=== PATIENT | male | born 1985 | race Caucasian/White ===

== ENCOUNTER 2021-08-16 00:17 | Emergency (ER) | payer SELFPAY ==
[2021-08-16 00:18] VITALS: BP 156/96; PULSE 98; RESP 20; TEMP 36.7; O2SAT 92; BMI 44.7
[2021-08-16 00:31] LABS: Bedside Glucose 271 mg/dL (70-110)
--- NOTE | 2021-08-16 00:34 | CT_ITS ---
STUDY: CT CERVICAL SPINE WITHOUT CONTRAST REASON FOR EXAM: Male, 36 years old. head injury RADIATION DOSAGE (If Supplied By Facility): CTDIvol = ( 37.43 ) mGy, DLP = ( 913.94 ) mGycm TECHNIQUE: High resolution transaxial imaging was performed without contrast material. Sagittal and coronal images were reconstructed. Individualized dose optimization techniques were used for this CT. COMPARISON: None FINDINGS: Normal craniovertebral junction. Normal anterior atlantoaxial articulation. Normal odontoid process. There is straightening of the normal cervical lordosis. Normal vertebral bodies and posterior osseous elements. C2-3: Normal endplates. Normal disc height and morphology. Normal central canal and intervertebral neuroforamina. C3-4: Normal endplates. Normal disc height and morphology. Normal central canal and intervertebral neuroforamina. C4-5: Normal endplates. Normal disc height and morphology. Normal central canal and intervertebral neuroforamina. C5-6: Normal endplates. Normal disc height and morphology. Normal central canal and intervertebral neuroforamina. C6-7: Normal endplates. Normal disc height and morphology. Normal central canal and intervertebral neuroforamina. C7-T1: Normal endplates. Normal disc height and morphology. Normal central canal and intervertebral neuroforamina. Normal visualized soft tissue structures. CT/Spine Cervical without Contras IMPRESSION: Negative unenhanced CT examination of the cervical spine for acute fracture or subluxation. Electronically Signed: Raphael Damon MD at 1:22 EST ,
--- NOTE | 2021-08-16 00:34 | CT_ITS ---
STUDY: CT BRAIN WITHOUT CONTRAST REASON FOR EXAM: Male, 36 years old. head injury RADIATION DOSAGE (If Supplied By Facility): CTDIvol = ( 44.99 ) mGy, DLP = ( 914.22 ) mGycm TECHNIQUE: Transaxial CT imaging of the brain was performed without administration of intravenous contrast material. Individualized dose optimization techniques were used for this CT. COMPARISON: No relevant priors. FINDINGS: Normal soft tissue structures. Normal calvarium. Normal size ventricles and extra-axial spaces for the patient''s age. Normal white matter tracts of the cerebral hemispheres. Normal basal ganglia and thalami. Normal brainstem. Normal cerebellum. There is no intracranial hemorrhage. There are no findings of an acute ischemic infarction. Normal visualized paranasal sinuses. CT/Brain/Head without Contrast IMPRESSION: Negative unenhanced CT scan of the brain. Electronically Signed: Raphael Damon MD at 1:18 EST ,
--- NOTE | 2021-08-16 00:50 | RAD_ITS ---
STUDY: X-RAY - LEFT ELBOW REASON FOR EXAM: Male, 36 years old. injury TECHNIQUE: 3 view(s) of the elbow. COMPARISON: None. FINDINGS: Normal visualized humerus, radius and ulna. Normal radiocapitellar and ulnotrochlear articulations. The soft tissue structures are unremarkable. RAD/Elbow min 3 Views IMPRESSION: Negative x-ray examination of the elbow. No acute fracture or dislocation. Electronically Signed: Raphael Damon MD at 1:28 EST ,
--- NOTE | 2021-08-16 00:52 | EDS_ITS ---
HPI History of Present Illness Chief Complaint: ETOH Intox Narrative Narrative: Patient is a 36-year-old male brought in by police secondary to fall as well as alcohol intoxication and exposure to the elements. Please states that the patient could not get into his apartment and was stuck outside in the cold and rain. They state that they were advising him to come down the stairs when he slipped and fell. Please report that the patient did not have any loss of consciousness but reportedly fell approximately 15 steps. The patient is intoxicated and does not offer any further history and with police concern for underlying trauma from the fall as well as exposure to the elements he was brought in for evaluation [facility] Medical History unable to obtain unable to obtain Allergy/AdvReac Type Severity Reaction Status Date / Time No Known Allergies Allergy Verified 04/10/20 15:49 Social History (Updated 07/26/20 @ 11:42 by Micheal ZURITA, PA) Smoking Status: Never smoker ROS ROS ED Review of Systems ROS Unobtainable: due to mental status EXAM Physical Exam Const Vital Signs: 08/16/21 00:18 08/16/21 00:26 08/16/21 01:11 Temperature 98.0 F 98 F Temperature Source Oral Oral Pulse Rate 98 68 Respiratory Rate 20 H 12 Respiratory Effort Normal Respiratory Pattern Normal Blood Pressure 156/96 H Blood Pressure Mean 116 Pulse Ox 92 Oxygen Delivery Method Room Air Positive well nourished, well developed and obese General Appearance ED: well developed Nutritional Appearance: obese HEENT HEENT Narrative: No signs of depressed or basilar skull fracture Eyes PERRL and EOMs intact bilaterally Eyes Narrative: Sclera is injected and he has horizontal nystagmus consistent wi th alcohol intoxication Neck Neck Narrative: No bony deformity or step-off of the cervical spine no midline pain on palpation Chest Wall palpation of chest normal Chest Narrative: No bony deformity or crepitance noted Resp normal respiratory effort and clear to auscultation bilaterally Resp Narrative: Breath sounds are diminished throughout but overall clear to auscultation with no signs of distress Cardio regular rate and regular rhythm GI normal to inspection, nondistended, normoactive bowel sounds, non-tender, non- distended and no masses GI Narrative: No overlying abrasions or ecchymosis noted no voluntary guarding or rigidity no pulsatile mass Auscultation: normoactive bowel sounds Palpation: soft Back/Spine Back/Spine Narrative: No bony deformity or step-off of the thoracic or lumbar spine no midline pain with palpation Extremity Extremity Narrative: Patient has a superficial abrasion with soft tissue swelling to the posterior aspect of his left elbow without obvious bony deformity or joint effusion. There is full active range of motion noted. The pelvis is stable without shortening or external rotation of either lower extremity. There is a superficial abrasion over top the left upper hip region. Remainder of the exam is normal Neuro Neuro Narrative: Patient is obtunded with GCS of 13. He will awake to voice and he is able to move all extremities and there is no obvious focal neurologic deficit. Psych Psych Narrative: Patient has a flat/depressed affect Skin Skin Narrative: Superficial abrasions to the left elbow and left hip as documented above without secondary infectious process noted MDM MDM MDM Narrative Medical decision making narrative: Patient presented to the ER obtunded with history and exam consistent with alcohol intoxication. He had superficial abrasions consistent with report of fall from the police chief but no signs of depressed or basilar skull fracture. However as he does have alcohol on board CTs of his head and cervical spine were obtained. These showed no clinically significant findings. I also elected to perform an x-ray of his elbow secondary to this being an area of swelling and abrasion which also showed no acute fracture. Therefore at this time the patient's alcohol is elevated at 287 and he will be kept in the emergency department until his alcohol level approaches 100 which would be approximately 10 AM or a sober responsible adult can come and accept responsibility for him. The patient did have improvement of his mental status as time went on consistent with metabolizing the alcohol. He was able to walk to and from the bathroom with a steady gait. At this time however his alcohol level still be above the legal and medically acceptable limit for disc harge also he does not have a ride yet with the inclement weather. Therefore we will continue to watch him in the ER but patient is safe for discharge based on his normal imaging results as well as improvement in mental status with time Lab Data Attestation: I reviewed the patient's lab results. Labs: Laboratory Results - last 24 hr 08/16/21 08/16/21 00:24 00:45 Ethyl Alcohol 287.0 POC Glucose 271 H Radiography Diagnostic Testing: Clinical Impression(s) from Imaging Studies Brain CT 08/16/21 00:34 IMPRESSION: Negative unenhanced CT scan of the brain. Electronically Signed: Raphael Damon MD at 1:18 EST , Cervical Spine CT 08/16/21 00:34 IMPRESSION: Negative unenhanced CT examination of the cervical spine for acute fracture or subluxation. Electronically Signed: Raphael Damon MD at 1:22 EST , Elbow X-Ray 08/16/21 00:50 IMPRESSION: Negative x-ray examination of the elbow. No acute fracture or dislocation. Electronically Signed: Raphael Damon MD at 1:28 EST , Discharge Plan Triage Chief Complaint: ETOH Intox ED Provider: Jamie Topete Dx/Rx/DC Orders Clinical Impression: Acute alcohol intoxication, Accidental fall, Multiple abrasions Instructions: ED Alcohol Intoxication, ED Head Injury (Adult) Primary Care Provider: Kaitlyn Bolanos Referrals: Kaitlyn Bolanos, [Primary Care Provider] - Disposition Disposition: Home, Self Care
[2021-08-16 01:11] VITALS: PULSE 68; RESP 12; TEMP 36.6
[2021-08-16 07:22] VITALS: RESP 14
--- NOTE | 2021-08-16 10:49 | ED.RN ---
THIS RN AND MULTIPLE STAFF WITH A CRITICAL PT FOR A SIGNIFICANT AMOUNT OF TIME. THIS RN WENT TO WAKE THE PT AND PT IS NO LONGER IN ROOM.
== END 2021-08-16 10:51 | disposition home or self-care (01) ==
PROVIDERS: Emergency Provider Emergency Medicine; PCP Internal Medicine; Visit Provider Emergency Medicine
DX: F10.129 Alcohol abuse with intoxication, unspecified (principal); S50.312A Abrasion of left elbow, initial encounter; S70.212A Abrasion, left hip, initial encounter; W10.9XXA Fall (on) (from) unspecified stairs and steps, initial encounter
CPT/HCPCS: 70450; 72125; 73080; 82077; 82962; 99283

== ENCOUNTER 2024-01-04 15:51 | Outpatient (RCR) | payer BC, SELFPAY | END 2024-01-20 23:59 | LOC: NS 15:51 | PROVIDERS: PCP Internal Medicine; Referring Provider Internal Medicine; Visit Provider Internal Medicine | DX: Z71.3 Dietary counseling and surveillance (principal); E66.9 Obesity, unspecified; Z68.41 Body mass index [BMI] 40.0-44.9, adult; E11.9 Type 2 diabetes mellitus without complications; I10 Essential (primary) hypertension; E78.5 Hyperlipidemia, unspecified | CPT/HCPCS: 97802 ==

== ENCOUNTER 2024-02-08 14:51 | Outpatient (RCR) | payer BC, SELFPAY | END 2024-02-20 23:59 | LOC: NS 14:51 | PROVIDERS: PCP Internal Medicine; Referring Provider Internal Medicine; Visit Provider Internal Medicine | DX: Z71.3 Dietary counseling and surveillance (principal); E66.9 Obesity, unspecified; Z68.41 Body mass index [BMI] 40.0-44.9, adult; E11.9 Type 2 diabetes mellitus without complications; E78.5 Hyperlipidemia, unspecified; I10 Essential (primary) hypertension | CPT/HCPCS: 97803 ==

== ENCOUNTER 2024-03-08 07:28 | Outpatient (RCR) | payer BC, SELFPAY | END 2024-03-21 23:59 | LOC: NS 07:28 | PROVIDERS: PCP Internal Medicine; Referring Provider Internal Medicine; Visit Provider Internal Medicine | DX: Z71.3 Dietary counseling and surveillance (principal); E66.9 Obesity, unspecified; Z68.42 Body mass index [BMI] 45.0-49.9, adult; I10 Essential (primary) hypertension; E78.5 Hyperlipidemia, unspecified | CPT/HCPCS: 97803 ==

== ENCOUNTER → 2024-06-07 | Outpatient (CLI) | payer OTHER, SELFPAY ==
--- NOTE | 2024-06-07 09:46 | US_ITS ---
STUDY: ABDOMINAL ULTRASOUND - RIGHT UPPER QUADRANT; ELASTOGRAPHY REASON FOR VISIT: Male, 38 years old. Fatty infiltration of the liver. TECHNIQUE: Ultrasound evaluation of the right upper quadrant was performed with real-time and static durbin-scale imaging. Point quantification shear wave elastography was performed ([employer]). TECHNICAL QUALITY: Adequate. COMPARISON: None. FINDINGS: Liver: The liver measures 16.2 cm. There is increased echogenicity consistent with fatty infiltration. The bile ducts are within normal limits. There is hepatic color flow. The direction of portal flow is hepatopetal. There is no demonstrated mass lesion. Median liver stiffness measured 10.4 kPa. Gallbladder: Normal distended gallbladder. The gallbladder wall measures 2 mm. There is a negative sonographic Boo''s sign. There is no pericholecystic fluid. There are no gallstones. There is a 3 mm x 3 mm x 3 mm gallbladder polyp adherent to the gallbladder wall. Common Bile Duct (C.B.D.): The common bile duct measures 5 mm. Pancreas: There is normal echogenicity of the visualized pancreas. There is no demonstrated pancreatic mass or cyst. Right Kidney: Normal size of the right kidney. The right kidney measures 13.4 cm x 7.7 cm x 7.4 cm. Normal renal cortex. The right cortex measures 2.6 cm. There is no demonstrated renal mass or cyst. There is no right hydronephrosis. US/Abdomen Limited IMPRESSION: 1. Liver stiffness measures 10.4 kPa compatible with F2-F3 (Mild to moderate liver fibrosis) Metavir score. 2. 3 mm x 3 mm x 3 mm gallbladder polyp. Fatty infiltration of the liver. Electronically Signed: Shane Shore MD at 15:20 EST ,
== END | disposition home or self-care (01) ==
PROVIDERS: PCP Internal Medicine; Referring Provider Internal Medicine; Visit Provider Internal Medicine
DX: K76.0 Fatty (change of) liver, not elsewhere classified (principal)
CPT/HCPCS: 76705

== ENCOUNTER → 2024-11-04 | Outpatient (CLI) | payer OTHER, SELFPAY ==
--- NOTE | 2024-11-04 12:41 | MRI_ITS ---
PROCEDURE: BRAIN W/WO CONTRAST 11/04/2024 REASON FOR EXAM: MRI BRAIN WITH T W/O CON. ATTN: PITUITARY- PITUITARY ABNORMAL TECHNIQUE: Routine brain MRI without and with intravenous contrast. Multiplanar and multisequence images were obtained. CONTRAST: Clariscan VOLUME: 27 mL Not Provided Gauge IV FINDINGS: BRAIN/PARENCHYMA: No evidence of acute infarction or acute intracranial hemorrhage. White matter demonstrates normal signal intensity.. No abnormal post-contrast enhancement. EXTRA-AXIAL SPACES: No abnormal extra-axial fluid collections. Patent basal cisterns and foramen magnum. MIDLINE SHIFT: None. VENTRICLES: No hydrocephalus. SKULL BASE: Pituitary is unremarkable. No suspicious mass or evidence of an adenoma. Optic chiasm is within normal limits. SCALP SOFT TISSUES & CALVARIUM: No significant abnormality. VISUALIZED SINUSES & MASTOIDS: No air-fluid levels in the paranasal sinuses. The mastoid air cells are clear. ARTERIAL FLOW VOIDS: Preserved major arterial flow voids indicating gross patency. MRI/Brain W/WO Contrast IMPRESSION: No acute intracranial abnormality No pituitary mass. Reading Location: [facility]
== END | disposition home or self-care (01) ==
LOC: OPMRI 12:31
PROVIDERS: PCP Internal Medicine; Referring Provider Internal Medicine; Visit Provider Internal Medicine
DX: E23.7 Disorder of pituitary gland, unspecified (principal)
CPT/HCPCS: 70553; A9575

== ENCOUNTER → 2025-01-31 | Outpatient (CLI) | payer OTHER, SELFPAY | END | disposition home or self-care (01) | LOC: LABSPEC 14:31 | PROVIDERS: PCP Internal Medicine; Referring Provider Surgery; Visit Provider Surgery | DX: Z01.818 Encounter for other preprocedural examination (principal) | CPT/HCPCS: 87081 ==

== ENCOUNTER 2025-02-09 09:40 | Day surgery (SDC) | payer OTHER, SELFPAY ==
[2025-02-09] VITALS (10 sets, daily range): BP systolic 114–138; BP diastolic 69–78; PULSE 18–98; RESP 14–16; TEMP 36.1–36.6; O2SAT 93–99; BMI 39.5
[2025-02-09] MEDS: Lactated Ringers 1,000 ML 15 ML IV (10:03)
--- NOTE | 2025-02-09 10:15 | PCM.PRE.AN2 ---
ASA Classification* ASA Classification ASA Classification: 3 Assessment & Plan Anesthesia* Anesthesia Assessment Anesthesia Assessment: Discussed sedation and/or anesthesia options, risks, benefits, and alternatives with patient/parents/legal guardian/POA. Questions invited. The patient/parents/legal guardian/POA seems to understand and agrees to proceed with anesthesia plan. Reviewed the physical assessment, medical history, allergy history and patient home medications list prior to surgery/procedure/anesthetic and documented any changes. Performed airway and anesthesia risk assessments. Anesthesia Type Anesthesia Type: General History Source History Obtained from:: Patient and Chart Anesthesia Focused Assessment* Temperature: 97.9 F Pulse Rate: 72 Blood Pressure: 138/78 Respiratory Rate: 16 Pulse Ox: 99 Airway Assessment Mouth opens: 2 cm Mallampati Score: III Teeth Condition: Intact Neck Range of motion (ROM): Full ROM Labs Anesthesia Preop lab: CBC WBC 8.8 K/mm3 (4.4-11.0) 06/23/14 13:06/23/14 RBC 5.43 M/mm3 (4.6-6.2) 06/23/14 13:06/23/14 Hgb 15.8 g/dl (13.0-16.5) 06/23/14 13:35 06/23/14 Hct 44.3 % (40-54) 06/23/14 13:06/23/14 Plt Count 234 K/mm3 (150-450) 06/23/14 13:35 06/23/14 CHEMISTRY Potassium 3.5 mmol/L (3.5-5.1) 06/23/14 13:35 06/23/14 Sodium 138 mmol/L (136-145) 06/23/14 13:35 06/23/14 BUN 6 mg/dL (7-18) L 06/23/14 13:35 06/23/14 Creatinine 0.9 mg/dL (0.8-1.3) 06/23/14:35 06/23/14 Glucose 89 mg/dL (70-110) 06/23/14 13:35 06/23/14 POC Glucose 271 mg/dL (70-110) H 08/16/21 00:24 08/16/21 TSH 1.47 uIU/mL (0.358-3.74) 06/23/14 13:35 06/23/14 COAG Pre-Assessment Diagnosis/Proposed Procedure Planned Operative Procedure(s): LAP ROBOTIC UMBILICAL HERNIA REPAIR Anesthesia History Anesthesia History - prenatal nurse: Anesthesia History - prenatal nurse Hx Hospitalization No 02/07/25 10:25 Any Problems With Anesthesia No 02/07/25 10:25 Cholinesterase deficiency No 02/07/25 10:25 You/Your Family Experience No 02/07/25 10:25 fever (hyperthermia) with Relationship Recent Exposure to Contagious No 02/09/25 09:59 Disease Does patient have nerve No 02/07/25 10:25 stimulator Patient instructed to have device shut off --Does patient have Pacemaker No 02/09/25 09:59 or ICD? When Was Last Pacemaker Check QUESTION #4 FULL TEXT: You/Your Family Experience fever (hyperthermia) with Anesthesia Last Oral Intake Last Oral intake: Last Oral Intake NPO since 08:30 02/09/25 09:59 Meds taken in AM with sips of No 02/09/25 09:59 water? Meds patient instructed to take am of surgery PONV PONV - prenatal nurse: PONV - prenatal nurse Female No 02/07/25 10:25 HX of Motion Sickness No 02/07/25 10:25 HX of N/V After Surgery No 02/07/25 10:25 Non-Smoker Yes 02/07/25 10:25 Duration of Surgery greater Yes 02/07/25 10:25 than 60 minutes Number of Risk Factors 2 02/07/25 10:25 PONV Score Moderate Risk 02/07/25 10:25 Height & Weight Height & Weight: Anesthesia: Height & Weight Height 6 ft 1 in 02/09/25 09:59 Weight: 136 kg 02/09/25 09:59 Body Mass Index (BMI) 39.5 02/09/25 09:59 Respiratory Assessment Respiratory Assessment - prenatal nurse: Respiratory Tract Infection Hx - prenatal nurse Hx Respiratory Tract Infection No 02/07/25 10:25 STOP Sleep Apnea STOP Sleep Apnea - prenatal nurse: STOP Sleep Apnea - prenatal nurse Hx Hypertension Yes: CONTROLLED WITH MED 02/07/25 10:25 Hx Sleep Apnea No 02/07/25 10:25 CPAP BIPAP Do you snore loudly (louder Yes 02/07/25 10:25 than talking or can be heard Do you often feel tired/ Yes 02/07/25 10:25 fatigued/ sleepy during daytime? Has anyone observed you stop No 02/07/25 10:25 breathing during sleep? STOP Results Positive 02/07/25 10:25 QUESTION #5 FULL TEXT : Do you snore loudly (louder than talking or can be heard through closed doors)? Tobacco Use History Tobacco Use History - prenatal nurse: Tobacco Use History - prenatal nurse Tobacco Use Smoking Status Never smoker 02/07/25 10:25 Hx Tobacco Use No 02/07/25 10:25 Years Smoking Packs Smoked per Day Smoking Cessation Date was within the last 15 years Hx Smoking Cessation Date Hx Smoking Cessation Counseling Hematologic Medial History Hematologic Hx - prenatal nurse: Hematologic Medical Hx - trial court justice Hx of Blood Transfusion No 02/07/25 10:25 Hx of Transfusion in last 3 No 02/07/25 10:25 Months Date of Last Transfusion (if within last 3 months) Ever experience any problems No 02/07/25 10:25 with transfusion(s)? Specify any problems Hx of Preganancy in last 3 N/A 02/07/25 10:25 Months Nurse Filling Out Transfusion DSCHRIBER 02/07/25 10:25 & Questions: Date: 02/07/25 02/07/25 10:25 Time: 10:27 02/07/25 10:25 Patient unable to answer at this time (ie. confused, unrespo /Reproduction History /Reproductive History - prenatal nurse: /Reproductive Hx- prenatal nurse Hx Now No 02/07/25 10:25 Gestational Age (in weeks): EDC: Hx Hx Para Hx Section SAB No 02/07/25 10:25 Active Medications Active Medications: Current Medications Generic Name Dose Route Start Last Admin Trade Name Freq PRN Reason Stop Dose Admin Cefazolin Sodium 3 gm/ Sodium 115 mls @ 200 mls/hr 02/09/25 11:15 Chloride IV 02/09/25 11:49 INTRAOP ONE Lactated Ringer's 1,000 mls @ 15 mls/hr 02/09/25 10:00 02/09/25 10:03 IV 15 mls/hr .Q48H TALIB Administration PFSH Medical History (Updated 02/07/25 @ 10:34 by Stacie Cedillo) Diabetes Fatty liver Dietary restriction Non-smoker Hypertension History of echocardiogram Umbilical hernia MDD (major depressive disorder) High triglycerides Home Medications ?Medication ?Instructions ?Recorded ?Last Taken ?Type empagliflozin 10 mg tablet 10 mg PO QDAY 06/07/24 01/17/25 History (Jardiance) losartan 100 1 tab PO QDAY 06/07/24 02/08/25 History mg-hydrochlorothiazide 25 mg tablet metformin 500 mg tablet 500 mg PO BID 06/07/24 02/08/25 History bupropion HCl 300 mg 24 hr tablet, 300 mg PO QAM #90 tabs 01/17/25 02/08/25 Rx extended release tadalafil 5 mg tablet 5 mg PO QDAY PRN sexual activity 01/31/25 01/17/25 History Allergy/AdvReac Type Severity Reaction Status Date / Time No Known Allergies Allergy Verified 02/09/25 09:58 Family History Other Cancer Diabetes Hypercholesterolemia Hypertension Mental disorder Myocardial infarction Surgical History (Updated 02/07/25 @ 10:34 by Stacie Cedillo) Hx of wisdom tooth extraction Hx of excision of mass Social History Smoking Status: Never smoker alcohol intake: former details: Last intake October 2023 substance use type: does not use Review of Systems (Anesthesia) ROS Narrative System reviewed and no additional complaints, except as documented. Physical Exam Const alert and oriented x3 Orientation / Consciousness: awake Neck full ROM Resp normal respiratory effort and normal air movement Cardio regular rate and regular rhythm
--- NOTE | 2025-02-09 11:12 | PCM.HP.BLA ---
History and Physical Date of Service: 01/31/25 MR#: [id number] Acct: [id number] Name: ANNE MARIE PERSAUD Rep #: [id number] : 1985 Provider: Dr. Roberth Robbins MD Age/Sex: 39/M Location: [facility] Status: Signed Intake Vital Signs 10/18/2506:05 01/17/2506:50 02/01/2512:50 Height 6 ft 1 in 6 ft 1 in 6 ft 1 in Weight: 311 lb 8 oz BMI 41.1 BP 169/91 H Blood Pressure Location Rt brachial Position Sitting Respiration 18 Pulse 78 Pulse Source Monitor Temp 98.5 F Temp Source Temporal Pulse Oximetry (%) 99 Oxygen Delivery Method room air Intake Visit Reasons: UMBILICAL HERNIA Chief Complaint: umbilical hernia Is patient in pain?: No Allergies No Known Allergies Allergy (Verified 01/31/25 12:51) Medications ?Medication ?Instructions ?Recorded ?Confirmed ?Type empagliflozin 10 mg tablet 10 mg PO QDAY 06/07/24 01/31/25 History (Jardiance) losartan 100 1 tab PO QDAY 06/07/24 01/31/25 History mg-hydrochlorothiazide 25 mg tablet metformin 500 mg tablet 500 mg PO BID 06/07/24 01/31/25 History bupropion HCl 300 mg 24 hr tablet, 300 mg PO QAM #90 tabs 01/17/25 01/31/25 Rx extended release tadalafil 5 mg tablet 5 mg PO QDAY 01/31/25 01/31/25 History ubidecarenone-omega 3-vit E 25 1 cap PO ONCE 01/31/25 01/31/25 History mg-150 (90-60) mg-200 unit capsule (Co D-28-Qiiubif E-Fish Oil) [facility] Medical History (Updated 01/31/25 @ 17:[address] Roberth Robbins MD) Pre-op testing Umbilical hernia MDD (major depressive disorder) Kidney stone High triglycerides Family History Other Cancer Diabetes Hypercholesterolemia Hypertension Mental disorder Myocardial infarction Social History Smoking Status: Never smoker alcohol intake: former details: Last intake October 2023 substance use type: does not use HPI HPI HPI: The patient is a 39-year-old male presenting with an umbilical hernia. He is referred from Dr. Bolanos. He initially observed an abnormality around two years ago, with pain exacerbated by activities such as coughing and straining. The pain acutely intensified one month prior, lasting up to 15 minutes, and then subsequently eased. His umbilical hernia does not appear to have increased in size significantly. The patient denies symptoms suggestive of bowel obstruction. 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 Recent discussions with his employer indicate possible light duty accommodations if necessary. The patient reports stable weight, around 310 pounds. His diabetes remains well-controlled with a recent A1c around 6. He has no previous abdominal surgical history that might affect current repair considerations. ROS General General: Yes fatigue; No weight change, appetite, colon cancer, breast cancer or weakness HEENT HEENT: No difficulty swallowing, eye injury, eye surgery, swollen glands or hoarseness Endo Endocrine: Yes diabetes mellitus; No thyroid disease, thyroid cancer, Hair loss, heat intolerance or cold intolerance Skin Skin: No rash or changing moles Musc Musculoskeletal: No back problems, arthritis, rheumatoid arthritis, gout or joint pain Cardio Cardiovascular: Yes high blood pressure; No murmur, pacemaker, heart disease, atrial fibrillation, heart attack, heart stent, palpitations, shortness of breath with exertion or chest pain Psych Psychiatric: Yes depression and anxiety; No hearing voices Resp Respiratory: No shortness of breath, No sleep apnea, No cough, No COPD, No asthma, No emphysema and No wheezing Gastro Gastrointestinal: No abdominal pain, No nausea or vomiting, No diarrhea, No constipation, No blood in stool, No acid reflux, No hemorrhoids, No ulcers, No gallbladder problem and No black,tarry stools Dinesh Hematologic: No blood thinners, No blood disorders, No bleeding, No anemia and No blood clots Neuro Neurologic: No numbness, No tingling and No weakness Exam Const General: cooperative, comfortable and no acute distress Nutritional Appearance: obese Orientation: alert, awake and oriented x3 Resp Effort & Inspection: normal respiratory effort GI Other: Obese, abdominal striae present, umbilical hernia with fat contents that are reducible back to the peritoneum via a hernia defect approximately 2 cm in diameter. There is tenderness with this palpation. Assessment and Plan Assessment and Plan (1) Umbilical hernia: Status: Acute Comment: 39-year-old male with history of Type 2 Diabetes Mellitus presenting with an umbilical hernia. The hernia demonstrates reducibility and moderate reversible pain without signs of bowel obstruction. Given patient's complaints of progressive pain he is interested in moving forward with the repair. I find this reasonable and discussed the details of the procedure (including port placement, placement of the mesh, and need for adequate mesh overlap) as well as postprocedure activity restrictions. Patient confirms understanding. I also suggests that he will be entering the busy season of his work March 22 and wishes to proceed as soon as possible. Plan: ? MRSA swab of the nares ? Outpatient robot-assisted umbilical hernia repair with mesh at first mutual availability (later identified as 02/09/2025). Orders: Orders MRSA/SAID SCREEN (PRE SURG) Today Z01.818 - Encounter for other preprocedural examination I have examined the patient and the H&P has been reviewed. There are no clinical changes since date of exam. Will review provided of procedure expectations and postprocedure activity restrictions reviewed. Patient and his deny any questions. Proceed to the operating room for robot-assisted umbilical hernia repair with mesh.
[2025-02-09] MEDS: Cefazolin 1 GM/5 ML Vial 3 GM IV (11:33)
[2025-02-09] MEDS: dexMEDEtomidine 200 MCG/2 ML ML 139.75 MCG IV (11:40)
[2025-02-09] MEDS: Lidocaine 1% (5 ml sdv) 5 ML Vial IV (11:46)
[2025-02-09] MEDS: BUPIVACAINE LIPOSOME/PF 20 ML VIAL OPERA.SITE (12:20)
[2025-02-09] MEDS: 0.9% Normal Saline (Pres. free 10 ML Vial (12:20)
--- NOTE | 2025-02-09 14:15 | OP.PCM_ITS ---
Procedures Digestive 40xxx-49xxx: 65547 RPR AA HRN 1ST < 3 CM [facility] Operative Report (Standard) Operative Information Date of Procedure: 02/09/25 Pre-Operative Diagnosis: Umbilical hernia Post-Operative Diagnosis: Fat incarcerated umbilical hernia Surgery/Procedure Performed: Robot-assisted transabdominal preperitoneal umbilical hernia repair with mesh placement cover mat machine operator: Yes Process Control Operator: Hiral Portillo Tasks completed by cutting table operator first: Opening & closing Type of Anesthesia: General/Supplemental RN Documented Start/Stop Times: Operation Date: 02/09/25 11:15 Case Time Into Pre-Op 02/09/25 09:48 Out of Pre-Op 02/09/25 11:30 Anesthesia Start 02/09/25 11:33 Into Room 02/09/25 11:33 Procedure Start 02/09/25 12:08 Procedure End 02/09/25 14:35 Anesthesia End 02/09/25 14:37 Out of Room 02/09/25 14:37 Into Recovery 02/09/25 14:38 Into Phase II Recovery 02/09/25 15:12 Out of Recovery 02/09/25 15:12 Out of Phase II 02/09/25 17:03 Procedure Start Time: 12:08 Procedure Stop Time: 14:35 Select all DRAINS/GRAFTS/IMPLANTS that apply: Implanted device (ProGrip mesh) Implanted device details: Reference [id number], lot [id number] Estimated Blood Loss: 10 Specimen collected: No Description of surgery: After appropriate identification in the preoperative holding area, the patient was brought to the operating room suite where he was positioned supine the operating table. Preoperative antibiotics were administered. Patient was then induced with a general anesthetic. Patient's abdomen was prepped and draped in the usual sterile fashion. A formal timeout followed to confirm patient and procedure. Procedure was begun with a Veress entry at Negrete's point. Once the set point pressure was reached, this Veress needle was exchanged for an optical trocar and an optical entry was made in this location. Laparoscopic investigation revealed no inadvertent injury to the viscera below. 2 additional 8 mm robotic trocars were placed along the abdominal wall laterally taking care to avoid the bony prominences of the costal margin and the ASIS. A transversus abdominis plane block was created with 60 mL of bupivacaine with 20 mL of injectable saline and 20 mL of Exparel (total volume 70 mL used for the case) under laparoscopic vision as these ports were placed. The robot was then brought in and docked in standard fashion. Robotically a peritoneal flap was raised approximately 2 cm medial from my trocars and carried this away towards the contralateral abdominal wall. Great care was taken to lower the peritoneum off of the posterior rectus sheath and avoid any rents in the peritoneal flap. Perforating vessels were sealed with bipolar energy to maintain hemostasis as this flap dissection proceeded. I then addressed the hernia directly by opening the scar tissue about the hernia sac and carefully applying manual traction downward until the hernia was fully reduced. In the process of reducing this hernia I encountered a second smaller hernia with a fat plug adjacent to the primary defect. The flap was then further dissected laterally until it appeared we had adequate width. The hernia defect was closed with a #1 stratafix suture by running the fascial defect closed and then running the suture back upon itself. Next a 10 x 15 ProGrip mesh was cut down to a 10 x 14 cm mesh and was introduced into the peritoneum with 3-0 Vicryl suture to tack the mesh in 4 quadrants. Lastly the peritoneum was closed with 2x3-0 Vicryl V-Loc sutures in a bidirectional fashion overlapping in the middle. A single peritoneal rent was closed with a interrupted 4-0 Vicryl suture on the contralateral aspect of the surgical field. Then needles and a inserted ruler were all removed under laparoscopic visualization and case counts were confirmed. The robot was then undocked and the trocars were removed. Additional local anesthetic was instilled and the port sites were closed with interrupted 4-0 Monocryl in subcuticular fashion. Steri-Strips and OpSite dressings were applied. Patient was transferred to PACU for ongoing care. Surgical Findings: ? 1.75 x 1.5 cm primary fascial defect with incarcerated fat as well as adjacent subcentimeter defect containing fat plug Complications Complications: No Admit VTE Documentation VTE Mechan Device Prophylaxis: SCD's
--- NOTE | 2025-02-09 14:18 | DCINST_ITS ---
Discharge Instructions Diet Discharge Diet: No restrictions Activity Discharge Activity: May Not Drive (While taking narcotic pain medication) and May Shower May shower in (days): 2 Ice area for (Minutes): 20 Lifting Restrictions: No lifting greater than 10 pounds for the next 5 weeks Dressing / Incision Call your doctor if your incision/area has: Continuous Slow Oozing, Increased Pain/ Swelling, Increased Redness, Foul Smelling Discharge and Swelling at the incision site Call your doctor if you observe: Fever of 101 or Higher, Inability to urinate and Inability to have a bowel movement Change Dressing in: 2 days (Please leave Steri-Strips intact until they fall off spontaneously or are taken off at your follow-up visit) Remove Dressing in: 2 days Cleanse incision/area with: Soap & Water and Keep Dressing Clean & Dry Follow Up Care Please Follow Up With: Roberth Robbins MD When: 10 to 14 days postop Test Results: Test results from this visit will be discussed in further detail at your follow- up appointment, if applicable. Discharge Plan Admission Primary Reason for Your Visit: Umbilical hernia repair Attending Provider: Roberth Robbins Primary Care Provider: Kaitlyn Bolanos Instructions Print Language: Italian Discharge Orders/Prescriptions Prescriptions: New oxycodone 5 mg tablet 5 mg PO Q6H PRN (Reason: pain) 3 Days Qty: 10 0RF Continued losartan-hydrochlorothiazide 100-25 mg tablet 1 tab PO QDAY metformin 500 mg tablet 500 mg PO BID Jardiance 10 mg tablet 10 mg PO QDAY bupropion HCl 300 mg tablet extended release 24 hr 300 mg PO QAM Qty: 90 1RF tadalafil 5 mg tablet 5 mg PO QDAY PRN (Reason: sexual activity) Referrals / Follow Up: Kaitlyn Bolanos DO [Primary Care Provider] - Disposition Disposition (needs filled in before D/C Order can be placed): Home, Self Care
[2025-02-09] MEDS: fentaNYL 100 MCG/2 ML Ampul 200 MCG IV (14:23)
--- NOTE | 2025-02-09 14:42 | PCM.POST.ANE ---
Anesthesia: Postop Eval I Current Vital Signs Temperature: 96.9 F Pulse Rate: 93 Blood Pressure: 126/70 Respiratory Rate: 16 Pulse Ox: 96 Oxygen Delivery Method: Room Air Assessment Airway patent: Yes Spontaneous unlabored respirations: Yes Mental status: Awake and Calm nausea: No Vomiting: No Anesthesia Complication: No Fluid Hydration Crystalloid volume administer (ml): 900 Total IV fluid infused: 900 Progress Note Anesthesia document: Postop Eval 1 completed: Yes
--- NOTE | 2025-02-09 15:26 | POSTOPAN2_ITS ---
Anesthesia Postop Eval I Sum Postop Eval Completion status Anesthesia document: Postop Eval 1 completed: Yes Anesthesia Postop Eval I Summary Anesthesia Postop Eval I Summary: Anesthesia Postop Eval I: Assessment Summary Airway patent Yes 02/09/25 14:42 CERAMIC MAKER [email or web address] Spontaneous unlabored Yes 02/09/25 14:42 CERAMIC MAKER [email or web address].[email or web address] respirations Mental status Awake,Calm 02/09/25 14:42 CERAMIC MAKER DEMONSTRATOR.[email or web address] nausea No 02/09/25 14:42 CERAMIC MAKER DEMONSTRATOR.[email or web address] Vomiting No 02/09/25 14:42 CERAMIC MAKER DEMONSTRATOR.[email or web address] Anesthesia Postop Eval I: Fluid Summary Crystalloid volume administer 900 02/09/25 14:42 CERAMIC MAKER [email or web address].GDOTT (ml) Colloids volume administered ( ml) Blood Product volume administered (ml) Total IV fluid infused 900 02/09/25 14:42 CERAMIC MAKER DEMONSTRATOR.[email or web address] Anesthesia Postop Eval I: Summary Notes Anesthesia Complication No 02/09/25 14:42 CERAMIC MAKER DEMONSTRATOR.[email or web address] Anesthesia Complication Comment: Post-operative progress note Anesthesia: Postop Eval II Evaluation Mental status: Awake Pain Level: 0 nausea: No Vomiting: No Complications Anesthesia Complication: No
--- NOTE | 2025-02-09 15:26 | PCM.POSTANE2 ---
Anesthesia Postop Eval I Sum Postop Eval Completion status Anesthesia document: Postop Eval 1 completed: Yes Anesthesia Postop Eval I Summary Anesthesia Postop Eval I Summary: Anesthesia Postop Eval I: Assessment Summary Airway patent Yes 02/09/25 14:42 SUPERVISORY [email or web address] Spontaneous unlabored Yes 02/09/25 14:42 SUPERVISORY [email or web address].[email or web address] respirations Mental status Awake,Calm 02/09/25 14:42 SUPERVISORY [email or web address] nausea No 02/09/25 14:42 SUPERVISORY [email or web address].[email or web address] Vomiting No 02/09/25 14:42 SUPERVISORY [email or web address].[email or web address] Anesthesia Postop Eval I: Fluid Summary Crystalloid volume administer 900 02/09/25 14:42 SUPERVISORY [email or web address] (ml) Colloids volume administered ( ml) Blood Product volume administered (ml) Total IV fluid infused 900 02/09/25 14:42 SUPERVISORY [email or web address].[email or web address] Anesthesia Postop Eval I: Summary Notes Anesthesia Complication No 02/09/25 14:42 SUPERVISORY [email or web address].[email or web address] Anesthesia Complication Comment: Post-operative progress note Anesthesia: Postop Eval II Evaluation Mental status: Awake Pain Level: 0 nausea: No Vomiting: No Complications Anesthesia Complication: No
== END 2025-02-09 17:03 | disposition home or self-care (01) ==
LOC: SDC 09:47 → AC 09:48
PROVIDERS: PCP Internal Medicine; Referring Provider Surgery; Visit Provider Surgery
PROC: (CPT 49591; principal; 2025-02-09 10:55)
DX: K42.0 Umbilical hernia with obstruction, without gangrene (principal); E11.9 Type 2 diabetes mellitus without complications; Z79.84 Long term (current) use of oral hypoglycemic drugs; E66.9 Obesity, unspecified; Z87.442 Personal history of urinary calculi; F32.A Depression, unspecified
CPT/HCPCS: 49591; 00830; 82962; C1781; J0666; J2405

== ENCOUNTER → 2025-04-18 | Outpatient (CLI) | payer OTHER, SELFPAY | END | disposition home or self-care (01) | LOC: SL 12:03 | PROVIDERS: PCP Internal Medicine; Referring Provider Internal Medicine; Visit Provider Internal Medicine | DX: G47.9 Sleep disorder, unspecified (principal); I27.20 Pulmonary hypertension, unspecified; R53.83 Other fatigue; I10 Essential (primary) hypertension; E66.9 Obesity, unspecified | CPT/HCPCS: 95806 ==

== ENCOUNTER → 2025-05-26 | Outpatient (CLI) | payer BC, SELFPAY ==
--- OUTSIDE RECORDS SUMMARY | 2025-05-26 20:03 | XMS RPT_ITS | CCD ---
Author Organization [facility] Care Team Providers Care Still Cleaner Name Role Phone Fast, Cassandra A Unavailable Rashawn Galindo Unavailable Manchak, Valencia Unavailable Unavailable Kalpesh Brady Unavailable Unavailable Sparkle Jacques Unavailable Unavailable Unavailable Unavailable Fast, Cassandra A Unavailable Rashawn Galindo Unavailable Kalpesh Brady Unavailable Unavailable Manchak, Valencia Unavailable Unavailable Sparkle Jacques Unavailable Unavailable Unavailable Unavailable Rashawn Galindo Unavailable Manchak, Valencia Unavailable Unavailable Ruth Gardner Unavailable Unavailable Fast DO, Cassandra A Unavailable Rashawn Galindo Unavailable Slarb HANDYMAN, Kelli Unavailable Unavailable Manchak SPRING UPHOLSTERER, Valencia Unavailable Unavailable Sparkle Jacques Unavailable Unavailable Unavailable Unavailable Fast DO, Cassandra A Unavailable Fast DO, Cassandra A Attending Unavailable Fast DO, Cassandra A Referring Unavailable Fast DO, Cassandra A Consulting Unavailable Generic Provider MD, No Assigned Pcp Primary Car e Provider Unavailable FAST, CASSANDRA A Referring Unavailable GENERIC PROVIDER, NO ASSIGNED PCP Primary Care Unavailable FAST, CASSANDRA DO Attending Unavailable FAST, CASSANDRA DO Primary Care Unavailable FAST, CASSANDRA DO Admitting Unavailable Micheal Ontiveros Attending Unavailable Fast, Cassandra Primary Care Unavailable Fast, Cassandra Referring Unavailable Fast, Cassandra Primary Care Unavailable Roberth Robbins Attending Unavailable Roberth Robbins Referring Unavailable Fast, Cassandra Primary Care Unavailable Fast, Cassandra Attending Unavailable Fast, Cassandra Referring Unavailable Fast, Cassandra Primary Care Unavailable Fast, Cassandra Attending Unavailable Fast, Cassandra Referring Unavailable Fast, Cassandra Primary Care Unavailable Fast, Cassandra Attending Unavailable Fast, Cassandra Referring Unavailable Fast, Cassandra Primary Care Unavailable Itzel, Roberth Attending Unavailable Bortz, Roberth Referring Unavailable SeeseMicheal Attending Unavailable Fast, Cassandra Primary Care Unavailable Fast, Cassandra Referring Unavailable SeeseMicheal Attending Unavailable Fast, Cassandra Primary Care Unavailable Fast, Cassandra Referring Unavailable Fast, Cassandra Primary Care Unavailable Bormayra, Roberth Attending Unavailable Fast, Cassandra Referring Unavailable Fast, Cassandra Primary Care Unavailable Bortz, Roberth Attending Unavailable Bortz, Roberth Referring Unavailable Bortz, Roberth Consulting Unavailable Fast, Cassandra Primary Care Unavailable Libby Light Attending Unavailable Fast, Cassandra Referring Unavailable Fast, Cassandra Primary Care Unavailable SeeMicheal crespo Attending Unavailable Fast, Cassandra Referring Unavailable Seese, Micheal Juares Attending Unavailable Fast, Cassandra Primary Care Unavailable Allergies Allergy Classification Reported Allergen(s) Allergy Type Date of Onset Reaction(s) Facility (1 source) ALLERGIES NOT ON FILE; Translations: [ALLERGIES NOT ON FILE] Propensity to adverse reactions (disorder) [facility], [place] 2 Repository Medications Completed/Discontinued Medications Medication Drug Class(es) Dates Sig (Normalized) Sig (Original) amoxicillin 875 mg / clavulanate 125 mg oral tablet (20 sources) Penicillin-class Antibacterial Start: 01-09-2017 End: 05-25-2017 take 1 tablet by mouth twice daily Amoxicillin-Pot Clavulanate 875-125 MG Oral Tablet 1 (one) Tablet bid for 0 days Quantity: 20 {Tablet} Refills: 0 Ordered: 25-May-2017 Sparkle Jacques Start : 09-Jan-2017 End : 25-May-2017 Discontinued cholecalciferol 0.125 mg oral capsule (20 sources) Vitamin D Start: 02-26-2018 End: 04-17-2020 take 1 capsule by mouth once daily Vitamin D3 125 MCG (5000 UT) Oral Capsule 1 (one) Capsule qd for 0 days Quantity: 30 {Capsule} Refills: 3 Ordered: 17-Apr-2020 Ruth Gardner LPN Start : 26-Feb-2018 End : 17-Apr-2020 Inactive citalopram 20 mg oral tablet (20 sources) Serotonin Reuptake Inhibitor Start: 03-14-2018 End: 07-14-2018 take 1 tablet by mouth once daily Citalopram Hydrobromide 20 MG Oral Tablet 1 (one) Tablet qd for 0 days Quantity: 30 {Tablet} Refills: 3 Ordered: 14-Jul-2018 Valencia Owen CMA Start : 14-Mar-2018 End : 14-Jul-2018 Inactive diphenhydrAMINE hydrochloride 25 mg oral tablet (20 sources) Histamine-1 Receptor Antagonist End: 10-29-2015 take 1 tablet by mouth once at bedtime BENADRYL ALLERGY, 25MG (Oral Tablet) 1 tab q hs (25 MG) End : 29-Oct-2015 Discontinued DULoxetine 30 mg delayed release oral capsule (20 sources) Serotonin and Norepinephrine Reuptake Inhibitor Start: 09-24-2016 End: 09-24-2016 take 5 capsules by mouth once daily DULoxetine HCl 30 MG Oral Capsule Delayed Release Particles 1 (one) Capsule DR Part qd for 0 days Quantity: 30 {Capsule} Refills: 3 Ordered: 24-Sep-2016 Fast DO, Cassandra A Fast DO, Cassandra A Start : 24-Sep-2016 End : 24-Sep-2016 Discontinued Start: 09-24-2016 End: 09-24-2016 take 1 capsule by mouth once daily DULoxetine HCl 30 MG Oral Capsule Delayed Release Particles 1 (one) Capsule DR Part qd for 0 days Quantity: 30 {Capsule} Refills: 3 Ordered: 24-Sep-2016 Fast DO, Cassandra A Fast DO, Cassandra A Start : 24-Sep-2016 End : 24-Sep-2016 Discontinued hydroCHLOROthiazide 25 mg / losartan potassium 100 mg oral tablet (20 sources) Thiazide Diuretic, Angiotensin 2 Receptor Keisha Start: 12-06-2021 take 1 tablet by mouth once daily Losartan Potassium-HCTZ 100-25 MG Oral Tablet 1 (one) Tablet qd for 90 days Quantity: 90 {Tablet} Refills: 3 Ordered: 06-Dec-2021 Fast DO, Cassandra A Fast DO, Cassandra A Start : 06-Dec-2021 Active Start: 04-10-2021 take 1 tablet by bora th once daily Losartan Potassium-HCTZ 100-12.5 MG Oral Tablet 1 (one) Tablet qd for 0 days Quantity: 90 {Tablet} Refills: 3 Ordered: 10-Apr-2021 Fast DO, Cassandra A Fast DO, Cassandra A Start : 10-Apr-2021 Active Start: 10-08-2020 take 1 tablet by bora th once daily Losartan Potassium-HCTZ 100-12.5 MG Oral Tablet 1 (one) Tablet qd for 0 days Quantity: 30 {Tablet} Refills: 4 Ordered: 08-Oct-2020 Fast DO, Cassandra A Fast DO, Cassandra A Start : 08-Oct-2020 Active Start: 04-17-2020 take 1 tablet by bora th once daily Losartan Potassium-HCTZ 100-12.5 MG Oral Tablet 1 (one) Tablet qd for 0 days Quantity: 30 {Tablet} Refills: 4 Ordered: 17-Apr-2020 Fast DO, Cassandra A Fast DO, Cassandra A Start : 17-Apr-2020 Active Start: 07-14-2018 take 1 tablet by bora th once daily Losartan Potassium-HCTZ 100-12.5 MG Oral Tablet 1 (one) Tablet Tablet qd for 0 days Quantity: 30 {Tablet} Refills: 3 Ordered: 14-Jul-2018 Valencia Owen Start : 14-Jul-2018 Active lamoTRIgine 100 mg oral tablet (2 sources) Mood Stabilizer, Anti-epileptic Agent Start: 03-10-2022 take 1 tablet by mouth once daily lamoTRIgine 100 MG Oral Tablet 1 (one) Tablet qd for 0 days Quantity: 30 {Tablet} Refills: 3 Ordered: 10-Mar-2022 Fast DO, Cassandra A Fast DO, Cassandra A Start : 10-Mar-2022 Active take 1 mg by mouth once daily la moTRIgine 25 MG Oral Tablet qd (25 MG) Active linagliptin 5 mg oral tablet (13 sources) Dipeptidyl Peptidase 4 Inhibitor Start: 05-08-2020 End: 07-10-2020 take 1 tablet by mouth once daily Tradjenta 5 MG Oral Tablet 1 (one) Tablet qd for 0 days Quantity: 30 {Tablet} Refills: 3 Ordered: 10-Jul-2020 Slarb HANDYMANKelli Start : 08-May-2020 End : 10-Jul-2020 Inactive losartan potassium 100 mg oral tablet (20 sources) Angiotensin 2 Receptor Keisha Start: 04-09-2018 End: 09-13-2018 take 1 tablet by mouth once daily Losartan Potassium 100 MG Oral Tablet 1 (one) Tablet qd for 30 days Quantity: 30 {Tablet} Refills: 3 Ordered: 13-Sep-2018 Fast DO, Cassandra A Fast DO, Cassandra A Start : 09-Apr-2018 End : 13-Sep-2018 Inactive melatonin 10 mg oral tablet (20 sources) End: 10-29-2015 take 1 tablet by mouth once at bedtime MELATONIN, 10MG (Oral Tablet) 1 tab q hs (10 MG) End : 29-Oct-2015 Discontinued metFORMIN hydrochloride 500 mg oral tablet (2 sources) Biguanide Start: 12-06-2021 take 1 tablet by mouth twice daily metFORMIN HCl 500 MG Oral Tablet 1 (one) Tablet bid for 90 days Quantity: 180 {Tablet} Refills: 3 Ordered: 06-Dec-2021 Jonhboyd Valencia MOSS Start : 06-Dec-2021 Active omeprazole 20 mg delayed release oral capsule (20 sources) Proton Pump Inhibitor Start: 09-13-2018 End: 04-17-2020 take 1 capsule by mouth once daily Omeprazole 20 MG Oral Capsule Delayed Release 1 (one) Capsule DR qd for 0 days Quantity: 30 {Capsule} Refills: 3 Ordered: 17-Apr-2020 Ruth Gardner LPN Start : 13-Sep-2018 End : 17-Apr-2020 Inactive Start: 01-09-2017 End: 05-25-2017 take 1 capsule by mouth once daily Omeprazole 20 MG Oral Capsule Delayed Release 1 (one) Capsule DR qd for 0 days Quantity: 30 {Capsule} Refills: 3 Ordered: 25-May-2017 Sparkle Jacques Start : 09-Jan-2017 End : 25-May-2017 Discontinued sertraline 50 mg oral tablet (19 sources) Serotonin Reuptake Inhibitor Start: 10-08-2020 End: 01-07-2021 take 1 tablet by mouth once daily Sertraline HCl 50 MG Oral Tablet 1 (one) Tablet qd for 0 days Quantity: 30 {Tablet} Refills: 3 Ordered: 07-Jan-2021 Jonhboyd Valencia MOSS Start : 08-Oct-2020 End : 07-Jan-2021 Inactive Start: 05-08-2020 take 1 tablet by bora th once daily Sertraline HCl 50 MG Oral Tablet 1 (one) Tablet qd for 0 days Quantity: 30 {Tablet} Refills: 3 Ordered: 08-May-2020 Fast DO, Cassandra A Fast DO, Cassandra A Start : 08-May-2020 Active Start: 04-17-2020 take 0.5 tablet by m outh once daily, then take 1 tablet by mouth Sertraline HCl 50 MG Oral Tablet 1/2 Tablet qd for 2 weeks then go to a whole pill for 0 days Quantity: 30 {Tablet} Refills: 3 Ordered: 17-Apr-2020 Fast DO, Cassandra A Fast DO, Cassandra A Start : 17-Apr-2020 Active Start: 09-13-2018 take 1 tablet by bora th once daily Sertraline HCl 50 MG Oral Tablet 1 (one) Tablet qd for 0 days Quantity: 30 {Tablet} Refills: 3 Ordered: 13-Sep-2018 Fast DO, Cassandra A Fast DO, Cassandra A Start : 13-Sep-2018 Active SITagliptin 100 mg oral tablet (17 sources) Dipeptidyl Peptidase 4 Inhibitor Start: 04-10-2021 End: 08-21-2021 take 1 tablet by mouth once daily Januvia 100 MG Oral Tablet 1 (one) Tablet qd for 0 days Quantity: 90 {Tablet} Refills: 3 Ordered: 21-Aug-2021 Lexie SPRING UPHOLSTERERValencia Start : 10-Apr-2021 End : 21-Aug-2021 Inactive Start: 05-08-2020 End: 05-08-2020 take 1 tablet by mouth once daily Januvia 100 MG Oral Tablet 1 (one) Tablet qd for 0 days Quantity: 30 {Tablet} Refills: 3 Ordered: 08-May-2020 Fast DO, Cassandra A Fast DO, Cassandra A Start : 08-May-2020 End : 08-May-2020 Discontinued Start: 04-17-2020 take 1 tablet by bora th once daily Januvia 100 MG Oral Tablet 1 (one) Tablet qd for 0 days Quantity: 30 {Tablet} Refills: 3 Ordered: 17-Apr-2020 Fast DO, Cassandra A Fast DO, Cassandra A Start : 17-Apr-2020 Active 24 hr venlafaxine 75 mg extended release oral tablet (20 sources) Serotonin and Norepinephrine Reuptake Inhibitor Start: 09-13-2018 End: 04-17-2020 take 1 tablet by mouth once daily Venlafaxine HCl ER 75 MG Oral Tablet Extended Release 24 Hour 1 (one) Tablet qd for 0 days Quantity: 30 {Tablet} Refills: 3 Ordered: 17-Apr-2020 Ruth Gardner LPN Start : 13-Sep-2018 End : 17-Apr-2020 Inactive Start: 07-14-2018 End: 07-14-2018 Venlafaxine HCl 75 MG Oral T ablet 2 (two) Tablet qd for 0 days Quantity: 30 {Tablet} Refills: 4 Ordered: 14-Jul-2018 Fast DO, Cassandra A Fast DO, Cassandra A Start : 14-Jul-2018 End : 14-Jul-2018 Discontinued Comments: take after finishing the 37.5mg Start: 07-14-2018 take 1 tablet by [facility] once daily Venlafaxine HCl ER 150 MG Oral Tablet Extended Release 24 Hour 1 (one) Tablet qd for 0 days Quantity: 30 {Tablet} Refills: 3 Ordered: 14-Jul-2018 Fast DO, Cassandra A Fast DO, Cassandra A Start : 14-Jul-2018 Active Start: 06-25-2018 End: 07-09-2018 take 1 capsule by mouth once daily, then take 2 capsules by mouth once daily Venlafaxine HCl ER 37.5 MG Oral Capsule Extended Release 24 Hour 1 (one) Capsule qd for 14 days Quantity: 14 {Capsule} Refills: 0 Ordered: 25-Jun-2018 Fast DO, Cassandra A Fast DO, Cassandra A Start : 25-Jun-2018 End : 09-Jul-2018 Inactive Comments: take 37.5mg qd x 2 weeks then increase to 75mg qd Start: 06-11-2018 take 1 capsule by [facility] every twenty-four hours Venlafaxine HCl ER 37.5 MG Oral Capsule Extended Release 24 Hour 2 (two) Capsule pills for 0 days Quantity: 60 {Capsule} Refills: 3 Ordered: 11-Jun-2018 Fast DO, Cassandra A Fast DO, Cassandra A Start : 11-Jun-2018 Active Comment on above: take after finishing the 37.5mg take 37.5mg qd x 2 w eeks then increase to 75mg qd vilazodone hydrochloride 20 mg oral tablet (20 sources) Start: 05-25-2017 End: 02-26-2018 take 1 tablet by mouth once daily Viibryd 20 MG Oral Tablet 1 (one) Tablet qd for 0 days Quantity: 30 {Tablet} Refills: 3 Ordered: 26-Feb-2018 Valencia Owen CMA Start : 25-May-2017 End : 26-Feb-2018 Inactive Start: 09-24-2016 End: 10-31-2016 Viibryd Starter Pack 10 & 20 MG Oral Kit 1 (one) Kit qd for 0 days Quantity: 30 Kit Refills: 0 Ordered: 31-Oct-2016 Start : 24-Sep-2016 End : 31-Oct-2016 Inactive NEGATED: Highlighted row has not occurred!drug or medication (14 sources) No Known Histori frank Medications NEGATED: Highlighted row has not occurred!No Known Historical Medications (8 sources) No Known Histori frank Medications Problems Active Problems Problem Classification Problem Date Documented Da te Episodic/Chronic Abdominal hernia (1 source) Umbilical hernia with obstruction, without gangrene; Translations: [Umbilical hernia with obstruction, without gangrene] Onset: 5 Episodic Anxiety disorders (20 sources) Mixed anxiety and depressive disorder; Translations: [Anxiety] Resolved: 2 06-11-2018 Chronic Comment on above: improving he will ge t self help books- cant afford counseling right now- he may need 40 mg he will see how doing in next 2 weeks take venlafexaine to 75 and add zoloft gave him contact inf o for Dr Maegan Farrell encourage continue o n meds he is encouraged to call pscychiatrist back for followup appt encourage make appt with psychiatirst and psychologist - they will not let us make appt may be bipolar disor michael they are giving mood stabil;zer Cardiac dysrhythmias (8 sources) Sinus tachycardia; Translations: [Sinus tachycardia] 05-08-2020 Chronic Comment on above: did ekg(no charge) e kg showed normal sinus tachy, left axis, no acute st/t wave changes-nonspecific widening and fascicular block Cardiac dysrhythmias (20 sources) Sinus tachycardia; Translations: [Sinus tachycardia] Resolved: 1 07-10-2020 Episodic Diabetes mellitus with complications (20 sources) Type II diabetes mellitus uncontrolled; Translations: [Type II diabetes mellitus, uncontrolled] 04-17-2020 Chronic Comment on above: discussed diet and e x doing great on weigh t loss encourage keep working on diet and ex he has lost a good a mount of wieght and continue working on diet and ex discussed diet exerc ise and has to try to minimize alcohol he doesnt want to ad d med - so discussed diet and ex in detail - needs to just move to start discussed weight los s and exercise /diet get labs keep workin g on decreasing carbs and more exercise- weight loss= get labs Diabetes mellitus without complication (20 sources) High hemoglobin A1c level; Translations: [Type 2 diabetes mellitus] 06-11-2018 Chronic Comment on above: weight loss and exer cise better--discussed co mpliance with meds diet and ex Diabetes mellitus without complication (20 sources) Prediabetes; Translations: [High hemoglobin A1c level] Resolved: 2 02-11-2018 Episodic Comment on above: weight loss and exer cise get back on diet and ex Diabetes mellitus without complication (9 sources) Prediabetes; Translations: [Diabetes mellitus without complication] Resolved: 8 02-11-2018 Disorders of lipid metabolism (20 sources) Hyperlipidemia; Translations: [Other hyperlipidemia] Onset: 5 06-11-2018 Chronic Comment on above: diet and ex test chol next visit - work on decreasing animal fats andmore exercise he self pay for shor t term holding off on monitoring due to cost not fasting Esophageal disorders (20 sources) Gastro-esophageal reflux disease without esophagitis; Translations: [Gastroesophageal reflux disease without esophagitis] 02-26-2018 Chronic Comment on above: chronic stable-camila nue present regimen work on lowering int jordan alcohol and weight loss no gerd - monitor not haivng at this p oint Esophageal disorders (20 sources) Esophageal disorders Essential hypertension (20 sources) Benign essential hypertension; Translations: [Essential hypertension] Resolved: 8 02-11-2018 Chronic Comment on above: we are working on ge tting him back on diet and ex so dont have to add additional med chronic stable-camila nue present regimen improving check labs before adjust meds we discussed cutting back on salt and diet and ex restart meds bp high he doesnt wa nt to add more meds he is taking the med and so discussed salt restriction diet and ex- weight loss- bp check 2 weeks bp high discussed we ight loss exercise salt restriction - will see what labs look like will need to adjust meds based on labs improving- continue working on salt restriction- weight loss exercise Essential hypertension (20 sources) Essential hypertension Hemorrhoids (20 sources) Hemorrhoids; Translations: [Hemorrhoids] 06-11-2018 Episodic Immunizations and screening for infectious disease (20 sources) Need for prophylactic vaccination and inoculation against influenza; Translations: [Needs influenza immunization] Resolved: 8 05-25-2017 Episodic Influenza (20 sources) Influenza Mood disorders (20 sources) Seasonal affective disorder; Translations: [Seasonal affective disorder] Onset: 5 04-09-2018 Chronic Mood disorders (20 sources) Mood disorders Nutritional deficiencies (20 sources) Vitamin D deficiency; Translations: [Vitamin D deficiency] 06-11-2018 Chronic Comment on above: take vitamin d daily he is taking vit d Other aftercare (1 source) Encounter for follow-up examination after completed treatment for conditions other than malignant neoplasm; Translations: [Encounter for follow-up examination after completed treatment for conditions other than malignant neoplasm] Onset: 5 Episodic Other endocrine disorders (20 sources) Male hypogonadism; Translations: [Hypogonadism in male] 04-09-2018 Chronic Other endocrine disorders (1 source) Disorder of pituitary gland, unspecified; Translations: [Disorder of pituitary gland, unspecified] Onset: 5 Chronic Other gastrointestinal disorders (20 sources) Diarrhea; Translations: [Diarrhea] Resolved: 8 02-11-2018 Episodic Comment on above: better Other liver diseases (20 sources) Fatty liver; Translations: [Steatosis of liver] 06-11-2018 Chronic Comment on above: he knows he has to i mprove his weight and alcohol use chol and sugar so that he doesnt progres to cirrhosis risk factor modifica tion risk factor modifica iton- weight loss decrease alcohol chol sugar fatty foods risk factor modifica tion- not doing followup due to lack of insurance will need followup w ith new doc Other liver diseases (1 source) Fatty (change of) liver, not elsewhere classified; Translations: [Fatty (change of) liver, not elsewhere classified] Onset: 5 Chronic Other liver diseases (20 sources) Abnormal levels of other serum enzymes; Translations: [Elevated liver enzymes level] 04-09-2018 Episodic Other lower respiratory disease (20 sources) Dyspnea; Translations: [Dyspnea] Resolved: 8 02-11-2018 Episodic Comment on above: if doesnt improve wi th improve with bp improvement then willneed more workup Other male genital disorders (20 sources) Impotence; Translations: [Impotence of organic origin] 04-09-2018 Chronic Other nutritional; endocrine; and metabolic disorders (20 sources) Body mass index 40+ - severely obese; Translations: [BMI 40.0-44.9, adult] 06-11-2018 Chronic Other nutritional; endocrine; and metabolic disorders (20 sources) Body mass index 30+ - obesity; Translations: [BMI 39.0-39.9,adult] Resolved: 1 06-11-2018 Chronic Other screening for suspected conditions (not mental disorders or infectious disease) (20 sources) Electrocardiogram abnormal; Translations: [C-reactive protein abnormal] Resolved: 8 04-09-2018 Episodic Other upper respiratory disease (20 sources) Allergic rhinitis; Translations: [Allergic rhinitis] 06-11-2018 Chronic Other upper respiratory infections (20 sources) Acute sinusitis; Translations: [Acute sinusitis] Resolved: 8 02-11-2018 Episodic Residual codes; unclassified (20 sources) Sleep disorder; Translations: [Sleep disorder] 04-09-2018 Episodic Comment on above: exercise and control mood Residual codes; unclassified (20 sources) Needs influenza immunization; Translations: [Need for prophylactic vaccination and inoculation against influenza (Renamed from Need for immunization against influenza)] Resolved: 8 05-25-2017 Episodic Residual codes; unclassified (20 sources) Noncompliance with treatment; Translations: [Compliance poor (Renamed from Poor compliance)] 07-14-2018 Episodic Residual codes; unclassified (20 sources) Non-smoker; Translations: [Nonsmoker] 10-08-2020 Episodic Residual codes; unclassified (6 sources) Influenza vaccination declined; Translations: [Influenza vaccination declined (Renamed from Refused influenza vaccine)] 04-10-2021 Episodic Residual codes; unclassified (1 source) Sleep disorder, unspecified; Translations: [Sleep disorder, unspecified] Onset: 5 Episodic Unclassified (20 sources) Unclassified (20 sources) BMI 40.0-44.9, adult Unclassified (20 sources) Elevated hemoglobin A1c Unclassified (20 sources) [facility] Physical 04-09-2018 Unclassified (20 sources) Non-smoker; Translations: [Nonsmoker] 06-11-2018 Unclassified (20 sources) Screening for testicular cancer; Translations: [Screening status] Resolved: 8 06-11-2018 Unclassified (20 sources) Elevated high sensitivity C-reactive protein Unclassified (20 sources) Prediabetes Unclassified (20 sources) Hypogonadism in male Unclassified (20 sources) BMI 39.0-39.9,adult Unclassified (4 sources) Influenza vaccination declined (Renamed from Refused influenza vaccine) Unclassified (2 sources) Unspecified Diagnosis 08-21-2021 Past or Other Problems Problem Classification Problem Date Documented Da te Episodic/Chronic Other screening for suspected conditions (not mental disorders or infectious disease) (8 sources) Elevated C-reactive protein; Translations: [Elevated high sensitivity C-reactive protein] 09-13-2018 Residual codes; unclassified (1 source) Unable to comply with treatment; Translations: [Compliance poor (Renamed from Poor compliance)] 07-14-2018 Episodic Unclassified (20 sources) Abnormal EKG (Renamed from Abnormal electrocardiogram) Unclassified (20 sources) Elevated liver enzymes Unclassified (20 sources) [facility] EXAM 02-26-2018 Unclassified (19 sources) Compliance poor (Renamed from Poor compliance) Results Test Name Value Interpretation Reference Range Facility MR/[email or web address] 04-20-2025 MR/BMS.BP [address], [address] [place] [address] OFFICE VISIT Date of Service: 04/20/25 MR#: [id number] Acct: [id number] Name: ROMÁN PERSAUD Rep #: [id number] : 1985 Provider: Dr. Micheal Case se, DO Age/Sex: 39/M Location: [facility] Status: Signed Intake Vital Signs 01/17/25 06:50 02/09/25 09:59 04/20/25 07:05 Height 6 ft 1 in 6 ft 1 in 6 ft 1 in BP Intake Visit Reasons: 3 M FU Allergies No Known Allergies Allergy (Verified 02/22/25 15:03) PFSH Medical History (Updated 02/07/25 @ 10:34 by Stacie Cedillo) Diabetes Fatty liver Dietary restriction Non-smoker Hypertension History of echocardiogram Umbilical hernia MDD (major depressive disorder) High triglycerides Surgical History (Updated 02/22/25 @ 15:[address]) S/P umbilical hernia repair, follow-up exam Hx of wisdom tooth extraction Hx of excision of mass Family History Other Cancer Diabetes Hypercholesterolemia Hypertension Mental disorder Myocardial infarction Social History Smoking Status: Never smoker alcohol intake: former details: Last intake October 2023 substance use type: does not use HPI History of Present Illness History provided by: patient Chief complaint: Depression/anxiety HPI: Román Persaud is a 39 year old male who presents today for follow up evaluation via virtual visit. Patient reports that he has been doing good. Has been back to work for the last 3 weeks after having had hernia surgery and being off for 8 weeks. Does feel like he has healed up. Did an at home sleep study two nights ago. Does report that it was not a great night of sleep so unsure of how well the test went. Otherwise feels like things are doing largely well. Since increasing wellbutrin has felt that the medication was doing fine. Denies any significant side effects. Home life has been largely stable. Denies SI/HI or AVH. This tele-medicine visit was performed via audio/video technology. Review of Systems Constitutional Reports: fatigue Eyes Denies: change in vision or blurry vision Ears, Nose, Mouth, Throat Reports: tinnitus and nasal congestion Cardiovascular Denies: chest pain, palpitations or dyspnea Respiratory Denies: dyspnea, cough or wheezing Gastrointestinal Denies: abdominal pain, nausea, vomiting, diarrhea or constipation Genitourinary Reports: urinary frequency Musculoskeletal Reports: back pain (sees chiropractor) Integumentary/Breast Reports: rash Neurological Reports: headache(s) (when starting Jardiance); Denies: dizziness or confusion Psychiatric Reports: anxiety, mood swings, panic attacks, change in sleep pattern, loss of interest, irritability, difficulty concentrating and other (rapid speech at times ) Endocrine Reports: fatigue Hematologic/Lymphatic Denies: easy bruising or easy bleeding Allergic/Immunologic Denies: wheezing Exam Mental Status Exam - Psych Appearance casually dressed Attitude cooperative Activity/Motor Behavior MSE activity/motor behavior finding no adventitious movements Speech regular rate, regular volume and regular prosody Mood OK Affect full range Thought Process linear, logical and coherent Thought Content no delusions and no hallucinations Suicidal Ideation none Homicidal Ideation none Attention intact Concentration intact Sensorium/Orientation awake, alert and oriented x3 Memory/Cognition other (appropriate for stated age) Insight good Judgement good Assessment Plan Assessment Plan (1) MDD (major depressive disorder): Problem Details: ON MED Plan: - continue wellbutrin 300 mg every day - recently had sleep study completed, awaiting results - Patient was informed of the risks, benefits and likely side effects of Wellbutrin. These side effects include but are not limited to appetite suppression, headache, diaphoresis, tachycardia, nausea, and insomnia. Wellbutrin can lower the seizure threshold, if you have a history of seizure disorder or have a seizure while taking the medication, please discontinue the medication and inform office immediately. Medications: Refilled bupropion HCl XL 300 mg PO QAM 90 tabs 1RF F32.9 - Major depressive disorder, single episode, unspecified Coding Level of Care Code Est Sync Audio-Video Low 20min Diagnoses MDD (major depressive disorder) F32.9 04/20/25 0709 Date Micheal Shaver Signature: Date (if applicable) CC: Normal [facility] Surgery Visit Reporton 02-22 Surgery Visit Report [facility] [address] [place] [address] [address] [place] [address] OFFICE VISIT Date of Service: 02/22/25 MR#: [id number] Acct: [id number] Name: ROMÁN PERSAUD Rep #: [id number] : 1985 Provider: GEORGE walton Age/Sex: 39/M Location: [facility] Status: Signed Intake Vital Signs 02/09/25 09:59 Height 6 ft 1 in Intake Visit Reasons: HERNIA - Chief Complaint: umbilical hernia 02/09 Is patient in pain?: No Allergies No Known Allergies Allergy (Verified 02/22/25 15:03) Medications ???Medication ???Instructions ???Recorded ???Confirmed ???Type empagliflozin 10 mg tablet 10 mg PO QDAY 06/07/24 02/22/25 Hi story (Jardiance) losartan 100 1 tab PO QDAY 06/07/24 02/22/25 Hi story mg-hydrochlorothiazide 25 mg tablet metformin 500 mg tablet 500 mg PO BID 06/07/24 02/22/25 Hi story bupropion HCl 300 mg 24 hr tablet, 300 mg PO QAM #90 tabs 01/17/25 02/22/25 Rx extended release tadalafil 5 mg tablet 5 mg PO QDAY PRN sexual activity 0 01/31/25 02/22/25 History Subjective Details: Patient is a 39 y/o M I am following s/p robotic-assisted transabdominal preperitoneal umbilical hernia repair by Dr. Robbins on 02/09/25. Patient tolerated the procedure well. Patient notes intermittent incisional discomfort. He denies any abdominal pain, nausea, vomiting, fever. He notes appetite and bowel habits have returned to normal. Objective Details: Abdomen- soft, incisions c/d/i. No erythema or infection noted. Coding Level of Care Code Global Post Op Diagnoses S/P umbilical hernia repair, follow-up exam Z09 [facility] Medical History (Updated 02/07/25 @ 10:34 by Stacie Cedillo) Diabetes Fatty liver Dietary restriction Non-smoker Hypertension History of echocardiogram Umbilical hernia MDD (major depressive disorder) High triglycerides Surgical History (Updated 02/22/25 @ 15:[address]) S/P umbilical hernia repair, follow-up exam Hx of wisdom tooth extraction Hx of excision of mass Family History Other Cancer Diabetes Hypercholesterolemia Hypertension Mental disorder Myocardial infarction Social History Smoking Status: Never smoker alcohol intake: former details: Last intake October 2023 substance use type: does not use Assessment and Plan (No Qualifiers) Assessment and Plan (1) S/P umbilical hernia repair, follow-up exam: Status: Acute Plan: No lifting greater than 10 pounds until 03/20 Letter was provided with specific instructions on when to return to normal lifting. This letter was also faxed to [place] Discussed signs of infection and when to contact our office Follow-up as needed 02/22/25 1538 Date Libby Madera Signature: Date (if applicable) CC: Dr. Cassandra Osei, DO Normal [facility] Bedside Glucoseon 02-13-2025 FINGERSTICK GLU 136 mg/dL High 74-[address] [facility] Comment on above: Result Comment: NÉSTOR MICHELLE OF PATIENT CARE PER NURSING PROTOCOL Performed By: #### L 501.080 #### [facility] Laboratory [address] [place], [address] Discharge Instructionon 01-21 Discharge Instruction [facility] Medical Records Department [address] [place] [address] Instructions for Home/Discharge Instructions 02/09/25 1418 MR#: [id number] Acct: [id number] Name: ROMÁN PERSAUD JAKY Rep #: [id number] : 1985 39 From: Roberth Robbins MD PCP: Dr. Cassandra Osei DO Status:REG [facility] Discharge Instructions Diet Discharge Diet: No restrictions Activity Discharge Activity: May Not Drive (While taking narcotic pain medication) and May Shower May shower in (days): 2 Ice area for (Minutes): 20 Lifting Restrictions: No lifting greater than 10 pounds for the next 5 weeks Dressing / Incision Call your doctor if your incision/area has: Continuous Slow Oozing, Increased Pain/ Swelling, Increased Redness, Foul Smelling Discharge and Swelling at the incision site Call your doctor if you observe: Fever of 101 or Higher, Inability to urinate and Inability to have a bowel movement Change Dressing in: 2 days (Please leave Steri-Strips intact until they fall off spontaneously or are taken off at your follow-up visit) Remove Dressing in: 2 days Cleanse incision/area with: Soap Water and Keep Dressing Clean Dry Follow Up Care Please Follow Up With: Roberth Robbins MD When: 10 to 14 days postop Test Results: Test results from this visit will be discussed in further detail at your follow-up appointment, if applicable. Discharge Plan Admission Primary Reason for Your Visit: Umbilical hernia repair Attending Provider: Roberth Robbins Primary Care Provider: Cassandra Osie Instructions Print Language: Georgian Discharge Orders/Prescriptions Prescriptions: New oxycodone 5 mg tablet 5 mg PO Q6H PRN (Reason: pain) 3 Days Qty: 10 0RF Continued losartan-hydrochlorothiazid e 100-25 mg tablet 1 tab PO QDAY metformin 500 mg tablet 500 mg PO BID Jardiance 10 mg tablet 10 mg PO QDAY bupropion HCl 300 mg tablet extended release 24 hr 300 mg PO QAM Qty: 90 1RF tadalafil 5 mg tablet 5 mg PO QDAY PRN (Reason: sexual activity) Referrals / Follow Up: Cassandra Osei DO [Primary Care Provider] - Disposition Disposition (needs filled in before D/C Order can be placed): Home, Self Care 02/09/25 1423 Roberth Robbins MD CC: Dr. Cassandra Osei DO Signed Normal [facility] MR/POSTOP.[facility] 02-09-2025 MR/POSTOP.[facility] Medical Records Department [address] [place] [address] Anesthesia Postop Eval I 02/09/25 1442 MR#: [id number] Acct: [id number] Name: ROMÁN PERSAUD Rep #: [id number] : 1985 39 From: Doyr Ty CRNA PCP: Dr. Cassandra Osei DO Status:REG [facility] Y Race: C Location: [place] [address] Anesthesia: Postop Eval I Current Vital Signs Temperature: 96.9 F Pulse Rate: 93 Blood Pressure: 126/70 Respiratory Rate: 16 Pulse Ox: 96 Oxygen Delivery Method: Room Air Assessment Airway patent: Yes Spontaneous unlabored respirations: Yes Mental status: Awake and Calm nausea: No Vomiting: No Anesthesia Complication: No Fluid Hydration Crystalloid volume administer (ml): 900 Total IV fluid infused: 900 Progress Note Anesthesia document: Postop Eval 1 completed: Yes 02/09/25 144 Date Dory Melony DRILLER BRAKE LINING Samueligner Signature: Date CC: Signed Normal [facility] MR/[id number] 02-09-2025 MR/POSTOPAN2 [facility] Medical Records Department [address] [place] [address] Anesthesia Postop Eval II 02/09/25 1526 MR#: [id number] Acct: [id number] Name: ROMÁN PERSAUD Rep #: [id number] : 1985 39 From: Emmanuel Jacobsen MD PCP: Dr. Cassandra Osei, DO Status:[facility] Y Race: C Location: [place] [address] Anesthesia Postop Eval I Sum Postop Eval Completion status Anesthesia document: Postop Eval 1 completed: Yes Anesthesia Postop Eval I Summary Anesthesia Postop Eval I Summary: Anesthesia Postop Eval I: Assessment Summary Airway patent Yes 02/09/25 14:42 DRILLER BRAKE [email or web address].[email or web address] Spontaneous unlabored Yes 02/09/25 14:42 DRILLER BRAKE LINING.GDOTT respirations Mental status Awake,Calm 02/09/25 14:42 DRILLER BRAKE [email or web address].GDOTT nausea No 02/09/25 14:42 DRILLER BRAKE LINING.GDOTT Vomiting No 02/09/25 14:42 DRILLER BRAKE LINING.GDOTT Anesthesia Postop Eval I: Fluid Summary Crystalloid volume administer 900 02/09/25 14:42 DRILLER BRAKE LINING.GDOTT (ml) Colloids volume administered ( ml) Blood Product volume administered (ml) Total IV fluid infused 900 02/09/25 14:42 DRILLER BRAKE LINING.GDOTT Anesthesia Postop Eval I: Summary Notes Anesthesia Complication No 02/09/25 14:42 DRILLER BRAKE LINING.GDOTT Anesthesia Complication Comment: Post-operative progress note Anesthesia: Postop Eval II Evaluation Mental status: Awake Pain Level: 0 nausea: No Vomiting: No Complications Anesthesia Complication: No 02/09/25 1526 Emmanuel Madera Signature: Date CC: Signed Normal [facility] Operative Reporton 5 Operative Report [facility] Medical Records Department [address] [place] [address] Operative Report 02/09/25 1415 MR#: [id number] Acct: [id number] Name: ROMÁN PERSAUD Rep #: [id number] : 1985 39 From: Roberth Robbins MD PCP: Dr. Cassandra Osei, DO Status:[facility] Location: [facility] Procedures Digestive 40xxx-49xxx: [address] RPR AA HRN 1ST < 3 CM C Operative Report (Standard) Operative Information Date of Procedure: 02/09/25 Pre-Operative Diagnosis: Umbilical hernia Post-Operative Diagnosis: Fat incarcerated umbilical hernia Surgery/Procedure Performed: Robot-assisted transabdominal preperitoneal umbilical hernia repair with mesh placement auto fleet manager: Yes Enologist: Hiral Portillo Tasks completed by first aid director: Opening closing Type of Anesthesia: General/Supplemental RN Documented Start/Stop Times: Operation Date: 02/09/25 11:15 Case Time Into Pre-Op 02/09/25 09:48 Out of Pre-Op 02/09/25 11:30 Anesthesia Start 02/09/25 11:33 Into Room 02/09/25 11:33 Procedure Start 02/09/25 12:08 Procedure End 02/09/25 14:35 Anesthesia End 02/09/25 14:37 Out of Room 02/09/25 14:37 Into Recovery 02/09/25 14:38 Into Phase II Recovery 02/09/25 15:12 Out of Recovery 02/09/25 15:12 Out of Phase II 02/09/25 17:03 Procedure Start Time: 12:08 Procedure Stop Time: 14:35 Select all DRAINS/GRAFTS/IMPLANTS that apply: Implanted device (ProGrip mesh) Implanted device details: Reference [id number], lot [id number] Estimated Blood Loss: 10 Specimen collected: No Description of surgery: After appropriate identification in the preoperative holding area, the patient was brought to the operating room suite where he was positioned supine the operating table. Preoperative antibiotics were administered. Patient was then induced with a general anesthetic. Patient's abdomen was prepped and draped in the usual sterile fashion. A formal timeout followed to confirm patient and procedure. Procedure was begun with a Veress entry at Negrete's point. Once the set point pressure was reached, this Veress needle was exchanged for an optical trocar and an optical entry was made in this location. Laparoscopic investigation revealed no inadvertent injury to the viscera below. 2 additional 8 mm robotic trocars were placed along the abdominal wall laterally taking care to avoid the bony prominences of the costal margin and the ASIS. A transversus abdominis plane block was created with 60 mL of bupivacaine with 20 mL of injectable saline and 20 mL of Exparel (total volume 70 mL used for the case) under laparoscopic vision as these ports were placed. The robot was then brought in and docked in standard fashion. Robotically a peritoneal flap was raised approximately 2 cm medial from my trocars and carried this away towards the contralateral abdominal wall. Great care was taken to lower the peritoneum off of the posterior rectus sheath and avoid any rents in the peritoneal flap. Perforating vessels were sealed with bipolar energy to maintain hemostasis as this flap dissection proceeded. I then addressed the hernia directly by opening the scar tissue about the hernia sac and carefully applying manual traction downward until the hernia was fully reduced. In the process of reducing this hernia I encountered a second smaller hernia with a fat plug adjacent to the primary defect. The flap was then further dissected laterally until it appeared we had adequate width. The hernia defect was closed with a #1 stratafix suture by running the fascial defect closed and then running the suture back upon itself. Next a 10 x 15 ProGrip mesh was cut down to a 10 x 14 cm mesh and was introduced into the peritoneum with 3-0 Vicryl suture to tack the mesh in 4 quadrants. Lastly the peritoneum was closed with 2x3-0 Vicryl V-Loc sutures in a bidirectional fashion overlapping in the middle. A single peritoneal rent was closed with a interrupted 4-0 Vicryl suture on the contralateral aspect of the surgical field. Then needles and a inserted ruler were all removed under laparoscopic visualization and case counts were confirmed. The robot was then undocked and the trocars were removed. Additional local anesthetic was instilled and the port sites were closed with interrupted 4-0 Monocryl in subcuticular fashion. Steri-Strips and OpSite dressings were applied. Patient was transferred to PACU for ongoing care. Surgical Findings: ??? 1.75 x 1.5 cm primary fascial defect with incarcerated fat as well as adjacent subcentimeter defect containing fat plug Complications Complications: No Admit VTE Documentation VTE Mechan Device Prophylaxis: SCD's 02/10/25 0836 Cosigner Signature (if applicable): CC: Dr. Cassandra Osei DO; Dr. Roberth Robbins MD Signed Normal [facility] MRSA/SAID NASAL SCREENon MRSA+SAID SCRN Negative Normal [facility] Comment on above: Performed By: #### L 501.080 #### [facility] Laboratory [address] [place], [address] Surgery Visit Reporton 01-31 Surgery Visit Report [facility] [address] [place] [address] OFFICE VISIT Date of Service: 01/31/25 MR#: [id number] Acct: [id number] Name: ROMÁN PERSAUD Rep #: [id number] : 1985 Provider: Dr. Roberth mcclendon MD Age/Sex: 39/M Location: [facility] Status: Signed Intake Vital Signs 10/18/24 07:05 01/17/25 06:50 01/31/25 12:50 Height 6 ft 1 in 6 ft 1 in 6 ft 1 in Weight: 311 lb 8 oz BMI 41.1 BP 169/91 H Blood Pressure Location Rt brachial Position Sitting Respiration 18 Pulse 78 Pulse Source Monitor Temp 98.5 F Temp Source Temporal Pulse Oximetry (%) 99 Oxygen Delivery Method room air Intake Visit Reasons: UMBILICAL HERNIA Chief Complaint: umbilical hernia Is patient in pain?: No Allergies No Known Allergies Allergy (Verified 01/31/25 12:51) Medications ???Medication ???Instructions ???Recorded ???Confirmed ???Type empagliflozin 10 mg tablet 10 mg PO QDAY 06/07/24 01/31/25 Hi story (Jardiance) losartan 100 1 tab PO QDAY 06/07/24 01/31/25 Hi story mg-hydrochlorothiazide 25 mg tablet metformin 500 mg tablet 500 mg PO BID 06/07/24 01/31/25 Hi story bupropion HCl 300 mg 24 hr tablet, 300 mg PO QAM #90 tabs 01/17/25 01/31/25 Rx extended release tadalafil 5 mg tablet 5 mg PO QDAY 01/31/25 01/31/25 His tory ubidecarenone-omega 3-vit E 25 1 cap PO ONCE 01/31/25 01/31/25 Hi story mg-150 (90-60) mg-200 unit capsule (Co X-00-Abwiscm E-Fish Oil) [facility] Medical History (Updated 01/31/25 @ 17:[address] Roberth Robbins MD) Pre-op testing Umbilical hernia MDD (major depressive disorder) Kidney stone High triglycerides Family History Other Cancer Diabetes Hypercholesterolemia Hypertension Mental disorder Myocardial infarction Social History Smoking Status: Never smoker alcohol intake: former details: Last intake October 2023 substance use type: does not use HPI HPI HPI: The patient is a 39-year-old male presenting with an umbilical hernia. He is referred from Dr. Osei. He initially observed an abnormality around two years ago, with pain exacerbated by activities such as coughing and straining. The pain acutely intensified one month prior, lasting up to 15 minutes, and then subsequently eased. His umbilical hernia does not appear to have increased in size significantly. The patient denies symptoms suggestive of bowel obstruction. 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 Recent discussions with his employer indicate possible light duty accommodations if necessary. The patient reports stable weight, around 310 pounds. His diabetes remains well- controlled with a recent A1c around 6. He has no previous abdominal surgical history that might affect current repair considerations. ROS General General: Yes fatigue; No weight change, appetite, colon cancer, breast cancer or weakness HEENT HEENT: No difficulty swallowing, eye injury, eye surgery, swollen glands or hoarseness Endo Endocrine: Yes diabetes mellitus; No thyroid disease, thyroid cancer, Hair loss, heat intolerance or cold intolerance Skin Skin: No rash or changing moles Musc Musculoskeletal: No back problems, arthritis, rheumatoid arthritis, gout or joint pain Cardio Cardiovascular: Yes high blood pressure; No murmur, pacemaker, heart disease, atrial fibrillation, heart attack, heart stent, palpitations, shortness of breath with exertion or chest pain Psych Psychiatric: Yes depression and anxiety; No hearing voices Resp Respiratory: No shortness of breath, No sleep apnea, No cough, No COPD, No asthma, No emphysema and No wheezing Gastro Gastrointestinal: No abdominal pain, No nausea or vomiting, No diarrhea, No constipation, No blood in stool, No acid reflux, No hemorrhoids, No ulcers, No gallbladder problem and No black,tarry stools Dinesh Hematologic: No blood thinners, No blood disorders, No bleeding, No anemia and No blood clots Neuro Neurologic: No numbness, No tingling and No weakness Exam Const General: cooperative, comfortable and no acute distress Nutritional Appearance: obese Orientation: alert, awake and oriented x3 Resp Effort Inspection: normal respiratory effort GI Other: Obese, abdominal striae present, umbilical hernia with fat contents that are reducible back to the peritoneum via a hernia defect approximately 2 cm in diameter. There is tenderness with this palpation. Assessment and Plan Assessment and Plan (1) Umbilical hernia: Status: Acute Comment: 39-year-old male with history of Type 2 Diabetes Mellitus presenting with an umbilical hernia. The hernia demonstrates redu (more content not included)... Normal [facility] MR/BMS.BPon 01-17-2025 MR/BMS.[address], [address] [place] [address] OFFICE VISIT Date of Service: 01/17/25 MR#: [id number] Acct: [id number] Name: ROMÁN PERSAUD Rep #: [id number] : 1985 Provider: Dr. Micheal Case se DO Age/Sex: 39/M Location: [facility] Status: Signed Intake Vital Signs 10/18/24 07:05 01/17/25 06:50 Height 6 ft 1 in 6 ft 1 in BP Intake Visit Reasons: 3 M FU Allergies No Known Allergies Allergy (Verified 06/07/24 07:47) [facility] Medical History (Updated 06/07/24 @ 08:[address] Micheal Ontiveros, DO) MDD (major depressive disorder) Kidney stone High triglycerides Family History (Updated 06/07/24 @ 07:57 by Heaven Cody) Other Cancer Diabetes Hypercholesterolemia Hypertension Mental disorder Myocardial infarction Social History (Updated 06/07/24 @ 08:02 by Heaven Cody) Smoking Status: Never smoker alcohol intake: former details: Last intake October 2023 substance use type: does not use HPI History of Present Illness History provided by: patient Chief complaint: Depression/anxiety HPI: Román Persaud is a 39 year old male who presents today for follow up evaluation via virtual visit. Patient reports that he has been good and has been working 5-6 days per week. Will likely be very busy leading up to busy season. Has been somewhat stressed in regards to work and having a difficult contract. Ended up never having a sleep study as he was supposed to because insurance denied the in lab study, now awaiting having home study. Still not feeling rested during the day. Doesn't feel like he is getting the right sleep. Had an brain MRI in October and was WNL. Recently moved in with his girlfriend a couple weeks ago. This tele-medicine visit was performed via audio/video technology. Review of Systems Constitutional Reports: fatigue Eyes Denies: change in vision or blurry vision Ears, Nose, Mouth, Throat Reports: tinnitus and nasal congestion Cardiovascular Denies: chest pain, palpitations or dyspnea Respiratory Denies: dyspnea, cough or wheezing Gastrointestinal Denies: abdominal pain, nausea, vomiting, diarrhea or constipation Genitourinary Reports: urinary frequency Musculoskeletal Reports: back pain (sees chiropractor) Integumentary/Breast Reports: rash Neurological Reports: headache(s) (when starting Jardiance); Denies: dizziness or confusion Psychiatric Reports: anxiety, mood swings, panic attacks, change in sleep pattern, loss of interest, irritability, difficulty concentrating and other (rapid speech at times ) Endocrine Reports: fatigue Hematologic/Lymphatic Denies: easy bruising or easy bleeding Allergic/Immunologic Denies: wheezing Exam Mental Status Exam - Psych Appearance casually dressed Attitude cooperative Activity/Motor Behavior MSE activity/motor behavior finding no adventitious movements Speech regular rate, regular volume and regular prosody Mood other (fair) Affect full range Thought Process linear, logical and coherent Thought Content no delusions and no hallucinations Suicidal Ideation none Homicidal Ideation none Attention intact Concentration intact Sensorium/Orientation awake, alert and oriented x3 Memory/Cognition other (appropriate for stated age) Insight good Judgement good Assessment Plan Assessment Plan (1) MDD (major depressive disorder): Plan: - increase wellbutrin to 300 mg every day - get sleep study as ordered - Patient was informed of the risks, benefits and likely side effects of Wellbutrin. These side effects include but are not limited to appetite suppression, headache, diaphoresis, tachycardia, nausea, and insomnia. Wellbutrin can lower the seizure threshold, if you have a history of seizure disorder or have a seizure while taking the medication, please discontinue the medication and inform office immediately. Medications: Changed From bupropion HCl XL (Wellbutrin XL) 150 mg PO QAM 90 tabs 1RF F32.9 - Major depressive disorder, single episode, unspecified To bupropion HCl XL 300 mg PO QAM 90 tabs 1RF F32.9 - Major depressive disorder, single episode, unspecified Coding Level of Care Code Est Sync Audio-Video Mod 30min Diagnoses MDD (major depressive disorder) F32.9 01/17/25 0715 Date Micheal Shaver Signature: Date (if applicable) CC: Normal [facility] Brain W/WO Contraston 2024 Brain W/WO Contrast [facility] Imaging Services [address] [place], [place] [id number] Brain W/WO Contrast MR#: [id number] Acct: [id number] Name: ROMÁN PERSAUD Rep #: [id number] : 1985 M 39 From: Ramsey merritt MD PCP: Dr. Cassandra Osei, DO Status: REG CLI Study: Brain W/WO Contrast Date of Exam: 11/04/24 Exam# [id number] Ordering Dr: Cassandra Osei DO PROCEDURE: BRAIN W/WO CONTRAST 11/04/2024 REASON FOR EXAM: MRI BRAIN WITH T W/O CON. ATTN: PITUITARY- PITUITARY ABNORMAL TECHNIQUE: Routine brain MRI without and with intravenous contrast. Multiplanar and multisequence images were obtained. CONTRAST: Clariscan VOLUME: 27 mL Not Provided Gauge IV FINDINGS: BRAIN/PARENCHYMA: No evidence of acute infarction or acute intracranial hemorrhage. White matter demonstrates normal signal intensity.. No abnormal post-contrast enhancement. EXTRA-AXIAL SPACES: No abnormal extra-axial fluid collections. Patent basal cisterns and foramen magnum. MIDLINE SHIFT: None. VENTRICLES: No hydrocephalus. SKULL BASE: Pituitary is unremarkable. No suspicious mass or evidence of an adenoma. Optic chiasm is within normal limits. SCALP SOFT TISSUES CALVARIUM: No significant abnormality. VISUALIZED SINUSES MASTOIDS: No air-fluid levels in the paranasal sinuses. The mastoid air cells are clear. ARTERIAL FLOW VOIDS: Preserved major arterial flow voids indicating gross patency. MRI/Brain W/WO Contrast IMPRESSION: No acute intracranial abnormality No pituitary mass. Reading Location: [facility] CC: Dr. Cassandra Osei DO Hospice Clinical Supervisor: Signed Normal [facility] MR/BMS.BPon 10-18-2024 MR/BMS.[address], [address] [place] [address] OFFICE VISIT Date of Service: 10/18/24 MR#: [id number] Acct: [id number] Name: ROMÁN PERSAUD Rep #: [id number] : 1985 Provider: Dr. Micheal Case se, DO Age/Sex: 39/M [place] [facility] Status: Signed Intake Vital Signs 07/19/24 06:53 10/18/24 07:05 Height 6 ft 1 in 6 ft 1 in BP Intake Visit Reasons: 3-4 mfu Allergies No Known Allergies Allergy (Verified 06/07/24 07:47) [facility] Medical History (Updated 06/07/24 @ 08:[address] Micheal Ontiveros, DO) MDD (major depressive disorder) Kidney stone High triglycerides Family History (Updated 06/07/24 @ 07:57 by Heaven Cody) Other Cancer Diabetes Hypercholesterolemia Hypertension Mental disorder Myocardial infarction Social History (Updated 06/07/24 @ 08:02 by Heaven Cody) Smoking Status: Never smoker alcohol intake: former details: Last intake October 2023 substance use type: does not use HPI History of Present Illness History provided by: patient Chief complaint: Depression/anxiety HPI: Román Persaud is a 39 year old male who presents today for follow up evaluation via virtual visit. Patient reports that things have slowed down at work, going from 7 days a week to 4 days per week. Has noticed that he has noticed a little less consistency with being even keel as he had been. Does feel mildly more irritable than he had been. Still in a relationship and things are going well. Sleep is not awesome. Has a sleep study ordered on Thursday at [facility] in [place]. Also has a brain MRI scheduled in October for pituitary evaluation. Recently restarted Jardiance. This tele-medicine visit was performed via audio/video technology. Review of Systems Constitutional Reports: fatigue Eyes Denies: change in vision or blurry vision Ears, Nose, Mouth, Throat Reports: tinnitus and nasal congestion Cardiovascular Denies: chest pain, palpitations or dyspnea Respiratory Denies: dyspnea, cough or wheezing Gastrointestinal Denies: abdominal pain, nausea, vomiting, diarrhea or constipation Genitourinary Reports: urinary frequency Musculoskeletal Reports: back pain (sees chiropractor) Integumentary/Breast Reports: rash Neurological Reports: headache(s) (when starting Jardiance); Denies: dizziness or confusion Psychiatric Reports: anxiety, mood swings, panic attacks, change in sleep pattern, loss of interest, irritability, difficulty concentrating and other (rapid speech at times ) Endocrine Reports: fatigue Hematologic/Lymphatic Denies: easy bruising or easy bleeding Allergic/Immunologic Denies: wheezing Exam Mental Status Exam - Psych Appearance casually dressed Attitude cooperative Activity/Motor Behavior MSE activity/motor behavior finding no adventitious movements Speech regular rate, regular volume and regular prosody Mood irritable (mildly increased) Affect full range Thought Process linear, logical and coherent Thought Content no delusions and no hallucinations Suicidal Ideation none Homicidal Ideation none Attention intact Concentration intact Sensorium/Orientation awake, alert and oriented x3 Memory/Cognition other (appropriate for stated age) Insight good Judgement good Assessment Plan Assessment Plan (1) MDD (major depressive disorder): Plan: - some mild worsening of irritability, discussed plan to complete sleep study and if evidence of sleep apnea to treat this first. If sleep normal, will titrate to 300 mg wellbutrin. Prabha to update in a week or so when he gets sleep study results - for now, continue wellbutrin 150 mg every day Coding Level of Care Code Est Sync Audio-Video Mod 30min Diagnoses MDD (major depressive disorder) F32.9 10/18/24 0709 Date Micheal Ontiveros DO Cosigner Signature: Date (if applicable) CC: Normal [facility] MR/BMS.BPon 07-19-2024 MR/BMS.BP [address], [place] [address] OFFICE VISIT Date of Service: 07/19/24 MR#: [id number] Acct: [id number] Name: ROMÁN PERSAUD Rep #: [id number] : 1985 Provider: Dr. Micheal Case se, DO Age/Sex: 39/M [facility] Status: Signed Intake Vital Signs 06/07/24 07:47 07/19/24 06:53 Height 6 ft 1 in 6 ft 1 in Weight: 303 lb BMI 39.9 BP 144/92 H Blood Pressure Location Lt brachial Position Sitting Respiration 16 Pulse 73 Pulse Source Monitor BP Intake Visit Reasons: 6wfu Allergies No Known Allergies Allergy (Verified 06/07/24 07:47) PFSH Medical History (Updated 06/07/24 @ 08:[address] Micheal Ontiveros DO) MDD (major depressive disorder) Kidney stone High triglycerides Family History (Updated 06/07/24 @ 07:57 by Heaven Cody) Other Cancer Diabetes Hypercholesterolemia Hypertension Mental disorder Myocardial infarction Social History (Updated 06/07/24 @ 08:02 by Heaven Cody) Smoking Status: Never smoker alcohol intake: former details: Last intake October 2023 substance use type: does not use HPI History of Present Illness History provided by: patient Chief complaint: Depression/anxiety HPI: Román Persaud is a 39 year old male who presents today for follow up evaluation via virtual visit. Patient reports that he has been doing pretty good. Feels like he has noticed a definite improvement with Wellbutrin to this point. Has not had any adverse side effects to this point. Reports that he has little better temperament and feels like he doesn't feel as angry as he had before. Denies significant depressive symptoms at this time. Sleep has been fair, getting about 6 hours per night. Appetite has been somewhat reduced and this is largely ok. Has been very busy with work, and has been working on an [employer] contract he's been working on. Has recently started a relationship which has been positive in his life. This tele-medicine visit was performed via audio/video technology. Review of Systems Constitutional Reports: fatigue Eyes Denies: change in vision or blurry vision Ears, Nose, Mouth, Throat Reports: tinnitus and nasal congestion Cardiovascular Denies: chest pain, palpitations or dyspnea Respiratory Denies: dyspnea, cough or wheezing Gastrointestinal Denies: abdominal pain, nausea, vomiting, diarrhea or constipation Genitourinary Reports: urinary frequency Musculoskeletal Reports: back pain (sees chiropractor) Integumentary/Breast Reports: rash Neurological Denies: headache(s), dizziness or confusion Psychiatric Reports: anxiety, mood swings, panic attacks, change in sleep pattern, loss of interest, irritability, difficulty concentrating and other (rapid speech at times ) Endocrine Reports: fatigue Hematologic/Lymphatic Denies: easy bruising or easy bleeding Allergic/Immunologic Denies: wheezing Exam Mental Status Exam - Psych Appearance casually dressed Attitude cooperative Activity/Motor Behavior MSE activity/motor behavior finding no adventitious movements Speech regular rate, regular volume and regular prosody Mood euythmic Affect full range Thought Process linear, logical and coherent Thought Content no delusions and no hallucinations Suicidal Ideation none Homicidal Ideation none Attention intact Concentration intact Sensorium/Orientation awake, alert and oriented x3 Memory/Cognition other (appropriate for stated age) Insight good Judgement good Assessment Plan Assessment Plan (1) MDD (major depressive disorder): Plan: - doing significantly better with use of wellbutrin, will continue at 150 mg every day - Patient was informed of the risks, benefits and likely side effects of Wellbutrin. These side effects include but are not limited to appetite suppression, headache, diaphoresis, tachycardia, nausea, and insomnia. Wellbutrin can lower the seizure threshold, if you have a history of seizure disorder or have a seizure while taking the medication, please discontinue the medication and inform office immediately. - no acute side effects Medications: Refilled bupropion HCl XL (Wellbutrin XL) 150 mg PO QAM 90 tabs 1RF F32.9 - Major depressive disorder, single episode, unspecified Coding Level of Care Code Est Sync Audio-Video Low 20min Diagnoses MDD (major depressive disorder) F32.9 07/19/24 0708 Date Micheal Ontiveros [facility] Signature: Date (if applicable) CC: Normal [facility] CT CARDIAC SCORING WO IV CON TRASTon 07-04-2024 CT CARDIAC SCORING WO IV CONTRAST Interpreted By: Joshua Glass, STUDY: CT CARDIAC SCORING WO IV CONTRAST; 07/04/2024 5:07 pm INDICATION: Signs/Symptoms:HYPERLIPIDEM IA. COMPARISON: None. ACCESSION NUMBER(S): [id number] ORDERING CLINICIAN: CASSANDRA OSEI TECHNIQUE: Using prospective ECG gating, limited CT scan of the chest for evaluation of coronary arteries was performed without intravenous contrast. Coronary calcium scoring was performed according to the method of Agatston. FINDINGS: The score and distribution of calcium in the coronary arteries is as follows: LM: 0. LAD: 0. LCx: 0. RCA: 0. Total: 0. The visualized segments of the lungs are normally expanded. The visualized mid/lower ascending thoracic aorta measures 3.7 cm in diameter. The heart is borderline enlarged. No significant pericardial effusion is present. No gross evidence of mediastinal or hilar lymphadenopathy is identified. Dilatation pulmonary outflow tract up to 3.6 cm caliber. Small hiatal hernia. IMPRESSION: 1. Coronary artery calcium score of 0*. 2. Dilatation pulmonary outflow tract can be seen in the setting of pulmonary arterial hypertension. 3. Additional findings as above. *Coronary artery calcium scoring may be helpful in predicting the risk for future coronary heart disease events. According to the [place] [employer] Clinical Expert Consensus Task Force, such testing provides important prognostic information in patients with more than one coronary heart disease risk factor. The coronary artery calcium score correlates with the annual risk of a non-fatal myocardial infarction or coronary heart disease . Coronary artery score Annual Risk 0-99 0.4% 100-399 1.3% >400 2.4% These three breakpoints correspond to lower, intermediate and high risk states for future coronary events. Such information should be used, along with appropriate clinical judgment, to make decisions regarding the intensity of risk factor management strategies to treat blood lipids and to modify other non-lipid coronary risk factors. Reference: [place] P et al. Circulation. 2007; 115:402-426 MACRO: None Signed by: Joshua Glass 07/06/2024 7:48 AM Dictation workstation: [id number] [facility] Abdomen Limitedon 06-07-2024 Abdomen Limited [facility] Imaging Services [address] [place] [id number] Abdomen Limited MR#: [id number] Acct: [id number] Name: ROMÁN PERSAUD Rep #: [id number] : 1985 M 38 From: Shane newton MD PCP: Dr. Cassandra Osei DO Status: REG CLI Study: Abdomen Limited Date of Exam: 06/07/24 Exam# [id number] Ordering Dr: Cassandra Osei DO [id number] STUDY: ABDOMINAL ULTRASOUND - RIGHT UPPER QUADRANT; ELASTOGRAPHY REASON FOR VISIT: Male, 38 years old. Fatty infiltration of the liver. TECHNIQUE: Ultrasound evaluation of the right upper quadrant was performed with real-time and static durbin-scale imaging. Point quantification shear wave elastography was performed (Player X). TECHNICAL QUALITY: Adequate. COMPARISON: None. FINDINGS: Liver: The liver measures 16.2 cm. There is increased echogenicity consistent with fatty infiltration. The bile ducts are within normal limits. There is hepatic color flow. The direction of portal flow is hepatopetal. There is no demonstrated mass lesion. Median liver stiffness measured 10.4 kPa. Gallbladder: Normal distended gallbladder. The gallbladder wall measures 2 mm. There is a negative sonographic Boo''s sign. There is no pericholecystic fluid. There are no gallstones. There is a 3 mm x 3 mm x 3 mm gallbladder polyp adherent to the gallbladder wall. Common Bile Duct (C.B.D.): The common bile duct measures 5 mm. Pancreas: There is normal echogenicity of the visualized pancreas. There is no demonstrated pancreatic mass or cyst. Right Kidney: Normal size of the right kidney. The right kidney measures 13.4 cm x 7.7 cm x 7.4 cm. Normal renal cortex. The right cortex measures 2.6 cm. There is no demonstrated renal mass or cyst. There is no right hydronephrosis. US/Abdomen Limited IMPRESSION: 1. Liver stiffness measures 10.4 kPa compatible with F2-F3 (Mild to moderate liver fibrosis) Metavir score. 2. 3 mm x 3 mm x 3 mm gallbladder polyp. Fatty infiltration of the liver. Electronically Signed: Shane Shore MD at 15:20 EST Reading Location ID and State: [facility] / [place] , Service support , CC: Dr. Cassandra Osei DO Hospice Clinical Supervisor: Signed Normal [facility] MR/BMS.Cheo 06-07-2024 MR/BMS. [address], [address] [place] [address] OFFICE VISIT Date of Service: 06/07/24 MR#: [id number] Acct: [id number] Name: ROMÁN PERSAUD Rep #: [id number] : 1985 Provider: Dr. Micheal Case se, DO Age/Sex: 38/M Location[place] [facility] Status: Signed Intake Vital Signs 02/08/24 14:57 03/08/24 14:50 06/07/24 07:47 Height 6 ft 1 in 6 ft 1 in 6 ft 1 in Weight: 303 lb BMI 39.9 BP 144/92 H Blood Pressure Location Lt brachial Position Sitting Respiration 16 Pulse 73 Pulse Source Monitor BP Intake Visit Reasons: Bipolar Accompanied by: Self Allergies No Known Allergies Allergy (Verified 06/07/24 07:47) Medications ???Medication ???Instructions ???Recorded ???Confirmed ???Type bupropion HCl 150 mg 24 hr tablet, 150 mg PO QAM #30 tabs 06/07/24 06/07/24 Rx extended release (Wellbutrin XL) cholecalciferol (vitamin D3) 250 250 mcg PO QDAY 06/07/24 06/07/24 History mcg (10,000 unit) capsule empagliflozin 10 mg tablet 10 mg PO QDAY 06/07/24 06/07/24 History (Jardiance) losartan 100 1 tab PO QDAY 06/07/24 06/07/24 History mg-hydrochlorothiazide 25 mg tablet metformin 500 mg tablet 500 mg PO BID 06/07/24 06/07/24 History PFSH Medical History (Updated 06/07/24 @ 08:[address] Micheal Ontiveros DO) MDD (major depressive disorder) Kidney stone High triglycerides Family History (Updated 06/07/24 @ 07:57 by Heaven Cody) Other Cancer Diabetes Hypercholesterolemia Hypertension Mental disorder Myocardial infarction Social History (Updated 06/07/24 @ 08:02 by Heaven Cody) Smoking Status: Never smoker alcohol intake: former details: Last intake October 2023 substance use type: does not use HPI History of Present Illness History provided by: patient Chief complaint: Depression/anxiety HPI: Román Persaud is a 38 year old male who presents today for new patient evaluation. Admits to having long standing history of depression and anxiety since around teenage years. Admits to having a difficult childhood as a child related to his father likely having narcissistic personality disorder. 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 Experienced some significant anger which was largely internalized. Around 21 had started to self medicate with alcohol. Completely stopped drinking in November of this year. Was binge drinking between 6 strong IPA to up to 30 pack in a night. Quit cold turkey in November secondary to diabetes. Had seen an SUPERINT[employer]ENT RECREATION at [place] [address] who diagnosed him with bipolar and started on lamotrigine but stopped as he was in the process of moving to [place]. Does admit to having a period of time in 2018 where he was taking extreme risks like passing cars on the berm because of irritability or sexual promiscuity. Had lost a job around this time. Had been binging largely heavily at this time. Describes mood today as tired. Describes some poor motivation and low energy. Has a history of panic attacks in the past. Sleep: gets about 6 hours, sometimes wakes up in middle of night Interest: diminshed Guilt: denies current Energy: low Concentration: somewhat poor, can never focus on one thing Appetite: has lost some weight since October but has been somewhat intentional Psychomotor: WNL Suicide: denies current, had some remote thoughts Memory: pretty good, both long and short term Anxiety: does admit to being an anxious type person Obsessions: denies Compulsions: denies Mary: questionable episode of mary in remote past PTSD: admits to having recurrent nightmares from things in childhood and high school admits to some flashbacks does tries to avoid certain areas and peoples Psychosis: denies history of auditory or visual hallucinations, denies disorganized thoughts, denies disorganized speech Developmental History Developmental History: Siblings - sister Born/Raised - [place], [place] Education - [employer] 6-12th grade Living Situation - lives in a mother in law suite Legal Issues - denies 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 Relationship - and Psychiatric History Previous psychiatric treatment history: No Previous psychiatric diagnoses: bipolar Previous psychiatric treatment programs: none Family Psychiatric History: No known diagnosed family history Suicidal Ideation Current: No Past: Yes History of suicide attempt: No Suicide Risk Assessment Suicide risk factors: depression Self Injurious Behavior Current: none Past: none Medication Trials Previous psychiatric medication trials: lamotrigine a lot but can't remember; doesn't feel like anything worked all that well Current/Previous Provider Psychiatrist: someone at [facility] Therapist: Anya Alvarez in 2012 Other Substance Use History Nicotine- denie (more content not included)... Normal [facility] HGB A1C (70479)Ordered By: S ystem Higher Level Teaching Assistant on 03-10-2022 HbA1c (Bld) [Mass fraction] 6.3 % Abnormal 4.8-5.6 [facility]; [facility] Work Phone: Comment on above: . Prediabetes: 5.7 - 6.4 Diabetes: >6.4 Glycemic control for adults with diabetes: <7.0 PATIENT NOT FASTINGP ERFORMED BY: CB [facility] Wpuvms[address] [place] [id number] METABOLIC PANEL, COMPREHENSI VE ([id number])Ordered By: [employer] on 03-10-2022 Albumin [Mass/Vol] 4.8 g/dL Normal 4.0-5.0 [facility]; [facility] Work Phone: Comment on above: PATIENT NOT FASTINGP ERFORMED BY: CB [facility] [id number] [address] [place] [id number] Albumin/Globulin [Mass ratio] 2.8 {ratio} Abnormal 1.2-2.2 [facility]; [facility] Work Phone: Comment on above: PATIENT NOT FASTINGP ERFORMED BY: CB [facility] Eaizzs49[address] [place] [id number] ALP [Catalytic activity/Vol] 102 U/L Normal 44-121 [facility]; [facility] Work Phone: Comment on above: PATIENT NOT FASTINGP ERFORMED BY: CB [facility] [id number] [address] [place] [id number] ALT [Catalytic activity/Vol] 40 U/L Normal 0-44 [facility]; [facility] Work Phone: Comment on above: PATIENT NOT FASTINGP ERFORMED BY: CB [facility] Cqamqa9085 [address]Dublin [place] [id number] AST [Catalytic activity/Vol] 21 U/L Normal 0-40 [facility]; [facility] Work Phone: Comment on above: PATIENT NOT FASTINGP ERFORMED BY: CB [facility] Jvjzyn2[address] [place] [id number] Bilirubin [Mass/Vol] 0.5 mg/dL Normal 0.0-1.2 [facility]; [facility] Work Phone: Comment on above: PATIENT NOT FASTINGP ERFORMED BY: PASHA [facility] Haajal15[address]Dublin [place] [id number] Calcium [Mass/Vol] 9.8 mg/dL Normal 8.7-10.2 [facility]; [facility] Work Phone: Comment on above: PATIENT NOT FASTINGP ERFORMED BY: [facility] Lgiwtd[address] [place] [id number] Chloride [Moles/Vol] 102 mmol/L Normal 96-106 [facility]; [facility] Work Phone: Comment on above: PATIENT NOT FASTINGP ERFORMED BY: [facility] Zufcsh96[address] [place] [id number] CO2 [Moles/Vol] 23 mmol/L Normal 20-29 [facility]; [facility] Work Phone: Comment on above: PATIENT NOT FASTINGP ERFORMED BY: [facility] Jhyqzy79[address] [place] [id number] Creatinine [Mass/Vol] 1.04 mg/dL Normal 0.76-1.27 [facility]; [facility] Work Phone: Comment on above: PATIENT NOT FASTINGP ERFORMED BY: [facility] Wegwrt16[address] [place] [id number] GFR/1.73 sq M.predicted among non-blacks MDRD (S/P/Bld) [Vol rate/Area] 95 mL/min/{1.73_m2} Normal [facility]; [facility] Work Phone: Comment on above: PATIENT NOT FASTINGP ERFORMED BY: CB [facility] Cvzxfi3657 [address] [place] [id number] Globulin (S) [Mass/Vol] 1.7 g/dL Normal 1.5-4.5 [facility]; [facility] Work Phone: Comment on above: PATIENT NOT FASTINGP ERFORMED BY: PASHA [facility] Ptnkrq7808 [address] [place] [id number] Glucose [Mass/Vol] 135 mg/dL Abnormal 65-99 [facility]; [facility] Work Phone: Comment on above: Effective Septembe r 2021 Glucose reference interval will be changing to: 70 - 99 PATIENT NOT FASTINGP ERFORMED BY: CB [facility] Upznjh3677 [address] RoadDublin [place] [id number] Potassium [Moles/Vol] 4.0 mmol/L Normal 3.5-5.2 [facility]; [facility] Work Phone: Comment on above: PATIENT NOT FASTINGP ERFORMED BY: PASHA [facility] Acsotf2368 [address] RoadDublin [place] [id number] Protein [Mass/Vol] 6.5 g/dL Normal 6.0-8.5 [facility]; [facility] Work Phone: Comment on above: PATIENT NOT FASTINGP ERFORMED BY: PASHA [facility] Xfeuqv2506 [address] RoadDublin [place] [id number] Sodium [Moles/Vol] 139 mmol/L Normal 134-144 [facility]; [facility] Work Phone: Comment on above: PATIENT NOT FASTINGP ERFORMED BY: PASHA [facility] Drmkfw4093 [address] RoadDublin [place] [id number] Urea nitrogen [Mass/Vol] 16 mg/dL Normal 6-20 [facility]; [facility] Work Phone: Comment on above: PATIENT NOT FASTINGP ERFORMED BY: CB [facility] Empfkj2987 [address] RoadDublin [place] [id number] Urea nitrogen/Creatini ne [Mass ratio] 15 mg/mg Normal 9-20 [facility]; [facility] Work Phone: Comment on above: PATIENT NOT FASTINGP ERFORMED BY: CB [facility] Etleav7165 [address] RoadDublin [place] [id number] Vitamin D Hydroxy (24970)Ord ered By: Combat Control on 03-10-2022 25-hydroxyvitamin D [Mass/Vol] 46.3 ng/mL Normal 30.0-100.0 [facility]; [facility] Work Phone: Comment on above: Vitamin D deficiency has been defined by the [place] of[place] and an Endocrine Society practice guideline as alevel of serum 25-OH vitamin D less than 20 ng/mL (1,2).The Endocrine Society went on to further define vitamin Dinsufficiency as a level between 21 and 29 ng/mL (2).1. IOM ([place] [employer]). 2010. Dietary reference intakes for calcium and D. [place]: The National Academies Press.2. Brendan MF, Madison COELHO, Tavo DURAND, et al. Evaluation, treatment, and prevention of vitamin D deficiency: an Endocrine Society clinical practice guideline. JCEM. 2010; 96(7):1911-30. PATIENT NOT FASTINGP ERFORMED BY: Adlogix [facility] Tvlghj5563 [address] RoadDublin [place] [id number] METABOLIC PANEL, BASIC (8004 8)Ordered By: Combat Control on 12-25-2021 Calcium [Mass/Vol] 9.3 mg/dL Normal 8.7-10.2 [facility]; [facility] Work Phone: Comment on above: PATIENT NOT FASTINGP ERFORMED BY: [employer] LabHumanCentric Performancerp Mmhhra[address] Inventorumblin [place] [id number] Chloride [Moles/Vol] 102 mmol/L Normal 96-106 [facility]; [facility] Work Phone: Comment on above: PATIENT NOT FASTINGP ERFORMED BY: CB [facility] Heqnmm2121 [address] RoadDublin [place] [id number] CO2 [Moles/Vol] 22 mmol/L Normal 20-29 Com[facility]; [facility] Work Phone: Comment on above: PATIENT NOT FASTINGP ERFORMED BY: [employer] LabHumanCentric Performancerp Mvrgrj1683 [address] RoadDublin [place] [id number] Creatinine [Mass/Vol] 0.90 mg/dL Normal 0.76-1.27 [facility]; [facility] Work Phone: Comment on above: PATIENT NOT FASTINGP ERFORMED BY: PASHA [facility] Fembmg0945 [address] RoadDublin [place] [id number] GFR/1.73 sq M.predicted among non-blacks MDRD (S/P/Bld) [Vol rate/Area] 114 mL/min/{1.73_m2} Normal Comprehensi ve [facility] Medicine; [facility] Work Phone: Comment on above: PATIENT NOT FASTINGP ERFORMED BY: PASHA [facility] Orbdne8897 [address] RoadDublin [place] [id number] Glucose [Mass/Vol] 185 mg/dL Abnormal 65-99 [facility]; [facility] Work Phone: Comment on above: PATIENT NOT FASTINGP ERFORMED BY: PASHA Labmaggie TidwellNtefvo7709 [address] RoadDublin [place] [id number] Potassium [Moles/Vol] 4.0 mmol/L Normal 3.5-5.2 [facility]; [facility] Work Phone: Comment on above: PATIENT NOT FASTINGP ERFORMED BY: PASHA [facility]ie TidwellRipksj0943 [address] RoadDublin [place] [id number] Sodium [Moles/Vol] 141 mmol/L Normal 134-144 [facility]; [facility] Work Phone: Comment on above: PATIENT NOT FASTINGP ERFORMED BY: PASHA [facility] Rwjowh6768 [address] RoadDublin [place] [id number] Urea nitrogen [Mass/Vol] 13 mg/dL Normal 6-20 [facility]; [facility] Work Phone: Comment on above: PATIENT NOT FASTINGP ERFORMED BY: PASHA [facility] Kxvsdr7525 [address] RoadDublin [place] [id number] Urea nitrogen/Creatini ne [Mass ratio] 14 mg/mg Normal 9-20 [facility]; [facility] Work Phone: Comment on above: PATIENT NOT FASTINGP ERFORMED BY: PASHA [facility] Ppiqbw9912 [address] RoadDublin [place] [id number] CBC with auto diff (32371)Or dered By: Combat Control on 12-04-2021 Basophils (Bld) [#/Vol] 0.1 10*3/uL Normal 0.0-0.2 [facility]; [facility] Work Phone: Comment on above: PATIENT NOT FASTINGP ERFORMED BY: PASHA [facility] Uqzcom6562 [address] RoadDublin [place] [id number] Basophils/100 WBC (Bld) 1 % Normal [facility]; [facility] Work Phone: Comment on above: PATIENT NOT FASTINGP ERFORMED BY: CB [facility] Hflzoc4065 [address] RoadDuin [place] [id number] Eosinophils (Bld) [#/Vol] 0.2 10*3/uL Normal 0.0-0.4 [facility]; [facility] Work Phone: Comment on above: PATIENT NOT FASTINGP ERFORMED BY: CB [facility] Draxht1758 [address] RoadDuFormerly [facility] [id number] Eosinophils/100 WBC (Bld) 2 % Normal [facility]; [facility] Work Phone: Comment on above: PATIENT NOT FASTINGP ERFORMED BY: PASHA [facility] Osgjiy[address] [facility] [id number] Erythrocyte distribution width (RBC) [Ratio] 13.4 % Normal 11.6-15.4 [facility]; [facility] Work Phone: Comment on above: PATIENT NOT FASTINGP ERFORMED BY: CB [facility] Vcpihn7783 [address] RoadFirstHealth [facility] [id number] Hematocrit (Bld) [Volume fraction] 47.7 % Normal 37.5-51.0 [facility]; [facility] Work Phone: Comment on above: PATIENT NOT FASTINGP ERFORMED BY: CB [facility] Ermurk[address] [facility] [id number] Hemoglobin (Bld) [Mass/Vol] 16.6 g/dL Normal 13.0-17.7 [facility]; [facility] Work Phone: Comment on above: PATIENT NOT FASTINGP ERFORMED BY: PASHA Labyogesh Ysxsai[address] [facility] [place] [id number] Immature granulocytes (Bld) [#/Vol] 0.0 10*3/uL Normal 0.0-0.1 [facility]; [facility] Work Phone: Comment on above: PATIENT NOT FASTINGP ERFORMED BY: Labyogesh Fkacyh[address] [facility]in [place] [id number] Immature granulocytes/100 WBC (Bld) 0 % Normal [facility]; [facility] Work Phone: Comment on above: PATIENT NOT FASTINGP ERFORMED BY: Labyogesh Inithi[address] [facility]in [place] [id number] Lymphocytes (Bld) [#/Vol] 3.2 10*3/uL Abnormal 0.7-3.1 [facility]; [facility] Work Phone: Comment on above: PATIENT NOT FASTINGP ERFORMED BY: [facility] Dbyjcg[address] [facility] [id number] Lymphocytes/100 WBC (Bld) 41 % Normal [facility]; [facility] Work Phone: Comment on above: PATIENT NOT FASTINGP ERFORMED BY: Ivon Tbypjt[address] [facility] [id number] MCH (RBC) [Entitic mass] 29.9 pg Normal 26.6-33.0 [facility]; [facility] Work Phone: Comment on above: PATIENT NOT FASTINGP ERFORMED BY: [facility] [facility]in [place] [id number] MCHC (RBC) [Mass/Vol] 34.8 g/dL Normal 31.5-35.7 [facility]; [facility] Work Phone: Comment on above: PATIENT NOT FASTINGP ERFORMED BY: PASHA [facility] Lcxlcn[address] [facility]bl[facility] [place] [id number] MCV (RBC) [Entitic vol] 86 fL Normal 79-97 [facility]; [facility] Work Phone: Comment on above: PATIENT NOT FASTINGP ERFORMED BY: CB [facility] Lanifd7382 [address] RoadDublin [place] [id number] Monocytes (Bld) [#/Vol] 0.4 10*3/uL Normal 0.1-0.9 [facility]; [facility] Work Phone: Comment on above: PATIENT NOT FASTINGP ERFORMED BY: CB [facility] Jsxizx1831 [address] RoadDublin [place] [id number] Monocytes/100 WBC (Bld) 5 % Normal [facility]; [facility] Work Phone: Comment on above: PATIENT NOT FASTINGP ERFORMED BY: CB [facility] Gmpuql6258 [address] RoadDublin [place] [id number] Neutrophils (Bld) [#/Vol] 4.0 10*3/uL Normal 1.4-7.0 [facility]; [facility] Work Phone: Comment on above: PATIENT NOT FASTINGP ERFORMED BY: CB [facility] Qjptby5669 [address] RoadDublin [place] [id number] Neutrophils/100 WBC (Bld) 51 % Normal [facility]; [facility] Work Phone: Comment on above: PATIENT NOT FASTINGP ERFORMED BY: CB [facility] Olrtlc3393 [address] RoadDublin [place] [id number] Platelets (Bld) [#/Vol] 213 10*3/uL Normal 150-450 [facility]; [facility] Work Phone: Comment on above: PATIENT NOT FASTINGP ERFORMED BY: CB [facility] Suukgv7519 [address] RoadDublin [place] [id number] RBC (Bld) [#/Vol] 5.55 10*6/uL Normal 4.14-5.80 [facility]; [facility] Work Phone: Comment on above: PATIENT NOT FASTINGP ERFORMED BY: CB [facility] Jhkdxn2745 [address] RoadDublin [place] [id number] WBC (Bld) [#/Vol] 7.9 10*3/uL Normal 3.4-10.8 [facility]; [facility] Work Phone: Comment on above: PATIENT NOT FASTINGP ERFORMED BY: PASHA [facility] Nhqprk7646 [address] RoadDublin [place] [id number] HGB A1C (42732)Ordered By: S ystem Higher Level Teaching Assistant on 12-04-2021 HbA1c (Bld) [Mass fraction] 8.3 % Abnormal 4.8-5.6 [facility]; [facility] Work Phone: Comment on above: . Prediabetes: 5.7 - 6.4 Diabetes: >6.4 Glycemic control for adults with diabetes: <7.0 PATIENT NOT FASTINGP ERFORMED BY: PASHA [facility] Ifpbbx4729 [address] RoadDublin [place] [id number] METABOLIC PANEL, COMPREHENSI VE (02939)Ordered By: Combat Control on 12-04-2021 Albumin [Mass/Vol] 4.6 g/dL Normal 4.0-5.0 [facility]; [facility] Work Phone: Comment on above: PATIENT NOT FASTINGP ERFORMED BY: CB [facility] Fiimwf1726 [address] RoadDublin [place] [id number] Albumin/Globulin [Mass ratio] 2.4 {ratio} Abnormal 1.2-2.2 [facility]; [facility] Work Phone: Comment on above: PATIENT NOT FASTINGP ERFORMED BY: CB [facility] Partok9639 [address] RoadDublin [place] [id number] ALP [Catalytic activity/Vol] 105 U/L Normal 44-121 [facility]; [facility] Work Phone: Comment on above: PATIENT NOT FASTINGP ERFORMED BY: CB [facility] Wnowet6678 [address] RoadDublin [place] [id number] ALT [Catalytic activity/Vol] 49 U/L Abnormal 0-44 [facility]; [facility] Work Phone: Comment on above: PATIENT NOT FASTINGP ERFORMED BY: CB [facility] Vmxcje2419 [address] RoadDublin [place] [id number] AST [Catalytic activity/Vol] 19 U/L Normal 0-40 [facility]; [facility] Work Phone: Comment on above: PATIENT NOT FASTINGP ERFORMED BY: PASHA Labcofernie TidwellXtharv0795 [address] RoadDublin [place] [id number] Bilirubin [Mass/Vol] 0.5 mg/dL Normal 0.0-1.2 [facility]; [facility] Work Phone: Comment on above: PATIENT NOT FASTINGP ERFORMED BY: CB [facility] Aappur8309 [address] RoadDublin [place] [id number] Calcium [Mass/Vol] 9.6 mg/dL Normal 8.7-10.2 [facility]; [facility] Work Phone: Comment on above: PATIENT NOT FASTINGP ERFORMED BY: PASHA [facility] Oschmn2653 [address] RoadDublin [place] [id number] Chloride [Moles/Vol] 101 mmol/L Normal 96-106 [facility]; [facility] Work Phone: Comment on above: PATIENT NOT FASTINGP ERFORMED BY: PASHA [facility] Lvtekx4279 [address] RoadDublin [place] [id number] CO2 [Moles/Vol] 23 mmol/L Normal 20-29 Comprehen sive Internal Medicine; [facility] Work Phone: Comment on above: PATIENT NOT FASTINGP ERFORMED BY: PASHA [facility] Nvnlcg5373 [address] RoadDublin [place] [id number] Creatinine [Mass/Vol] 0.80 mg/dL Normal 0.76-1.27 [facility]; [facility] Work Phone: Comment on above: PATIENT NOT FASTINGP ERFORMED BY: [facility] Huzgvy3455 [address] RoadDublin [place] [id number] GFR/1.73 sq M.predicted among non-blacks MDRD (S/P/Bld) [Vol rate/Area] 118 mL/min/{1.73_m2} Normal Comprehensi ve Internal Medicine; [facility] Work Phone: Comment on above: PATIENT NOT FASTINGP ERFORMED BY: PASHA Tidwelllin[address] [facility]bl[facility] [place] [id number] Globulin (S) [Mass/Vol] 1.9 g/dL Normal 1.5-4.5 [facility]; [facility] Work Phone: Comment on above: PATIENT NOT FASTINGP ERFORMED BY: PASHA Labmaggie TidwellRglngw[address] [facility]in [place] [id number] Glucose [Mass/Vol] 241 mg/dL Abnormal 65-99 [facility]; [facility] Work Phone: Comment on above: PATIENT NOT FASTINGP ERFORMED BY: PASHA Labmaggie TidwellXmxztf8867 [address] RoadCritical Access Hospitalin [place] [id number] Potassium [Moles/Vol] 4.0 mmol/L Normal 3.5-5.2 [facility]; [facility] Work Phone: Comment on above: PATIENT NOT FASTINGP ERFORMED BY: PASHA Clyde Tidwelllin[address] [facility] [id number] Protein [Mass/Vol] 6.5 g/dL Normal 6.0-8.5 [facility]; [facility] Work Phone: Comment on above: PATIENT NOT FASTINGP ERFORMED BY: PASHA Tidwelllin[address] [facility]in [place] [id number] Sodium [Moles/Vol] 138 mmol/L Normal 134-144 [facility]; [facility] Work Phone: Comment on above: PATIENT NOT FASTINGP ERFORMED BY: PASHA Labmaggie TidwellOvtjtm[address] [facility]in [place] [id number] Urea nitrogen [Mass/Vol] 14 mg/dL Normal 6-20 [facility]; [facility] Work Phone: Comment on above: PATIENT NOT FASTINGP ERFORMED BY: PASHA [facility] Prfmzc[address] [facility]bl[facility] [place] [id number] Urea nitrogen/Creatini ne [Mass ratio] 18 mg/mg Normal 9-20 [facility]; [facility] Work Phone: Comment on above: PATIENT NOT FASTINGP ERFORMED BY: PASHA [facility] Hbxvfk6427 [facility] [id number] Vitamin D Hydroxy (03632)Ord ered By: Combat Control on 12-04-2021 25-hydroxyvitamin D [Mass/Vol] 32.9 ng/mL Normal 30.0-100.0 [facility]; [facility] Work Phone: Comment on above: Vitamin D deficiency has been defined by the [place] of[place] and an Endocrine Society practice guideline as alevel of serum 25-OH vitamin D less than 20 ng/mL (1,2).The Endocrine Society went on to further define vitamin Dinsufficiency as a level between 21 and 29 ng/mL (2).1. IOM ([place] [employer]). 2010. Dietary reference intakes for calcium and D. [place]: The National Academies Press.2. Brendan MF, [place] COELHO, Tavo DURAND, et al. Evaluation, treatment, and prevention of vitamin D deficiency: an Endocrine Society clinical practice guideline. JCEM. 2010; 96(7):1911-30. PATIENT NOT FASTINGP ERFORMED BY: PASHA Monitor6370 [facility] [id number] HGB A1C (26753)Ordered By: Leslee zhura Fast on 04-10-2021 HbA1c (Bld) [Mass fraction] 6.0 % Normal 4.6 - 7.1 [facility]; [facility] Work Phone: HGB A1C (39541)Ordered By: Tanya ystem Higher Level Teaching Assistant on 01-07-2021 HbA1c (Bld) [Mass fraction] 6.5 % Abnormal 4.8-5.6 [facility]; [facility] Work Phone: Comment on above: . Prediabetes: 5.7 - 6.4 Diabetes: >6.4 Glycemic control for adults with diabetes: <7.0 PATIENT WAS FASTINGP ERFORMED BY: PASHA [employer] [employer] Corporationlin6370 [facility] [id number] LIPID PANEL (67374)Ordered B y: Combat Control on 01-07-2021 Cholesterol [Mass/Vol] 244 mg/dL Abnormal 100-199 [facility]; [facility] Work Phone: Comment on above: PATIENT WAS FASTINGP ERFORMED BY: PASHA [facility] Nolpps0687 [address] RoadDublin [place] [id number] Cholesterol in HDL [Mass/Vol] 46 mg/dL Normal [facility]; [facility] Work Phone: Comment on above: PATIENT WAS FASTINGP ERFORMED BY: PASHA [facility] Wbacqs6350 [address] RoadDublin [place] [id number] Triglyceride [Mass/Vol] 107 mg/dL Normal 0-149 [facility]; [facility] Work Phone: Comment on above: PATIENT WAS FASTINGP ERFORMED BY: PASHA [facility] Iqgiwe3141 [address] RoadDublin [place] [id number] LIPID PANEL (84020) 19 mg/dL Normal 5-40 [facility]; [facility] Work Phone: Comment on above: PATIENT WAS FASTINGP ERFORMED BY: PASHA LabCofernie TidwellFkaunv9160 [address] RoadDublin [place] [id number] LIPID PANEL (90581) 179 mg/dL Abnormal 0-99 [facility]; [facility] Work Phone: Comment on above: PATIENT WAS FASTINGP ERFORMED BY: PASHA LabCofernie Phrkfu1776 [address] RoadDublin [place] [id number] LIPID PANEL (72946) 3.9 {ratio} Abnormal 0.0-3.6 [facility]; [facility] Work Phone: Comment on above: LDL/HDL Ratio Men Wo men 1/2 Avg.Risk 1.0 1.5 Avg.Risk 3.6 3.2 2X Avg.Risk 6.2 5.0 3X Avg.Risk 8.0 6.1 PATIENT WAS FASTINGP ERFORMED BY: PASHA [facility] Aemojl8899 [address] RoadDublin [place] [id number] METABOLIC PANEL, COMPREHENSI VE (76125)Ordered By: Combat Control on 01-07-2021 Albumin [Mass/Vol] 4.8 g/dL Normal 4.0-5.0 [facility]; [facility] Work Phone: Comment on above: PATIENT WAS FASTINGP ERFORMED BY: PASHA LabCofernie Prdije3068 [address] RoadDublin [place] [id number] Albumin/Globulin [Mass ratio] 2.3 {ratio} Abnormal 1.2-2.2 [facility]; [facility] Work Phone: Comment on above: PATIENT WAS FASTINGP ERFORMED BY: PASHA LabCofernie Nmvduj0040 [address] RoadDublin [place] [id number] ALP [Catalytic activity/Vol] 94 U/L Normal 48-121 [facility]; [facility] Work Phone: Comment on above: PATIENT WAS FASTINGP ERFORMED BY: PASHA [facility] Qsbzpx7644 [address] RoadDublin [place] [id number] ALT [Catalytic activity/Vol] 46 U/L Abnormal 0-44 [facility]; [facility] Work Phone: Comment on above: PATIENT WAS FASTINGP ERFORMED BY: PASHA LabMaggie TidwellMpegrz4012 [address] RoadDublin [place] [id number] AST [Catalytic activity/Vol] 23 U/L Normal 0-40 [facility]; [facility] Work Phone: Comment on above: PATIENT WAS FASTINGP ERFORMED BY: PASHA LabMaggie TidwellXnuayf9391 [address] RoadDublin [place] [id number] Bilirubin [Mass/Vol] 0.5 mg/dL Normal 0.0-1.2 [facility]; [facility] Work Phone: Comment on above: PATIENT WAS FASTINGP ERFORMED BY: PASHA [facility] Idpkts9061 [address] RoadDublin [place] [id number] Calcium [Mass/Vol] 9.7 mg/dL Normal 8.7-10.2 [facility]; [facility] Work Phone: Comment on above: PATIENT WAS FASTINGP ERFORMED BY: PASHA [facility] Fyjjui7989 [address] RoadDublin [place] [id number] Chloride [Moles/Vol] 105 mmol/L Normal 96-106 [facility]; [facility] Work Phone: Comment on above: PATIENT WAS FASTINGP ERFORMED BY: [facility]6370 [facility] [id number] CO2 [Moles/Vol] 20 mmol/L Normal 20-29 [facility]; [facility] Work Phone: Comment on above: PATIENT WAS FASTINGP ERFORMED BY: [facility]6370 [facility] [id number] Creatinine [Mass/Vol] 0.81 mg/dL Normal 0.76-1.27 [facility]; [facility] Work Phone: Comment on above: PATIENT WAS FASTINGP ERFORMED BY: [facility]6370 [facility] [id number] GFR/1.73 sq M.predicted among blacks CKD-EPI (S/P/Bld) [Vol rate/Area] 133 mL/min/1.73 Normal [facility]; [facility] Work Phone: Comment on above: [facility] currently reports eGFR in compliance with the current recommendations of the National Kidney Foundation. [email or web address] health tr[facility] center will update reporting as new guidelines are published from the NKF-ASN Task force. PATIENT WAS FASTINGP ERFORMED BY: [facility]6370 [facility] [id number] GFR/1.73 sq M.predicted among non-blacks CKD-EPI (S/P/Bld) [Vol rate/Area] 115 mL/min/1.73 Normal [facility]; [facility] Work Phone: Comment on above: PATIENT WAS FASTINGP ERFORMED BY: [facility]6370 [facility] [id number] Globulin (S) [Mass/Vol] 2.1 g/dL Normal 1.5-4.5 [facility]; [facility] Work Phone: Comment on above: PATIENT WAS FASTINGP ERFORMED BY: [facility]6370 [facility] [id number] Glucose [Mass/Vol] 97 mg/dL Normal 65-99 [facility]; [facility] Work Phone: Comment on above: PATIENT WAS FASTINGP ERFORMED BY: CB [facility] Vmyitk4009 [address] RoadDublin [place] [id number] Potassium [Moles/Vol] 4.3 mmol/L Normal 3.5-5.2 [facility]; [facility] Work Phone: Comment on above: PATIENT WAS FASTINGP ERFORMED BY: CB [facility] Eqvxse2613 [address] RoadDublin [place] [id number] Protein [Mass/Vol] 6.9 g/dL Normal 6.0-8.5 [facility]; [facility] Work Phone: Comment on above: PATIENT WAS FASTINGP ERFORMED BY: CB [facility] Zqppdw6336 [address] RoadDublin [place] [id number] Sodium [Moles/Vol] 140 mmol/L Normal 134-144 [facility]; [facility] Work Phone: Comment on above: PATIENT WAS FASTINGP ERFORMED BY: CB [facility] Jjdmxw3124 [address] RoadDublin [place] [id number] Urea nitrogen [Mass/Vol] 13 mg/dL Normal 6-20 [facility]; [facility] Work Phone: Comment on above: PATIENT WAS FASTINGP ERFORMED BY: CB [facility] Lxejqv3465 [address] RoadDublin [place] [id number] Urea nitrogen/Creatini ne [Mass ratio] 16 mg/mg Normal 9-20 [facility]; [facility] Work Phone: Comment on above: PATIENT WAS FASTINGP ERFORMED BY: CB [facility] Phvniy3975 [address] RoadDublin [place] [id number] Vitamin D Hydroxy (61720)Ord ered By: [employer] on 01-07-2021 25-hydroxyvitamin D [Mass/Vol] 18.9 ng/mL Abnormal 30.0-100.0 [facility]; [facility] Work Phone: Comment on above: Vitamin D deficiency has been defined by the [place] [employer] and an Endocrine Society practice guideline as alevel of serum 25-OH vitamin D less than 20 ng/mL (1,2).The Endocrine Society went on to further define vitamin Dinsufficiency as a level between 21 and 29 ng/mL (2).1. IOM ([place] [employer]). 2010. Dietary reference intakes for calcium and D. [place]: The National Academies Press.2. Brendan MF, [place] COELHO, Tavo DURAND, et al. Evaluation, treatment, and prevention of vitamin D deficiency: an Endocrine Society clinical practice guideline. JCEM. 2010; 96(7):1911-30. PATIENT WAS FASTINGP ERFORMED BY: CB [facility] Divwtm[address] [place] [id number] CBC with auto diff ([id number])Or dered By: [employer] on 07-10-2020 Basophils (Bld) [#/Vol] 0.1 10*3/uL Normal 0.0-0.2 [facility]; [facility] Work Phone: Comment on above: PATIENT NOT FASTINGP ERFORMED BY: CB [facility] Yolvjm4376 [address] [place] [id number] Basophils/100 WBC (Bld) 1 % Normal [facility]; [facility] Work Phone: Comment on above: PATIENT NOT FASTINGP ERFORMED BY: CB [facility] Shtljj8925 [address] [place] [id number] Eosinophils (Bld) [#/Vol] 0.1 10*3/uL Normal 0.0-0.4 [facility]; [facility] Work Phone: Comment on above: PATIENT NOT FASTINGP ERFORMED BY: CB [facility] Jmcirl4071 [address] [place] [id number] Eosinophils/100 WBC (Bld) 1 % Normal [facility]; [facility] Work Phone: Comment on above: PATIENT NOT FASTINGP ERFORMED BY: CB [facility] Oldvcw9634 [address] [place] [id number] Erythrocyte distribution width (RBC) [Ratio] 13.0 % Normal 11.6-15.4 [facility]; [facility] Work Phone: Comment on above: PATIENT NOT FASTINGP ERFORMED BY: [employer] [facility] Uwyxhn3591 [facility] [id number] Hematocrit (Bld) [Volume fraction] 45.8 % Normal 37.5-51.0 [facility]; [facility] Work Phone: Comment on above: PATIENT NOT FASTINGP ERFORMED BY: PASHA Tidwelllin6370 [facility] [id number] Hemoglobin (Bld) [Mass/Vol] 15.6 g/dL Normal 13.0-17.7 [facility]; [facility] Work Phone: Comment on above: PATIENT NOT FASTINGP ERFORMED BY: PASHA [facility] Griqdz6435 [facility] [id number] Immature granulocytes (Bld) [#/Vol] 0.0 10*3/uL Normal 0.0-0.1 [facility]; [facility] Work Phone: Comment on above: PATIENT NOT FASTINGP ERFORMED BY: PASHA Thibodeaux Teebgx6743 [facility] [id number] Immature granulocytes/100 WBC (Bld) 0 % Normal [facility]; [facility] Work Phone: Comment on above: PATIENT NOT FASTINGP ERFORMED BY: PASHA Thibodeaux Jgodcz2563 [facility] [id number] Lymphocytes (Bld) [#/Vol] 3.1 10*3/uL Normal 0.7-3.1 [facility]; [facility] Work Phone: Comment on above: PATIENT NOT FASTINGP ERFORMED BY: PASAH Thibodeaux Ijytso8157 [facility] [id number] Lymphocytes/100 WBC (Bld) 29 % Normal [facility]; [facility] Work Phone: Comment on above: PATIENT NOT FASTINGP ERFORMED BY: PASHA Tidwelllin6370 [facility] [id number] MCH (RBC) [Entitic mass] 29.7 pg Normal 26.6-33.0 [facility]; [facility] Work Phone: Comment on above: PATIENT NOT FASTINGP ERFORMED BY: PASHA Tidwelllin6370 [address] [place] [id number] MCHC (RBC) [Mass/Vol] 34.1 g/dL Normal 31.5-35.7 [facility]; [facility] Work Phone: Comment on above: PATIENT NOT FASTINGP ERFORMED BY: PASHA Tidwelllin6370 [address] Road[address] [place] [id number] MCV (RBC) [Entitic vol] 87 fL Normal 79-97 [facility]; [facility] Work Phone: Comment on above: PATIENT NOT FASTINGP ERFORMED BY: PASHA LabCofernie RobersonPtziuz5669 [address] Roadblin [place] [id number] Monocytes (Bld) [#/Vol] 0.6 10*3/uL Normal 0.1-0.9 [facility]; [facility] Work Phone: Comment on above: PATIENT NOT FASTINGP ERFORMED BY: PASHA Roberson6[address] [place] [id number] Monocytes/100 WBC (Bld) 6 % Normal [facility]; [facility] Work Phone: Comment on above: PATIENT NOT FASTINGP ERFORMED BY: PASHA Roberson6[address] [place] [id number] Neutrophils (Bld) [#/Vol] 7.0 10*3/uL Normal 1.4-7.0 [facility]; [facility] Work Phone: Comment on above: PATIENT NOT FASTINGP ERFORMED BY: PASHA LabCofernie TidwellPjmacm3875 [address] RoadDublin [place] [id number] Neutrophils/100 WBC (Bld) 63 % Normal [facility]; [facility] Work Phone: Comment on above: PATIENT NOT FASTINGP ERFORMED BY: PASHA LabMaggie TidwellInmlgj5584 [address] RoadDublin [place] [id number] Platelets (Bld) [#/Vol] 240 10*3/uL Normal 150-450 [facility]; [facility] Work Phone: Comment on above: PATIENT NOT FASTINGP ERFORMED BY: PASHA [facility] Vizikl5462 [address] Roadblin [place] [id number] RBC (Bld) [#/Vol] 5.25 10*6/uL Normal 4.14-5.80 [facility]; [facility] Work Phone: Comment on above: PATIENT NOT FASTINGP ERFORMED BY: PASHA [facility] Yuxjlt3035 [address] [facility] [place] [id number] WBC (Bld) [#/Vol] 10.8 10*3/uL Normal 3.4-10.8 [facility] Internal Medicine; [facility] Work Phone: Comment on above: PATIENT NOT FASTINGP ERFORMED BY: PASHA Tidwelllin[address] [facility] [id number] HGB A1C ([id number])Ordered By: S ystem Higher Level Teaching Assistant on 07-10-2020 HbA1c (Bld) [Mass fraction] 5.9 % Abnormal 4.8-5.6 [facility]; [facility] Work Phone: Comment on above: . Prediabetes: 5.7 - 6.4 Diabetes: >6.4 Glycemic control for adults with diabetes: <7.0 PATIENT NOT FASTINGP ERFORMED BY: PASHA LabMaggie TidwellZaukxv9546 [facility] [id number] METABOLIC PANEL, COMPREHENSI VE ([id number])Ordered By: [employer] on 07-10-2020 Albumin [Mass/Vol] 4.6 g/dL Normal 4.0-5.0 [facility]; [facility] Work Phone: Comment on above: PATIENT NOT FASTINGP ERFORMED BY: PASHA [facility] Pbbjmx3188 [address] [facility] [place] [id number] Albumin/Globulin [Mass ratio] 2.4 {ratio} Abnormal 1.2-2.2 [facility]; [facility] Work Phone: Comment on above: PATIENT NOT FASTINGP ERFORMED BY: PASHA [facility] Dmftrb8735 [address] [facility] [place] [id number] ALP [Catalytic activity/Vol] 101 U/L Normal 39-117 [facility]; [facility] Work Phone: Comment on above: PATIENT NOT FASTINGP ERFORMED BY: PASHA [facility] Eohvkz7696 [address] RoadDublin [place] [id number] ALT [Catalytic activity/Vol] 32 U/L Normal 0-44 [facility]; [facility] Work Phone: Comment on above: PATIENT NOT FASTINGP ERFORMED BY: CB [facility] Bajroy1881 [address] RoadDublin [place] [id number] AST [Catalytic activity/Vol] 21 U/L Normal 0-40 [facility]; [facility] Work Phone: Comment on above: PATIENT NOT FASTINGP ERFORMED BY: CB [facility] Rnycnt5254 [address] RoadDublin [place] [id number] Bilirubin [Mass/Vol] 0.3 mg/dL Normal 0.0-1.2 [facility]; [facility] Work Phone: Comment on above: PATIENT NOT FASTINGP ERFORMED BY: CB [facility] Ghohdm6770 [address] RoadDublin [place] [id number] Calcium [Mass/Vol] 9.4 mg/dL Normal 8.7-10.2 [facility]; [facility] Work Phone: Comment on above: PATIENT NOT FASTINGP ERFORMED BY: CB [facility] Xlsfbb4170 [address] RoadDublin [place] [id number] Chloride [Moles/Vol] 105 mmol/L Normal 96-106 [facility]; [facility] Work Phone: Comment on above: PATIENT NOT FASTINGP ERFORMED BY: CB [facility] Emcnti6184 [address] RoadDublin [place] [id number] CO2 [Moles/Vol] 21 mmol/L Normal 20-29 [facility]; [facility] Work Phone: Comment on above: PATIENT NOT FASTINGP ERFORMED BY: CB [facility] Vbhzer6745 [address] RoadDublin [place] [id number] Creatinine [Mass/Vol] 0.82 mg/dL Normal 0.76-1.27 [facility]; [facility] Work Phone: Comment on above: PATIENT NOT FASTINGP ERFORMED BY: PASHA LabCofernie TidwellCnirrc4186 [address] RoadDublin [place] [id number] GFR/1.73 sq M.predicted among blacks CKD-EPI (S/P/Bld) [Vol rate/Area] 132 mL/min/1.73 Normal [facility]; [facility] Work Phone: Comment on above: PATIENT NOT FASTINGP ERFORMED BY: CB [facility] Nakuma0703 [address] RoadDublin [place] [id number] GFR/1.73 sq M.predicted among non-blacks CKD-EPI (S/P/Bld) [Vol rate/Area] 115 mL/min/1.73 Normal [facility]; [facility] Work Phone: Comment on above: PATIENT NOT FASTINGP ERFORMED BY: PASHA [facility] Ojwkfw6993 [address] [facility]First[facility] [id number] Globulin (S) [Mass/Vol] 1.9 g/dL Normal 1.5-4.5 [facility]; [facility] Work Phone: Comment on above: PATIENT NOT FASTINGP ERFORMED BY: PASHA LabYogeshrp Waejmz[address] [facility] [id number] Glucose [Mass/Vol] 151 mg/dL Abnormal 65-99 [facility]; [facility] Work Phone: Comment on above: PATIENT NOT FASTINGP ERFORMED BY: PASHA [facility] Mgvkro0428 [address] [facility] [place] [id number] Potassium [Moles/Vol] 3.8 mmol/L Normal 3.5-5.2 [facility]; [facility] Work Phone: Comment on above: PATIENT NOT FASTINGP ERFORMED BY: PASHA [facility] Ajbvfb55[address] [facility] [place] [id number] Protein [Mass/Vol] 6.5 g/dL Normal 6.0-8.5 [facility]; [facility] Work Phone: Comment on above: PATIENT NOT FASTINGP ERFORMED BY: [facility] Csyfko7718 [address] RoadDublin [place] [id number] Sodium [Moles/Vol] 140 mmol/L Normal 134-144 [facility]; [facility] Work Phone: Comment on above: PATIENT NOT FASTINGP ERFORMED BY: [facility] Jknvye2318 [address] RoadDuin [place] [id number] Urea nitrogen [Mass/Vol] 14 mg/dL Normal 6-20 [facility]; [facility] Work Phone: Comment on above: PATIENT NOT FASTINGP ERFORMED BY: [facility] Dqzsxs3342 [address] [facility] [place] [id number] Urea nitrogen/Creatini ne [Mass ratio] 17 mg/mg Normal 9-20 [facility]; [facility] Work Phone: Comment on above: PATIENT NOT FASTINGP ERFORMED BY: [facility] Makpte0543 [address] [facility]in [place] [id number] CBC W/AUTO DIFF WBC ([id number])O rdered By: [employer] on 05-08-2020 Basophils (Bld) [#/Vol] 0.1 {x10E3/uL} Normal 0.0-0.2 [facility] Work Phone: Comment on above: PATIENT NOT FASTINGP ERFORMED BY: [facility] Uwqusk64[address] [facility]in [place] [id number] Basophils (Bld) [#/Vol] 0.1 10*3/uL Normal 0.0-0.2 [facility]; [facility] Work Phone: Comment on above: PATIENT NOT FASTINGP ERFORMED BY: [facility] Xezjhq8167 [address] RoadDublin [place] [id number] Basophils/100 WBC (Bld) 0 % Normal [facility] Work Phone: Comment on above: PATIENT NOT FASTINGP ERFORMED BY: [facility] Orvdyc4179 [address] RoadDublin [place] [id number] Eosinophils (Bld) [#/Vol] 0.0 {x10E3/uL} Normal 0.0-0.4 [facility] Work Phone: Comment on above: PATIENT NOT FASTINGP ERFORMED BY: CB [facility] Lfcupr9786 [address] [facility]in [place] [id number] Eosinophils (Bld) [#/Vol] 0.0 10*3/uL Normal 0.0-0.4 [facility]; [facility] Work Phone: Comment on above: PATIENT NOT FASTINGP ERFORMED BY: CB [facility] Qamphw75[address] [facility] [id number] Eosinophils/100 WBC (Bld) 0 % Normal [facility] Work Phone: Comment on above: PATIENT NOT FASTINGP ERFORMED BY: CB [facility] Qfcekn0977 [address] [facility] [id number] Erythrocyte distribution width (RBC) [Ratio] 12.7 % Normal 11.6-15.4 [facility] Work Phone: Comment on above: PATIENT NOT FASTINGP ERFORMED BY: CB [facility] Jhlwxh3020 [address] [facility] [id number] Hematocrit (Bld) [Volume fraction] 50.8 % Normal 37.5-51.0 [facility] Work Phone: Comment on above: PATIENT NOT FASTINGP ERFORMED BY: CB [facility] Ubzxua4865 [address] [facility] [id number] Hemoglobin (Bld) [Mass/Vol] 17.7 g/dL Normal 13.0-17.7 [facility] Work Phone: Comment on above: PATIENT NOT FASTINGP ERFORMED BY: CB [facility] Urqgjx9578 [address] RoadCritical Access Hospitalin [place] [id number] Immature granulocytes (Bld) [#/Vol] 0.0 {x10E3/uL} Normal 0.0-0.1 [facility] Work Phone: Comment on above: PATIENT NOT FASTINGP ERFORMED BY: CB [facility] Daudvx0292 [address] RoadCritical Access Hospitalin [place] [id number] Immature granulocytes (Bld) [#/Vol] 0.0 10*3/uL Normal 0.0-0.1 [facility]; [facility] Work Phone: Comment on above: PATIENT NOT FASTINGP ERFORMED BY: PASHA LabCofernie RobersonBqnhxa[address] [facility] [id number] Immature granulocytes/100 WBC (Bld) 0 % Normal [facility] Work Phone: Comment on above: PATIENT NOT FASTINGP ERFORMED BY: PASHA [facility] Woiknh5190 [address] [facility] [id number] Lymphocytes (Bld) [#/Vol] 3.3 {x10E3/uL} Abnormal 0.7-3.1 [facility] Work Phone: Comment on above: PATIENT NOT FASTINGP ERFORMED BY: PASHA [facility] Yllyim7158 [address] [facility] [id number] Lymphocytes (Bld) [#/Vol] 3.3 10*3/uL Abnormal 0.7-3.1 [facility]; [facility] Work Phone: Comment on above: PATIENT NOT FASTINGP ERFORMED BY: PASHA [facility] Lizhpv2309 [address] [facility] [id number] Lymphocytes/100 WBC (Bld) 28 % Normal [facility] Work Phone: Comment on above: PATIENT NOT FASTINGP ERFORMED BY: PASHA [facility] Gjicaf3013 [facility] [id number] MCH (RBC) [Entitic mass] 29.5 pg Normal 26.6-33.0 [facility] Work Phone: Comment on above: PATIENT NOT FASTINGP ERFORMED BY: PASHA [facility] Wmepmv1585 [address] [facility] [id number] MCHC (RBC) [Mass/Vol] 34.8 g/dL Normal 31.5-35.7 [facility] Work Phone: Comment on above: PATIENT NOT FASTINGP ERFORMED BY: PASHA [facility] Ckiink7765 [address] [facility] [id number] MCV (RBC) [Entitic vol] 85 fL Normal 79-97 [facility] Work Phone: Comment on above: PATIENT NOT FASTINGP ERFORMED BY: CB [facility] Cztxrp9309 [address] RoadDublin [place] [id number] Monocytes (Bld) [#/Vol] 0.6 {x10E3/uL} Normal 0.1-0.9 [facility] Work Phone: Comment on above: PATIENT NOT FASTINGP ERFORMED BY: CB [facility] Qcitoo7478 [address] RoadDublin [place] [id number] Monocytes (Bld) [#/Vol] 0.6 10*3/uL Normal 0.1-0.9 [facility]; [facility] Work Phone: Comment on above: PATIENT NOT FASTINGP ERFORMED BY: CB [facility] Zmudps1705 [address] RoadDublin [place] [id number] Monocytes/100 WBC (Bld) 5 % Normal [facility] Work Phone: Comment on above: PATIENT NOT FASTINGP ERFORMED BY: CB [facility] Bhftvv1127 [address] RoadDublin [place] [id number] Neutrophils (Bld) [#/Vol] 8.0 {x10E3/uL} Abnormal 1.4-7.0 [facility] Work Phone: Comment on above: PATIENT NOT FASTINGP ERFORMED BY: CB [facility] Fzvcal3482 [address] RoadDublin [place] [id number] Neutrophils (Bld) [#/Vol] 8.0 10*3/uL Abnormal 1.4-7.0 [facility]; [facility] Work Phone: Comment on above: PATIENT NOT FASTINGP ERFORMED BY: CB [facility] Uawkot5136 [address] RoadDublin [place] [id number] Neutrophils/100 WBC (Bld) 67 % Normal [facility] Work Phone: Comment on above: PATIENT NOT FASTINGP ERFORMED BY: CB [facility] Kuvuhm1048 [address] RoadDublin [place] [id number] Platelets (Bld) [#/Vol] 303 {x10E3/uL} Normal 150-450 [facility] Work Phone: Comment on above: PATIENT NOT FASTINGP ERFORMED BY: CB [facility] Qjzucb2030 [address] RoadDublin [place] [id number] Platelets (Bld) [#/Vol] 303 10*3/uL Normal 150-450 [facility]; [facility] Work Phone: Comment on above: PATIENT NOT FASTINGP ERFORMED BY: CB [facility] Mldsbi4738 [address] RoadDublin [place] [id number] RBC (Bld) [#/Vol] 6.01 {x10E6/uL} Abnormal 4.14-5.80 [facility] Internal Medicine Work Phone: Comment on above: PATIENT NOT FASTINGP ERFORMED BY: CB [facility] Mtgoxm6786 [address] RoadDublin [place] [id number] RBC (Bld) [#/Vol] 6.01 10*6/uL Abnormal 4.14-5.80 Compr ensive Internal Medicine; [facility] Work Phone: Comment on above: PATIENT NOT FASTINGP ERFORMED BY: CB [facility] Ipcpht9880 [address] RoadDublin [place] [id number] WBC (Bld) [#/Vol] 12.1 {x10E3/uL} Abnormal 3.4-10.8 [facility] Internal Medicine Work Phone: Comment on above: PATIENT NOT FASTINGP ERFORMED BY: CB [facility] Agmaek2038 [address] RoadDublin [place] [id number] WBC (Bld) [#/Vol] 12.1 10*3/uL Abnormal 3.4-10.8 [facility] Internal Medicine; [facility] Work Phone: Comment on above: PATIENT NOT FASTINGP ERFORMED BY: CB [facility] Pczsrg8651 [address] RoadDublin [place] [id number] METABOLIC PANEL, COMPREHENSI VE ([id number])Ordered By: [employer] on 05-08-2020 Albumin [Mass/Vol] 5.3 g/dL Abnormal 4.0-5.0 [facility] Internal Medicine Work Phone: Comment on above: PATIENT NOT FASTINGP ERFORMED BY: PASHA [facility] Cozoov6541 [address] RoadDublin [place] [id number] Albumin/Globulin [Mass ratio] 2.4 {ratio} Abnormal 1.2-2.2 [facility] Work Phone: Comment on above: PATIENT NOT FASTINGP ERFORMED BY: PASHA [facility] Uvtbjx4078 [address] RoadDublin [place] [id number] ALP [Catalytic activity/Vol] 104 [iU]/L Normal 39-117 [facility] Work Phone: Comment on above: PATIENT NOT FASTINGP ERFORMED BY: PASHA [facility] Yhgvxr6930 [address] RoadDublin [place] [id number] ALP [Catalytic activity/Vol] 104 U/L Normal 39-117 [facility]; [facility] Work Phone: Comment on above: PATIENT NOT FASTINGP ERFORMED BY: PASHA [facility] Lpsunz7916 [address] RoadDublin [place] [id number] ALT [Catalytic activity/Vol] 89 [iU]/L Abnormal 0-44 [facility] Work Phone: Comment on above: PATIENT NOT FASTINGP ERFORMED BY: PASHA [facility] Tgjche3305 [address] RoadDublin [place] [id number] ALT [Catalytic activity/Vol] 89 U/L Abnormal 0-44 [facility]; [facility] Work Phone: Comment on above: PATIENT NOT FASTINGP ERFORMED BY: PASHA [facility] Ppqijs7518 [address] RoadDublin [place] [id number] AST [Catalytic activity/Vol] 41 [iU]/L Abnormal 0-40 [facility] Work Phone: Comment on above: PATIENT NOT FASTINGP ERFORMED BY: CB [facility] Uvblfi0343 [address] RoadDublin [place] [id number] AST [Catalytic activity/Vol] 41 U/L Abnormal 0-40 [facility]; [facility] Work Phone: Comment on above: PATIENT NOT FASTINGP ERFORMED BY: PASHA [facility] Icuhfg7588 [address] RoadDublin [place] [id number] Bilirubin [Mass/Vol] 0.7 mg/dL Normal 0.0-1.2 [facility] Work Phone: Comment on above: PATIENT NOT FASTINGP ERFORMED BY: CB [facility] Mzmbms1113 [address]Dublin [place] [id number] Calcium [Mass/Vol] 10.4 mg/dL Abnormal 8.7-10.2 [facility] Work Phone: Comment on above: PATIENT NOT FASTINGP ERFORMED BY: CB [facility] Iwhhsv8516 [address] RoadDublin [place] [id number] Chloride [Moles/Vol] 102 mmol/L Normal 96-106 [facility] Work Phone: Comment on above: PATIENT NOT FASTINGP ERFORMED BY: CB [facility] Snidrw5780 [address] RoadDublin [place] [id number] CO2 [Moles/Vol] 23 mmol/L Normal 20-29 [facility] Internal Medicine Work Phone: Comment on above: PATIENT NOT FASTINGP ERFORMED BY: CB [facility] Fwbqii6720 [address]Dublin [place] [id number] Creatinine [Mass/Vol] 1.04 mg/dL Normal 0.76-1.27 [facility] Work Phone: Comment on above: PATIENT NOT FASTINGP ERFORMED BY: CB [facility] Adtogx1212 [address]Dublin [place] [id number] GFR/1.73 sq M predicted among blacks CKD-EPI (S/P/Bld) [Vol rate/Area] 108 mL/min/1.73 Normal [facility] Work Phone: Comment on above: PATIENT NOT FASTINGP ERFORMED BY: CB [facility] Nwirsb0540 [address]Dublin [place] [id number] GFR/1.73 sq M predicted among non-blacks CKD-EPI (S/P/Bld) [Vol rate/Area] 93 mL/min/1.73 Normal [facility] Work Phone: Comment on above: PATIENT NOT FASTINGP ERFORMED BY: CB [facility] Hwiogb5346 [address]Dublin [place] [id number] Globulin (S) [Mass/Vol] 2.2 g/dL Normal 1.5-4.5 [facility] Work Phone: Comment on above: PATIENT NOT FASTINGP ERFORMED BY: [facility] Paoobn4934 [address] RoadDublin [place] [id number] Glucose [Mass/Vol] 152 mg/dL Abnormal 65-99 [facility] Work Phone: Comment on above: PATIENT NOT FASTINGP ERFORMED BY: [facility] Nzwmsm9181 [address] RoadDublin [place] [id number] Potassium [Moles/Vol] 3.9 mmol/L Normal 3.5-5.2 [facility] Work Phone: Comment on above: PATIENT NOT FASTINGP ERFORMED BY: [facility] Oplkrv2292 [address]Dublin [place] [id number] Protein [Mass/Vol] 7.5 g/dL Normal 6.0-8.5 [facility] Work Phone: Comment on above: PATIENT NOT FASTINGP ERFORMED BY: [facility] Noioon0914 [address]Dublin [place] [id number] Sodium [Moles/Vol] 141 mmol/L Normal 134-144 [facility] Work Phone: Comment on above: PATIENT NOT FASTINGP ERFORMED BY: [facility] Yvskpo1350 [address]Dublin [place] [id number] Urea nitrogen [Mass/Vol] 13 mg/dL Normal 6-20 [facility] Work Phone: Comment on above: PATIENT NOT FASTINGP ERFORMED BY: [facility] Tqheah0230 [address]Dublin [place] [id number] Urea nitrogen/Creatini ne [Mass ratio] 13 mg/mg Normal 9-20 [facility] Work Phone: Comment on above: PATIENT NOT FASTINGP ERFORMED BY: [facility] Cbalnt7876 [address]Dublin [place] [id number] TSH ([id number])Ordered By: Syste m Higher Level Teaching Assistant on 05-08-2020 TSH Qn 1.560 {uIU/mL} Normal 0.450-4.500 Comprehen sive Internal Medicine Work Phone: Comment on above: PATIENT NOT FASTINGP ERFORMED BY: PASHA LabCoVirtua VoorheesZnylne5030 [facility] [id number] Blood Glucose , Office ([phone])Ordered By: Cassandra Fast on 04-17-2020 Glucose Glucometer (BldC) [Moles/Vol] 198 1 Normal [facility] Work Phone: HgA1C , Office ([id number])Ordere d By: Cassandra Fast on 04-17-2020 HbA1c (Bld) [Mass fraction] 8.0 % Abnormal 4.6 - 7.1 [facility] Work Phone: Metabolic Panel, Basic (9030 5)on 08-20-2018 Calcium mass conc 9.3 mg/dL Normal 8.7-10.2 Compreh ensive Internal Medicine Work Phone: Comment on above: PATIENT NOT FASTINGP ERFORMED BY: PASHA [facility]6370 [facility] [id number] Chloride molar conc 104 mmol/L Normal 96-106 [facility] Work Phone: Comment on above: PATIENT NOT FASTINGP ERFORMED BY: PASHA LabYogeshVirtua VoorheesBzxcva8384 [facility] [id number] CO2 molar conc 22 mmol/L Normal 20-29 Comprehens trisha Internal Medicine Work Phone: Comment on above: PATIENT NOT FASTINGP ERFORMED BY: PASHA [facility]6370 [facility] [id number] Creatinine mass conc 0.82 mg/dL Normal 0.76-1.27 [facility] Work Phone: Comment on above: PATIENT NOT FASTINGP ERFORMED BY: PASHA LabCoBrianna Ville [id number] [facility] [id number] GFR/1.73 sq M predicted among blacks CKD-EPI vol rate/area (S/P/Bld) 134 mL/min/1.73 Normal [facility] Work Phone: Comment on above: PATIENT NOT FASTINGP ERFORMED BY: PASHA Tidwelllin[address] PocketFM LimitedCritical Access Hospitalin [place] [id number] GFR/1.73 sq M predicted among non-blacks CKD-EPI vol rate/area (S/P/Bld) 116 mL/min/1.73 Normal [facility] Work Phone: Comment on above: PATIENT NOT FASTINGP ERFORMED BY: PASHA Roberson[address] PocketFM LimitedFirstHealth Montgomery [facility] [id number] Glucose mass conc 107 mg/dL Abnormal 65-99 Compreh ensive Internal Medicine Work Phone: Comment on above: PATIENT NOT FASTINGP ERFORMED BY: PASHA Tidwelllin6370 [facility] [id number] Potassium molar conc 4.2 mmol/L Normal 3.5-5.2 [facility] Work Phone: Comment on above: PATIENT NOT FASTINGP ERFORMED BY: PASHA LabMaggie TidwellXzjrty28[address] PocketFM LimitedFirstHealth Montgomery Memorial Hospital [id number] Sodium molar conc 143 mmol/L Normal 134-144 Compreh ensive Internal Medicine Work Phone: Comment on above: PATIENT NOT FASTINGP ERFORMED BY: PASHA Tidwelllin6370 [facility] [id number] Urea nitrogen mass conc 12 mg/dL Normal 6-20 [facility] Work Phone: Comment on above: PATIENT NOT FASTINGP ERFORMED BY: PASHA LabYogesh Taepey[address]996 [address] PocketFM LimitedFirstHealth Montgomery Memorial Hospital [id number] Urea nitrogen/Creatini ne mass ratio 15 mg/mg Normal 9-20 [facility] Work Phone: Comment on above: PATIENT NOT FASTINGP ERFORMED BY: PASHA LabYogesh Jkqmhr3113 [facility] [id number] CBC W/AUTO DIFF WBC (50367)o n 06-01-2018 Basophils #/vol (Bld) 0.1 {x10E3/uL} Normal 0.0-0.2 [facility] Work Phone: Comment on above: PATIENT WAS FASTINGP ERFORMED BY: [facility]6370 [facility] [id number] Basophils Auto #/vol (Bld) 0.1 {x10E3/uL} Normal 0.0-0.2 [facility] Work Phone: Basophils/100 WBC (Bld) 1 % Normal [facility] Work Phone: Comment on above: PATIENT WAS FASTINGP ERFORMED BY: [place] [id number] [facility] [id number] Basophils/100 WBC Auto (Bld) 1 % Normal [facility] Work Phone: Eosinophils #/vol (Bld) 0.2 {x10E3/uL} Normal 0.0-0.4 [facility] Work Phone: Comment on above: PATIENT WAS FASTINGP ERFORMED BY: [place] [id number] [facility] [id number] Eosinophils Auto #/vol (Bld) 0.2 {x10E3/uL} Normal 0.0-0.4 [facility] Work Phone: Eosinophils/100 WBC (Bld) 2 % Normal [facility] Work Phone: Comment on above: PATIENT WAS FASTINGP ERFORMED BY: [place] [id number] [facility] [id number] Eosinophils/100 WBC Auto (Bld) 2 % Normal [facility] Work Phone: Erythrocyte distribution width Auto Ratio (RBC) 13.7 % Normal 12.3-15.4 [facility] Work Phone: Erythrocyte distribution width Ratio (RBC) 13.7 % Normal 12.3-15.4 [facility] Work Phone: Comment on above: PATIENT WAS FASTINGP ERFORMED BY: [place] [id number] [facility] [id number] Hematocrit Auto Volume Fraction (Bld) 47.9 % Normal 37.5-51.0 [facility] Work Phone: Hematocrit Volume Fraction (Bld) 47.9 % Normal 37.5-51.0 [facility] Work Phone: Comment on above: PATIENT WAS FASTINGP ERFORMED BY: [place] [id number] [facility] [id number] Hemoglobin mass conc (Bld) 16.2 g/dL Normal 13.0-17.7 [facility] Work Phone: Comment on above: PATIENT WAS FASTINGP ERFORMED BY: [place] [id number] [facility] [id number] Immature granulocytes #/vol (Bld) 0.0 {x10E3/uL} Normal 0.0-0.1 [facility] Work Phone: Comment on above: PATIENT WAS FASTINGP ERFORMED BY: [place] [id number] [facility] [id number] Immature granulocytes/100 WBC (Bld) 0 % Normal [facility] Work Phone: Comment on above: PATIENT WAS FASTINGP ERFORMED BY: [place] [id number] [facility] [id number] Lymphocytes #/vol (Bld) 3.8 {x10E3/uL} Abnormal 0.7-3.1 [facility] Work Phone: Comment on above: PATIENT WAS FASTINGP ERFORMED BY: [place] [id number] [facility] [id number] Lymphocytes Auto #/vol (Bld) 3.8 {x10E3/uL} Abnormal 0.7-3.1 [facility] Work Phone: Lymphocytes/100 WBC (Bld) 43 % Normal [facility] Work Phone: Comment on above: PATIENT WAS FASTINGP ERFORMED BY: [place] [id number] [facility] [id number] Lymphocytes/100 WBC Auto (Bld) 43 % Normal [facility] Work Phone: MCH Auto Entitic mass (RBC) 29.8 pg Normal 26.6-33.0 [facility] Work Phone: MCH Entitic mass (RBC) 29.8 pg Normal 26.6-33.0 [facility] Work Phone: Comment on above: PATIENT WAS FASTINGP ERFORMED BY: [facility]6370 [facility] [id number] MCHC Auto mass conc (RBC) 33.8 g/dL Normal 31.5-35.7 [facility] Work Phone: MCHC mass conc (RBC) 33.8 g/dL Normal 31.5-35.7 [facility] Work Phone: Comment on above: PATIENT WAS FASTINGP ERFORMED BY: [place] [id number] [facility] [id number] MCV Auto Entitic volume (RBC) 88 fL Normal 79-97 [facility] Work Phone: MCV Entitic volume (RBC) 88 fL Normal 79-97 [facility] Work Phone: Comment on above: PATIENT WAS FASTINGP ERFORMED BY: [place] [id number] [facility] [id number] Monocytes #/vol (Bld) 0.6 {x10E3/uL} Normal 0.1-0.9 [facility] Work Phone: Comment on above: PATIENT WAS FASTINGP ERFORMED BY: [place] [id number] [facility] [id number] Monocytes Auto #/vol (Bld) 0.6 {x10E3/uL} Normal 0.1-0.9 [facility] Work Phone: Monocytes/100 WBC (Bld) 7 % Normal [facility] Work Phone: Comment on above: PATIENT WAS FASTINGP ERFORMED BY: [place] [id number] [facility] [id number] Monocytes/100 WBC Auto (Bld) 7 % Normal [facility] Work Phone: Neutrophils #/vol (Bld) 4.3 {x10E3/uL} Normal 1.4-7.0 [facility] Work Phone: Comment on above: PATIENT WAS FASTINGP ERFORMED BY: [facility]6370 [facility] [id number] Neutrophils Auto #/vol (Bld) 4.3 {x10E3/uL} Normal 1.4-7.0 [facility] Work Phone: Neutrophils/100 WBC (Bld) 47 % Normal [facility] Work Phone: Comment on above: PATIENT WAS FASTINGP ERFORMED BY: [place] [id number] [facility] [id number] Neutrophils/100 WBC Auto (Bld) 47 % Normal [facility] Work Phone: Platelets #/vol (Bld) 216 {x10E3/uL} Normal 150-379 [facility] Work Phone: Comment on above: PATIENT WAS FASTINGP ERFORMED BY: [place] [id number] [facility] [id number] Platelets Auto #/vol (Bld) 216 {x10E3/uL} Normal 150-379 [facility] Work Phone: RBC #/vol (Bld) 5.44 {x10E6/uL} Normal 4.14-5.80 [facility] Internal Medicine Work Phone: Comment on above: PATIENT WAS FASTINGP ERFORMED BY: [place] [id number] [facility] [id number] RBC Auto #/vol (Bld) 5.44 {x10E6/uL} Normal 4.14-5.80 [facility] Internal Medicine Work Phone: WBC #/vol (Bld) 9.0 {x10E3/uL} Normal 3.4-10.8 [facility] Internal Medicine Work Phone: Comment on above: PATIENT WAS FASTINGP ERFORMED BY: [facility]6370 [facility] [id number] WBC Auto #/vol (Bld) 9.0 {x10E3/uL} Normal 3.4-10.8 [facility] Work Phone: CBC W/AUTO DIFF WBC (04091)O rdered By: [employer] on 06-01-2018 Basophils (Bld) [#/Vol] 0.1 10*3/uL Normal 0.0-0.2 [facility]; [facility] Work Phone: Comment on above: PATIENT WAS FASTINGP ERFORMED BY: PASHA [facility] Eiwsnq0410 [address] RoadDublin [place] [id number] Eosinophils (Bld) [#/Vol] 0.2 10*3/uL Normal 0.0-0.4 [facility]; [facility] Work Phone: Comment on above: PATIENT WAS FASTINGP ERFORMED BY: PASHA [facility] Vmconr9561 [address] RoadDublin [place] [id number] Immature granulocytes (Bld) [#/Vol] 0.0 10*3/uL Normal 0.0-0.1 [facility]; [facility] Work Phone: Comment on above: PATIENT WAS FASTINGP ERFORMED BY: CB [facility] Hamxte6679 [address] RoadDublin [place] [id number] Lymphocytes (Bld) [#/Vol] 3.8 10*3/uL Abnormal 0.7-3.1 [facility]; [facility] Work Phone: Comment on above: PATIENT WAS FASTINGP ERFORMED BY: [facility] Uoqlno9004 [address] RoadDublin [place] [id number] Monocytes (Bld) [#/Vol] 0.6 10*3/uL Normal 0.1-0.9 [facility]; [facility] Work Phone: Comment on above: PATIENT WAS FASTINGP ERFORMED BY: CB [facility] Dgnjmq4247 [address] RoadDublin [place] [id number] Neutrophils (Bld) [#/Vol] 4.3 10*3/uL Normal 1.4-7.0 [facility]; [facility] Work Phone: Comment on above: PATIENT WAS FASTINGP ERFORMED BY: CB [facility] Quneqt9025 [address] RoadDublin [place] [id number] Platelets (Bld) [#/Vol] 216 10*3/uL Normal 150-379 [facility]; [facility] Work Phone: Comment on above: PATIENT WAS FASTINGP ERFORMED BY: PASHA LabCo Npbkjb0644 [facility] [id number] RBC (Bld) [#/Vol] 5.44 10*6/uL Normal 4.14-5.80 Compr ensive Internal Medicine; [facility] Work Phone: Comment on above: PATIENT WAS FASTINGP ERFORMED BY: PASHA LabCo Tzojmq1943 [facility] [id number] WBC (Bld) [#/Vol] 9.0 10*3/uL Normal 3.4-10.8 Compre [facility] Internal Medicine; [facility] Work Phone: Comment on above: PATIENT WAS FASTINGP ERFORMED BY: PASHA LabCo Ywulzs7529 [facility] [id number] LIPID PANEL (22253)on 2017 Cholesterol in HDL mass conc 43 mg/dL Normal [facility] Work Phone: Comment on above: PATIENT WAS FASTINGP ERFORMED BY: PASHA LabCo Qrrzqe7553 [facility] [id number]; appt 06/11 Cholesterol in LDL mass conc 108 mg/dL Abnormal 0-99 [facility] Work Phone: Comment on above: PATIENT WAS FASTINGP ERFORMED BY: Lab[facility] Qgtqnl9886 [facility] [id number]; appt 06/11 Cholesterol in LDL/Cholesterol in HDL mass ratio 2.5 {ratio} Normal 0.0-3.6 [facility] Work Phone: Comment on above: LDL/HDL Ratio Men Wo men 1/2 Avg.Risk 1.0 1.5 Avg.Risk 3.6 3.2 2X Avg.Risk 6.2 5.0 3X Avg.Risk 8.0 6.1 PATIENT WAS FASTINGP ERFORMED BY: PASHA Tidwelllin[address] [facility] [id number]; appt 06/11 Cholesterol in VLDL mass conc 28 mg/dL Normal 5-40 [facility] Work Phone: Comment on above: PATIENT WAS FASTINGP ERFORMED BY: PASHA Tidwelllin[address] [facility] [id number]; appt 06/11 Cholesterol mass conc 179 mg/dL Normal 100-199 [facility] Work Phone: Comment on above: PATIENT WAS FASTINGP ERFORMED BY: PASHA Roberson[address] [facility] [id number]; appt 06/11 Triglyceride mass conc 140 mg/dL Normal 0-149 [facility] Work Phone: Comment on above: PATIENT WAS FASTINGP ERFORMED BY: PASHA Roberson6370 [facility] [id number]; appt 06/11 METABOLIC PANEL, COMPREHENSI VE ([id number])on 06-01-2018 Albumin mass conc 4.6 g/dL Normal 3.5-5.5 Compreh ensive Internal Medicine Work Phone: Comment on above: PATIENT WAS FASTINGP ERFORMED BY: PASHA Roberson6370 [facility] [id number]; appt 06/11 Albumin/Globulin mass ratio 2.3 {ratio} Abnormal 1.2-2.2 [facility] Work Phone: Comment on above: PATIENT WAS FASTINGP ERFORMED BY: PASHA LabCofernie TidwellVvkcyq5435 [facility] [id number]; appt 06/11 ALP enzyme act/vol 99 [iU]/L Normal 39-117 [facility] Work Phone: Comment on above: PATIENT WAS FASTINGP ERFORMED BY: PASHA LabCofernie TidwellUrbtby[address] [facility] [id number]; appt 06/11 ALT enzyme act/vol 47 [iU]/L Abnormal 0-44 [facility] Work Phone: Comment on above: PATIENT WAS FASTINGP ERFORMED BY: PASHA SeverinoCo Lfkpcm[address] [facility] [place] [id number]; appt 06/11 AST enzyme act/vol 26 [iU]/L Normal 0-40 [facility] Work Phone: Comment on above: PATIENT WAS FASTINGP ERFORMED BY: PASHA [facility] Mlgqkl[address] [facility] [id number]; appt 06/11 Bilirubin mass conc 0.4 mg/dL Normal 0.0-1.2 [facility] Work Phone: Comment on above: PATIENT WAS FASTINGP ERFORMED BY: [facility] Znhifx0169 [address] RoadFirstHealth Montgomery Memorial Hospital [id number]; appt 06/11 Calcium mass conc 9.6 mg/dL Normal 8.7-10.2 Compreh ensive Internal Medicine Work Phone: Comment on above: PATIENT WAS FASTINGP ERFORMED BY: PASHA LabCo Iolast[address] [facility] [id number]; appt 06/11 Chloride molar conc 103 mmol/L Normal 96-106 [facility] Work Phone: Comment on above: PATIENT WAS FASTINGP ERFORMED BY: [facility] Wgnaoy2268 [facility] [id number]; appt 06/11 CO2 molar conc 23 mmol/L Normal 20-29 Comprehens trisha Internal Medicine Work Phone: Comment on above: PATIENT WAS FASTINGP ERFORMED BY: [facility] Jfggtd[address] [facility] [id number]; appt 06/11 Creatinine mass conc 0.86 mg/dL Normal 0.76-1.27 [facility] Work Phone: Comment on above: PATIENT WAS FASTINGP ERFORMED BY: [facility] Kqdlev[address] [facility] [id number]; appt 06/11 GFR/1.73 sq M predicted among blacks CKD-EPI vol rate/area (S/P/Bld) 133 mL/min/1.73 Normal [facility] Work Phone: Comment on above: PATIENT WAS FASTINGP ERFORMED BY: PASHA [facility] Dksjuq[address] [facility] [place] [id number]; appt 06/11 GFR/1.73 sq M predicted among non-blacks CKD-EPI vol rate/area (S/P/Bld) 115 mL/min/1.73 Normal [facility] Work Phone: Comment on above: PATIENT WAS FASTINGP ERFORMED BY: PASHA [facility] Ksdxej[address] [facility] [place] [id number]; appt 06/11 Globulin Calculated mass conc (S) 2.0 g/dL Normal 1.5-4.5 [facility] Work Phone: Globulin mass conc (S) 2.0 g/dL Normal 1.5-4.5 [facility] Work Phone: Comment on above: PATIENT WAS FASTINGP ERFORMED BY: PASHA LabCofernie TidwellGnfxrs9569 [facility] [id number]; appt 06/11 Glucose mass conc 98 mg/dL Normal 65-99 Compreh ensive Internal Medicine Work Phone: Comment on above: PATIENT WAS FASTINGP ERFORMED BY: PASHA LabCofernie Rushct2542 [facility] [id number]; appt 06/11 Potassium molar conc 4.4 mmol/L Normal 3.5-5.2 [facility] Work Phone: Comment on above: PATIENT WAS FASTINGP ERFORMED BY: PASHA [facility] Cwzojl0928 [facility] [id number]; appt 06/11 Protein mass conc 6.6 g/dL Normal 6.0-8.5 Compreh ensive Internal Medicine Work Phone: Comment on above: PATIENT WAS FASTINGP ERFORMED BY: PASHA [facility] Qzknvn9089 [facility] [id number]; appt 06/11 Sodium molar conc 140 mmol/L Normal 134-144 Compreh ensive Internal Medicine Work Phone: Comment on above: PATIENT WAS FASTINGP ERFORMED BY: PASHA [facility] Pkiuji7776 [address] RoadDublin [place] [id number]; appt 06/11 Urea nitrogen mass conc 11 mg/dL Normal 6-20 [facility] Work Phone: Comment on above: PATIENT WAS FASTINGP ERFORMED BY: CB [facility] Mbbyaf2349 [address] RoadDublin [place] [id number]; appt 06/11 Urea nitrogen/Creatini ne mass ratio 13 mg/mg Normal - [facility] Work Phone: Comment on above: PATIENT WAS FASTINGP ERFORMED BY: [facility] Mdwugx6187 [address] RoadDublin [place] [id number]; appt 06/11 METABOLIC PANEL, COMPREHENSI VE ([id number])Ordered By: [employer] on 06-01-2018 ALP [Catalytic activity/Vol] 99 U/L Normal 39-117 [facility]; [facility] Work Phone: Comment on above: PATIENT WAS FASTINGP ERFORMED BY: [facility] Khkbas3726 [address] RoadDublin [place] [id number]; appt 06/11 ALT [Catalytic activity/Vol] 47 U/L Abnormal 0-44 [facility]; [facility] Work Phone: Comment on above: PATIENT WAS FASTINGP ERFORMED BY: [facility] Ryldml4182 [address] RoadDublin [place] [id number]; appt 06/11 AST [Catalytic activity/Vol] 26 U/L Normal 0-40 [facility]; [facility] Work Phone: Comment on above: PATIENT WAS FASTINGP ERFORMED BY: [facility] Xlbvbn7008 [address] RoadDublin [place] [id number]; appt 06/11 MICROALBUMINon 06-01-2018 Albumin DL <= 20 mg/L mass conc (U) 14.6 ug/mL Normal [facility] Work Phone: Comment on above: PATIENT WAS FASTINGP ERFORMED BY: [facility] Baupkm5943 [address] RoadDublin [place] [id number] Albumin/Creatinin e mass ratio (U) 9.1 {mg/g_creat} Normal 0.0-30.0 [facility] Work Phone: Comment on above: Normal: 0.0 - 30.0 A lbuminuria: 31.0 - 300.0 Clinical albuminuria: >300.0 PATIENT WAS FASTINGP ERFORMED BY: PASHA [facility] Igfwza5994 [address] RoadDublin [place] [id number] Creatinine mass conc (U) 160.5 mg/dL Normal [facility] Work Phone: Comment on above: PATIENT WAS FASTINGP ERFORMED BY: PASHA [facility] Loyrzp5369 [address] RoadDublin [place] [id number] Microscopic Examinationon Bacteria LM.HPF #/area (Urine sed) Few Normal [facility] Work Phone: Comment on above: PATIENT WAS FASTINGP ERFORMED BY: PASHA [facility] Mxmahl5499 [address] RoadDublin [place] [id number] Epithelial cells LM.HPF #/area (Urine sed) 0-10 Normal 0 - 10 [facility] Work Phone: Comment on above: PATIENT WAS FASTINGP ERFORMED BY: PASHA [facility] Edvcva4157 [address] RoadDublin [place] [id number] Mucus LM Ql (Urine sed) Present Normal [facility] Work Phone: Mucus Ql (Urine sed) Present Normal [facility] Work Phone: Comment on above: PATIENT WAS FASTINGP ERFORMED BY: PASHA [facility] Lwdnjg7756 [address] RoadDublin [place] [id number] RBC LM.HPF #/area (Urine sed) 0-2 Normal 0 - 2 [facility] Work Phone: Comment on above: PATIENT WAS FASTINGP ERFORMED BY: PASHA [facility] Kbqjce5890 [address] RoadDublin [place] [id number] WBC LM.HPF #/area (Urine sed) 0-5 Normal 0 - 5 [facility] Work Phone: Comment on above: PATIENT WAS FASTINGP ERFORMED BY: PASHA [facility] Wzzawx2202 [address] RoadDublin [place] [id number] URINALYSIS, W/ MICRO (10031) on 06-01-2018 Appearance Nom (U) Clear Normal [facility] Work Phone: Comment on above: PATIENT WAS FASTINGP ERFORMED BY: PASHA Tidwelllin6370 [address]blin [place] [id number] Bilirubin Ql (U) Negative Normal Comprehe nsive Internal Medicine Work Phone: Comment on above: PATIENT WAS FASTINGP ERFORMED BY: PASHA Roberson[address] [facility] [place] [id number] Color Nom (U) Yellow Normal Comprehensi ve Internal Medicine Work Phone: Comment on above: PATIENT WAS FASTINGP ERFORMED BY: PASHA Tidwelllin6[address] RoadCritical Access Hospitalin [place] [id number] Glucose Ql (U) Negative Normal Comprehens trisha Internal Medicine Work Phone: Comment on above: PATIENT WAS FASTINGP ERFORMED BY: PASHA Roberson[address] [facility] [id number] Hemoglobin Ql (U) Negative Normal Compreh ensive Internal Medicine Work Phone: Comment on above: PATIENT WAS FASTINGP ERFORMED BY: PASHA Roberson[address] [facility] [id number] Hemoglobin Test strip Ql (U) Negative Normal [facility] Work Phone: Ketones Ql (U) Negative Normal Comprehens trisha Internal Medicine Work Phone: Comment on above: PATIENT WAS FASTINGP ERFORMED BY: PASHA Tidwelllin[address] [facility] [id number] Leukocyte esterase Test strip Ql (U) Negative Normal [facility] Work Phone: Comment on above: PATIENT WAS FASTINGP ERFORMED BY: PASHA Tidwelllin[address] [facility]in [place] [id number] Microscopic observation LM Nom (Urine sed) See below: Normal [facility] Work Phone: Comment on above: Microscopic was williams cated and was performed. PATIENT WAS FASTINGP ERFORMED BY: PASHA [facility] Psfpln8679 [address] RoadDublin [place] [id number] Microscopic observation LM Nom (Urine sed) MICRON Normal [facility] Work Phone: Comment on above: Microscopic follows if indicated. PATIENT WAS FASTINGP ERFORMED BY: PASHA [facility] Zowzuz0610 [address] RoadDublin [place] [id number] Nitrite Ql (U) Negative Normal Comprehens trisha Internal Medicine Work Phone: Comment on above: PATIENT WAS FASTINGP ERFORMED BY: [facility] Mqstdv5570 [address] RoadDublin [place] [id number] Nitrite Test strip Ql (U) Negative Normal [facility] Work Phone: pH (U) 5.5 [pH] Normal 5.0-7.5 [facility] Work Phone: Comment on above: PATIENT WAS FASTINGP ERFORMED BY: [facility] Mudywh[address] RoadDublin [place] [id number] pH Test strip (U) 5.5 [pH] Normal 5.0-7.5 Compreh ensive Internal Medicine Work Phone: Protein Ql (U) Negative Normal Comprehens trisha [facility] Work Phone: Comment on above: PATIENT WAS FASTINGP ERFORMED BY: [facility] Eejlfk9526 [address]z RoadDublin [place] [id number] Protein Test strip Ql (U) Negative Normal [facility] Work Phone: Specific gravity Relative Density (U) 1.023 1 Normal 1.005-1.030 [facility] Work Phone: Comment on above: PATIENT WAS FASTINGP ERFORMED BY: [facility] Rwxfwx5927 [address] RoadDublin [place] [id number] Urobilinogen Test strip mass conc (U) 0.2 mg/dL Normal 0.2-1.0 [facility] Work Phone: Comment on above: PATIENT WAS FASTINGP ERFORMED BY: [facility] Hsrzxg0041 [address] RoadDublin [place] [id number] URINALYSIS, W/ MICRO ([id number]) Ordered By: [employer] on 06-01-2018 Bilirubin Ql (U) Negative Normal Comprehe nsive Internal Medicine; [facility] Work Phone: Comment on above: PATIENT WAS FASTINGP ERFORMED BY: PASHA [facility] Zsxvmx4925 [address] RoadDublin [place] [id number] Glucose Ql (U) Negative Normal Comprehens trisha [facility]; [facility] Work Phone: Comment on above: PATIENT WAS FASTINGP ERFORMED BY: PASHA [facility] Oelddz9684 [address] RoadDublin [place] [id number] Hemoglobin Ql (U) Negative Normal Compreh ensive Internal Medicine; [facility] Work Phone: Comment on above: PATIENT WAS FASTINGP ERFORMED BY: PASHA [facility] Odrnpt6436 [address]z RoadDublin [place] [id number] Ketones Ql (U) Negative Normal Comprehens trisha [facility]; [facility] Work Phone: Comment on above: PATIENT WAS FASTINGP ERFORMED BY: PASHA [facility] Llnwdo7152 [address] RoadDublin [place] [id number] Leukocyte esterase Test strip Ql (U) Negative Normal [facility]; [facility] Work Phone: Comment on above: PATIENT WAS FASTINGP ERFORMED BY: PASHA [facility] Rksynj3759 [address] RoadDublin [place] [id number] Nitrite Ql (U) Negative Normal Comprehens trisha [facility]; [facility] Work Phone: Comment on above: PATIENT WAS FASTINGP ERFORMED BY: [facility] Mqmjvp9750 [address] RoadDublin [place] [id number] Protein Ql (U) Negative Normal Comprehens trisha [facility]; [facility] Work Phone: Comment on above: PATIENT WAS FASTINGP ERFORMED BY: PASHA [facility] Xkhdac2854 [address] RoadDublin [place] [id number] Urobilinogen (U) [Mass/Vol] 0.2 mg/dL Normal 0.2-1.0 [facility]; [facility] Work Phone: Comment on above: PATIENT WAS FASTINGP ERFORMED BY: PASHA [facility] Mlbfny[address] [facility] [id number] METABOLIC PANEL, COMPREHENSI MASOUD ([id number])on 02-12-2018 Albumin mass conc 4.4 g/dL Normal 3.5-5.5 Compreh ensive Internal Medicine Work Phone: Comment on above: PATIENT NOT FASTINGP ERFORMED BY: CB [facility] Dxlyug[address] [facility] [id number] Information: LNURSE DRAW; appt 9/7 Albumin/Globulin mass ratio 2.1 {ratio} Normal 1.2-2.2 [facility] Work Phone: Comment on above: PATIENT NOT FASTINGP ERFORMED BY: PASHA [facility] Csymhj5[address] [facility] [id number] Information: LNURSE DRAW; appt 9/7 ALP enzyme act/vol 104 [iU]/L Normal 39-117 [facility] Work Phone: Comment on above: PATIENT NOT FASTINGP ERFORMED BY: CB [facility] Iimnqe[address] [facility] [id number] Information: LNURSE DRAW; appt 9/7 ALT enzyme act/vol 48 [iU]/L Abnormal 0-44 [facility] Work Phone: Comment on above: PATIENT NOT FASTINGP ERFORMED BY: PASHA [facility] Hpxart4746 [facility] [facility] [id number] Information: LNURSE DRAW; appt 9/7 AST enzyme act/vol 22 [iU]/L Normal 0-40 [facility] Work Phone: Comment on above: PATIENT NOT FASTINGP ERFORMED BY: PASHA [facility] Riqfng[address] [facility] [id number] Information: LNURSE DRAW; appt 9/7 Bilirubin mass conc 0.7 mg/dL Normal 0.0-1.2 [facility] Work Phone: Comment on above: PATIENT NOT FASTINGP ERFORMED BY: CB [facility] Vxvivi6954 [address] RoadDublin [place] [id number] Information: LNURSE DRAW; appt 9/7 Calcium mass conc 9.5 mg/dL Normal 8.7-10.2 Compreh ensive Internal Medicine Work Phone: Comment on above: PATIENT NOT FASTINGP ERFORMED BY: PASHA Thibodeaux Macjlm3393 [facility] [id number] Information: LNURSE DRAW; appt 9/7 Chloride molar conc 103 mmol/L Normal 96-106 [facility] Work Phone: Comment on above: PATIENT NOT FASTINGP ERFORMED BY: PASHA Ivon Vpukqa8443 [facility] [id number] Information: LNURSE DRAW; appt 9/7 CO2 molar conc 21 mmol/L Normal 20-29 Comprehens trisha [facility] Work Phone: Comment on above: PATIENT NOT FASTINGP ERFORMED BY: PASHA MaycolLaura [place] [id number] [facility] [id number] Information: LNURSE DRAW; appt 9/7 Creatinine mass conc 0.94 mg/dL Normal 0.76-1.27 [facility] Work Phone: Comment on above: PATIENT NOT FASTINGP ERFORMED BY: PASHA Ivon Eoyhtv0955 [facility] [id number] Information: LNURSE DRAW; appt 9/7 GFR/1.73 sq M predicted among blacks CKD-EPI vol rate/area (S/P/Bld) 124 mL/min/1.73 Normal [facility] Work Phone: Comment on above: PATIENT NOT FASTINGP ERFORMED BY: PASHA LabCoBrianna Ville [id number] [facility] [id number] Information: LNURSE DRAW; appt 9/7 GFR/1.73 sq M predicted among non-blacks CKD-EPI vol rate/area (S/P/Bld) 107 mL/min/1.73 Normal [facility] Work Phone: Comment on above: PATIENT NOT FASTINGP ERFORMED BY: PASHA [place] [id number] [facility] [id number] Information: LNURSE DRAW; appt 9/7 Globulin Calculated mass conc (S) 2.1 g/dL Normal 1.5-4.5 [facility] Work Phone: Globulin mass conc (S) 2.1 g/dL Normal 1.5-4.5 [facility] Work Phone: Comment on above: PATIENT NOT FASTINGP ERFORMED BY: PASHA [place] [id number] [facility] [id number] Information: LNURSE DRAW; appt 9/ Glucose mass conc 110 mg/dL Abnormal 65-99 Compreh ensive Internal Medicine Work Phone: Comment on above: PATIENT NOT FASTINGP ERFORMED BY: PASHA [address] [id number] Information: LNURSE DRAW; appt 9/7 Potassium molar conc 4.1 mmol/L Normal 3.5-5.2 [facility] Work Phone: Comment on above: PATIENT NOT FASTINGP ERFORMED BY: [address] [id number] Information: LNURSE DRAW; appt 9/7 Protein mass conc 6.5 g/dL Normal 6.0-8.5 Compreh ensive Internal Medicine Work Phone: Comment on above: PATIENT NOT FASTINGP ERFORMED BY: [address] [id number] Information: LNURSE DRAW; appt 9/7 Sodium molar conc 142 mmol/L Normal 134-144 Compreh ensive Internal Medicine Work Phone: Comment on above: PATIENT NOT FASTINGP ERFORMED BY: PASHA [address] [id number] Information: LNURSE DRAW; appt 9/7 Urea nitrogen mass conc 13 mg/dL Normal 6-20 [facility] Work Phone: Comment on above: PATIENT NOT FASTINGP ERFORMED BY: PASHA Roberson6[address] [facility] [facility] [id number] Information: LNURSE DRAW; appt 02/26 Urea nitrogen/Creatini ne mass ratio 14 mg/mg Normal 9-20 [facility] Work Phone: Comment on above: PATIENT NOT FASTINGP ERFORMED BY: PASHA Roberson6370 [facility] [id number] Information: LNURSE DRAW; appt 02/26 METABOLIC PANEL, COMPREHENSI VE ([id number])Ordered By: [employer] on 02-12-2018 ALP [Catalytic activity/Vol] 104 U/L Normal 39-117 [facility]; [facility] Work Phone: Comment on above: PATIENT NOT FASTINGP ERFORMED BY: PASHA Roberson6370 [facility] [id number] Information: LNURSE DRAW; appt 02/26 ALT [Catalytic activity/Vol] 48 U/L Abnormal 0-44 [facility]; [facility] Work Phone: Comment on above: PATIENT NOT FASTINGP ERFORMED BY: PASHA Tidwelllin6370 [facility] [id number] Information: LNURSE DRAW; appt 02/26 AST [Catalytic activity/Vol] 22 U/L Normal 0-40 [facility]; [facility] Work Phone: Comment on above: PATIENT NOT FASTINGP ERFORMED BY: PASHA Tidwelllin6370 [facility] [id number] Information: LNURSE DRAW; appt 02/26 MICROALBUMINon 02-12-2018 Albumin DL <= 20 mg/L mass conc (U) 12.6 ug/mL Normal [facility] Work Phone: Comment on above: PATIENT NOT FASTINGP ERFORMED BY: PASHA Tidwelllin6370 [facility] [id number] Albumin/Creatinin e mass ratio (U) 7.9 {mg/g_creat} Normal 0.0-30.0 [facility] Work Phone: Comment on above: PATIENT NOT FASTINGP ERFORMED BY: PASHA [facility] Xktdyz7554 Ben[address]z RoadDublin [place] [id number] Creatinine mass conc (U) 158.6 mg/dL Normal [facility] Work Phone: Comment on above: PATIENT NOT FASTINGP ERFORMED BY: PASHA [facility] Fahecw2292 [address]z RoadDublin [place] [id number] URINALYSIS ([id number])on 018 Appearance Nom (U) Clear Normal [facility] Work Phone: Comment on above: PATIENT NOT FASTINGP ERFORMED BY: PASHA [facility] Jixsfq7464 [address] RoadDublin [place] [id number] Bilirubin Ql (U) Negative Normal Comprehe nsive Internal Medicine Work Phone: Comment on above: PATIENT NOT FASTINGP ERFORMED BY: PASHA [facility] Gabnsw3969 [address] RoadDublin [place] [id number] Color Nom (U) Yellow Normal Comprehensi ve Internal Medicine Work Phone: Comment on above: PATIENT NOT FASTINGP ERFORMED BY: PASHA [facility] Vkphpb9842 [address] RoadDublin [place] [id number] Glucose Ql (U) Negative Normal Comprehens trisha [facility] Work Phone: Comment on above: PATIENT NOT FASTINGP ERFORMED BY: PASHA [facility] Zigkac2793 [address] RoadDublin [place] [id number] Hemoglobin Ql (U) Negative Normal Compreh ensive Internal Medicine Work Phone: Comment on above: PATIENT NOT FASTINGP ERFORMED BY: PASHA [facility] Cpvlcg4727 [address] RoadDublin [place] [id number] Hemoglobin Test strip Ql (U) Negative Normal [facility] Work Phone: Ketones Ql (U) Negative Normal Comprehens trisha [facility] Work Phone: Comment on above: PATIENT NOT FASTINGP ERFORMED BY: PASHA [facility] Nbjuha0075 [address]z RoadDublin [place] [id number] Leukocyte esterase Test strip Ql (U) Negative Normal [facility] Work Phone: Comment on above: PATIENT NOT FASTINGP ERFORMED BY: PASHA [facility]ofernie TidwellIcfxie5496 Benitez RoadDublin [place] [id number] Microscopic observation LM Nom (Urine sed) MICNIP Normal [facility] Work Phone: Comment on above: Microscopic not williams cated and not performed. PATIENT NOT FASTINGP ERFORMED BY: PASHA [facility] Usptvi2343 Ben[address] Roadblin [place] [id number] Nitrite Ql (U) Negative Normal Comprehens trisha [facility] Work Phone: Comment on above: PATIENT NOT FASTINGP ERFORMED BY: PASHA [facility] Qwwrhw1955 [address] RoadDublin [place] [id number] Nitrite Test strip Ql (U) Negative Normal [facility] Work Phone: pH (U) 5.5 [pH] Normal 5.0-7.5 [facility] Work Phone: Comment on above: PATIENT NOT FASTINGP ERFORMED BY: PASHA LabYogeshrp Fihnup2638 [address] RoadCritical Access Hospitalin [place] [id number] pH Test strip (U) 5.5 [pH] Normal 5.0-7.5 Compreh ensive Internal Medicine Work Phone: Protein Ql (U) Negative Normal Comprehens trisha [facility] Work Phone: Comment on above: PATIENT NOT FASTINGP ERFORMED BY: PASHA [facility] Pgwjds5151 [address] RoadCritical Access Hospitalin [place] [id number] Protein Test strip Ql (U) Negative Normal [facility] Work Phone: Specific gravity Relative Density (U) 1.023 1 Normal 1.005-1.030 [facility] Work Phone: Comment on above: PATIENT NOT FASTINGP ERFORMED BY: PASHA [facility] Jpsgfl0328 Ben[address]z RoadDublin [place] [id number] Urobilinogen Test strip mass conc (U) 0.2 mg/dL Normal 0.2-1.0 [facility] Work Phone: Comment on above: PATIENT NOT FASTINGP ERFORMED BY: PASHA [facility] Mzbzdo1319 [address] RoadDublin [place] [id number] URINALYSIS ([id number])Ordered By : [employer] on 02-12-2018 Bilirubin Ql (U) Negative Normal Comprehe nsive Internal Medicine; [facility] Work Phone: Comment on above: PATIENT NOT FASTINGP ERFORMED BY: PASHA [facility] Ujwutr1064 [address] RoadDublin [place] [id number] Glucose Ql (U) Negative Normal Comprehens trisha [facility]; [facility] Work Phone: Comment on above: PATIENT NOT FASTINGP ERFORMED BY: PASHA [facility] Ahnfff9447 [address] RoadDublin [place] [id number] Hemoglobin Ql (U) Negative Normal Compreh ensive Internal Medicine; [facility] Work Phone: Comment on above: PATIENT NOT FASTINGP ERFORMED BY: PASHA [facility] Ijmcrv8244 [address] RoadDublin [place] [id number] Ketones Ql (U) Negative Normal Comprehens trisha [facility]; [facility] Work Phone: Comment on above: PATIENT NOT FASTINGP ERFORMED BY: PASHA [facility] Oymabb0241 [address] RoadDublin [place] [id number] Leukocyte esterase Test strip Ql (U) Negative Normal [facility]; [facility] Work Phone: Comment on above: PATIENT NOT FASTINGP ERFORMED BY: PASHA [facility] Visram5972 [address] RoadDublin [place] [id number] Nitrite Ql (U) Negative Normal Comprehens trisha [facility]; [facility] Work Phone: Comment on above: PATIENT NOT FASTINGP ERFORMED BY: PASHA [facility] Bocugt0493 [address] RoadDublin [place] [id number] Protein Ql (U) Negative Normal Comprehens trisha [facility]; [facility] Work Phone: Comment on above: PATIENT NOT FASTINGP ERFORMED BY: PASHA [facility] Ckntxc8303 [address] RoadDublin [place] [id number] Urobilinogen (U) [Mass/Vol] 0.2 mg/dL Normal 0.2-1.0 [facility]; [facility] Work Phone: Comment on above: PATIENT NOT FASTINGP ERFORMED BY: PASHA [place] [id number] [facility] [id number] KXCYE-BMBFOVKXKZM-PQEOF (821 05)on 05-11-2017 AFP.tumor marker mass conc 4.5 ng/mL Normal 0.0-8.3 [facility] Work Phone: Comment on above: Doyle ECLIA methodol ogy PATIENT NOT FASTINGP ERFORMED BY: [address] [id number] CBC W/AUTO DIFF WBC (23910)o n 05-11-2017 Basophils #/vol (Bld) 0.0 {x10E3/uL} Normal 0.0-0.2 [facility] Work Phone: Comment on above: PATIENT NOT FASTINGP ERFORMED BY: PASHA [address] [id number] Information: NURSE DRAW Basophils Auto #/vol (Bld) 0.0 {x10E3/uL} Normal 0.0-0.2 [facility] Work Phone: Basophils/100 WBC (Bld) 0 % Normal [facility] Work Phone: Comment on above: PATIENT NOT FASTINGP ERFORMED BY: [address] [id number] Information: NURSE DRAW Basophils/100 WBC Auto (Bld) 0 % Normal [facility] Work Phone: Eosinophils #/vol (Bld) 0.2 {x10E3/uL} Normal 0.0-0.4 [facility] Work Phone: Comment on above: PATIENT NOT FASTINGP ERFORMED BY: [address] [id number] Information: NURSE DRAW Eosinophils Auto #/vol (Bld) 0.2 {x10E3/uL} Normal 0.0-0.4 [facility] Work Phone: Eosinophils/100 WBC (Bld) 2 % Normal [facility] Work Phone: Comment on above: PATIENT NOT FASTINGP ERFORMED BY: PASHA Roberson6370 [facility] [id number] Information: NURSE DRAW Eosinophils/100 WBC Auto (Bld) 2 % Normal [facility] Work Phone: Erythrocyte distribution width Auto Ratio (RBC) 14.2 % Normal 12.3-15.4 [facility] Work Phone: Erythrocyte distribution width Ratio (RBC) 14.2 % Normal 12.3-15.4 [facility] Work Phone: Comment on above: PATIENT NOT FASTINGP ERFORMED BY: PASHA Tidwelllin6370 [facility] [id number] Information: NURSE DRAW Hematocrit Auto Volume Fraction (Bld) 45.1 % Normal 37.5-51.0 [facility] Work Phone: Hematocrit Volume Fraction (Bld) 45.1 % Normal 37.5-51.0 [facility] Work Phone: Comment on above: PATIENT NOT FASTINGP ERFORMED BY: PASHA Tidwelllin6370 [facility] [id number] Information: NURSE DRAW Hemoglobin mass conc (Bld) 15.4 g/dL Normal 12.6-17.7 [facility] Work Phone: Comment on above: Effective May 25, 2017 the reference interval for Hemoglobin MALES only will be changing to: Males 13-15 years: 12.6 - 17.7 Males >15 years: 13.0 - 17.7 PATIENT NOT FASTINGP ERFORMED BY: PASHA Tidwelllin6370 [facility] [id number] Information: NURSE DRAW Immature granulocytes #/vol (Bld) 0.0 {x10E3/uL} Normal 0.0-0.1 [facility] Work Phone: Comment on above: PATIENT NOT FASTINGP ERFORMED BY: PASHA Tidwell[address] [id number] Information: NURSE DRAW Immature granulocytes/100 WBC (Bld) 0 % Normal [facility] Work Phone: Comment on above: PATIENT NOT FASTINGP ERFORMED BY: PASHA [place] [id number] [facility] [id number] Information: NURSE DRAW Lymphocytes #/vol (Bld) 3.9 {x10E3/uL} Abnormal 0.7-3.1 [facility] Work Phone: Comment on above: PATIENT NOT FASTINGP ERFORMED BY: PASHA [place] [id number] [facility] [id number] Information: NURSE DRAW Lymphocytes Auto #/vol (Bld) 3.9 {x10E3/uL} Abnormal 0.7-3.1 [facility] Work Phone: Lymphocytes/100 WBC (Bld) 44 % Normal [facility] Work Phone: Comment on above: PATIENT NOT FASTINGP ERFORMED BY: PASHA [place] [id number] [facility] [id number] Information: NURSE DRAW Lymphocytes/100 WBC Auto (Bld) 44 % Normal [facility] Work Phone: MCH Auto Entitic mass (RBC) 29.3 pg Normal 26.6-33.0 [facility] Work Phone: MCH Entitic mass (RBC) 29.3 pg Normal 26.6-33.0 [facility] Work Phone: Comment on above: PATIENT NOT FASTINGP ERFORMED BY: [place] [id number] [facility] [id number] Information: NURSE DRAW MCHC Auto mass conc (RBC) 34.1 g/dL Normal 31.5-35.7 [facility] Work Phone: MCHC mass conc (RBC) 34.1 g/dL Normal 31.5-35.7 [facility] Work Phone: Comment on above: PATIENT NOT FASTINGP ERFORMED BY: PASHA [address] [id number] Information: NURSE DRAW MCV Auto Entitic volume (RBC) 86 fL Normal 79-97 [facility] Work Phone: MCV Entitic volume (RBC) 86 fL Normal 79-97 [facility] Work Phone: Comment on above: PATIENT NOT FASTINGP ERFORMED BY: PASHA [place] [id number] [facility] [id number] Information: NURSE DRAW Monocytes #/vol (Bld) 0.5 {x10E3/uL} Normal 0.1-0.9 [facility] Work Phone: Comment on above: PATIENT NOT FASTINGP ERFORMED BY: PASHA [facility]Yogesh Mradcd1114 [facility] [id number] Information: NURSE DRAW Monocytes Auto #/vol (Bld) 0.5 {x10E3/uL} Normal 0.1-0.9 [facility] Work Phone: Monocytes/100 WBC (Bld) 6 % Normal [facility] Work Phone: Comment on above: PATIENT NOT FASTINGP ERFORMED BY: PASHA [facility]Maggie TidwellWwwuuh2110 [facility] [id number] Information: NURSE DRAW Monocytes/100 WBC Auto (Bld) 6 % Normal [facility] Work Phone: Neutrophils #/vol (Bld) 4.3 {x10E3/uL} Normal 1.4-7.0 [facility] Work Phone: Comment on above: PATIENT NOT FASTINGP ERFORMED BY: PASHA [place] [id number] [facility] [id number] Information: NURSE DRAW Neutrophils Auto #/vol (Bld) 4.3 {x10E3/uL} Normal 1.4-7.0 [facility] Work Phone: Neutrophils/100 WBC (Bld) 48 % Normal [facility] Work Phone: Comment on above: PATIENT NOT FASTINGP ERFORMED BY: PASHA [facility]Yogesh Aiqngd3095 [facility] [id number] Information: NURSE DRAW Neutrophils/100 WBC Auto (Bld) 48 % Normal [facility] Work Phone: Platelets #/vol (Bld) 225 {x10E3/uL} Normal 150-379 [facility] Work Phone: Comment on above: PATIENT NOT FASTINGP ERFORMED BY: PASHA Tidwelllin6370 [facility] [id number] Information: NURSE DRAW Platelets Auto #/vol (Bld) 225 {x10E3/uL} Normal 150-379 [facility] Work Phone: RBC #/vol (Bld) 5.25 {x10E6/uL} Normal 4.14-5.80 [facility] Internal [facility] Work Phone: Comment on above: PATIENT NOT FASTINGP ERFORMED BY: PASHA Tidwell[address] [id number] Information: NURSE DRAW RBC Auto #/vol (Bld) 5.25 {x10E6/uL} Normal 4.14-5.80 [facility] Work Phone: WBC #/vol (Bld) 8.9 {x10E3/uL} Normal 3.4-10.8 [facility] Internal Medicine Work Phone: Comment on above: PATIENT NOT FASTINGP ERFORMED BY: PASHA Tidwelllin6370 [facility] [id number] Information: NURSE DRAW WBC Auto #/vol (Bld) 8.9 {x10E3/uL} Normal 3.4-10.8 [facility] Work Phone: CBC W/AUTO DIFF WBC ([id number])O rdered By: [employer] on 05-11-2017 Basophils (Bld) [#/Vol] 0.0 10*3/uL Normal 0.0-0.2 [facility]; [facility] Work Phone: Comment on above: PATIENT NOT FASTINGP ERFORMED BY: PASHA [facility]Maggie [address] [id number] Information: NURSE DRAW Eosinophils (Bld) [#/Vol] 0.2 10*3/uL Normal 0.0-0.4 [facility]; [facility] Work Phone: Comment on above: PATIENT NOT FASTINGP ERFORMED BY: PASHA [facility] [id number] Information: NURSE DRAW Immature granulocytes (Bld) [#/Vol] 0.0 10*3/uL Normal 0.0-0.1 [facility]; [facility] Work Phone: Comment on above: PATIENT NOT FASTINGP ERFORMED BY: PASHA Thibodeaux[address] [id number] Information: NURSE DRAW Lymphocytes (Bld) [#/Vol] 3.9 10*3/uL Abnormal 0.7-3.1 [facility]; [facility] Work Phone: Comment on above: PATIENT NOT FASTINGP ERFORMED BY: PASHA Tidwell[address] [id number] Information: NURSE DRAW Monocytes (Bld) [#/Vol] 0.5 10*3/uL Normal 0.1-0.9 [facility]; [facility] Work Phone: Comment on above: PATIENT NOT FASTINGP ERFORMED BY: PASHA Thibodeaux Ssbkcb[address] [id number] Information: NURSE DRAW Neutrophils (Bld) [#/Vol] 4.3 10*3/uL Normal 1.4-7.0 [facility] Medicine; [facility] Work Phone: Comment on above: PATIENT NOT FASTINGP ERFORMED BY: PASHA SeverinoCo[address] [id number] Information: NURSE DRAW Platelets (Bld) [#/Vol] 225 10*3/uL Normal 150-379 [facility]; [facility] Work Phone: Comment on above: PATIENT NOT FASTINGP ERFORMED BY: PASHA Thibodeaux[address] [id number] Information: NURSE DRAW RBC (Bld) [#/Vol] 5.25 10*6/uL Normal 4.14-5.80 Compr ehensive Internal Medicine; [facility] Work Phone: Comment on above: PATIENT NOT FASTINGP ERFORMED BY: PASHA [facility] Muswjq6445 [facility] [id number] Information: NURSE DRAW WBC (Bld) [#/Vol] 8.9 10*3/uL Normal 3.4-10.8 Compre hensive Internal Medicine; [facility] Work Phone: Comment on above: PATIENT NOT FASTINGP ERFORMED BY: PASHA [facility] Iymuge7239 [facility] [id number] Information: NURSE DRAW METABOLIC PANEL, COMPREHAMA MEREDITH (89802)on 05-11-2017 Albumin mass conc 4.4 g/dL Normal 3.5-5.5 Compreh ensive Internal Medicine Work Phone: Comment on above: PATIENT NOT FASTINGP ERFORMED BY: PASHA [facility] Dtwspu6352 [facility] [id number] Albumin/Globulin mass ratio 2.0 {ratio} Normal 1.2-2.2 [facility] Work Phone: Comment on above: PATIENT NOT FASTINGP ERFORMED BY: PASHA [facility] Yhrros9508 [facility] [id number] ALP enzyme act/vol 103 [iU]/L Normal 39-117 [facility] Work Phone: Comment on above: PATIENT NOT FASTINGP ERFORMED BY: PASHA [facility] Idynit[address] [facility] [id number] ALT enzyme act/vol 52 [iU]/L Abnormal 0-44 [facility] Work Phone: Comment on above: PATIENT NOT FASTINGP ERFORMED BY: PASHA [facility] Grqhfl1279 [address] [facility] [id number] AST enzyme act/vol 22 [iU]/L Normal 0-40 [facility] Work Phone: Comment on above: PATIENT NOT FASTINGP ERFORMED BY: CB [facility] Pquivg8912 [address] RoadDublin [place] [id number] Bilirubin mass conc 0.3 mg/dL Normal 0.0-1.2 [facility] Work Phone: Comment on above: PATIENT NOT FASTINGP ERFORMED BY: CB [facility] Iopgia5788 [address] RoadDublin [place] [id number] Calcium mass conc 9.6 mg/dL Normal 8.7-10.2 Compreh ensive Internal Medicine Work Phone: Comment on above: PATIENT NOT FASTINGP ERFORMED BY: CB [facility] Hitods6565 [address] RoadDublin [place] [id number] Chloride molar conc 103 mmol/L Normal 96-106 [facility] Work Phone: Comment on above: PATIENT NOT FASTINGP ERFORMED BY: PASHA [facility] Gswgkj1749 [address] RoadDuin [place] [id number] CO2 molar conc 20 mmol/L Normal 18-29 Comprehens trisha Internal Medicine Work Phone: Comment on above: PATIENT NOT FASTINGP ERFORMED BY: CB [facility] Yrpjwj1467 [address] RoadDublin [place] [id number] Creatinine mass conc 0.87 mg/dL Normal 0.76-1.27 [facility] Work Phone: Comment on above: PATIENT NOT FASTINGP ERFORMED BY: CB [facility] Crptec7008 [address] RoadDublin [place] [id number] GFR/1.73 sq M predicted among blacks CKD-EPI vol rate/area (S/P/Bld) 133 mL/min/1.73 Normal [facility] Work Phone: Comment on above: PATIENT NOT FASTINGP ERFORMED BY: CB [facility] Oikzlo9818 [address] RoadDublin [place] [id number] GFR/1.73 sq M predicted among non-blacks CKD-EPI vol rate/area (S/P/Bld) 115 mL/min/1.73 Normal [facility] Work Phone: Comment on above: PATIENT NOT FASTINGP ERFORMED BY: CB LabMaggie Roberson6370 [facility] [id number] Globulin Calculated mass conc (S) 2.2 g/dL Normal 1.5-4.5 [facility] Work Phone: Globulin mass conc (S) 2.2 g/dL Normal 1.5-4.5 [facility] Work Phone: Comment on above: PATIENT NOT FASTINGP ERFORMED BY: PASHA Clyde Aifylt4158 [facility] [id number] Glucose mass conc 107 mg/dL Abnormal 65-99 Compreh ensive Internal Medicine Work Phone: Comment on above: PATIENT NOT FASTINGP ERFORMED BY: PASHA Clyde Tidwelllin6370 [facility] [id number] Potassium molar conc 4.6 mmol/L Normal 3.5-5.2 [facility] Work Phone: Comment on above: PATIENT NOT FASTINGP ERFORMED BY: PASHA Ivonfernie TidwellEdmjoq0463 [facility] [id number] Protein mass conc 6.6 g/dL Normal 6.0-8.5 Compreh ensive Internal Medicine Work Phone: Comment on above: PATIENT NOT FASTINGP ERFORMED BY: PASHA Ivonfernie Melkje0696 [facility] [id number] Sodium molar conc 143 mmol/L Normal 134-144 Compreh ensive Internal Medicine Work Phone: Comment on above: PATIENT NOT FASTINGP ERFORMED BY: PASHA LabYogesh Pcieie0116 [facility] [id number] Urea nitrogen mass conc 14 mg/dL Normal 6-20 [facility] Work Phone: Comment on above: PATIENT NOT FASTINGP ERFORMED BY: PASHA [facility] Xorkgb0053 [facility] [id number] Urea nitrogen/Creatini ne mass ratio 16 mg/mg Normal 9-20 [facility] Work Phone: Comment on above: PATIENT NOT FASTINGP ERFORMED BY: PASHA [facility] Okhuvr7854 [facility] [place] [id number] METABOLIC PANEL, COMPREHENSI VE ([id number])Ordered By: [employer] on 05-11-2017 ALP [Catalytic activity/Vol] 103 U/L Normal 39-117 [facility]; [facility] Work Phone: Comment on above: PATIENT NOT FASTINGP ERFORMED BY: PASHA [facility] Vnhxvh4802 [address] RoadCritical Access Hospitalin [place] [id number] ALT [Catalytic activity/Vol] 52 U/L Abnormal 0-44 [facility]; [facility] Work Phone: Comment on above: PATIENT NOT FASTINGP ERFORMED BY: PASHA [facility] Tgyqmj0893 [address] [facility]in [place] [id number] AST [Catalytic activity/Vol] 22 U/L Normal 0-40 [facility]; [facility] Work Phone: Comment on above: PATIENT NOT FASTINGP ERFORMED BY: PASHA [facility] Bowlaq3705 [address] [facility] [id number] Microscopic Examinationon Bacteria LM.HPF #/area (Urine sed) Few Normal [facility] Work Phone: Comment on above: PATIENT NOT FASTINGP ERFORMED BY: PASHA [facility] Odgjik0925 [address] [facility] [id number] Epithelial cells LM.HPF #/area (Urine sed) 0-10 Normal 0 - 10 [facility] Work Phone: Comment on above: PATIENT NOT FASTINGP ERFORMED BY: PASHA [facility] Nngagd7559 [address] [facility] [id number] Mucus LM Ql (Urine sed) Present Normal [facility] Work Phone: Mucus Ql (Urine sed) Present Normal [facility] Work Phone: Comment on above: PATIENT NOT FASTINGP ERFORMED BY: PASHA [facility] Naknhu8495 [address] [facility]blin [place] [id number] RBC LM.HPF #/area (Urine sed) 3-10 Abnormal 0 - 2 [facility] Work Phone: Comment on above: PATIENT NOT FASTINGP ERFORMED BY: PASHA [facility] Tqkrkv3965 [address] RoadDublin [place] [id number] WBC LM.HPF #/area (Urine sed) 6-10 Abnormal 0 - 5 [facility] Work Phone: Comment on above: PATIENT NOT FASTINGP ERFORMED BY: PASHA [facility] Keujbj0818 [address] RoadDublin [place] [id number] URINALYSIS, W/ MICRO (11214) on 05-11-2017 Appearance Nom (U) Clear Normal [facility] Work Phone: Comment on above: PATIENT NOT FASTINGP ERFORMED BY: PASHA [facility] Dxiubu6560 [address] RoadDublin [place] [id number] Bilirubin Ql (U) Negative Normal Comprehe nsive Internal Medicine Work Phone: Comment on above: PATIENT NOT FASTINGP ERFORMED BY: PASHA [facility] Ffqcur1989 [address] RoadDublin [place] [id number] Color Nom (U) Yellow Normal Comprehensi ve Internal Medicine Work Phone: Comment on above: PATIENT NOT FASTINGP ERFORMED BY: PASHA [facility] Gdtwnz1404 [address] RoadDublin [place] [id number] Glucose Ql (U) Negative Normal Comprehens trisha Internal Medicine Work Phone: Comment on above: PATIENT NOT FASTINGP ERFORMED BY: PASHA [facility] Oaamvt5921 [address] RoadDublin [place] [id number] Hemoglobin Ql (U) Negative Normal Compreh ensive Internal Medicine Work Phone: Comment on above: PATIENT NOT FASTINGP ERFORMED BY: CB [facility] Ijuevb7553 [address] RoadDublin [place] [id number] Hemoglobin Test strip Ql (U) Negative Normal [facility] Work Phone: Ketones Ql (U) Negative Normal Comprehens trisha [facility] Work Phone: Comment on above: PATIENT NOT FASTINGP ERFORMED BY: PASHA [facility] Wnirge0382 [address] RoadDublin [place] [id number] Leukocyte esterase Test strip Ql (U) Trace Abnormal [facility] Work Phone: Comment on above: PATIENT NOT FASTINGP ERFORMED BY: PASHA LabMaggie TidwellDjozsf6320 [address] RoadDublin [place] [id number] Microscopic observation LM Nom (Urine sed) See below: Normal [facility] Work Phone: Comment on above: Microscopic was williams cated and was performed. PATIENT NOT FASTINGP ERFORMED BY: PASHA LabCofernie TidwellFvfnco2272 [address] RoadDublin [place] [id number] Nitrite Ql (U) Negative Normal Comprehens trisha Internal Medicine Work Phone: Comment on above: PATIENT NOT FASTINGP ERFORMED BY: PASHA LabYogeshrp Agtsdj5442 [address] RoadDublin [place] [id number] Nitrite Test strip Ql (U) Negative Normal [facility] Work Phone: pH (U) 5.0 [pH] Normal 5.0-7.5 [facility] Work Phone: Comment on above: PATIENT NOT FASTINGP ERFORMED BY: PASHA LabMaggie TidwellZbtfqw3978 [address] RoadDublin [place] [id number] pH Test strip (U) 5.0 [pH] Normal 5.0-7.5 Compreh ensive Internal Medicine Work Phone: Protein Ql (U) Negative Normal Comprehens trisha [facility] Work Phone: Comment on above: PATIENT NOT FASTINGP ERFORMED BY: PASHA LabCofernie TidwellPyyagp2690 [address] RoadDublin [place] [id number] Protein Test strip Ql (U) Negative Normal [facility] Work Phone: Specific gravity Relative Density (U) 1.016 1 Normal 1.005-1.030 [facility] Work Phone: Comment on above: PATIENT NOT FASTINGP ERFORMED BY: PASHA [facility] Wppafd6156 [address] RoadDublin [place] [id number] Urobilinogen Test strip mass conc (U) 0.2 mg/dL Normal 0.2-1.0 [facility] Work Phone: Comment on above: PATIENT NOT FASTINGP ERFORMED BY: PASHA LabMaggie TidwellWismro2503 [address] RoadDublin [place] [id number] URINALYSIS, W/ MICRO ([id number]) Ordered By: [employer] on 05-11-2017 Bilirubin Ql (U) Negative Normal Comprehe nsive Internal Medicine; [facility] Work Phone: Comment on above: PATIENT NOT FASTINGP ERFORMED BY: PASHA LabMaggie TidwellJxedvq6994 [address] RoadDublin [place] [id number] Glucose Ql (U) Negative Normal Comprehens trisha Internal Medicine; [facility] Work Phone: Comment on above: PATIENT NOT FASTINGP ERFORMED BY: PASHA LabCofernie TidwellDujmcn5373 [address] RoadDublin [place] [id number] Hemoglobin Ql (U) Negative Normal Compreh ensive Internal Medicine; [facility] Work Phone: Comment on above: PATIENT NOT FASTINGP ERFORMED BY: PASHA LabMaggie TidwellCjvmwe1533 [address] RoadDublin [place] [id number] Ketones Ql (U) Negative Normal Comprehens trisha Internal Medicine; [facility] Work Phone: Comment on above: PATIENT NOT FASTINGP ERFORMED BY: PASHA LabMaggie TidwellSidvsk3539 [address] RoadDublin [place] [id number] Nitrite Ql (U) Negative Normal Comprehens trisha Internal [facility]; [facility] Work Phone: Comment on above: PATIENT NOT FASTINGP ERFORMED BY: PASHA LabMaggie TidwellQoqnde5828 [address] RoadDublin [place] [id number] Protein Ql (U) Negative Normal Comprehens trisha [facility] Medicine; [facility] Work Phone: Comment on above: PATIENT NOT FASTINGP ERFORMED BY: PASHA [facility] Crcisl8497 [address] RoadDublin [place] [id number] Urobilinogen (U) [Mass/Vol] 0.2 mg/dL Normal 0.2-1.0 [facility]; [facility] Work Phone: Comment on above: PATIENT NOT FASTINGP ERFORMED BY: PASHA LabCofernie TidwellFcllzw5918 [address] RoadDublin [place] [id number] C-REACT PROT HIGH SENS(hsCRP ) (46979)on 10-30-2016 CRP High sensitivity method mass conc 2.26 mg/L Normal 0.00-3.00 [facility] Internal Medicine Work Phone: Comment on above: Relative Risk for Fu ture Cardiovascular Event Low <1.00 Average 1.00 - 3.00 High >3.00 PATIENT WAS FASTINGP ERFORMED BY: [employer] formerly [employer]70 [facility] CenterbMenuFormerly [facility] [id number] BY: [employer] [id number] GONADOTROPIN-FSH (06949)on 0 10-30-2016 Follitropin Qn 2.3 m[IU]/mL Normal 1.5-12.4 [facility] Work Phone: Comment on above: PATIENT WAS FASTINGP ERFORMED BY: [employer] InventorumFormerly [facility] [id number] BY: [employer] [id number] GONADOTROPIN-LH (47300)on Lutropin Qn 4.2 m[IU]/mL Normal 1.7-8.6 [facility]prehensspec[facility] Work Phone: Comment on above: PATIENT WAS FASTINGP ERFORMED BY: [employer]70 [facility] [id number] BY: [employer] [id number] HGB A1C (94822)on 10-30-2016 Hemoglobin A1c/Hemoglobin.to lupillo mass fraction (Bld) 5.7 % Abnormal 4.8-5.6 [facility] Internal Medicine Work Phone: Comment on above: . Pre-diabetes: 5.7 - 6.4 Diabetes: >6.4 Glycemic control for adults with diabetes: <7.0 PATIENT WAS FASTINGP ERFORMED BY: [employer]70 [facility] [id number] BY: [employer] [id number] LIPID PANEL (31451)on 2016 Cholesterol in HDL mass conc 43 mg/dL Normal [facility] Work Phone: Comment on above: PATIENT WAS FASTINGP ERFORMED BY: PASHA [facility] Ayzirc9187 [address] [facility] HospitalDublin [place] [id number] BY: [address] [id number] Cholesterol in LDL mass conc 153 mg/dL Abnormal 0-99 [facility] Work Phone: Comment on above: PATIENT WAS FASTINGP ERFORMED BY: PASHA [facility] Rdofsc6683 [address] [facility] [id number] BY: LabCo[address] [id number] Cholesterol in LDL/Cholesterol in HDL mass ratio 3.6 {ratio_units} Normal 0.0-3.6 Comprehensiv e Internal Medicine Work Phone: Comment on above: LDL/HDL Ratio Men Wo men 1/2 Avg.Risk 1.0 1.5 Avg.Risk 3.6 3.2 2X Avg.Risk 6.2 5.0 3X Avg.Risk 8.0 6.1 PATIENT WAS FASTINGP ERFORMED BY: PASHA [facility] Mclbuc2807 [address] [facility] [id number] BY: [address] [id number] Cholesterol in VLDL mass conc 33 mg/dL Normal 5-40 [facility] Work Phone: Comment on above: PATIENT WAS FASTINGP ERFORMED BY: PASHA [facility] Eyvyfk7473 [address] [facility]3] [place] [id number] BY: [address] [id number] Cholesterol mass conc 229 mg/dL Abnormal 100-199 [facility] Work Phone: Comment on above: PATIENT WAS FASTINGP ERFORMED BY: PASHA [facility] Rbahmx0083 [address] [facility] HospitalDublin [place] [id number] BY: LabCo[address] [id number] Triglyceride mass conc 163 mg/dL Abnormal 0-149 [facility] Work Phone: Comment on above: PATIENT WAS FASTINGP ERFORMED BY: CB [facility] Dhgfib8097 [facility] [id number] BY: Lab[address] [id number] METABOLIC PANEL, COMPREHENSI VE (20462)on 10-30-2016 Albumin mass conc 4.6 g/dL Normal 3.5-5.5 Compreh ensive Internal Medicine Work Phone: Comment on above: PATIENT WAS FASTINGP ERFORMED BY: CB [facility] Avtwum2456 [facility] [id number] BY: Lab[address] [id number] Albumin/Globulin mass ratio 2.2 {ratio} Normal 1.2-2.2 [facility] Work Phone: Comment on above: PATIENT WAS FASTINGP ERFORMED BY: CB [facility] Fzepjp3295 [facility] [id number] BY: LabCo[address] [id number] ALP enzyme act/vol 96 [iU]/L Normal 39-117 [facility] Work Phone: Comment on above: PATIENT WAS FASTINGP ERFORMED BY: CB [facility] Dfropp1181 [facility] [id number] BY: LabCo[address] [id number] ALT enzyme act/vol 64 [iU]/L Abnormal 0-44 [facility] Work Phone: Comment on above: ADDENDA: ok till apt wed PATIENT WAS FASTINGP ERFORMED BY: CB [facility] Yqyymx4726 [facility] [id number] BY: Lab[address] [id number] AST enzyme act/vol 31 [iU]/L Normal 0-40 [facility] Work Phone: Comment on above: PATIENT WAS FASTINGP ERFORMED BY: PASHA [facility] Ncxoxw0962 [address] [facility] [id number] BY: LabCo[address] [id number] Bilirubin mass conc 0.7 mg/dL Normal 0.0-1.2 [facility] Work Phone: Comment on above: PATIENT WAS FASTINGP ERFORMED BY: PASHA [facility] Rexrax3400 [address] [facility] [id number] BY: LabCo[address] [id number] Calcium mass conc 9.7 mg/dL Normal 8.7-10.2 Compreh ensive Internal Medicine Work Phone: Comment on above: PATIENT WAS FASTINGP ERFORMED BY: PASHA [facility] Afdpgj2861 [facility] [id number] BY: LabCo[address] [id number] Chloride molar conc 103 mmol/L Normal 96-106 [facility] Work Phone: Comment on above: PATIENT WAS FASTINGP ERFORMED BY: PASHA [facility] Qmugsk3151 [facility] [id number] BY: LabCo[address] [id number] CO2 molar conc 22 mmol/L Normal 18-29 Comprehens trisha Internal Medicine Work Phone: Comment on above: PATIENT WAS FASTINGP ERFORMED BY: PASHA [facility] Zftcwr3061 [address] [facility] [id number] BY: LabCo[address] [id number] Creatinine mass conc 0.93 mg/dL Normal 0.76-1.27 [facility] Work Phone: Comment on above: PATIENT WAS FASTINGP ERFORMED BY: PASHA LabCoVirtua VoorheesRekikw9504 [facility] [id number] BY: [email or web address] [id number] GFR/1.73 sq M predicted among blacks CKD-EPI vol rate/area (S/P/Bld) 126 mL/min/1.73 Normal [facility] Work Phone: Comment on above: PATIENT WAS FASTINGP ERFORMED BY: [place] 8535870 [facility] [id number] BY: [employer] [id number] GFR/1.73 sq M predicted among non-blacks CKD-EPI vol rate/area (S/P/Bld) 109 mL/min/1.73 Normal [facility] Work Phone: Comment on above: PATIENT WAS FASTINGP ERFORMED BY: [place] 8535870 [facility] [id number] BY: [employer] [id number] Globulin Calculated mass conc (S) 2.1 g/dL Normal 1.5-4.5 [facility] Work Phone: Globulin mass conc (S) 2.1 g/dL Normal 1.5-4.5 [facility] Work Phone: Comment on above: PATIENT WAS FASTINGP ERFORMED BY: [place] 8535870 [facility] [id number] BY: [address] [id number] Glucose mass conc 94 mg/dL Normal 65-99 Compreh ensive Internal Medicine Work Phone: Comment on above: PATIENT WAS FASTINGP ERFORMED BY: TucoolaVirtua VoorheesQjvqrx6625 [facility] [id number] BY: [address] [id number] Potassium molar conc 4.3 mmol/L Normal 3.5-5.2 [facility] Work Phone: Comment on above: PATIENT WAS FASTINGP ERFORMED BY: PASHA [facility] Wwxssa3325 [address] [facility] [id number] BY: LabCo[address] [id number] Protein mass conc 6.7 g/dL Normal 6.0-8.5 Compreh ensive Internal Medicine Work Phone: Comment on above: PATIENT WAS FASTINGP ERFORMED BY: PASHA [facility] Fukfgc3027 [address] [facility] [id number] BY: Lab[address] [id number] Sodium molar conc 145 mmol/L Abnormal 134-144 Compreh ensive Internal Medicine Work Phone: Comment on above: PATIENT WAS FASTINGP ERFORMED BY: PASHA [facility] Uedkgk0126 [address] [facility] [id number] BY: Lab[address] [id number] Urea nitrogen mass conc 10 mg/dL Normal 6-20 [facility] Work Phone: Comment on above: PATIENT WAS FASTINGP ERFORMED BY: PASHA [facility] Gizcok3139 [address] [facility] [id number] BY: Lab[address] [id number] Urea nitrogen/Creatini ne mass ratio 11 mg/mg Normal 9-20 [facility] Work Phone: Comment on above: PATIENT WAS FASTINGP ERFORMED BY: PASHA [facility] Cxfskp0060 [facility] [id number] BY: Lab[address] [id number] METABOLIC PANEL, COMPREHENSI VE ([id number])Ordered By: [employer] on 10-30-2016 ALP [Catalytic activity/Vol] 96 U/L Normal 39-117 [facility]; [facility] Work Phone: Comment on above: PATIENT WAS FASTINGP ERFORMED BY: PASHA [facility] Hvxjin6643 [facility] [id number] BY: [address] [id number] ALT [Catalytic activity/Vol] 64 U/L Abnormal 0-44 [facility]; [facility] Work Phone: Comment on above: ADDENDA: ok till apt wed PATIENT WAS FASTINGP ERFORMED BY: [facility] Rsrobk8941 [facility] [id number] BY: [address] [id number] AST [Catalytic activity/Vol] 31 U/L Normal 0-40 [facility]; [facility] Work Phone: Comment on above: PATIENT WAS FASTINGP ERFORMED BY: [facility] Sxhdsb6243 [facility] [id number] BY: [address] [id number] MICROALBUMINon 10-30-2016 Albumin DL <= 20 mg/L mass conc (U) 24.9 ug/mL Normal [facility] Work Phone: Comment on above: PATIENT WAS FASTINGP ERFORMED BY: [facility] Yawfrp2419 [facility] [id number] BY: [address] [id number] Albumin/Creatinin e mass ratio (U) 9.4 {mg/g_creat} Normal 0.0-30.0 [facility] Work Phone: Comment on above: PATIENT WAS FASTINGP ERFORMED BY: [facility] Tcukaf3090 [facility] [id number] BY: [address] [id number] Creatinine mass conc (U) 264.6 mg/dL Normal [facility] Work Phone: Comment on above: PATIENT WAS FASTINGP ERFORMED BY: [facility]6370 [facility] [id number] BY: [address] [id number] PROLACTIN (69393)on 10-31-19 17 Prolactin mass conc 10.8 ng/mL Normal 4.0-15.2 [facility] Work Phone: Comment on above: PATIENT WAS FASTINGP ERFORMED BY: LabCoVirtua VoorheesSslozy5761 [facility] [id number] BY: [address] [id number] TESTOSTERONE FREE (36852)on 10-30-2016 Testosterone Free mass conc 9.1 pg/mL Normal 8.7-25.1 [facility] Work Phone: Comment on above: PATIENT WAS FASTINGP ERFORMED BY: LabCoVirtua VoorheesBjpvmi7765 [facility] [id number] BY: [address] [id number] TSH (THYROID STIMULATING HOR CLARA) (39682)on 10-30-2016 Thyrotropin Qn 2.150 {uIU/mL} Normal 0.450-4.500 [facility] Internal Medicine Work Phone: Comment on above: PATIENT WAS FASTINGP ERFORMED BY: [facility] Yeitpz9265 [facility] [id number] BY: [address] [id number] Vitamin D Hydroxy (77523)on 10-30-2016 25-Hydroxyvitamin D2+25-Hydroxyvita min D3 mass conc 30.3 ng/mL Normal 30.0-100.0 [facility] Work Phone: Comment on above: Vitamin D deficiency has been defined by the [place] [employer] and an Endocrine Society practice guideline as alevel of serum 25-OH vitamin D less than 20 ng/mL (1,2).The Endocrine Society went on to further define vitamin Dinsufficiency as a level between 21 and 29 ng/mL (2).1. IOM ([place] [employer]). 2010. Dietary reference intakes for calcium and D. [place]: The National Academies Press.2. Brendan MF, [place], Tavo DURAND, et al. Evaluation, treatment, and prevention of vitamin D deficiency: an Endocrine Society clinical practice guideline. JCEM. 2010; 96(7):1911-30. PATIENT WAS FASTINGP ERFORMED BY: [employer] formerly [employer]70 [facility] [id number] BY: navigaya[address] [place] [address] [id number] IAVOD-NKTEFRHOESU-PTWRI (821 05)on 08-07-2016 AFP.tumor marker mass conc 6.8 ng/mL Normal 0.0-8.3 [facility] Work Phone: Comment on above: [employer] ECLIA methodol ogy PATIENT WAS FASTINGP ERFORMED BY: [employer] [id number] BY: [employer]70 [facility] [id number] C-REACT PROT HIGH SENS(hsCRP ) (96112)on 08-07-2016 CRP High sensitivity method mass conc 1.84 mg/L Normal 0.00-3.00 [facility] Work Phone: Comment on above: Relative Risk for Fu ture Cardiovascular Event Low <1.00 Average 1.00 - 3.00 High >3.00 PATIENT WAS FASTINGP ERFORMED BY: navigaya[address] [place] [address] [id number] BY: Simio6370 [facility] [id number] HGB A1C (93094)on 08-07-2016 Hemoglobin A1c/Hemoglobin.to lupillo mass fraction (Bld) 5.6 % Normal 4.8-5.6 [facility] Work Phone: Comment on above: . Pre-diabetes: 5.7 - 6.4 Diabetes: >6.4 Glycemic control for adults with diabetes: <7.0 PATIENT WAS FASTINGP ERFORMED BY: [employer] [id number] BY: TucoolaVirtua VoorheesXqqnxj9192 [facility] [id number] LIPOPROTEIN, BLD, BY NMR (83 704)on 08-07-2016 Cholesterol in HDL mass conc 34 mg/dL Abnormal [facility] Work Phone: Comment on above: PATIENT WAS FASTINGP ERFORMED BY: [employer] [id number] BY: [place] 8535870 [facility] [id number] Cholesterol in LDL mass conc 114 mg/dL Abnormal 0-99 [facility] Work Phone: Comment on above: . Optimal < 100 Abov e optimal 100 - 129 Borderline 130 - 159 High 160 - 189 Very high > 189 .LDL-C is inaccurate if patient is non-fasting. PATIENT WAS FASTINGP ERFORMED BY: [employer] [id number] BY: [employer] Jynyoo4655 [facility] [id number] Cholesterol mass conc 186 mg/dL Normal 100-199 [facility] Work Phone: Comment on above: PATIENT WAS FASTINGP ERFORMED BY: [employer] [id number] BY: [employer] Svmhbt9718 [facility] [id number] Lipoprotein.alpha molar conc 27.5 umol/L Abnormal [facility] Work Phone: Comment on above: PATIENT WAS FASTINGP ERFORMED BY: [employer] [id number] BY: [place] 8535870 [facility] [id number] Lipoprotein.beta. subparticle Entitic length 21.1 nm Normal [facility] Work Phone: Comment on above: INTERPRETATIVE INFORMATION PARTICLE CONCENTRATION AND SIZE <--Lower CVD Risk Higher CVD Risk--> LDL AND HDL PARTICLES Percentile in Reference Population HDL-P (total) High 75th 50th 25th Low >34.9 34.9 30.5 26.7 <26.7 . Small LDL-P Low 25th 50th 75th High <117 117 527 839 >839 . LDL Size <-Large (Pattern A)-> <-Small (Pattern B)-> 23.0 20.6 20.5 19.0 Small LDL-P and LDL Size are associated with CVD risk, but not afterLDL-P is taken into account. .These assays were developed and their performance characteristicsdetermined by [facility]. These assays have not been cleared by Karen Food and Drug Administration. The clinical utility of theselaboratory values have not been fully established. PATIENT WAS FASTINGP ERFORMED BY: Genapsys [facility] [id number] BY: [employer] formerly [employer]70 [facility] [id number] Lipoprotein.beta. subparticle molar conc 1564 nmol/L Abnormal [facility] Work Phone: Comment on above: Low < 1000 Moderate 1000 - 1299 Borderline-High 1300 - 1599 High 1600 - 2000 Very High > 2000 PATIENT WAS FASTINGP ERFORMED BY: [facility] [id number] BY: [employer] formerly [employer]70 [facility] [id number] Lipoprotein.beta. subparticle.small molar conc 677 nmol/L Abnormal [facility] Work Phone: Comment on above: PATIENT WAS FASTINGP ERFORMED BY: M[address] Limited[address]47 [facility] [id number] BY: [facility] Gdbiid0713 [facility] [id number] Triglyceride mass conc 189 mg/dL Abnormal 0-149 [facility] Work Phone: Comment on above: PATIENT WAS FASTINGP ERFORMED BY: LabPayDragonrp Xdirtjurez1792 [facility] [id number] BY: [facility] Dmaris4729 [facility] [id number] METABOLIC PANEL, COMPREHENSI VE (78649)on 08-07-2016 Albumin mass conc 4.7 g/dL Normal 3.5-5.5 Compreh ensive Internal Medicine Work Phone: Comment on above: PATIENT WAS FASTINGP ERFORMED BY: Tucoolarp Wgriyxicxx8[address] [id number] BY: [employer] Ivrpql9855 [facility] [id number] Albumin/Globulin mass ratio 2.4 {ratio} Normal 1.1-2.5 [facility] Work Phone: Comment on above: Effective August the reference interval for A/G Ratio will be changing to: Age Male Female 0 - 7 days 1.1 - 2.3 1.1 - 2.3 8 - 30 days 1.2 - 2.8 1.2 - 2.8 1 - 6 months 1.3 - 3.6 1.3 - 3.6 7 months - 5 years 1.5 - 2.6 1.5 - 2.6 > 5 years 1.2 - 2.2 1.2 - 2.2 PATIENT WAS FASTINGP ERFORMED BY: [employer] Vokfaasfbv8403 [facility] [id number] BY: LabPayDragonVirtua VoorheesOvboeq4119 [facility] [id number] ALP enzyme act/vol 109 [iU]/L Normal 39-117 [facility] Work Phone: Comment on above: PATIENT WAS FASTINGP ERFORMED BY: LabPayDragonrp Zinmaslsyx4327 [facility] [id number] BY: PASHA [facility] Eoyhab1659 [address] RoadDublin [place] [id number] ALT enzyme act/vol 53 [iU]/L Abnormal 0-44 [facility] Work Phone: Comment on above: PATIENT WAS FASTINGP ERFORMED BY: LabCoJose V[place] [address] [facility] [id number] BY: [facility] Dxvowu3703 [address] RoadDublin [place] [id number] AST enzyme act/vol 26 [iU]/L Normal 0-40 [facility] Work Phone: Comment on above: PATIENT WAS FASTINGP ERFORMED BY: Lab[address] [id number] BY: [facility] Swhcbt1324 [address]z RoadDublin [place] [id number] Bilirubin mass conc 0.6 mg/dL Normal 0.0-1.2 [facility] Work Phone: Comment on above: PATIENT WAS FASTINGP ERFORMED BY: [address] [id number] BY: PASHA LabCoVirtua VoorheesYgwwrv4561 [address] RoadDublin [place] [id number] Calcium mass conc 9.5 mg/dL Normal 8.7-10.2 Compreh ensive Internal Medicine Work Phone: Comment on above: PATIENT WAS FASTINGP ERFORMED BY: Lab[address] [id number] BY: LabCo Iiocnw9768 [address] RoadDublin [place] [id number] Chloride molar conc 102 mmol/L Normal 96-106 [facility] Work Phone: Comment on above: PATIENT WAS FASTINGP ERFORMED BY: Lab[address] [id number] BY: [facility] Tallhf5326 [address]z RoadDublin [place] [id number] CO2 molar conc 22 mmol/L Normal 18-29 Comprehens trisha Internal Medicine Work Phone: Comment on above: PATIENT WAS FASTINGP ERFORMED BY: BN [facility] Mnhfancmdz7[address] [id number] BY: CB [facility] Duhpdq[address] [facility] [id number] Creatinine mass conc 0.82 mg/dL Normal 0.76-1.27 [facility] Work Phone: Comment on above: PATIENT WAS FASTINGP ERFORMED BY: BN [facility] Newrtmrzbc8964[address] [id number] BY: CB [facility] Rmneic8647 [address] RoadFirst[facility] [id number] GFR/1.73 sq M predicted among blacks CKD-EPI vol rate/area (S/P/Bld) 136 mL/min/1.73 Normal [facility] Work Phone: Comment on above: PATIENT WAS FASTINGP ERFORMED BY: LabPayDragonrp Kyaodqzlxa98[address] [id number] BY: PASHA [facility] Iahrmv80[address] [facility] [id number] GFR/1.73 sq M predicted among non-blacks CKD-EPI vol rate/area (S/P/Bld) 118 mL/min/1.73 Normal [facility] Work Phone: Comment on above: PATIENT WAS FASTINGP ERFORMED BY: [facility] [address] [id number] BY: [facility] Gznvtm7[address] [facility] [id number] Globulin Calculated mass conc (S) 2.0 g/dL Normal 1.5-4.5 [facility] Work Phone: Globulin mass conc (S) 2.0 g/dL Normal 1.5-4.5 [facility] Work Phone: Comment on above: PATIENT WAS FASTINGP ERFORMED BY: [facility] [address] [id number] BY: LabCoVirtua VoorheesYkjzkf1000 [facility] [id number] Glucose mass conc 97 mg/dL Normal 65-99 Compreh ensive Internal Medicine Work Phone: Comment on above: PATIENT WAS FASTINGP ERFORMED BY: Lab[address] [id number] BY: [facility] Gtyxog77[address] [facility] [id number] Potassium molar conc 4.2 mmol/L Normal 3.5-5.2 [facility] Work Phone: Comment on above: PATIENT WAS FASTINGP ERFORMED BY: [address] [id number] BY: [facility]6370 [facility] [id number] Protein mass conc 6.7 g/dL Normal 6.0-8.5 Compreh ensive Internal Medicine Work Phone: Comment on above: PATIENT WAS FASTINGP ERFORMED BY: Lab[address] [id number] BY: [facility]6370 [facility] [id number] Sodium molar conc 144 mmol/L Normal 134-144 Compreh ensive Internal Medicine Work Phone: Comment on above: PATIENT WAS FASTINGP ERFORMED BY: [address] [id number] BY: [facility] Oyywkj7423 [facility] [id number] Urea nitrogen mass conc 10 mg/dL Normal 6-20 [facility] Work Phone: Comment on above: PATIENT WAS FASTINGP ERFORMED BY: Lab[address] [id number] BY: [facility]6370 [facility] [id number] Urea nitrogen/Creatini ne mass ratio 12 mg/mg Normal 8-19 [facility] Work Phone: Comment on above: PATIENT WAS FASTINGP ERFORMED BY: LabCo[address] [id number] BY: [facility] Lbmrud2207 [address] RoadDublin [place] [id number] METABOLIC PANEL, COMPREHENSI VE (38091)Ordered By: [employer] on 08-07-2016 ALP [Catalytic activity/Vol] 109 U/L Normal 39-117 [facility]; [facility] Work Phone: Comment on above: PATIENT WAS FASTINGP ERFORMED BY: LabCo[address] [id number] BY: [facility] Owrahh9855 [address] RoadDublin [place] [id number] ALT [Catalytic activity/Vol] 53 U/L Abnormal 0-44 [facility]; [facility] Work Phone: Comment on above: PATIENT WAS FASTINGP ERFORMED BY: LabPayDragon[address] [id number] BY: [facility] Yqeolp9709 [address] RoadDublin [place] [id number] AST [Catalytic activity/Vol] 26 U/L Normal 0-40 [facility]; [facility] Work Phone: Comment on above: PATIENT WAS FASTINGP ERFORMED BY: Tucoola[address] [id number] BY: [facility] Wtdsmq5133 [address] RoadDublin [place] [id number] MICROALBUMINon 08-07-2016 Albumin DL <= 20 mg/L mass conc (U) 37.1 ug/mL Normal [facility] Work Phone: Comment on above: PATIENT WAS FASTINGP ERFORMED BY: Lab[address] [id number] BY: [facility] Xcqcdy9665 [address] RoadDublin [place] [id number] Albumin/Creatinin e mass ratio (U) 11.4 {mg/g_creat} Normal 0.0-30.0 [facility] Work Phone: Comment on above: PATIENT WAS FASTINGP ERFORMED BY: [facility] Jarqvtgzbm2033 [facility] [id number] BY: [facility] Icnpum5[address] [facility] [id number] Creatinine mass conc (U) 326.7 mg/dL Normal [facility] Work Phone: Comment on above: PATIENT WAS FASTINGP ERFORMED BY: [facility] Sdlzzjzcfd[address] [id number] BY: [facility] Derkcv8706 [address] [facility] [id number] TESTOSTERONE FREE (02082)on 08-07-2016 Testosterone Free mass conc 7.0 pg/mL Abnormal 8.7-25.1 [facility] Work Phone: Comment on above: PATIENT WAS FASTINGP ERFORMED BY: LabCo[address] [id number] BY: [facility] Tyhsfr1872 [facility] [id number] Vitamin D Hydroxy (13919)on 08-07-2016 25-Hydroxyvitamin D2+25-Hydroxyvita min D3 mass conc 33.9 ng/mL Normal 30.0-100.0 [facility] Work Phone: Comment on above: Vitamin D deficiency has been defined by the [place] [facility] and an Endocrine Society practice guideline as alevel of serum 25-OH vitamin D less than 20 ng/mL (1,2).The Endocrine Society went on to further define vitamin Dinsufficiency as a level between 21 and 29 ng/mL (2).1. IOM ([place] of [employer]). 2010. Dietary reference intakes for calcium and D. [place]: The National Academies Press.2. Brendan MF, [place] COELHO, Tavo DURAND, et al. Evaluation, treatment, and prevention of vitamin D deficiency: an Endocrine Society clinical practice guideline. JCEM. 2010; 96(7):1911-30. PATIENT WAS FASTINGP ERFORMED BY: [facility] Krxelzowhi8354 [facility] [id number] BY: PASHA Ivonfernie TidwellNnhmwu6244 [facility] [id number] LIPID PANEL (18425)on 2015 Cholesterol in HDL mass conc 45 mg/dL Normal [facility] Work Phone: Comment on above: According to ATP-III Guidelines, HDL-C >59 mg/dL is considered anegative risk factor for CHD. PATIENT WAS FASTINGP ERFORMED BY: PASHA Clyde Roberson6370 [facility] [id number]; non-emergent till apt Cholesterol in LDL mass conc 139 mg/dL Abnormal 0-99 [facility] Work Phone: Comment on above: PATIENT WAS FASTINGP ERFORMED BY: PASHA MaycolMaggie TidwellZlbeeh4012 [facility] [id number]; non-emergent till apt Cholesterol in LDL/Cholesterol in HDL mass ratio 3.1 {ratio_units} Normal 0.0-3.6 Comprehensiv e Internal Medicine Work Phone: Comment on above: LDL/HDL Ratio Men Wo men 1/2 Avg.Risk 1.0 1.5 Avg.Risk 3.6 3.2 2X Avg.Risk 6.2 5.0 3X Avg.Risk 8.0 6.1 PATIENT WAS FASTINGP ERFORMED BY: PASHA Ivonfernie Iyqhxp1429 [facility] [id number]; non-emergent till apt Cholesterol in VLDL mass conc 39 mg/dL Normal 5-40 [facility] Work Phone: Comment on above: PATIENT WAS FASTINGP ERFORMED BY: PASHA Ivon Ovpymr8087 [facility] [id number]; non-emergent till apt Cholesterol mass conc 223 mg/dL Abnormal 100-199 [facility] Work Phone: Comment on above: PATIENT WAS FASTINGP ERFORMED BY: PASHA Ivonfernie TidwellNlidul4398 [facility] [id number]; non-emergent till apt Triglyceride mass conc 197 mg/dL Abnormal 0-149 [facility] Work Phone: Comment on above: PATIENT WAS FASTINGP ERFORMED BY: CB [facility] Sqwocc[address] [facility] [place] [id number]; non-emergent till apt METABOLIC PANEL, COMPREHENSI MASOUD (51808)on 10-22-2015 Albumin mass conc 4.8 g/dL Normal 3.5-5.5 Compreh ensive Internal Medicine Work Phone: Comment on above: PATIENT WAS FASTINGP ERFORMED BY: [facility] Ttnjwe1771 [address] Roadblin [place] [id number] Information: 212678,[id number] Albumin/Globulin mass ratio 2.0 {ratio} Normal 1.1-2.5 [facility] Work Phone: Comment on above: PATIENT WAS FASTINGP ERFORMED BY: [facility] Lzofut5311 [address] Roadblin [place] [id number] Information: [id number] ALP enzyme act/vol 105 [iU]/L Normal 39-117 [facility] Work Phone: Comment on above: PATIENT WAS FASTINGP ERFORMED BY: [facility] Hoyimv42[address] [facility] [place] [id number] Information: 246132,[id number] ALT enzyme act/vol 85 [iU]/L Abnormal 0-44 [facility] Work Phone: Comment on above: PATIENT WAS FASTINGP ERFORMED BY: [facility] Cqnrfv77[address] [facility]in [place] [id number] Information: [id number],[id number] AST enzyme act/vol 32 [iU]/L Normal 0-40 [facility] Work Phone: Comment on above: PATIENT WAS FASTINGP ERFORMED BY: [facility] Iyjzov77[address] [facility] [place] [id number] Information: 498172,[id number] Bilirubin mass conc 0.6 mg/dL Normal 0.0-1.2 [facility] Work Phone: Comment on above: PATIENT WAS FASTINGP ERFORMED BY: [facility] Fiapls[address] [facility] [id number] Information: 422288,[id number] Calcium mass conc 10.0 mg/dL Normal 8.7-10.2 Compreh ensive Internal Medicine Work Phone: Comment on above: PATIENT WAS FASTINGP ERFORMED BY: [facility] Zztbal[address] [facility] [id number] Information: 673353,[id number] Chloride molar conc 101 mmol/L Normal 97-108 [facility] Work Phone: Comment on above: PATIENT WAS FASTINGP ERFORMED BY: [facility] Vlydvg18[address] [facility] [id number] Information: [id number] CO2 molar conc 24 mmol/L Normal 18-29 Comprehens trisha [facility] Work Phone: Comment on above: PATIENT WAS FASTINGP ERFORMED BY: [facility]6370 [facility] [id number] Information: [id number] Creatinine mass conc 0.73 mg/dL Abnormal 0.76-1.27 [facility] Work Phone: Comment on above: PATIENT WAS FASTINGP ERFORMED BY: [facility]6370 [facility] [id number] Information: 682624,[id number] GFR/1.73 sq M predicted among blacks CKD-EPI vol rate/area (S/P/Bld) 144 mL/min/1.73 Normal [facility] Work Phone: Comment on above: PATIENT WAS FASTINGP ERFORMED BY: [facility] Rafdgh9111 [facility] [id number] Information: 415383,[id number] GFR/1.73 sq M predicted among non-blacks CKD-EPI vol rate/area (S/P/Bld) 124 mL/min/1.73 Normal [facility] Work Phone: Comment on above: PATIENT WAS FASTINGP ERFORMED BY: [facility] Jnntkn[address] [facility] [id number] Information: 458284,[id number] Globulin Calculated mass conc (S) 2.4 g/dL Normal 1.5-4.5 [facility] Work Phone: Globulin mass conc (S) 2.4 g/dL Normal 1.5-4.5 [facility] Work Phone: Comment on above: PATIENT WAS FASTINGP ERFORMED BY: [facility] Pszewi3648 [facility] [id number] Information: [id number],[id number] Glucose mass conc 96 mg/dL Normal 65-99 Compreh ensive Internal Medicine Work Phone: Comment on above: PATIENT WAS FASTINGP ERFORMED BY: [facility] Vktwwt9780 [facility] [id number] Information: 697046,[id number] Potassium molar conc 4.5 mmol/L Normal 3.5-5.2 [facility] Work Phone: Comment on above: PATIENT WAS FASTINGP ERFORMED BY: [facility] Sidjrq7794 [facility] [id number] Information: [id number],[id number] Protein mass conc 7.2 g/dL Normal 6.0-8.5 Compreh ensive Internal Medicine Work Phone: Comment on above: PATIENT WAS FASTINGP ERFORMED BY: [facility] Scpiae2663 [facility] [id number] Information: 062585,[id number] Sodium molar conc 142 mmol/L Normal 134-144 Compreh ensive Internal Medicine Work Phone: Comment on above: PATIENT WAS FASTINGP ERFORMED BY: [facility] Zoembo2242 [facility] [id number] Information: [id number] Urea nitrogen mass conc 13 mg/dL Normal 6-20 [facility] Work Phone: Comment on above: PATIENT WAS FASTINGP ERFORMED BY: [facility] Mfnjgr8601 [facility] [id number] Information: 614307,[id number] Urea nitrogen/Creatini ne mass ratio 18 mg/mg Normal 8-19 [facility] Work Phone: Comment on above: PATIENT WAS FASTINGP ERFORMED BY: PASHA [facility] Shtwpg[address] [facility] [id number] Information: [id number] METABOLIC PANEL, COMPREHENSI VE (67800)Ordered By: [employer] on 10-22-2015 ALP [Catalytic activity/Vol] 105 U/L Normal 39-117 [facility]; [facility] Work Phone: Comment on above: PATIENT WAS FASTINGP ERFORMED BY: CB [facility] Ubopxf6949 [address] [facility] [id number] Information: [id number] ALT [Catalytic activity/Vol] 85 U/L Abnormal 0-44 [facility]; [facility] Work Phone: Comment on above: PATIENT WAS FASTINGP ERFORMED BY: [facility] Gasoef7896 [facility] [id number] Information: 312302,[id number] AST [Catalytic activity/Vol] 32 U/L Normal 0-40 [facility]; [facility] Work Phone: Comment on above: PATIENT WAS FASTINGP ERFORMED BY: [facility] Jpvlkz9637 [facility] [id number] Information: [id number],[id number] HEPATIC FUNCTION PANEL (2457 6)on 08-27-2015 Albumin mass conc 4.7 g/dL Normal 3.5-5.5 Compreh ensive Internal Medicine Work Phone: Comment on above: PATIENT NOT FASTINGP ERFORMED BY: CB [facility] Nnrnne6044 [address] [facility] [id number] Information: 313082,[id number]; non-emergent till apt ALP enzyme act/vol 91 [iU]/L Normal 39-117 [facility] Work Phone: Comment on above: PATIENT NOT FASTINGP ERFORMED BY: CB [facility] Oyerwk9664 [facility] [facility] [id number] Information: [id number]; non-emergent till apt ALT enzyme act/vol 113 [iU]/L Abnormal 0-44 [facility] Work Phone: Comment on above: PATIENT NOT FASTINGP ERFORMED BY: [facility] Czwiic7096 [facility] [id number] Information: 526174,Z69363; non-emergent till apt AST enzyme act/vol 40 [iU]/L Normal 0-40 [facility] Work Phone: Comment on above: PATIENT NOT FASTINGP ERFORMED BY: [place] [id number] [facility] [id number] Information: 045856,X73911; non-emergent till apt Bilirubin mass conc 0.6 mg/dL Normal 0.0-1.2 [facility] Work Phone: Comment on above: PATIENT NOT FASTINGP ERFORMED BY: [place] [id number] [facility] [id number] Information: 952726,[id number]; non-emergent till apt Bilirubin.direct mass conc 0.18 mg/dL Normal 0.00-0.40 [facility] Work Phone: Comment on above: PATIENT NOT FASTINGP ERFORMED BY: [place] [id number] [facility] [id number] Information: 472468,W73568; non-emergent till apt Protein mass conc 7.0 g/dL Normal 6.0-8.5 [facility] Work Phone: Comment on above: PATIENT NOT FASTINGP ERFORMED BY: LabCoVirtua VoorheesArdyng8478 [facility] [id number] Information: 127144,K58943; non-emergent till apt HEPATIC FUNCTION PANEL (8007 6)Ordered By: [employer] on 08-27-2015 ALP [Catalytic activity/Vol] 91 U/L Normal 39-117 [facility]; [facility] Work Phone: Comment on above: PATIENT NOT FASTINGP ERFORMED BY: PASHA Thibodeaux Nlmqqj0650 [facility] [id number] Information: 809944,B73123; non-emergent till apt ALT [Catalytic activity/Vol] 113 U/L Abnormal 0-44 [facility]; [facility] Internal Medicine Work Phone: Comment on above: PATIENT NOT FASTINGP ERFORMED BY: PASHA Thibodeaux Jpeabw[address] [facility] [id number] Information: 262190,O83684; non-emergent till apt AST [Catalytic activity/Vol] 40 U/L Normal 0-40 [facility]; [facility] Internal Medicine Work Phone: Comment on above: PATIENT NOT FASTINGP ERFORMED BY: PASHA Thibodeaux Ssdaok6088 [facility] [id number] Information: 623907,P77675; non-emergent till apt HEPATITIS PANEL (76533)on HAV IgM IA Ql Negative Normal Comprehensi Internal Medicine Work Phone: Comment on above: PATIENT NOT FASTINGP ERFORMED BY: PASHA Thibodeaux Vsoeov8208 [address] [facility] [id number] HBV core IgM IA Ql Negative Normal [facility] Internal Medicine Work Phone: Comment on above: PATIENT NOT FASTINGP ERFORMED BY: PASHA Thibodeaux Rrkhxs4258 [address] [facility] [id number] HBV surface Ag IA Ql Negative Normal [facility] Internal Medicine Work Phone: Comment on above: PATIENT NOT FASTINGP ERFORMED BY: PASHA [facility] Xndgzv9735 [address] [facility] [id number] HCV Ab Signal/Cutoff IA RelACnc {ratio} Normal 0.0-0.9 [facility] Internal Medicine Work Phone: Comment on above: Negative: < 0.8 Inde terminate: 0.8 - 0.9 Positive: > 0.9 . The CDC recommends that a positive HCV antibody result be followed up with a HCV Nucleic Acid Amplification test (666389). PATIENT NOT FASTINGP ERFORMED BY: PASHA [facility] Sfqltr3562 [facility] [id number] HEPATITIS PANEL (78072)Order ed By: [employer] on 08-27-2015 HAV IgM IA Ql Negative Normal Comprehensi ve Internal Medicine; [facility] Work Phone: Comment on above: PATIENT NOT FASTINGP ERFORMED BY: [facility] Vdxdkp1717 [facility] [id number] HBV core IgM IA Ql Negative Normal [facility]; [facility] Work Phone: Comment on above: PATIENT NOT FASTINGP ERFORMED BY: [facility] Iuxibi5043 [facility] [id number] HBV surface Ag IA Ql Negative Normal [facility]; [facility] Work Phone: Comment on above: PATIENT NOT FASTINGP ERFORMED BY: [facility]6370 [facility] [id number] HCV Ab Signal/Cutoff IA [Rel units/Vol] {ratio} Normal 0.0-0.9 [facility]; [facility] Work Phone: Comment on above: Negative: < 0.8 Inde terminate: 0.8 - 0.9 Positive: > 0.9 . The CDC recommends that a positive HCV antibody result be followed up with a HCV Nucleic Acid Amplification test (513677). PATIENT NOT FASTINGP ERFORMED BY: [facility]6370 [facility] [id number] CBC W/AUTO DIFF WBC (49310)o n 08-22-2015 Basophils #/vol (Bld) 0.0 {x10E3/uL} Normal 0.0-0.2 [facility] Work Phone: Comment on above: PATIENT WAS FASTINGP ERFORMED BY: [place] [id number] [facility] [id number] Information: 478225,M42681 Basophils Auto #/vol (Bld) 0.0 {x10E3/uL} Normal 0.0-0.2 [facility] Work Phone: Basophils/100 WBC (Bld) 0 % Normal [facility] Work Phone: Comment on above: PATIENT WAS FASTINGP ERFORMED BY: [place] [id number] [facility] [id number] Information: 752281,[id number] Basophils/100 WBC Auto (Bld) 0 % Normal [facility] Work Phone: Eosinophils #/vol (Bld) 0.2 {x10E3/uL} Normal 0.0-0.4 [facility] Work Phone: Comment on above: PATIENT WAS FASTINGP ERFORMED BY: [place] [id number] [facility] [id number] Information: 242399,[id number] Eosinophils Auto #/vol (Bld) 0.2 {x10E3/uL} Normal 0.0-0.4 [facility] Work Phone: Eosinophils/100 WBC (Bld) 2 % Normal [facility] Work Phone: Comment on above: PATIENT WAS FASTINGP ERFORMED BY: [place] [id number] [facility] [id number] Information: 445630,W53236 Eosinophils/100 WBC Auto (Bld) 2 % Normal [facility] Work Phone: Erythrocyte distribution width Auto Ratio (RBC) 14.6 % Normal 12.3-15.4 [facility] Work Phone: Erythrocyte distribution width Ratio (RBC) 14.6 % Normal 12.3-15.4 [facility] Work Phone: Comment on above: PATIENT WAS FASTINGP ERFORMED BY: [facility]6370 [facility] [id number] Information: 737514,K90075 Hematocrit Auto Volume Fraction (Bld) 50.0 % Normal 37.5-51.0 [facility] Work Phone: Hematocrit Volume Fraction (Bld) 50.0 % Normal 37.5-51.0 [facility] Work Phone: Comment on above: PATIENT WAS FASTINGP ERFORMED BY: [address] [id number] Information: 063459,[id number] Hemoglobin mass conc (Bld) 17.5 g/dL Normal 12.6-17.7 [facility] Work Phone: Comment on above: PATIENT WAS FASTINGP ERFORMED BY: [address] [id number] Information: 227900,K79865 Immature granulocytes #/vol (Bld) 0.0 {x10E3/uL} Normal 0.0-0.1 [facility] Work Phone: Comment on above: PATIENT WAS FASTINGP ERFORMED BY: [address] [id number] Information: 273030,[id number] Immature granulocytes/100 WBC (Bld) 0 % Normal [facility] Work Phone: Comment on above: PATIENT WAS FASTINGP ERFORMED BY: [address] [id number] Information: 245476,F40532 Lymphocytes #/vol (Bld) 4.4 {x10E3/uL} Abnormal 0.7-3.1 [facility] Work Phone: Comment on above: PATIENT WAS FASTINGP ERFORMED BY: [address] [id number] Information: 741898,[id number] Lymphocytes Auto #/vol (Bld) 4.4 {x10E3/uL} Abnormal 0.7-3.1 [facility] Work Phone: Lymphocytes/100 WBC (Bld) 43 % Normal [facility] Work Phone: Comment on above: PATIENT WAS FASTINGP ERFORMED BY: [address] [id number] Information: 033447,W72706 Lymphocytes/100 WBC Auto (Bld) 43 % Normal [facility] Work Phone: MCH Auto Entitic mass (RBC) 30.5 pg Normal 26.6-33.0 [facility] Work Phone: MCH Entitic mass (RBC) 30.5 pg Normal 26.6-33.0 [facility] Work Phone: Comment on above: PATIENT WAS FASTINGP ERFORMED BY: PASHA TucoolaRUSTMnspxt5767 [facility] [id number] Information: 281781,[id number] MCHC Auto mass conc (RBC) 35.0 g/dL Normal 31.5-35.7 [facility] Work Phone: MCHC mass conc (RBC) 35.0 g/dL Normal 31.5-35.7 [facility] Work Phone: Comment on above: PATIENT WAS FASTINGP ERFORMED BY: PASHA Tucoolafernie TidwellRxpczm2805 [facility] [id number] Information: 809796,[id number] MCV Auto Entitic volume (RBC) 87 fL Normal 79-97 [facility] Work Phone: MCV Entitic volume (RBC) 87 fL Normal 79-97 [facility] Work Phone: Comment on above: PATIENT WAS FASTINGP ERFORMED BY: PASHA TucoolaRUSTLfball8746 [facility] [id number] Information: 576034,[id number] Monocytes #/vol (Bld) 0.7 {x10E3/uL} Normal 0.1-0.9 [facility] Work Phone: Comment on above: PATIENT WAS FASTINGP ERFORMED BY: TucoolaVirtua VoorheesSxvzew7478 [facility] [id number] Information: 913063,P43504 Monocytes Auto #/vol (Bld) 0.7 {x10E3/uL} Normal 0.1-0.9 [facility] Work Phone: Monocytes/100 WBC (Bld) 7 % Normal [facility] Work Phone: Comment on above: PATIENT WAS FASTINGP ERFORMED BY: [place] [id number] [facility] [id number] Information: 614113,M92715 Monocytes/100 WBC Auto (Bld) 7 % Normal [facility] Work Phone: Neutrophils #/vol (Bld) 4.8 {x10E3/uL} Normal 1.4-7.0 [facility] Work Phone: Comment on above: PATIENT WAS FASTINGP ERFORMED BY: [place] [id number] [facility] [id number] Information: 821887,[id number] Neutrophils Auto #/vol (Bld) 4.8 {x10E3/uL} Normal 1.4-7.0 [facility] Work Phone: Neutrophils/100 WBC (Bld) 48 % Normal [facility] Work Phone: Comment on above: PATIENT WAS FASTINGP ERFORMED BY: [place] [id number] [facility] [id number] Information: 810311,[id number] Neutrophils/100 WBC Auto (Bld) 48 % Normal [facility] Work Phone: Platelets #/vol (Bld) 202 {x10E3/uL} Normal 150-379 [facility] Work Phone: Comment on above: PATIENT WAS FASTINGP ERFORMED BY: [place] [id number] [facility] [id number] Information: 008606,[id number] Platelets Auto #/vol (Bld) 202 {x10E3/uL} Normal 150-379 [facility] Work Phone: RBC #/vol (Bld) 5.74 {x10E6/uL} Normal 4.14-5.80 Comp rehensive Internal Medicine Work Phone: Comment on above: PATIENT WAS FASTINGP ERFORMED BY: [place] [id number] [facility] [id number] Information: 906978,[id number] RBC Auto #/vol (Bld) 5.74 {x10E6/uL} Normal 4.14-5.80 [facility] Work Phone: WBC #/vol (Bld) 10.2 {x10E3/uL} Normal 3.4-10.8 [facility] Internal Medicine Work Phone: Comment on above: PATIENT WAS FASTINGP ERFORMED BY: [place] [id number] [facility] [id number] Information: 284190,P40411 WBC Auto #/vol (Bld) 10.2 {x10E3/uL} Normal 3.4-10.8 [facility] Work Phone: CBC W/AUTO DIFF WBC (27678)O rdered By: [employer] on 08-22-2015 Basophils (Bld) [#/Vol] 0.0 10*3/uL Normal 0.0-0.2 [facility]; [facility] Work Phone: Comment on above: PATIENT WAS FASTINGP ERFORMED BY: [address] [id number] Information: 493416,[id number] Eosinophils (Bld) [#/Vol] 0.2 10*3/uL Normal 0.0-0.4 [facility]; [facility] Work Phone: Comment on above: PATIENT WAS FASTINGP ERFORMED BY: [facility]6370 [facility] [id number] Information: 054457,[id number] Immature granulocytes (Bld) [#/Vol] 0.0 10*3/uL Normal 0.0-0.1 [facility]; [facility] Work Phone: Comment on above: PATIENT WAS FASTINGP ERFORMED BY: [facility]6370 [facility] [id number] Information: 735452,I85583 Lymphocytes (Bld) [#/Vol] 4.4 10*3/uL Abnormal 0.7-3.1 [facility]; [facility] Work Phone: Comment on above: PATIENT WAS FASTINGP ERFORMED BY: PASHA Roberson6370 [facility] [id number] Information: 115648,[id number] Monocytes (Bld) [#/Vol] 0.7 10*3/uL Normal 0.1-0.9 [facility]; [facility] Work Phone: Comment on above: PATIENT WAS FASTINGP ERFORMED BY: PASHA [facility] Vthjzo7809 [facility] [id number] Information: 081126,[id number] Neutrophils (Bld) [#/Vol] 4.8 10*3/uL Normal 1.4-7.0 [facility] Internal Medicine; [facility] Work Phone: Comment on above: PATIENT WAS FASTINGP ERFORMED BY: PASHA [facility] Qyrohe3030 [facility] [id number] Information: 869347,[id number] Platelets (Bld) [#/Vol] 202 10*3/uL Normal 150-379 [facility]; [facility] Work Phone: Comment on above: PATIENT WAS FASTINGP ERFORMED BY: PASHA Roberson6370 [facility] [id number] Information: 633484,[id number] RBC (Bld) [#/Vol] 5.74 10*6/uL Normal 4.14-5.80 Compr ensive Internal Medicine; [facility] Work Phone: Comment on above: PATIENT WAS FASTINGP ERFORMED BY: PASHA [facility] Nbfdjd8298 [facility] [id number] Information: 424143,[id number] WBC (Bld) [#/Vol] 10.2 10*3/uL Normal 3.4-10.8 Compr ensive Internal Medicine; [facility] Work Phone: Comment on above: PATIENT WAS FASTINGP ERFORMED BY: [facility] Okcjhk5081 [facility] [id number] Information: 899410,[id number] LIPID PANEL (70711)on 2015 Cholesterol in HDL mass conc 49 mg/dL Normal [facility] Work Phone: Comment on above: According to ATP-III Guidelines, HDL-C >59 mg/dL is considered anegative risk factor for CHD. PATIENT WAS FASTINGP ERFORMED BY: PASHA Roberson[address] Pocket[facility] LimitedFirst[facility] [id number] Cholesterol in LDL mass conc 168 mg/dL Abnormal 0-99 [facility] Work Phone: Comment on above: PATIENT WAS FASTINGP ERFORMED BY: PASHA Tidwelllin6370 [facility] [id number] Cholesterol in LDL/Cholesterol in HDL mass ratio 3.4 {ratio_units} Normal 0.0-3.6 Comprehensiv e Internal Medicine Work Phone: Comment on above: LDL/HDL Ratio Men Wo men 1/2 Avg.Risk 1.0 1.5 Avg.Risk 3.6 3.2 2X Avg.Risk 6.2 5.0 3X Avg.Risk 8.0 6.1 PATIENT WAS FASTINGP ERFORMED BY: PASHA Tidwelllin6370 [facility] [id number] Cholesterol in VLDL mass conc 30 mg/dL Normal 5-40 [facility] Work Phone: Comment on above: PATIENT WAS FASTINGP ERFORMED BY: PASHA Tidwelllin6370 [facility] [id number] Cholesterol mass conc 247 mg/dL Abnormal 100-199 [facility] Work Phone: Comment on above: PATIENT WAS FASTINGP ERFORMED BY: PASHA Tidwelllin6370 [facility] [id number] Triglyceride mass conc 151 mg/dL Abnormal 0-149 [facility] Work Phone: Comment on above: PATIENT WAS FASTINGP ERFORMED BY: PASHA Tidwelllin6370 [facility] [id number] METABOLIC PANEL, COMPREHENSI VE (63302)on 08-22-2015 Albumin mass conc 4.9 g/dL Normal 3.5-5.5 Compreh ensive Internal Medicine Work Phone: Comment on above: PATIENT WAS FASTINGP ERFORMED BY: [facility] Ofzyza5576 [address] RoadDublin [place] [id number] Albumin/Globulin mass ratio 2.1 {ratio} Normal 1.1-2.5 [facility] Work Phone: Comment on above: PATIENT WAS FASTINGP ERFORMED BY: [facility] Awmnyk5908 [address] RoadDublin [place] [id number] ALP enzyme act/vol 101 [iU]/L Normal 39-117 [facility] Work Phone: Comment on above: PATIENT WAS FASTINGP ERFORMED BY: [facility] Dqtjlu4927 [address] Roadblin [place] [id number] ALT enzyme act/vol 97 [iU]/L Abnormal 0-44 [facility] Work Phone: Comment on above: PATIENT WAS FASTINGP ERFORMED BY: [facility] Gekvmw1941 [address] Roadblin [place] [id number] AST enzyme act/vol 45 [iU]/L Abnormal 0-40 [facility] Work Phone: Comment on above: PATIENT WAS FASTINGP ERFORMED BY: [facility] Kmavtd1762 [address] RoadDuin [place] [id number] Bilirubin mass conc 0.6 mg/dL Normal 0.0-1.2 [facility] Work Phone: Comment on above: PATIENT WAS FASTINGP ERFORMED BY: [facility] Zjihmt4779 [address] Roadblin [place] [id number] Calcium mass conc 10.0 mg/dL Normal 8.7-10.2 Compreh ensive Internal Medicine Work Phone: Comment on above: PATIENT WAS FASTINGP ERFORMED BY: [facility] Fxcumg1885 [address] RoadDublin [place] [id number] Chloride molar conc 98 mmol/L Normal 97-108 [facility] Work Phone: Comment on above: PATIENT WAS FASTINGP ERFORMED BY: [facility] Vhzuia[address] [facility] [place] [id number] CO2 molar conc 21 mmol/L Normal 18-29 Comprehens trisha Internal Medicine Work Phone: Comment on above: PATIENT WAS FASTINGP ERFORMED BY: [facility] Flbffx9047 [address] [facility] [place] [id number] Creatinine mass conc 0.80 mg/dL Normal 0.76-1.27 [facility] Work Phone: Comment on above: PATIENT WAS FASTINGP ERFORMED BY: [facility] Uhwgxr[address] [facility] [place] [id number] GFR/1.73 sq M predicted among blacks CKD-EPI vol rate/area (S/P/Bld) 139 mL/min/1.73 Normal [facility] Work Phone: Comment on above: PATIENT WAS FASTINGP ERFORMED BY: [facility] Keweus[address] [facility] [id number] GFR/1.73 sq M predicted among non-blacks CKD-EPI vol rate/area (S/P/Bld) 120 mL/min/1.73 Normal [facility] Work Phone: Comment on above: PATIENT WAS FASTINGP ERFORMED BY: [facility] Qmramo1812 [facility] [id number] Globulin Calculated mass conc (S) 2.3 g/dL Normal 1.5-4.5 [facility] Work Phone: Globulin mass conc (S) 2.3 g/dL Normal 1.5-4.5 [facility] Work Phone: Comment on above: PATIENT WAS FASTINGP ERFORMED BY: [facility] Xybqhe5214 [address] [facility] [place] [id number] Glucose mass conc 81 mg/dL Normal 65-99 Compreh ensive Internal Medicine Work Phone: Comment on above: PATIENT WAS FASTINGP ERFORMED BY: [facility] Egmmti[address]41 [address] [facility] [place] [id number] Potassium molar conc 3.9 mmol/L Normal 3.5-5.2 [facility] Work Phone: Comment on above: PATIENT WAS FASTINGP ERFORMED BY: PASHA Clyde Roberson[address] PocketFM LimitedFirst[facility] [id number] Protein mass conc 7.2 g/dL Normal 6.0-8.5 Compreh ensive Internal Medicine Work Phone: Comment on above: PATIENT WAS FASTINGP ERFORMED BY: PASHA Clyde Slpmjw[address]38 [address] [facility] [id number] Sodium molar conc 141 mmol/L Normal 134-144 Compreh ensive Internal Medicine Work Phone: Comment on above: PATIENT WAS FASTINGP ERFORMED BY: PASHA Ivonfernie TidwellZgtfux4339 [facility] [id number] Urea nitrogen mass conc 11 mg/dL Normal 6-20 [facility] Work Phone: Comment on above: PATIENT WAS FASTINGP ERFORMED BY: PASHA SeverinoYogeshfernie TidwellGyuspj3144 [facility] [id number] Urea nitrogen/Creatini ne mass ratio 14 mg/mg Normal 8-19 [facility] Work Phone: Comment on above: PATIENT WAS FASTINGP ERFORMED BY: PASHA Tidwelllin6370 [facility] [id number] METABOLIC PANEL, COMPREHENSI VE (02782)Ordered By: [employer] on 08-22-2015 ALP [Catalytic activity/Vol] 101 U/L Normal 39-117 [facility]; [facility] Work Phone: Comment on above: PATIENT WAS FASTINGP ERFORMED BY: PASHA MaycloMaggie Poawyj[address] [facility] [place] [id number] ALT [Catalytic activity/Vol] 97 U/L Abnormal 0-44 [facility]; [facility] Work Phone: Comment on above: PATIENT WAS FASTINGP ERFORMED BY: PASHA MaycolMaggie TidwellVxtuhn16[address] [facility] [place] [id number] AST [Catalytic activity/Vol] 45 U/L Abnormal 0-40 [facility]; [facility] Work Phone: Comment on above: PATIENT WAS FASTINGP ERFORMED BY: PASHA [facility] Whowmz5185 [address] RoadDublin [place] [id number] Microscopic Examinationon Bacteria LM.HPF #/area (Urine sed) None seen Normal [facility] Work Phone: Comment on above: PATIENT WAS FASTINGP ERFORMED BY: CB [facility] Fbjmbr9087 [address] RoadDublin [place] [id number] Epithelial cells LM.HPF #/area (Urine sed) 0-10 Normal 0 - 10 [facility] Work Phone: Comment on above: PATIENT WAS FASTINGP ERFORMED BY: PASHA [facility] Irtjro3577 [address] RoadDublin [place] [id number] Mucus LM Ql (Urine sed) Present Normal [facility] Work Phone: Mucus Ql (Urine sed) Present Normal [facility] Work Phone: Comment on above: PATIENT WAS FASTINGP ERFORMED BY: [facility] Bumvgl1599 [address] RoadDublin [place] [id number] RBC LM.HPF #/area (Urine sed) 0-2 Normal 0 - 2 [facility] Work Phone: Comment on above: PATIENT WAS FASTINGP ERFORMED BY: [facility] Ebptbi[address]72 [address] [facility] [place] [id number] WBC LM.HPF #/area (Urine sed) 0-5 Normal 0 - 5 [facility] Work Phone: Comment on above: PATIENT WAS FASTINGP ERFORMED BY: CB [facility] Fmijyn[address] [facility] [place] [id number] TSH (42730)on 08-22-2015 Thyrotropin Qn 2.150 {uIU/mL} Normal 0.450-4.500 Compr ehensive Internal Medicine Work Phone: Comment on above: PATIENT WAS FASTINGP ERFORMED BY: CB [facility] Obafse[address] [facility] HospitalD[facility] [place] [id number] URINALYSIS, W/ MICRO (98844) on 08-22-2015 Appearance Nom (U) Clear Normal [facility] Work Phone: Comment on above: PATIENT WAS FASTINGP ERFORMED BY: PASHA [facility] Kswehu1013 [address] RoadDublin [place] [id number] Bilirubin Ql (U) Negative Normal Comprehe nsive Internal Medicine Work Phone: Comment on above: PATIENT WAS FASTINGP ERFORMED BY: PASHA [facility] Zvdooi8532 [address] RoadDublin [place] [id number] Color Nom (U) Yellow Normal Comprehensi ve Internal Medicine Work Phone: Comment on above: PATIENT WAS FASTINGP ERFORMED BY: PASHA [facility] [id number] [address]Dublin [place] [id number] Glucose Ql (U) Negative Normal Comprehens trisha Internal Medicine Work Phone: Comment on above: PATIENT WAS FASTINGP ERFORMED BY: PASHA LabCofernie TidwellElcdyx3318 [address] RoadDublin [place] [id number] Hemoglobin Ql (U) Negative Normal Compreh ensive Internal Medicine Work Phone: Comment on above: PATIENT WAS FASTINGP ERFORMED BY: PASHA [facility] Tsktta3367 [address] RoadDublin [place] [id number] Hemoglobin Test strip Ql (U) Negative Normal [facility] Work Phone: Ketones Ql (U) Negative Normal Comprehens trisha Internal Medicine Work Phone: Comment on above: PATIENT WAS FASTINGP ERFORMED BY: PASHA [facility] Aypbob9396 [address] RoadDublin [place] [id number] Leukocyte esterase Test strip Ql (U) Negative Normal [facility] Work Phone: Comment on above: PATIENT WAS FASTINGP ERFORMED BY: PASHA [facility] [id number] [address]Dublin [place] [id number] Microscopic observation LM Nom (Urine sed) See below: Normal [facility] Work Phone: Comment on above: Microscopic was williams cated and was performed. PATIENT WAS FASTINGP ERFORMED BY: PASHA [facility] Jkumnj1024 [address]Dublin [place] [id number] Microscopic observation LM Nom (Urine sed) MICRON Normal [facility] Work Phone: Comment on above: Microscopic follows if indicated. PATIENT WAS FASTINGP ERFORMED BY: PASHA LabCofernie Wwlhhc8978 [address]Dublin [place] [id number] Nitrite Ql (U) Negative Normal Comprehens trisha Internal Medicine Work Phone: Comment on above: PATIENT WAS FASTINGP ERFORMED BY: PASHA [facility] Zwboyt0337 [address]Dublin [place] [id number] Nitrite Test strip Ql (U) Negative Normal [facility] Work Phone: pH (U) 6.5 [pH] Normal 5.0-7.5 [facility] Work Phone: Comment on above: PATIENT WAS FASTINGP ERFORMED BY: PASHA Lab[facility] Toodlf6347 [address] RoadDublin [place] [id number] pH Test strip (U) 6.5 [pH] Normal 5.0-7.5 Compreh ensive Internal Medicine Work Phone: Protein Ql (U) Trace Normal Comprehens trisha [facility] Medicine Work Phone: Comment on above: PATIENT WAS FASTINGP ERFORMED BY: PASHA [facility] Gmqrtt2904 [address]Dublin [place] [id number] Protein Test strip Ql (U) Trace Normal [facility] Work Phone: Specific gravity Relative Density (U) 1.025 1 Normal 1.005-1.030 [facility] Work Phone: Comment on above: PATIENT WAS FASTINGP ERFORMED BY: LabPayDragon Tdysyn6799 [address] RoadDublin [place] [id number] Urobilinogen Test strip mass conc (U) 0.2 mg/dL Normal 0.2-1.0 [facility] Work Phone: Comment on above: PATIENT WAS FASTINGP ERFORMED BY: PASHA [facility] Bjqjdn3058 [address]Dublin [place] [id number] URINALYSIS, W/ MICRO ([id number]) Ordered By: [employer] on 08-22-2015 Bilirubin Ql (U) Negative Normal Comprehe nsive Internal Medicine; [facility] Work Phone: Comment on above: PATIENT WAS FASTINGP ERFORMED BY: PASHA Roberson6370 [address]Dublin [place] [id number] Glucose Ql (U) Negative Normal Comprehens trisha [facility]; [facility] Work Phone: Comment on above: PATIENT WAS FASTINGP ERFORMED BY: PASHA Roberson[address]Dublin [place] [id number] Hemoglobin Ql (U) Negative Normal Compreh ensive Internal Medicine; [facility] Work Phone: Comment on above: PATIENT WAS FASTINGP ERFORMED BY: PASHA Roberson[address]Dublin [place] [id number] Ketones Ql (U) Negative Normal Comprehens trisha [facility]; [facility] Work Phone: Comment on above: PATIENT WAS FASTINGP ERFORMED BY: PASHA Roberson[address]Dublin [place] [id number] Leukocyte esterase Test strip Ql (U) Negative Normal [facility]; [facility] Work Phone: Comment on above: PATIENT WAS FASTINGP ERFORMED BY: PASHA Roberson[address]Dublin [place] [id number] Nitrite Ql (U) Negative Normal Comprehens trisha [facility]; [facility] Work Phone: Comment on above: PATIENT WAS FASTINGP ERFORMED BY: PASHA Tidwelllin6370 [address]Dublin [place] [id number] Urobilinogen (U) [Mass/Vol] 0.2 mg/dL Normal 0.2-1.0 [facility]; [facility] Work Phone: Comment on above: PATIENT WAS FASTINGP ERFORMED BY: PASHA Tidwelllin6370 [address]Dublin [place] [id number] Vital Signs Date Time Vital Sign Value Performing Clinician Facility 03-10-2022 11:05-0400 Body height 182.88 cm Valencia Owen [facility]; [facility] Work Phone: 03-10-2022 11:05-0400 Body mass index (BMI) [Ratio] 43.86 kg/m2 Valencia Owen [facility]; [facility] Work Phone: 03-10-2022 11:05-0400 Body surface area Derived from formula 2.61 m2 Valencia Owen [facility]; [facility] Work Phone: 03-10-2022 11:05-0400 Body temperature 96.9 [degF] Valencia Owen [facility]; [facility] Work Phone: Comment on above: Method: Thermal Scan 03-10-2022 11:05-0400 Body weight 146.68 kg Valencia Owen [facility]; [facility] Work Phone: 03-10-2022 11:05-0400 Diastolic blood pressure 82 mm[Hg] Valencia Owen [facility]; [facility] Work Phone: Comment on above: Patient Position: Sitting; Cuff Location : Left Arm; Cuff Size: Standard 03-10-2022 11:05-0400 Heart rate 70 /min Valencianiranjan Owen [facility]; [facility] Work Phone: Comment on above: Pattern: Regular 03-10-2022 11:05-0400 Respiratory rate 16 /min [facility]; [facility] Work Phone: Comment on above: Pattern: Unlabored 03-10-2022 11:05-0400 Systolic blood pressure 140 mm[Hg] Valencia Owen [facility]; [facility] Work Phone: Comment on above: Patient Position: Sitting; Cuff Location : Left Arm; Cuff Size: Standard 12-04-2021 11:06-0400 Body height 182.88 cm Valencia Owen [facility]; [facility] Work Phone: 12-04-2021 11:06-0400 Body mass index (BMI) [Ratio] 45.35 kg/m2 Valencia Owen [facility]; [facility] Work Phone: 12-04-2021 11:06-0400 Body surface area Derived from formula 2.65 m2 Valencia Owen [facility]; [facility] Work Phone: 12-04-2021 11:06-0400 Body temperature 97 [degF] [facility]; [facility] Work Phone: Comment on above: Method: Thermal Scan 12-04-2021 11:06-0400 Body weight 151.67 kg Valencia Owen [facility]; [facility] Work Phone: 12-04-2021 11:06-0400 Diastolic blood pressure 92 mm[Hg] Valencia Owen [facility]; [facility] Work Phone: Comment on above: Patient Position: Sitting; Cuff Location : Left Arm; Cuff Size: Standard 12-04-2021 11:06-0400 Heart rate 86 /min Valencia Owen [facility]; [facility] Work Phone: Comment on above: Pattern: Regular 12-04-2021 11:06-0400 Respiratory rate 16 /min Valencia Owen [facility]; [facility] Work Phone: Comment on above: Pattern: Unlabored 12-04-2021 11:06-0400 Systolic blood pressure 152 mm[Hg] Valencia Owen [facility]; [facility] Work Phone: Comment on above: Patient Position: Sitting; Cuff Location : Left Arm; Cuff Size: Standard 08-21-2021 15:34-0500 Body height 182.88 cm [facility]; [facility] Work Phone: 08-21-2021 15:34-0500 Body mass index (BMI) [Ratio] 45.35 kg/m2 [facility]chant[facility]; [facility] Work Phone: 08-21-2021 15:34-0500 Body surface area Derived from formula 2.65 m2 Valencia Owen [facility]; [facility] Work Phone: 08-21-2021 15:34-0500 Body temperature 97.3 [degF] Valencia Owen [facility]; [facility] Work Phone: Comment on above: Method: Thermal Scan 08-21-2021 15:34-0500 Body weight 151.67 kg Valencia Owen [facility]; [facility] Work Phone: 08-21-2021 15:34-0500 Diastolic blood pressure 98 mm[Hg] Valencia Owen [facility]; [facility] Work Phone: Comment on above: Patient Position: Sitting; Cuff Location : Left Arm; Cuff Size: Standard 08-21-2021 15:34-0500 Heart rate 83 /min Valencia Owen [facility]; [facility] Work Phone: Comment on above: Pattern: Regular 08-21-2021 15:34-0500 Respiratory rate 16 /min Valencia Owen [facility]; [facility] Work Phone: Comment on above: Pattern: Unlabored 08-21-2021 15:34-0500 Systolic blood pressure 156 mm[Hg] Valencia Owen [facility]; [facility] Work Phone: Comment on above: Patient Position: Sitting; Cuff Location : Left Arm; Cuff Size: Standard 04-10-2021 15:41-0400 Body height 182.88 cm Valencia Owen [facility]; [facility] Work Phone: 04-10-2021 15:41-0400 Body mass index (BMI) [Ratio] 44.26 kg/m2 Valencia [facility]chant[facility]; [facility] Work Phone: 04-10-2021 15:41-0400 Body surface area Derived from formula 2.62 m2 [facility]chant[facility]; [facility] Work Phone: 04-10-2021 15:41-0400 Body temperature 97.1 [degF] Valencia Owen [facility]; [facility] Work Phone: Comment on above: Method: Thermal Scan 04-10-2021 15:41-0400 Body weight 148.04 kg Valencia Owen [facility]; [facility] Work Phone: 04-10-2021 15:41-0400 Diastolic blood pressure 90 mm[Hg] Valencia Owen [facility]; [facility] Work Phone: Comment on above: Patient Position: Sitting; Cuff Location : Left Arm; Cuff Size: Standard 04-10-2021 15:41-0400 Heart rate 93 /min Valencia Owen [facility]; [facility] Work Phone: Comment on above: Pattern: Regular 04-10-2021 15:41-0400 Respiratory rate 16 /min Valencia Owen [facility]; [facility] Work Phone: Comment on above: Pattern: Unlabored 04-10-2021 15:41-0400 Systolic blood pressure 150 mm[Hg] Valencia Owen [facility]; [facility] Work Phone: Comment on above: Patient Position: Sitting; Cuff Location : Left Arm; Cuff Size: Standard 01-07-2021 11:02-0400 Body height 182.88 cm Valencia Owen [facility]; [facility] Work Phone: 01-07-2021 11:02-0400 Body mass index (BMI) [Ratio] 44.13 kg/m2 Valencia [facility]; [facility] Work Phone: 01-07-2021 11:02-0400 Body surface area Derived from formula 2.62 m2 Valencianiranjan Owen [facility]; [facility] Work Phone: 01-07-2021 11:02-0400 Body temperature 96.8 [degF] [facility]; [facility] Work Phone: Comment on above: Method: Thermal Scan 01-07-2021 11:02-0400 Body weight 147.59 kg Valencia Owen [facility]; [facility] Work Phone: 01-07-2021 11:02-0400 Diastolic blood pressure 78 mm[Hg] aVlencia Owen [facility]; [facility] Work Phone: Comment on above: Patient Position: Sitting; Cuff Location : Left Arm; Cuff Size: Standard 01-07-2021 11:02-0400 Heart rate 86 /min Valencia Owen [facility]; [facility] Work Phone: Comment on above: Pattern: Regular 01-07-2021 11:02-0400 Respiratory rate 16 /min Valencia Owen [facility]; [facility] Work Phone: Comment on above: Pattern: Unlabored 01-07-2021 11:02-0400 Systolic blood pressure 138 mm[Hg] Valencia Owen [facility]; [facility] Work Phone: Comment on above: Patient Position: Sitting; Cuff Location : Left Arm; Cuff Size: Standard 10-08-2020 15:26-0400 Body height 182.88 cm Valencia Owen [facility]; [facility] Work Phone: 10-08-2020 15:26-0400 Body mass index (BMI) [Ratio] 41.96 kg/m2 Valencia [facility]; [facility] Work Phone: 10-08-2020 15:26-0400 Body surface area Derived from formula 2.56 m2 Valencia [facility]; [facility] Work Phone: 10-08-2020 15:26-0400 Body temperature 97.1 [degF] Valencia Owen [facility]; [facility] Work Phone: Comment on above: Method: Thermal Scan 10-08-2020 15:26-0400 Body weight 140.33 kg Valencia Owen [facility]; [facility] Work Phone: 10-08-2020 15:26-0400 Diastolic blood pressure 78 mm[Hg] Valencia Owen [facility]; [facility] Work Phone: Comment on above: Patient Position: Sitting; Cuff Location : Left Arm; Cuff Size: Standard 10-08-2020 15:26-0400 Diastolic blood pressure 92 mm[Hg] Cassandra A Fast DO Work Phone: [facility]; [facility] Work Phone: Comment on above: Patient Position: Sitting; Cuff Location : Left Arm; Cuff Size: Standard 10-08-2020 15:26-0400 Heart rate 94 /min Valencia Owen [facility]; [facility] Work Phone: Comment on above: Pattern: Regular 10-08-2020 15:26-0400 Respiratory rate 16 /min Valencia Owen [facility]; [facility] Work Phone: Comment on above: Pattern: Unlabored 10-08-2020 15:26-0400 Systolic blood pressure 118 mm[Hg] Valencia Owen [facility]; [facility] Work Phone: Comment on above: Patient Position: Sitting; Cuff Location : Left Arm; Cuff Size: Standard 10-08-2020 15:26-0400 Systolic blood pressure 125 mm[Hg] Cassandra A Fast DO Work Phone: [facility]; [facility] Work Phone: Comment on above: Patient Position: Sitting; Cuff Location : Left Arm; Cuff Size: Standard 07-10-2020 13:33-0500 Body height 182.88 cm Kelli Bowman [facility]; [facility] Work Phone: 07-10-2020 13:33-0500 Body mass index (BMI) [Ratio] 39.92 kg/m2 Kelli Bowman [facility]; [facility] Work Phone: 07-10-2020 13:33-0500 Body surface area Derived from formula 2.51 m2 Kelli Bowman [employer] [facility]; [facility] Work Phone: 07-10-2020 13:33-0500 Body temperature 97.8 [degF] Kelli Villalpandorb [employer] [facility]; [facility] Work Phone: 07-10-2020 13:33-0500 Body weight 133.53 kg Kelli Villalpandorb [employer] [facility]; [facility] Work Phone: 07-10-2020 13:33-0500 Diastolic blood pressure 80 mm[Hg] Kelli Slarb [employer] [facility]; [facility] Work Phone: Comment on above: Patient Position: Sitting; Cuff Location : Left Arm; Cuff Size: Standard 07-10-2020 13:33-0500 Heart rate 66 /min Kleli Villalpandorb [employer] [facility]; [facility] Work Phone: Comment on above: Pattern: Regular 07-10-2020 13:33-0500 Respiratory rate 17 /min Kelli Villalpandorb [employer] [facility]; [facility] Work Phone: Comment on above: Pattern: Unlabored 07-10-2020 13:33-0500 SaO2% (BldA) [Mass fraction] 97 % Kelli Villalpandorb [employer] [facility]; [facility] Work Phone: Comment on above: Room air 07-10-2020 13:33-0500 Systolic blood pressure 124 mm[Hg] Kelli Villalpandorb [employer] [facility]; [facility] Work Phone: Comment on above: Patient Position: Sitting; Cuff Location : Left Arm; Cuff Size: Standard 05-08-2020 10:59-0500 BMI (Body Mass Index) 43.13 kg/m2 Cassandra A Fast DO Work Phone: [facility] Work Phone: 05-08-2020 10:59-0500 Body Temperature 97.1 [degF] Cassandra A Fast DO Work Phone: [facility] Work Phone: Comment on above: Method: Thermal Scan 05-08-2020 10:59-0500 Body weight 144.24 kg Cassandra A Fast DO Work Phone: [facility] Work Phone: 05-08-2020 10:59-0500 BP Diastolic 92 mm[Hg] Cassandra A Fast DO Work Phone: [facility] Work Phone: Comment on above: Patient Position: Sitting; Cuff Location : Left Arm; Cuff Size: Standard 05-08-2020 10:59-0500 BP Systolic 120 mm[Hg] Cassandra A Fast DO Work Phone: [facility] Work Phone: Comment on above: Patient Position: Sitting; Cuff Location : Left Arm; Cuff Size: Standard 05-08-2020 10:59-0500 BSA (Body Surface Area) 2.59 m2 Cassandra A Fast DO Work Phone: [facility] Work Phone: 05-08-2020 10:59-0500 Height 182.88 cm Cassandra A Fast DO Work Phone: [facility] Work Phone: 05-08-2020 10:59-0500 Pulse (Heart Rate) 111 /min Cassandra A Fast DO Work Phone: [facility] Work Phone: Comment on above: Pattern: Regular 05-08-2020 10:59-0500 Respiratory Rate 16 /min Cassandra A Fast DO Work Phone: [facility] Work Phone: Comment on above: Pattern: Unlabored 04-17-2020 07:55-0400 BMI (Body Mass Index) 45.98 kg/m2 Cassandra A Fast DO Work Phone: [facility] Work Phone: 04-17-2020 07:55-0400 Body Temperature 97.2 [degF] Cassandra A Fast DO Work Phone: [facility] Work Phone: Comment on above: Method: Thermal Scan 04-17-2020 07:55-0400 Body weight 153.77 kg Cassandra A Fast DO Work Phone: [facility] Work Phone: 04-17-2020 07:55-0400 BP Diastolic 76 mm[Hg] Cassandra A Fast DO Work Phone: [facility] Work Phone: Comment on above: Patient Position: Sitting; Cuff Location : Left Arm; Cuff Size: Standard 04-17-2020 07:55-0400 BP Systolic 130 mm[Hg] Cassandra A Fast DO Work Phone: [facility] Work Phone: Comment on above: Patient Position: Sitting; Cuff Location : Left Arm; Cuff Size: Standard 04-17-2020 07:55-0400 BSA (Body Surface Area) 2.67 m2 Cassandra A Fast DO Work Phone: [facility] Work Phone: 04-17-2020 07:55-0400 Height 182.88 cm Cassandra A Fast DO Work Phone: [facility] Work Phone: 04-17-2020 07:55-0400 Pulse (Heart Rate) 94 /min Cassandra A Fast DO Work Phone: [facility] Work Phone: Comment on above: Pattern: Regular 04-17-2020 07:55-0400 Pulse Oximetry 97 % Cassandra Fast [facility] Work Phone: Comment on above: Room air 04-17-2020 07:55-0400 Respiratory Rate 16 /min Cassandra A Fast DO Work Phone: [facility] Work Phone: Comment on above: Pattern: Unlabored 04-17-2020 07:55-0400 SaO2% (BldA) [Mass fraction] 97 % Cassandra A Fast DO Work Phone: [facility]; [facility] Work Phone: Comment on above: Room air 09-13-2018 15:27-0400 BMI (Body Mass Index) 44.62 kg/m2 Valencia Owen CMA [facility] Internal Medicine Work Phone: 09-13-2018 15:27-0400 Body Temperature 97.4 [degF] Valencia Owen CMA [facility] Internal Medicine Work Phone: Comment on above: Method: Temporal 09-13-2018 15:27-0400 Body weight 149.23 kg Valencia Owen [facility] Internal Medicine Work Phone: 09-13-2018 15:27-0400 BP Diastolic 80 mm[Hg] Valencia Owen [facility] Internal [facility] Work Phone: Comment on above: Patient Position: Sitting; Cuff Location : Left Arm; Cuff Size: Standard 09-13-2018 15:27-0400 BP Systolic 132 mm[Hg] Valencia Owen [facility] Internal [facility] Work Phone: Comment on above: Patient Position: Sitting; Cuff Location : Left Arm; Cuff Size: Standard 09-13-2018 15:27-0400 BSA (Body Surface Area) 2.63 m2 Valencia Owen [facility] Internal Medicine Work Phone: 09-13-2018 15:27-0400 Height 182.88 cm Valencia Owen [facility] Internal Medicine Work Phone: 09-13-2018 15:27-0400 Pulse (Heart Rate) 110 /min Valencia Owen [facility] Internal [facility] Work Phone: Comment on above: Pattern: Regular 09-13-2018 15:27-0400 Respiratory Rate 16 /min Valencia Owen [facility] Internal Medicine Work Phone: Comment on above: Pattern: Unlabored 09-13-2018 15:27-0400 Weight 149.23 kg Cassandra Fast [facility] Internal Medicine Work Phone: 07-14-2018 15:40-0500 BMI (Body Mass Index) 44.76 kg/m2 Cassandra A Fast DO Work Phone: [facility] Work Phone: 07-14-2018 15:40-0500 Body Temperature 96.8 [degF] Cassandra A Fast DO Work Phone: [facility] Work Phone: Comment on above: Method: Temporal 07-14-2018 15:40-0500 Body weight 149.69 kg Cassandra A Fast DO Work Phone: [facility] Work Phone: 07-14-2018 15:40-0500 BP Diastolic 90 mm[Hg] Cassandra A Fast DO Work Phone: [facility] Work Phone: Comment on above: Patient Position: Sitting; Cuff Location : Left Arm; Cuff Size: Standard 07-14-2018 15:40-0500 BP Systolic 142 mm[Hg] Cassandra A Fast DO Work Phone: [facility] Work Phone: Comment on above: Patient Position: Sitting; Cuff Location : Left Arm; Cuff Size: Standard 07-14-2018 15:40-0500 BSA (Body Surface Area) 2.64 m2 Cassandra A Fast DO Work Phone: [facility] Work Phone: 07-14-2018 15:40-0500 Height 182.88 cm Cassandra A Fast DO Work Phone: [facility] Work Phone: 07-14-2018 15:40-0500 Pulse (Heart Rate) 98 /min Cassandra A Fast DO Work Phone: [facility] Work Phone: Comment on above: Pattern: Regular 07-14-2018 15:40-0500 Respiratory Rate 16 /min Cassandra A Fast DO Work Phone: [facility] Work Phone: Comment on above: Pattern: Unlabored 07-14-2018 15:40-0500 Weight 149.69 kg Cassandra Fast [facility] Work Phone: 06-11-2018 06:59-0500 BMI (Body Mass Index) 43.26 kg/m2 Kalpesh Roldan LPN [facility] Work Phone: 06-11-2018 06:59-0500 Body Temperature 96.6 [degF] Kalpesh Roldan LPN [facility] Work Phone: Comment on above: Method: Temporal 06-11-2018 06:59-0500 Body weight 144.7 kg Kalpesh Roldan LPN [facility] Work Phone: 06-11-2018 06:59-0500 BP Diastolic 78 mm[Hg] Kalpesh Roldan LPN [facility] Work Phone: Comment on above: Patient Position: Sitting; Cuff Location : Left Arm; Cuff Size: Standard 06-11-2018 06:59-0500 BP Systolic 142 mm[Hg] Kalpesh Roldan LPN [facility] Internal Medicine Work Phone: Comment on above: Patient Position: Sitting; Cuff Location : Left Arm; Cuff Size: Standard 06-11-2018 06:59-0500 BSA (Body Surface Area) 2.6 m2 Kalpesh Roldan LPN [facility] Work Phone: 06-11-2018 06:59-0500 Height 182.88 cm Kalpesh Roldan LPN [facility] Work Phone: 06-11-2018 06:59-0500 Pulse (Heart Rate) 84 /min Kalpesh Roldan LPN [facility] Work Phone: Comment on above: Pattern: Regular 06-11-2018 06:59-0500 Pulse Oximetry 96 % Cassandra Osei [facility] Work Phone: Comment on above: Room air 06-11-2018 06:59-0500 Respiratory Rate 16 /min Kalpesh Roldan LPN [facility] Work Phone: Comment on above: Pattern: Unlabored 06-11-2018 06:59-0500 SaO2% (BldA) [Mass fraction] 96 % Kalpesh Roldan LPN [facility]; [facility] Work Phone: Comment on above: Room air 06-11-2018 06:59-0500 Weight 144.7 kg Cassandra Fast [facility] Work Phone: 04-09-2018 07:07-0400 BMI (Body Mass Index) 43.94 kg/m2 Valencia Owen [facility] Internal Medicine Work Phone: 04-09-2018 07:07-0400 Body Temperature 97.2 [degF] Valencia Owen [facility] Internal Medicine Work Phone: Comment on above: Method: Temporal 04-09-2018 07:07-0400 Body weight 146.97 kg Valencia Owen [facility] Internal Medicine Work Phone: 04-09-2018 07:07-0400 BP Diastolic 83 mm[Hg] Valencia Owen [facility] Internal Medicine Work Phone: Comment on above: Patient Position: Sitting; Cuff Location : Left Arm; Cuff Size: Standard 04-09-2018 07:07-0400 BP Systolic 140 mm[Hg] Valencia Owen [facility] Internal Medicine Work Phone: Comment on above: Patient Position: Sitting; Cuff Location : Left Arm; Cuff Size: Standard 04-09-2018 07:07-0400 BSA (Body Surface Area) 2.62 m2 Valencia Owen [facility] Internal Medicine Work Phone: 04-09-2018 07:07-0400 Height 182.88 cm Valencia Owen [facility] Internal Medicine Work Phone: 04-09-2018 07:07-0400 Pulse (Heart Rate) 80 /min Valencia Owen [facility] Internal Medicine Work Phone: Comment on above: Pattern: Regular 04-09-2018 07:07-0400 Respiratory Rate 16 /min Valencia Owen [facility] Internal Medicine Work Phone: Comment on above: Pattern: Unlabored 04-09-2018 07:07-0400 Weight 146.97 kg Cassandra Fast [facility] Internal Medicine Work Phone: 02-26-2018 07:40-0400 BMI (Body Mass Index) 43.94 kg/m2 Cassandra A Fast DO Work Phone: [facility] Work Phone: 02-26-2018 07:40-0400 Body Temperature 96.7 [degF] Cassandra A Fast DO Work Phone: [facility] Work Phone: Comment on above: Method: Temporal 02-26-2018 07:40-0400 Body weight 146.97 kg Cassandra A Fast DO Work Phone: [facility] Work Phone: 02-26-2018 07:40-0400 BP Diastolic 90 mm[Hg] Cassandra A Fast DO Work Phone: [facility] Work Phone: Comment on above: Patient Position: Sitting; Cuff Location : Left Arm; Cuff Size: Standard 02-26-2018 07:40-0400 BP Systolic 132 mm[Hg] Cassandra A Fast DO Work Phone: [facility] Work Phone: Comment on above: Patient Position: Sitting; Cuff Location : Left Arm; Cuff Size: Standard 02-26-2018 07:40-0400 BSA (Body Surface Area) 2.62 m2 Cassandra A Fast DO Work Phone: [facility] Work Phone: 02-26-2018 07:40-0400 Height 182.88 cm Cassandra A Fast DO Work Phone: [facility] Work Phone: 02-26-2018 07:40-0400 Pulse (Heart Rate) 88 /min Cassandra A Fast DO Work Phone: [facility] Work Phone: Comment on above: Pattern: Regular 02-26-2018 07:40-0400 Respiratory Rate 16 /min Cassandra A Fast DO Work Phone: [facility] Work Phone: Comment on above: Pattern: Unlabored 02-26-2018 07:40-0400 Weight 146.97 kg Cassandra Fast [facility] Work Phone: 05-25-2017 13:43-0500 BMI (Body Mass Index) 43.4 kg/m2 Sparkle Jacques [facility] Internal Medicine Work Phone: 05-25-2017 13:43-0500 Body Temperature 96.2 [degF] Sparkle Jacques [facility] Internal Medicine Work Phone: Comment on above: Method: Temporal 05-25-2017 13:43-0500 Body weight 145.15 kg Sparkle Jacques [facility] Internal Medicine Work Phone: 05-25-2017 13:43-0500 BP Diastolic 80 mm[Hg] Sparkle Jacques [facility] Internal Medicine Work Phone: Comment on above: Patient Position: Sitting; Cuff Location : Left Arm; Cuff Size: Large 05-25-2017 13:43-0500 BP Systolic 138 mm[Hg] Sparkle Jacques [facility] Internal Medicine Work Phone: Comment on above: Patient Position: Sitting; Cuff Location : Left Arm; Cuff Size: Large 05-25-2017 13:43-0500 BSA (Body Surface Area) 2.6 m2 Sparkle Jacques [facility] Internal Medicine Work Phone: 05-25-2017 13:43-0500 Height 182.88 cm Sparkle Jacques [facility] Internal Medicine Work Phone: 05-25-2017 13:43-0500 Pulse (Heart Rate) 84 /min Sparkle Jacques [facility] Internal Medicine Work Phone: Comment on above: Pattern: Regular 05-25-2017 13:43-0500 Pulse Oximetry 97 % Cassandra Fast [facility] Internal Medicine Work Phone: Comment on above: Room air 05-25-2017 13:43-0500 Respiratory Rate 17 /min Sparkle Jacques [facility] Internal Medicine Work Phone: Comment on above: Pattern: Unlabored 05-25-2017 13:43-0500 SaO2% (BldA) [Mass fraction] 97 % Sparkle Jacques [facility] Medicine; [facility] Work Phone: Comment on above: Room air 05-25-2017 13:43-0500 Weight 145.15 kg Cassandradon Osei [facility] Internal Medicine Work Phone: 01-09-2017 07:16-0400 BMI (Body Mass Index) 44.35 kg/m2 Sparkle Jacques [facility] Internal Medicine Work Phone: Comment on above: no bp meds for a week 01-09-2017 07:16-0400 Body Temperature 96.7 [degF] Sparkle Jacques [facility] Internal Medicine Work Phone: Comment on above: Method: Temporal no bp meds for a jessica cornejo 01-09-2017 07:16-0400 Body weight 148.33 kg Sparkle Jacques [facility] Internal Medicine Work Phone: Comment on above: no bp meds for a week 01-09-2017 07:16-0400 BP Diastolic 94 mm[Hg] Sparkle Jacques [facility] Internal Medicine Work Phone: Comment on above: Patient Position: Sitting; Cuff Location : Left Arm; Cuff Size: Large no bp meds for a jessica cornejo 01-09-2017 07:16-0400 BP Systolic 130 mm[Hg] Sparkle Jacques [facility] Internal Medicine Work Phone: Comment on above: Patient Position: Sitting; Cuff Location : Left Arm; Cuff Size: Large no bp meds for a jessica cornejo 01-09-2017 07:16-0400 BSA (Body Surface Area) 2.63 m2 Sparkle Jacques [facility] Internal Medicine Work Phone: Comment on above: no bp meds for a week 01-09-2017 07:16-0400 Height 182.88 cm Sparkle Jacques [facility] Internal Medicine Work Phone: Comment on above: no bp meds for a week 01-09-2017 07:16-0400 Pulse (Heart Rate) 86 /min Sparkle Jacques [facility] Internal Medicine Work Phone: Comment on above: Pattern: Regular no bp meds for a jessica cornejo 01-09-2017 07:16-0400 Pulse Oximetry 98 % Cassandra Luis Miguel [facility] Internal Medicine Work Phone: Comment on above: Room air no bp meds for a jessica cornejo 01-09-2017 07:16-0400 Respiratory Rate 16 /min Sparkle Jacques [facility] Internal Medicine Work Phone: Comment on above: Pattern: Unlabored no bp meds for a jessica cornejo 01-09-2017 07:16-0400 SaO2% (BldA) [Mass fraction] 98 % Sparkle Jacques [facility] Internal Medicine; [facility] Medicine Work Phone: Comment on above: Room air no bp meds for a jessica cornejo 01-09-2017 07:16-0400 Weight 148.33 kg Cassandra Osei [facility] Internal Medicine Work Phone: Comment on above: no bp meds for a week 11-05-2016 15:39-0400 BMI (Body Mass Index) 42.86 kg/m2 Sparkle Jacques [facility] Internal Medicine Work Phone: 11-05-2016 15:39-0400 Body Temperature 96.2 [degF] Sparkle Jacques [facility] Internal Medicine Work Phone: Comment on above: Method: Temporal 11-05-2016 15:39-0400 Body weight 143.34 kg Sparkle Jacques [facility] Internal Medicine Work Phone: 11-05-2016 15:39-0400 BP Diastolic 82 mm[Hg] Sparkle Jacques [facility] Internal Medicine Work Phone: Comment on above: Patient Position: Sitting; Cuff Location : Left Arm; Cuff Size: Large 11-05-2016 15:39-0400 BP Systolic 146 mm[Hg] Sparkle Jacques [facility] Internal Medicine Work Phone: Comment on above: Patient Position: Sitting; Cuff Location : Left Arm; Cuff Size: Large 11-05-2016 15:39-0400 BSA (Body Surface Area) 2.59 m2 Sparkle Jacques [facility] Internal Medicine Work Phone: 11-05-2016 15:39-0400 Height 182.88 cm Sparkle Jacques [facility] Internal Medicine Work Phone: 11-05-2016 15:39-0400 Pulse (Heart Rate) 100 /min Sparkle Georgie [facility] Internal Medicine Work Phone: Comment on above: Pattern: Regular 11-05-2016 15:39-0400 Pulse Oximetry 96 % Cassandra Osei [facility] Internal Medicine Work Phone: Comment on above: Room air 11-05-2016 15:39-0400 Respiratory Rate 16 /min Sparkle Georgie [facility] Internal Medicine Work Phone: Comment on above: Pattern: Unlabored 11-05-2016 15:39-0400 SaO2% (BldA) [Mass fraction] 96 % Sparkle Jacques [facility] Internal Medicine; [facility] Medicine Work Phone: Comment on above: Room air 11-05-2016 15:39-0400 Weight 143.34 kg Cassandra Osei [facility] Internal Medicine Work Phone: 09-24-2016 15:31-0400 BMI (Body Mass Index) 41.77 kg/m2 [facility]: 09-24-2016 15:31-0400 Body weight 139.71 kg [facility] Work Phone: 09-24-2016 15:31-0400 BP Diastolic 88 mm[Hg] [facility] Work Phone: Comment on above: Patient Position: Sitting; Cuff Location : Left Arm; Cuff Size: Standard 09-24-2016 15:31-0400 BP Systolic 144 mm[Hg] [facility] Work Phone: Comment on above: Patient Position: Sitting; Cuff Location : Left Arm; Cuff Size: Standard 09-24-2016 15:31-0400 BSA (Body Surface Area) 2.56 m2 [facility] Work Phone: 09-24-2016 15:31-0400 Height 182.88 cm [facility] Internal Medicine Work Phone: 09-24-2016 15:31-0400 Pulse (Heart Rate) 89 /min Valencia Owen [facility] Internal Medicine Work Phone: Comment on above: Pattern: Regular 09-24-2016 15:31-0400 Respiratory Rate 16 /min Valencia Owen [facility] Internal Medicine Work Phone: Comment on above: Pattern: Unlabored 09-24-2016 15:31-0400 Weight 139.71 kg Cassandra Osei [facility] Internal Medicine Work Phone: 08-13-2016 15:40-0500 BMI (Body Mass Index) 39.6 kg/m2 Sparkle Georgie [facility] Internal Medicine Work Phone: 08-13-2016 15:40-0500 Body Temperature 95.8 [degF] Sparkle Georgie [facility] Internal Medicine Work Phone: Comment on above: Method: Temporal 08-13-2016 15:40-0500 Body weight 132.45 kg Sparkleja Jacques [facility] Internal Medicine Work Phone: 08-13-2016 15:40-0500 BP Diastolic 88 mm[Hg] Sparkle Georgie [facility] Internal Medicine Work Phone: Comment on above: Patient Position: Sitting; Cuff Location : Left Arm; Cuff Size: Large 08-13-2016 15:40-0500 BP Systolic 118 mm[Hg] Sparkle Georgie [facility] Internal Medicine Work Phone: Comment on above: Patient Position: Sitting; Cuff Location : Left Arm; Cuff Size: Large 08-13-2016 15:40-0500 BSA (Body Surface Area) 2.5 m2 Sparkle Jacques [facility] Internal Medicine Work Phone: 08-13-2016 15:40-0500 Height 182.88 cm Sparkle Jacques [facility] Internal Medicine Work Phone: 08-13-2016 15:40-0500 Pulse (Heart Rate) 98 /min Sparkle Jacques [facility] Internal Medicine Work Phone: Comment on above: Pattern: Regular 08-13-2016 15:40-0500 Pulse Oximetry 96 % Cassandra [facility] Internal Medicine Work Phone: Comment on above: Room air 08-13-2016 15:40-0500 Respiratory Rate 16 /min Sparlke Georgie [facility] Internal Medicine Work Phone: Comment on above: Pattern: Unlabored 08-13-2016 15:40-0500 SaO2% (BldA) [Mass fraction] 96 % Sparkle Georgie [facility] Internal Medicine; [facility] Medicine Work Phone: Comment on above: Room air 08-13-2016 15:40-0500 Weight 132.45 kg Cassandra Osei [facility] Internal Medicine Work Phone: 04-09-2016 13:36-0400 BMI (Body Mass Index) 42.59 kg/m2 Sparkle Georgie [facility] Internal Medicine Work Phone: 04-09-2016 13:36-0400 Body Temperature 95.6 [degF] Sparkle Jacques [facility] Internal Medicine Work Phone: Comment on above: Method: Temporal 04-09-2016 13:36-0400 Body weight 142.43 kg Sparkle Georgie [facility] Internal Medicine Work Phone: 04-09-2016 13:36-0400 BP Diastolic 84 mm[Hg] Sparkle Jacques [facility] Internal Medicine Work Phone: Comment on above: Patient Position: Sitting; Cuff Location : Left Arm; Cuff Size: Large 04-09-2016 13:36-0400 BP Systolic 134 mm[Hg] Sparkle Jacques [facility] Internal Medicine Work Phone: Comment on above: Patient Position: Sitting; Cuff Location : Left Arm; Cuff Size: Large 04-09-2016 13:36-0400 BSA (Body Surface Area) 2.58 m2 Sparkle Jacques [facility] Internal Medicine Work Phone: 04-09-2016 13:36-0400 Height 182.88 cm Sparkle Jacques [facility] Internal Medicine Work Phone: 04-09-2016 13:36-0400 Pulse (Heart Rate) 82 /min Sparkle Jacques [facility] Work Phone: Comment on above: Pattern: Regular 04-09-2016 13:36-0400 Pulse Oximetry 96 % Cassandra Osei [facility] Internal Medicine Work Phone: Comment on above: Room air 04-09-2016 13:36-0400 Respiratory Rate 15 /min Sparkle Garciasshadi [facility] Internal Medicine Work Phone: Comment on above: Pattern: Unlabored 04-09-2016 13:36-0400 SaO2% (BldA) [Mass fraction] 96 % Sparkle Georgie [facility]; [facility] Work Phone: Comment on above: Room air 04-09-2016 13:36-0400 Weight 142.43 kg Cassandra Osei [facility] Internal Medicine Work Phone: 01-09-2016 08:36-0400 BMI (Body Mass Index) 41.64 kg/m2 Sparkle Georgie [facility] Internal Medicine Work Phone: 01-09-2016 08:36-0400 Body Temperature 97.6 [degF] Sparkle Georgie [facility] Internal Medicine Work Phone: Comment on above: Method: Temporal 01-09-2016 08:36-0400 Body weight 139.26 kg Sparkle Georgie [facility] Internal Medicine Work Phone: 01-09-2016 08:36-0400 BP Diastolic 92 mm[Hg] Sparkle Jacques [facility] Internal Medicine Work Phone: Comment on above: Patient Position: Sitting; Cuff Location : Left Arm; Cuff Size: Large 01-09-2016 08:36-0400 BP Systolic 128 mm[Hg] Sparkle Georgie [facility] Internal Medicine Work Phone: Comment on above: Patient Position: Sitting; Cuff Location : Left Arm; Cuff Size: Large 01-09-2016 08:36-0400 BSA (Body Surface Area) 2.56 m2 Sparkle Jacques [facility] Internal Medicine Work Phone: 01-09-2016 08:36-0400 Height 182.88 cm Sparkle Jacques [facility] Internal Medicine Work Phone: 01-09-2016 08:36-0400 Pulse (Heart Rate) 88 /min Sparkle Jacques [facility] Internal Medicine Work Phone: Comment on above: Pattern: Regular 01-09-2016 08:36-0400 Pulse Oximetry 98 % Cassandra Fast [facility] Internal Medicine Work Phone: Comment on above: Room air 01-09-2016 08:36-0400 Respiratory Rate 16 /min Sparkle Jacques [facility] Internal Medicine Work Phone: Comment on above: Pattern: Unlabored 01-09-2016 08:36-0400 SaO2% (BldA) [Mass fraction] 98 % Sparkle Jacques [facility] Medicine; [facility] Medicine Work Phone: Comment on above: Room air 01-09-2016 08:36-0400 Weight 139.26 kg Cassandra Fast [facility] Medicine Work Phone: 10-29-2015 08:43-0400 BMI (Body Mass Index) 42.04 kg/m2 Sparkle Jacques [facility] Internal Medicine Work Phone: 10-29-2015 08:43-0400 Body Temperature 95.1 [degF] Sparkle Jacques [facility] Internal Medicine Work Phone: Comment on above: Method: Temporal 10-29-2015 08:43-0400 Body weight 140.62 kg Sparkle Jacques [facility] Medicine Work Phone: 10-29-2015 08:43-0400 BP Diastolic 82 mm[Hg] Sparkle Jacques [facility] Internal Medicine Work Phone: Comment on above: Patient Position: Sitting; Cuff Location : Left Arm; Cuff Size: Large 10-29-2015 08:43-0400 BP Systolic 124 mm[Hg] Sparkle Jacques [facility] Internal Medicine Work Phone: Comment on above: Patient Position: Sitting; Cuff Location : Left Arm; Cuff Size: Large 10-29-2015 08:43-0400 BSA (Body Surface Area) 2.57 m2 Sparkle Jacques [facility] Internal Medicine Work Phone: 10-29-2015 08:43-0400 Height 182.88 cm Sparkle Jacques [facility] Medicine Work Phone: 10-29-2015 08:43-0400 Pulse (Heart Rate) 94 /min Sparkle [facility] Work Phone: Comment on above: Pattern: Regular 10-29-2015 08:43-0400 Pulse Oximetry 97 % Cassandra Osei [facility] Internal Medicine Work Phone: Comment on above: Room air 10-29-2015 08:43-0400 Respiratory Rate 15 /min Sparkle Garciasshadi [facility] Internal Medicine Work Phone: Comment on above: Pattern: Unlabored 10-29-2015 08:43-0400 SaO2% (BldA) [Mass fraction] 97 % Sparkle Flshadi [facility]; [facility] Work Phone: Comment on above: Room air 10-29-2015 08:43-0400 Weight 140.62 kg Cassandra Osei [facility] Medicine Work Phone: 09-17-2015 09:43-0400 BMI (Body Mass Index) 41.5 kg/m2 Sparkle Garciasshadi [facility] Medicine Work Phone: 09-17-2015 09:43-0400 Body Temperature 96.1 [degF] Sparkle Garciasshadi [facility] Medicine Work Phone: Comment on above: Method: Temporal 09-17-2015 09:43-0400 Body weight 138.8 kg Sparkle Georgie [facility] Internal Medicine Work Phone: 09-17-2015 09:43-0400 BP Diastolic 100 mm[Hg] Sparkle Georgie [facility] Medicine Work Phone: Comment on above: Patient Position: Sitting; Cuff Location : Left Arm; Cuff Size: Large 09-17-2015 09:43-0400 BP Systolic 126 mm[Hg] Sparkle Georgie [facility] Medicine Work Phone: Comment on above: Patient Position: Sitting; Cuff Location : Left Arm; Cuff Size: Large 09-17-2015 09:43-0400 BSA (Body Surface Area) 2.55 m2 Sparkle Garciasshadi [facility] Medicine Work Phone: 09-17-2015 09:43-0400 Height 182.88 cm Sparkle Garciasshadi [facility] Medicine Work Phone: 09-17-2015 09:43-0400 Pulse (Heart Rate) 80 /min Sparkle Jacques [facility] Internal Medicine Work Phone: Comment on above: Pattern: Regular 09-17-2015 09:43-0400 Pulse Oximetry 98 % Csasandra [facility] Internal Medicine Work Phone: Comment on above: Room air 09-17-2015 09:43-0400 Respiratory Rate 15 /min Sparkle Georgie [facility] Internal Medicine Work Phone: Comment on above: Pattern: Unlabored 09-17-2015 09:43-0400 SaO2% (BldA) [Mass fraction] 98 % Sparkle Georgie [facility] Internal Medicine; [facility] Medicine Work Phone: Comment on above: Room air 09-17-2015 09:43-0400 Weight 138.8 kg Cassandra Osei [facility] Internal Medicine Work Phone: 08-20-2015 09:12-0500 BMI (Body Mass Index) 42.59 kg/m2 Sparkle Georgie [facility] Internal Medicine Work Phone: 08-20-2015 09:12-0500 Body Temperature 96.7 [degF] Sparkle Garciasshadi [facility] Internal Medicine Work Phone: Comment on above: Method: Temporal 08-20-2015 09:12-0500 Body weight 142.43 kg Sparkle Georgie [facility] Internal Medicine Work Phone: 08-20-2015 09:12-0500 BP Diastolic 102 mm[Hg] Sparkle Georgie [facility] Internal Medicine Work Phone: Comment on above: Patient Position: Sitting; Cuff Location : Left Arm; Cuff Size: Large 08-20-2015 09:12-0500 BP Systolic 132 mm[Hg] Sparkle Georgie [facility] Internal Medicine Work Phone: Comment on above: Patient Position: Sitting; Cuff Location : Left Arm; Cuff Size: Large 08-20-2015 09:12-0500 BSA (Body Surface Area) 2.58 m2 Sparkle Georgie [facility] Internal Medicine Work Phone: 08-20-2015 09:12-0500 Height 182.88 cm Sparkle Jacques [facility] Internal Medicine Work Phone: 08-20-2015 09:12-0500 Pulse (Heart Rate) 77 /min Sparkle Georgie [facility] Work Phone: Comment on above: Pattern: Regular 08-20-2015 09:12-0500 Pulse Oximetry 98 % Cassandra Fast [facility] Internal Medicine Work Phone: Comment on above: Room air 08-20-2015 09:12-0500 Respiratory Rate 15 /min Sparkle Jacques [facility] Internal Medicine Work Phone: Comment on above: Pattern: Unlabored 08-20-2015 09:12-0500 SaO2% (BldA) [Mass fraction] 98 % Sparkle Jacques [facility]; [facility] Work Phone: Comment on above: Room air 08-20-2015 09:12-0500 Weight 142.43 kg Cassandra Fast [facility] Internal Medicine Work Phone: Encounters Encounter Date Encounter Type Care Provider Facility Start: 04-20-2025 End: 04-20-2025 ambulatory Cassandra Fast Facility:[facility] Start: 04-18-2025 End: 04-18-2025 ambulatory Cassandra Fast Facility:[facility] Start: 02-22-2025 End: 02-22-2025 ambulatory Cassandra Fast Facility:[facility] Start: 02-09-2025 ambulatory Cassandra Fast [facility] Start: 02-09-2025 End: 02-09-2025 ambulatory Cassandra Fast Facility:[facility] Start: 02-06-2025 Encounter for other preprocedural examination Roberth Robbins [facility] Start: 01-31-2025 End: 01-31-2025 ambulatory Cassandra Fast Facility:[facility] Start: 01-31-2025 End: 01-31-2025 ambulatory Cassandra Fast Facility:[facility] Start: 01-17-2025 End: 01-17-2025 ambulatory Micheal L Seese Facility:[facility] Start: 11-04-2024 ambulatory CASSANDRA DO FAST [facility] Start: 11-04-2024 End: 11-04-2024 ambulatory Cassandra Fast Facility:[facility] Start: 10-18-2024 End: 10-18-2024 ambulatory Micheal L Seese Facility:[facility] Start: 07-19-2024 End: 07-19-2024 ambulatory Micheal L Seese Facility:[facility] Start: 07-04-2024 End: 07-04-2024 Subsequent hospital visit by physician Ramesh Diamond [facility] Comment on above: Other hyperlipidemia Start: 07-04-2024 End: 07-04-2024 ambulatory CASSANDRA A FAST [facility] Start: 06-07-2024 End: 06-07-2024 ambulatory Micheal L Seese Facility:[facility] Start: 06-07-2024 End: 06-07-2024 ambulatory Cassandra Fast Facility:[facility] Start: 05-26-2022 ambulatory Cassandra A Fast DO Compreh ensive Internal Med Start: 03-10-2022 End: 03-10-2022 Office outpatient visit 15 minutes Cassandra Fast DO Work Phone: [facility] Start: 12-25-2021 Review Cassandra Fast DO Work Phone: [facility] Start: 12-06-2021 End: 12-06-2021 Phone Encounter Cassandra Fast DO Work Phone: [facility] Start: 12-04-2021 End: 12-04-2021 Office outpatient visit 15 minutes Cassandra Fast DO Work Phone: [facility] Start: 08-21-2021 End: 08-22-2021 Office outpatient visit 25 minutes Cassandra Fast DO Work Phone: [facility] Start: 08-21-2021 Review Cassandra Fast DO Work Phone: [facility] Start: 04-10-2021 End: 04-11-2021 Office outpatient visit 25 minutes Cassandra Fast DO Work Phone: [facility] Start: 01-07-2021 End: 01-07-2021 Office outpatient visit 15 minutes Cassandra Fast DO Work Phone: [facility] Start: 10-08-2020 End: 10-08-2020 Office outpatient visit 15 minutes Cassandra Fast DO Work Phone: [facility] Start: 10-08-2020 Review Cassandra Fast DO Work Phone: [facility] Start: 07-24-2020 End: 07-24-2020 Phone Encounter Cassandra Fast DO Work Phone: [facility] Start: 07-10-2020 End: 07-10-2020 Office outpatient visit 25 minutes Cassandra Fast DO Work Phone: [facility] Start: 05-15-2020 End: 05-15-2020 Phone Encounter Cassandra Fast [facility] Start: 05-08-2020 End: 05-08-2020 Office outpatient visit 15 minutes Cassandra Fast [facility] Start: 04-17-2020 End: 04-17-2020 Office outpatient visit 25 minutes Cassandra Fast [facility] Start: 04-17-2020 Review Cassandra Fast Comprehens trisha [facility] Start: 09-13-2018 End: 09-13-2018 Office outpatient visit 25 minutes Cassandra Fast [facility] Start: 09-13-2018 Review Cassandra Fast Comprehens trisha [facility] Start: 07-14-2018 End: 07-14-2018 Office outpatient visit 25 minutes Cassandra Fast [facility] Start: 07-14-2018 Review Cassandra Fast Comprehens trisha [facility] Start: 06-25-2018 End: 06-25-2018 Phone Encounter Cassandra Fast [facility] Start: 06-11-2018 End: 06-20-2018 Office outpatient visit 25 minutes Cassandra Fast [facility] Start: 06-11-2018 Review Cassandra Fast Comprehens trisha [facility] Start: 04-09-2018 End: 04-09-2018 Office outpatient visit 15 minutes Cassandra Fast [facility] Start: 02-26-2018 End: 05-02-2018 Office outpatient visit 25 minutes Cassandra Fast [facility] Start: 02-12-2018 End: 02-12-2018 Lab Order Cassandra Osei [facility] Start: 05-25-2017 End: 06-20-2017 Office outpatient visit 25 minutes Cassandra Osei [facility] Start: 01-09-2017 End: 01-09-2017 Office outpatient visit 25 minutes Cassandra Osei [facility] Start: 11-05-2016 End: 11-06-2016 Office outpatient visit 25 minutes Cassandradon Osei [facility] Start: 09-24-2016 End: 09-26-2016 Office outpatient visit 25 minutes Cassandra Osei [facility] Start: 08-15-2016 End: 08-15-2016 Phone Encounter Cassandra Osei [facility] Start: 08-13-2016 End: 08-14-2016 Office outpatient visit 25 minutes Cassandra Osei [facility] Start: 04-09-2016 End: 04-11-2016 Office outpatient visit 25 minutes Cassandra Osei [facility] Start: 01-09-2016 End: 01-09-2016 Office outpatient visit 25 minutes Cassandradon Osei [facility] Start: 10-29-2015 End: 10-29-2015 Office outpatient visit 25 minutes Cassandra Osei [facility] Start: 09-17-2015 End: 09-17-2015 Office outpatient visit 25 minutes Cassandra Osei [facility] Start: 08-24-2015 End: 08-24-2015 Phone Encounter Cassandra Osei [facility] Start: 08-20-2015 End: 08-20-2015 Office outpatient visit 40 minutes Cassandra Osei [facility] Procedures Date Procedure Procedure Detail Performing Clinician Start: 08-16-2021 End: 08-16-2021 Emergency Department Summary Comments: See Note; NOTES: [facility] Medical Records Department [address] [place] [address] Emergency Department Summary 08/16/21 MR#: [id number] Acct: [id number] Name: PRABHA PERSAUDJENNIFER Davenport Rep #: [id number] : 1985 36 From: Jamie Topete DO PCP: Dr. Cassandra Osei, DO Status:REG ER Location: ED HPI History of Present Illness Chief Complaint: ETOH Intox Narrative Narrative: Patient is a 36-year-old male brought in by police secondary to fall as well as alcohol intoxication and exposure to the elements. Please states that the patient could not get into his apartment and was stuck outside in the cold and rain. They state that they were advising him to come down the stairs when he slipped and fell. Please report that the patient did not have any loss of consciousness but reportedly fell approximately 15 steps. The patient is intoxicated and does not offer any further history and with police concern for underlying trauma from the fall as well as exposure to the elements he was brought in for evaluation [facility] Medical History unable to obtain unable to obtain Allergy/AdvReac Type Severity Reaction Status Date / Time No Known Allergies Allergy Verified 04/10/20 15:49 Social History (Updated 07/26/20 @ 11:42 by Micheal ZURITA, PA) Smoking Status: Never smoker ROS ROS ED Review of Systems ROS Unobtainable: due to mental status EXAM Physical Exam Const Vital Signs: 08/16/21 00:18 08/16/21 00:26 08/16/21 01:11 Temperature 98.0 F 98 F Temperature Source Oral Oral Pulse Rate 98 68 Respiratory Rate 20 H 12 Respiratory Effort Normal Respiratory Pattern Normal Blood Pressure 156/96 H Blood Pressure Mean 116 Pulse Ox 92 Oxygen Delivery Method Room Air Positive well nourished, well developed and obese General Appearance ED: well developed Nutritional Appearance: obese HEENT HEENT Narrative: No signs of depressed or basilar skull fracture Eyes PERRL and EOMs intact bilaterally Eyes Narrative: Sclera is injected and he has horizontal nystagmus consistent with alcohol intoxication Neck Neck Narrative: No bony deformity or step-off of the cervical spine no midline pain on palpation Chest Wall palpation of chest normal Chest Narrative: No bony deformity or crepitance noted Resp normal respiratory effort and clear to auscultation bilaterally Resp Narrative: Breath sounds are diminished throughout but overall clear to auscultation with no signs of distress Cardio regular rate and regular rhythm GI normal to inspection, nondistended, normoactive bowel sounds, non-tender, non-distended and no masses GI Narrative: No overlying abrasions or ecchymosis noted no voluntary guarding or rigidity no pulsatile mass Auscultation: normoactive bowel sounds Palpation: soft Back/Spine Back/Spine Narrative: No bony deformity or step-off of the thoracic or lumbar spine no midline pain with palpation Extremity Extremity Narrative: Patient has a superficial abrasion with soft tissue swelling to the posterior aspect of his left elbow without obvious bony deformity or joint effusion. There is full active range of motion noted. The pelvis is stable without shortening or external rotation of either lower extremity. There is a superficial abrasion over top the left upper hip region. Remainder of the exam is normal Neuro Neuro Narrative: Patient is obtunded with GCS of 13. He will awake to voice and he is able to move all extremities and there is no obvious focal neurologic deficit. Psych Psych Narrative: Patient has a flat/depressed affect Skin Skin Narrative: Superficial abrasions to the left elbow and left hip as documented above without secondary infectious process noted MDM MDM MDM Narrative Medical decision making narrative: Patient presented to the ER obtunded with history and exam consistent with alcohol intoxication. He had superficial abrasions consistent with report of fall from the police captain senior but no signs of depressed or basilar skull fracture. However as he does have alcohol on board CTs of his head and cervical spine were obtained. These showed no clinically significant findings. I also elected to perform an x-ray of his elbow secondary to this being an area of swelling and abrasion which also showed no acute fracture. Therefore at this time the patient's alcohol is elevated at 287 and he will be kept in the emergency department until his alcohol level approaches 100 which would be approximately 10 AM or a sober responsible adult can come and accept responsibility for him. The patient did have improvement of his mental status as time went on consistent with metabolizing the alcohol. He was able to walk to and from the bathroom with a steady gait. At this time however his alcohol level still be above the legal and medically acceptable limit for discharge also he does not have a ride yet with the inclement weather. Therefore we will continue to watch him in the ER but patient is safe for discharge based on his normal imaging results as well as improvement in mental status with time Lab Data Attestation: I reviewed the patient's lab results. Labs: Laboratory Results - last 24 hr 08/16/21 08/16/21 00:24 00:45 Ethyl Alcohol 287.0 POC Glucose 271 H Radiography Diagnostic Testing: Clinical Impression(s) from Imaging Studies Brain CT 08/16/21 00:34 IMPRESSION: Negative unenhanced CT scan of the brain. Electronically Signed: Raphael Damon MD at 1:18 EST , Cervical Spine CT 08/16/21 00:34 IMPRESSION: Negative unenhanced CT examination of the cervical spine for acute fracture or subluxation. Electronically Signed: Raphael Damon MD at 1:22 EST , Elbow X-Ray 08/16/21 00:50 IMPRESSION: Negative x-ray examination of the elbow. No acute fracture or dislocation. Electronically Signed: Raphael Damon MD at 1:28 EST , Discharge Plan Triage Chief Complaint: ETOH Intox ED Provider: Jamie Topete Dx/Rx/DC Orders Clinical Impression: Acute alcohol intoxication, Accidental fall, Multiple abrasions Instructions: ED Alcohol Intoxication, ED Head Injury (Adult) Primary Care Provider: Cassandra Osei Referrals: Cassandra Osei DO [Primary Care Provider] - Disposition Disposition: Home, Self Care What to do if you have Problems For any increased pain, shortness of breath, bleeding, nausea or vomiting, chest pain, or any unexpected problems, contact your Primary Care Provider. Call [facility] ([phone]) or report to the closest Emergency Room. Call 911 if necessary. 08/16/21 0705 <Electronically signed by Jamie Topete DO> Cosigner Signature (if applicable): CC: Dr. Cassandra Osei DO Signed Cassandra Osei DO Work Phone: Start: 08-16-2021 End: 08-16-2021 Elbow min 3 Views Comments: See Note; NOTES: [facility] Imaging Services [address] [place] [address] Elbow min 3 Views MR#: [id number] Acct: [id number] Name: CORIROMÁN R Rep #: [id number] : 1985 M 36 From: Amilcar james MD PCP: Dr. Cassandra Osei DO Status: REG ER Study: Elbow min 3 Views Date of Exam: 08/16/21 Exam# [id number] Ordering Dr: Jamie Topete DO STUDY: X-RAY - LEFT ELBOW REASON FOR EXAM: Male, 36 years old. injury TECHNIQUE: 3 view(s) of the elbow. COMPARISON: None. FINDINGS: Normal visualized humerus, radius and ulna. Normal radiocapitellar and ulnotrochlear articulations. The soft tissue structures are unremarkable. RAD/Elbow min 3 Views IMPRESSION: Negative x-ray examination of the elbow. No acute fracture or dislocation. Electronically Signed: Raphael Damon MD at 1:28 EST Reading Location ID and State: [facility] [place] Tel , Service support , CC: Dr. Cassandra Osei DO; Jamie Topete DO Hospice Clinical Supervisor: Signed Cassandra Osei DO Work Phone: Start: 08-16-2021 End: 08-16-2021 Brain/Head without Contrast Comments: See Note; NOTES: [facility] Imaging Services [address] [place] [address] Brain/Head without Contrast MR#: [id number] Acct: [id number] Name: ROMÁN PERSAUD Ethel Rep #: [id number] : 1985 M 36 From: Amilcar james MD PCP: Dr. Cassandra Osei DO Status: REG ER Study: Brain/Head without Contrast Date of Exam: 07/24 11/10 Exam# [id number] Ordering Dr: Jamie Topete DO STUDY: CT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 [facility] Work Phone: [facility] Work Phone: Payers Date Payer Category Payer Unknown [id number] 2024 Managed Care (Private) [facility] [id number] 2024 Self-pay 2017 Unknown [id number] 2016 Unknown [id number] 1985 Unknown [id number]. 716 1985 Unknown [id number]. 1243 1985 Unknown [id number] [id number]. 651 Unknown Medical [facility] Unknown [id number]. 462 Unknown [id number] [id number]. 462 Unknown [id number] [id number]. 462 Unknown [id number] 2.16840.1.729734.3.579.2. 462 Unknown [id number] 2.16840.1.029876.3.579.2. 462 Unknown [id number] [id number]. 462 Unknown [id number] [id number]. 462 Unknown [id number] 2.16.840.1.297110.3.579.2. 462 Unknown [id number] [id number]. 462 Unknown [id number] 2.16.840.1.275221.3.579.2. 462 Unknown [id number] [id number]. 462 Unknown [id number] 2.16.840.1.410590.3.579.2. 462 Unknown [id number] [id number]. 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 [facility] Work Phone: Alcohol Use: Alcohol Use: [facility] Work Phone: Tobacco use: Tobacco use: [facility] Work Phone: Tobacco smoking status MAIS Tobacco smoking consumption unknown [facility] Work Phone: Start: 1985 Sex assigned at Not on file [facility] Work Phone: Gender identity Not on file [facility] Work Phone: Start: 06-24-2024 End: 07-04-2024 Exposure to SARS-CoV-2 (event) Not sure [facility] Functional Status Date Assessment Result Facility 08-07-2016 LP-IR Score LP-IR Score 82 [facility] Work Phone: Comment on above: INSULIN RESISTANCE Vignesh CHAMPAGNE <--Insulin Sensitive Insulin Resistant--> Percentile in Reference PopulationInsulin Resistance ScoreLP-IR Score Low 25th 50th 75th High <27 27 45 63 >63LP-IR Score is inaccurate if patient is non-fasting. .The LP-IR score is a laboratory developed index that has beenassociated with insulin resistance and diabetes risk and should beused as one component of a physician's clinical assessment. TheLP-IR score listed above has not been cleared by the [place] Food andDrug Administration. PATIENT WAS FASTINGP ERFORMED BY: BN [facility] [id number] [facility] [id number] BY: CB [facility] [id number] [facility] [id number] Clinical Note 02-09-2025 Note Date & Type Note Facility 02-09-2025 Note [facility] Medical Records Department [address] [place] [address] History Physical Exam 02/09/25 1112 MR#: [id number] Acct: [id number] Name: ROMÁN PERSAUD Rep #: [id number] : 1985 39 From: Roberth Robbins MD PCP: Dr. Cassandra Osei, DO Status:REG [facility] Location: [place] [address] History and Physical Date of Service: 01/31/25 MR#: [id number] Acct: [id number] Name: ROMÁN PERSAUD Rep #: [id number] : 1985 Provider: Dr. Roberth Robbins MD Age/Sex: 39/M Location: [facility] Status: Signed Intake Vital Signs 10/18/2506:05 01/17/2506:50 02/01/2512:50 Height 6 ft 1 in 6 ft 1 in 6 ft 1 in Weight: 311 lb 8 oz BMI 41.1 BP 169/91 H Blood Pressure Location Rt brachial Position Sitting Respiration 18 Pulse 78 Pulse Source Monitor Temp 98.5 F Temp Source Temporal Pulse Oximetry (%) 99 Oxygen Delivery Method room air Intake Visit Reasons: UMBILICAL HERNIA Chief Complaint: umbilical hernia Is patient in pain?: No Allergies No Known Allergies Allergy (Verified 01/31/25 12:51) Medications ???Medication ???Instructions ???Recorded ???Confirmed ???Type empagliflozin 10 mg tablet 10 mg PO QDAY 06/07/24 01/31/25 History (Jardiance) losartan 100 1 tab PO QDAY 06/07/24 01/31/25 History mg-hydrochlorothiazide 25 mg tablet metformin 500 mg tablet 500 mg PO BID 06/07/24 01/31/25 History bupropion HCl 300 mg 24 hr tablet, 300 mg PO QAM #90 tabs 01/17/25 01/31/25 Rx extended release tadalafil 5 mg tablet 5 mg PO QDAY 01/31/25 01/31/25 History ubidecarenone-omega 3-vit E 25 1 cap PO ONCE 01/31/25 01/31/25 History mg-150 (90-60) mg-200 unit capsule (Co Z-91-Eikjhwl E-Fish Oil) PFS Medical History (Updated 01/31/25 @ 17:[address] Roberth Robbins MD) Pre-op testing Umbilical hernia MDD (major depressive disorder) Kidney stone High triglycerides Family History Other Cancer Diabetes Hypercholesterolemia Hypertension Mental disorder Myocardial infarction Social History Smoking Status: Never smoker alcohol intake: former details: Last intake October 2023 substance use type: does not use HPI HPI HPI: The patient is a 39-year-old male presenting with an umbilical hernia. He is referred from Dr. Osei. He initially observed an abnormality around two years ago, with pain exacerbated by activities such as coughing and straining. The pain acutely intensified one month prior, lasting up to 15 minutes, and then subsequently eased. His umbilical hernia does not appear to have increased in size significantly. The patient denies symptoms suggestive of bowel obstruction. 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 Recent discussions with his employer indicate possible light duty accommodations if necessary. The patient reports stable weight, around 310 pounds. His diabetes remains well- controlled with a recent A1c around 6. He has no previous abdominal surgical history that might affect current repair considerations. ROS General General: Yes fatigue; No weight change, appetite, colon cancer, breast cancer or weakness HEENT HEENT: No difficulty swallowing, eye injury, eye surgery, swollen glands or hoarseness Endo Endocrine: Yes diabetes mellitus; No thyroid disease, thyroid cancer, Hair loss, heat intolerance or cold intolerance Skin Skin: No rash or changing moles Musc Musculoskeletal: No back problems, arthritis, rheumatoid arthritis, gout or joint pain Cardio Cardiovascular: Yes high blood pressure; No murmur, pacemaker, heart disease, atrial fibrillation, heart attack, heart stent, palpitations, shortness of breath with exertion or chest pain Psych Psychiatric: Yes depression and anxiety; No hearing voices Resp Respiratory: No shortness of breath, No sleep apnea, No cough, No COPD, No asthma, No emphysema and No wheezing Gastro Gastrointestinal: No abdominal pain, No nausea or vomiting, No diarrhea, No constipation, No blood in stool, No acid reflux, No hemorrhoids, No ulcers, No gallbladder problem and No black,tarry stools Dinesh Hematologic: No blood thinners, No blood disorders, No bleeding, No anemia and No blood clots Neuro Neurologic: No numbness, No tingling and No weakness Exam Const General: cooperative, comfortable and no acute distress Nutritional Appearance: obese Orientation: alert, awake and oriented x3 Resp Effort Inspection: normal respiratory effort GI Other: Obese, abdominal striae present, umbilical hernia with fat contents that (more content not included)... [facility] Evaluation note Note Date & Type Note Facility Evaluation note Diagnosis Other hyperlipidemia documented in this encounter [facility] Work Phone: Instructions Note Date & Type Note Facility Instructions Name Patient Instructions Indication:Anxiety and depression Start: 1 Instruction Type:Provider Instructions for Treatment How to Access Health Information Online using Patient Portal and 3rd [employer] Apps Indication:Anxiety and depression Start: 1 Instruction Type:Patient Education Patient Instructions Indication:Nonsmoker Start: 1 Instruction Type:Provider Instructions for Treatment How to Access Health Information Online using Patient Portal and [employer]rd [employer] Apps Indication:Nonsmoker Start: 1 Instruction Type:Patient Education How to access health information online Indication:Type II diabetes mellitus, uncontrolled Start: 0 Instruction Type:Patient Education How to access health information online - Detail Indication:Type II diabetes mellitus, uncontrolled Start: 0 Instruction Type:Patient Education Patient Instructions Indication:Type II diabetes mellitus, uncontrolled Start: 0 Instruction Type:Provider Instructions for Treatment How to access health information online Indication:Nonsmoker Start: 0 Instruction Type:Patient Education How to access health information online - Detail Indication:Nonsmoker Start: 0 Instruction Type:Patient Education Patient Instructions Indication:Nonsmoker Start: 0 Instruction Type:Provider Instructions for Treatment How to access health information online Indication:Anxiety and depression Start: 9 Instruction Type:Patient Education How to access health information online - Detail Indication:Anxiety and depression Start: Instruction Type:Patient Education Patient Instructions Indication:Anxiety and depression Start: Instruction Type:Provider Instructions for Treatment How to access health information online Indication:Depression with anxiety Start: Instruction Type:Patient Education How to access health information online - Detail Indication:Depression with anxiety Start: Instruction Type:Patient Education Patient Instructions Indication:Depression with anxiety Start: Instruction Type:Provider Instructions for Treatment How to access health information online Indication:BMI 40.0-44.9, adult Start: 8 Instruction Type:Patient Education How to access health information online - Detail Indication:BMI 40.0-44.9, adult Start: 8 Instruction Type:Patient Education Patient Instructions Indication:BMI 40.0-44.9, adult Start: 8 Instruction Type:Provider Instructions for Treatment How to access health information online Indication:Essential hypertension with goal blood pressure less than 130/80 Start: 8 Instruction Type:Patient Education How to access health information online - Detail Indication:Essential hypertension with goal blood pressure less than 130/80 Start: 8 Instruction Type:Patient Education Patient Instructions Indication:Essential hypertension with goal blood pressure less than 130/80 Start: 8 Instruction Type:Provider Instructions for Treatment How to access health information online Indication:Nonsmoker Start:26-Feb-2018 Instruction Type:Patient Education How to access health information online - Detail Indication:Nonsmoker Start:26-Feb-2018 Instruction Type:Patient Education Patient Instructions Indication:Nonsmoker Start:26-Feb-2018 Instruction Type:Provider Instructions for Treatment How to access health information online Indication:Nonsmoker Start:25-May-2017 Instruction Type:Patient Education How to access health information online - Detail Indication:Nonsmoker Start:25-May-2017 Instruction Type:Patient Education Patient Instructions Indication:Nonsmoker Start:25-May-2017 Instruction Type:Provider Instructions for Treatment How to access health information online Indication:Essential hypertension with goal blood pressure less than 130/80 Start: Instruction Type:Patient Education How to access health information online - Detail Indication:Essential hypertension with goal blood pressure less than 130/80 Start: Instruction Type:Patient Education Patient Instructions Indication:Essential hypertension with goal blood pressure less than 130/80 Start: Instruction Type:Provider Instructions for Treatment How to access health information online Indication:Seasonal affective disorder Start: Instruction Type:Patient Education How to access health information online - Detail Indication:Seasonal affective disorder Start: Instruction Type:Patient Education Patient Instructions Indication:Seasonal affective disorder Start: Instruction Type:Provider Instructions for Treatment How to access health information online Indication:BMI 40.0-44.9, adult Start:24-Sep-2016 Instruction Type:Patient Education How to access health information online - Detail Indication:BMI 40.0-44.9, adult Start:24-Sep-2016 Instruction Type:Patient Education Patient Instructions Indication:BMI 40.0-44.9, adult Start:24-Sep-2016 Instruction Type:Provider Instructions for Treatment How to access health information online Indication:Nonsmoker Start: Instruction Type:Patient Education How to access health information online - Detail Indication:Nonsmoker Start: Instruction Type:Patient Education Patient Instructions Indication:Nonsmoker Start: Instruction Type:Provider Instructions for Treatment How to access health information online Indication:[facility] Start: Instruction Type:Patient Education How to access health information online - Detail Indication:[facility] Start: Instruction Type:Patient Education Patient Instructions Indication:[facility] Start: Instruction Type:Provider Instructions for Treatment How to access health information online Indication:Essential hypertension with goal blood pressure less than 130/80 Start: Instruction Type:Patient Education How to access health information online - Detail Indication:Essential hypertension with goal blood pressure less than 130/80 Start: Instruction Type:Patient Education Patient Instructions Indication:Essential hypertension with goal blood pressure less than 130/80 Start: Instruction Type:Provider Instructions for Treatment How to access health information online Indication:Essential hypertension with goal blood pressure less than 130/80 Start:29-Oct-2015 Instruction Type:Patient Education How to access health information online - Detail Indication:Essential hypertension with goal blood pressure less than 130/80 Start:29-Oct-2015 Instruction Type:Patient Education Patient Instructions Indication:Essential hypertension with goal blood pressure less than 130/80 Start:29-Oct-2015 Instruction Type:Provider Instructions for Treatment How to access health information online Indication:Depression with anxiety Start: Instruction Type:Patient Education How to access health information online - Detail Indication:Depression with anxiety Start: Instruction Type:Patient Education Patient Instructions Indication:Depression with anxiety Start: Instruction Type:Provider Instructions for Treatment How to access health information online Indication:Anxiety and depression Start: Instruction Type:Patient Education How to access health information online - Detail Indication:Anxiety and depression Start: Instruction Type:Patient Education Patient Instructions Indication:Anxiety and depression Start: Instruction Type:Provider Instructions for Treatment [facility] Work Phone: Instructions Note Date & Type Note Facility Instructions Name Patient Instructions Indication:Anxiety and depression Start: Instruction Type:Provider Instructions for Treatment How to Access Health Information Online using Patient Portal and [employer]rd [employer] Apps Indication:Anxiety and depression Start: Instruction Type:Patient Education Patient Instructions Indication:Nonsmoker Start: 1 Instruction Type:Provider Instructions for Treatment How to Access Health Information Online using Patient Portal and [employer]rd [employer] Apps Indication:Nonsmoker Start: Instruction Type:Patient Education How to access health information online Indication:Type II diabetes mellitus, uncontrolled Start: 0 Instruction Type:Patient Education How to access health information online - Detail Indication:Type II diabetes mellitus, uncontrolled Start: 0 Instruction Type:Patient Education Patient Instructions Indication:Type II diabetes mellitus, uncontrolled Start: 0 Instruction Type:Provider Instructions for Treatment How to access health information online Indication:Nonsmoker Start: 0 Instruction Type:Patient Education How to access health information online - Detail Indication:Nonsmoker Start: 0 Instruction Type:Patient Education Patient Instructions Indication:Nonsmoker Start: 0 Instruction Type:Provider Instructions for Treatment How to access health information online Indication:Anxiety and depression Start: 9 Instruction Type:Patient Education How to access health information online - Detail Indication:Anxiety and depression Start: 9 Instruction Type:Patient Education Patient Instructions Indication:Anxiety and depression Start: 9 Instruction Type:Provider Instructions for Treatment How to access health information online Indication:Depression with anxiety Start: Instruction Type:Patient Education How to access health information online - Detail Indication:Depression with anxiety Start: Instruction Type:Patient Education Patient Instructions Indication:Depression with anxiety Start: Instruction Type:Provider Instructions for Treatment How to access health information online Indication:BMI 40.0-44.9, adult Start: 8 Instruction Type:Patient Education How to access health information online - Detail Indication:BMI 40.0-44.9, adult Start: 8 Instruction Type:Patient Education Patient Instructions Indication:BMI 40.0-44.9, adult Start: 8 Instruction Type:Provider Instructions for Treatment How to access health information online Indication:Essential hypertension with goal blood pressure less than 130/80 Start: 8 Instruction Type:Patient Education How to access health information online - Detail Indication:Essential hypertension with goal blood pressure less than 130/80 Start: 8 Instruction Type:Patient Education Patient Instructions Indication:Essential hypertension with goal blood pressure less than 130/80 Start: 8 Instruction Type:Provider Instructions for Treatment How to access health information online Indication:Nonsmoker Start:26-Feb-2018 Instruction Type:Patient Education How to access health information online - Detail Indication:Nonsmoker Start:26-Feb-2018 Instruction Type:Patient Education Patient Instructions Indication:Nonsmoker Start:26-Feb-2018 Instruction Type:Provider Instructions for Treatment How to access health information online Indication:Nonsmoker Start:25-May-2017 Instruction Type:Patient Education How to access health information online - Detail Indication:Nonsmoker Start:25-May-2017 Instruction Type:Patient Education Patient Instructions Indication:Nonsmoker Start:25-May-2017 Instruction Type:Provider Instructions for Treatment How to access health information online Indication:Essential hypertension with goal blood pressure less than 130/80 Start: Instruction Type:Patient Education How to access health information online - Detail Indication:Essential hypertension with goal blood pressure less than 130/80 Start: Instruction Type:Patient Education Patient Instructions Indication:Essential hypertension with goal blood pressure less than 130/80 Start: Instruction Type:Provider Instructions for Treatment How to access health information online Indication:Seasonal affective disorder Start: Instruction Type:Patient Education How to access health information online - Detail Indication:Seasonal affective disorder Start: Instruction Type:Patient Education Patient Instructions Indication:Seasonal affective disorder Start: Instruction Type:Provider Instructions for Treatment How to access health information online Indication:BMI 40.0-44.9, adult Start:24-Sep-2016 Instruction Type:Patient Education How to access health information online - Detail Indication:BMI 40.0-44.9, adult Start:24-Sep-2016 Instruction Type:Patient Education Patient Instructions Indication:BMI 40.0-44.9, adult Start:24-Sep-2016 Instruction Type:Provider Instructions for Treatment How to access health information online Indication:Nonsmoker Start: Instruction Type:Patient Education How to access health information online - Detail Indication:Nonsmoker Start: Instruction Type:Patient Education Patient Instructions Indication:Nonsmoker Start: Instruction Type:Provider Instructions for Treatment How to access health information online Indication:[facility] Start: Instruction Type:Patient Education How to access health information online - Detail Indication:[facility] Start: Instruction Type:Patient Education Patient Instructions Indication:[facility] Start: Instruction Type:Provider Instructions for Treatment How to access health information online Indication:Essential hypertension with goal blood pressure less than 130/80 Start: Instruction Type:Patient Education How to access health information online - Detail Indication:Essential hypertension with goal blood pressure less than 130/80 Start: Instruction Type:Patient Education Patient Instructions Indication:Essential hypertension with goal blood pressure less than 130/80 Start: 6 Instruction Type:Provider Instructions for Treatment How to access health information online Indication:Essential hypertension with goal blood pressure less than 130/80 Start:29-Oct-2015 Instruction Type:Patient Education How to access health information online - Detail Indication:Essential hypertension with goal blood pressure less than 130/80 Start:29-Oct-2015 Instruction Type:Patient Education Patient Instructions Indication:Essential hypertension with goal blood pressure less than 130/80 Start:29-Oct-2015 Instruction Type:Provider Instructions for Treatment How to access health information online Indication:Depression with anxiety Start: Instruction Type:Patient Education How to access health information online - Detail Indication:Depression with anxiety Start: Instruction Type:Patient Education Patient Instructions Indication:Depression with anxiety Start: Instruction Type:Provider Instructions for Treatment How to access health information online Indication:Anxiety and depression Start: Instruction Type:Patient Education How to access health information online - Detail Indication:Anxiety and depression Start: Instruction Type:Patient Education Patient Instructions Indication:Anxiety and depression Start: Instruction Type:Provider Instructions for Treatment [facility] Work Phone: Instructions Note Date & Type Note Facility Instructions Name Patient Instructions Indication:Anxiety and depression Start: Instruction Type:Provider Instructions for Treatment Patient Instructions Indication:BMI 40.0-44.9, adult Start: Instruction Type:Provider Instructions for Treatment How to Access Health Information Online using Patient Portal and [employer]rd [employer] Apps Indication:BMI 40.0-44.9, adult Start: 1 Instruction Type:Patient Education Patient Instructions Indication:Essential hypertension with goal blood pressure less than 130/80 Start: Instruction Type:Provider Instructions for Treatment How to Access Health Information Online using Patient Portal and [employer]rd [employer] Apps Indication:Essential hypertension with goal blood pressure less than 130/80 Start: Instruction Type:Patient Education Patient Instructions Indication:Anxiety and depression Start: Instruction Type:Provider Instructions for Treatment How to Access Health Information Online using Patient Portal and [employer]rd [employer] Apps Indication:Anxiety and depression Start:19-Apr-202 1 Instruction Type:Patient Education Patient Instructions Indication:Nonsmoker Start: 1 Instruction Type:Provider Instructions for Treatment How to Access Health Information Online using Patient Portal and [employer]rd [employer] Apps Indication:Nonsmoker Start: 1 Instruction Type:Patient Education How to access health information online Indication:Type II diabetes mellitus, uncontrolled Start: 0 Instruction Type:Patient Education How to access health information online - Detail Indication:Type II diabetes mellitus, uncontrolled Start: 0 Instruction Type:Patient Education Patient Instructions Indication:Type II diabetes mellitus, uncontrolled Start: 0 Instruction Type:Provider Instructions for Treatment How to access health information online Indication:Nonsmoker Start: 0 Instruction Type:Patient Education How to access health information online - Detail Indication:Nonsmoker Start: 0 Instruction Type:Patient Education Patient Instructions Indication:Nonsmoker Start: 0 Instruction Type:Provider Instructions for Treatment How to access health information online Indication:Anxiety and depression Start: 9 Instruction Type:Patient Education How to access health information online - Detail Indication:Anxiety and depression Start: 9 Instruction Type:Patient Education Patient Instructions Indication:Anxiety and depression Start: 9 Instruction Type:Provider Instructions for Treatment How to access health information online Indication:Depression with anxiety Start: 9 Instruction Type:Patient Education How to access health information online - Detail Indication:Depression with anxiety Start: 9 Instruction Type:Patient Education Patient Instructions Indication:Depression with anxiety Start: 9 Instruction Type:Provider Instructions for Treatment How to access health information online Indication:BMI 40.0-44.9, adult Start: 8 Instruction Type:Patient Education How to access health information online - Detail Indication:BMI 40.0-44.9, adult Start: 8 Instruction Type:Patient Education Patient Instructions Indication:BMI 40.0-44.9, adult Start: 8 Instruction Type:Provider Instructions for Treatment How to access health information online Indication:Essential hypertension with goal blood pressure less than 130/80 Start: 8 Instruction Type:Patient Education How to access health information online - Detail Indication:Essential hypertension with goal blood pressure less than 130/80 Start: 8 Instruction Type:Patient Education Patient Instructions Indication:Essential hypertension with goal blood pressure less than 130/80 Start: 8 Instruction Type:Provider Instructions for Treatment How to access health information online Indication:Nonsmoker Start:26-Feb-2018 Instruction Type:Patient Education How to access health information online - Detail Indication:Nonsmoker Start:26-Feb-2018 Instruction Type:Patient Education Patient Instructions Indication:Nonsmoker Start:26-Feb-2018 Instruction Type:Provider Instructions for Treatment How to access health information online Indication:Nonsmoker Start:25-May-2017 Instruction Type:Patient Education How to access health information online - Detail Indication:Nonsmoker Start:25-May-2017 Instruction Type:Patient Education Patient Instructions Indication:Nonsmoker Start:25-May-2017 Instruction Type:Provider Instructions for Treatment How to access health information online Indication:Essential hypertension with goal blood pressure less than 130/80 Start: Instruction Type:Patient Education How to access health information online - Detail Indication:Essential hypertension with goal blood pressure less than 130/80 Start: Instruction Type:Patient Education Patient Instructions Indication:Essential hypertension with goal blood pressure less than 130/80 Start: Instruction Type:Provider Instructions for Treatment How to access health information online Indication:Seasonal affective disorder Start: Instruction Type:Patient Education How to access health information online - Detail Indication:Seasonal affective disorder Start: Instruction Type:Patient Education Patient Instructions Indication:Seasonal affective disorder Start: Instruction Type:Provider Instructions for Treatment How to access health information online Indication:BMI 40.0-44.9, adult Start:24-Sep-2016 Instruction Type:Patient Education How to access health information online - Detail Indication:BMI 40.0-44.9, adult Start:24-Sep-2016 Instruction Type:Patient Education Patient Instructions Indication:BMI 40.0-44.9, adult Start:24-Sep-2016 Instruction Type:Provider Instructions for Treatment How to access health information online Indication:Nonsmoker Start: Instruction Type:Patient Education How to access health information online - Detail Indication:Nonsmoker Start: Instruction Type:Patient Education Patient Instructions Indication:Nonsmoker Start: Instruction Type:Provider Instructions for Treatment How to access health information online Indication:[facility] Start: Instruction Type:Patient Education How to access health information online - Detail Indication:[facility] Start: Instruction Type:Patient Education Patient Instructions Indication:[facility] Start: Instruction Type:Provider Instructions for Treatment How to access health information online Indication:Essential hypertension with goal blood pressure less than 130/80 Start: Instruction Type:Patient Education How to access health information online - Detail Indication:Essential hypertension with goal blood pressure less than 130/80 Start: Instruction Type:Patient Education Patient Instructions Indication:Essential hypertension with goal blood pressure less than 130/80 Start: Instruction Type:Provider Instructions for Treatment How to access health information online Indication:Essential hypertension with goal blood pressure less than 130/80 Start:29-Oct-2015 Instruction Type:Patient Education How to access health information online - Detail Indication:Essential hypertension with goal blood pressure less than 130/80 Start:29-Oct-2015 Instruction Type:Patient Education Patient Instructions Indication:Essential hypertension with goal blood pressure less than 130/80 Start:29-Oct-2015 Instruction Type:Provider Instructions for Treatment How to access health information online Indication:Depression with anxiety Start: Instruction Type:Patient Education How to access health information online - Detail Indication:Depression with anxiety Start: Instruction Type:Patient Education Patient Instructions Indication:Depression with anxiety Start: Instruction Type:Provider Instructions for Treatment How to access health information online Indication:Anxiety and depression Start: Instruction Type:Patient Education How to access health information online - Detail Indication:Anxiety and depression Start: Instruction Type:Patient Education Patient Instructions Indication:Anxiety and depression Start: Instruction Type:Provider Instructions for Treatment [facility]; [facility] Work Phone: Instructions Note Date & Type Note Facility Instructions Name Patient Instructions Indication:Unspecified Diagnosis Start:21-Aug-2021 Instruction Type:Provider Instructions for Treatment How to Access Health Information Online using Patient Portal and [employer]rd [employer] Apps Indication:Unspecified Diagnosis Start:21-Aug-2021 Instruction Type:Patient Education Patient Instructions Indication:Anxiety and depression Start: Instruction Type:Provider Instructions for Treatment Patient Instructions Indication:BMI 40.0-44.9, adult Start: Instruction Type:Provider Instructions for Treatment How to Access Health Information Online using Patient Portal and [employer] Apps Indication:BMI 40.0-44.9, adult Start: 1 Instruction Type:Patient Education Patient Instructions Indication:Essential hypertension with goal blood pressure less than 130/80 Start: Instruction Type:Provider Instructions for Treatment How to Access Health Information Online using Patient Portal and [employer]rd [employer] Apps Indication:Essential hypertension with goal blood pressure less than 130/80 Start: Instruction Type:Patient Education Patient Instructions Indication:Anxiety and depression Start: Instruction Type:Provider Instructions for Treatment How to Access Health Information Online using Patient Portal and [employer] Apps Indication:Anxiety and depression Start: Instruction Type:Patient Education Patient Instructions Indication:Nonsmoker Start: Instruction Type:Provider Instructions for Treatment How to Access Health Information Online using Patient Portal and [employer] Apps Indication:Nonsmoker Start: 1 Instruction Type:Patient Education How to access health information online Indication:Type II diabetes mellitus, uncontrolled Start: 0 Instruction Type:Patient Education How to access health information online - Detail Indication:Type II diabetes mellitus, uncontrolled Start: 0 Instruction Type:Patient Education Patient Instructions Indication:Type II diabetes mellitus, uncontrolled Start: 0 Instruction Type:Provider Instructions for Treatment How to access health information online Indication:Nonsmoker Start: 0 Instruction Type:Patient Education How to access health information online - Detail Indication:Nonsmoker Start: 0 Instruction Type:Patient Education Patient Instructions Indication:Nonsmoker Start: 0 Instruction Type:Provider Instructions for Treatment How to access health information online Indication:Anxiety and depression Start: 9 Instruction Type:Patient Education How to access health information online - Detail Indication:Anxiety and depression Start: 9 Instruction Type:Patient Education Patient Instructions Indication:Anxiety and depression Start: 9 Instruction Type:Provider Instructions for Treatment How to access health information online Indication:Depression with anxiety Start: 9 Instruction Type:Patient Education How to access health information online - Detail Indication:Depression with anxiety Start: 9 Instruction Type:Patient Education Patient Instructions Indication:Depression with anxiety Start: 9 Instruction Type:Provider Instructions for Treatment How to access health information online Indication:BMI 40.0-44.9, adult Start: 8 Instruction Type:Patient Education How to access health information online - Detail Indication:BMI 40.0-44.9, adult Start: 8 Instruction Type:Patient Education Patient Instructions Indication:BMI 40.0-44.9, adult Start: 8 Instruction Type:Provider Instructions for Treatment How to access health information online Indication:Essential hypertension with goal blood pressure less than 130/80 Start: 8 Instruction Type:Patient Education How to access health information online - Detail Indication:Essential hypertension with goal blood pressure less than 130/80 Start: 8 Instruction Type:Patient Education Patient Instructions Indication:Essential hypertension with goal blood pressure less than 130/80 Start: 8 Instruction Type:Provider Instructions for Treatment How to access health information online Indication:Nonsmoker Start:26-Feb-2018 Instruction Type:Patient Education How to access health information online - Detail Indication:Nonsmoker Start:26-Feb-2018 Instruction Type:Patient Education Patient Instructions Indication:Nonsmoker Start:26-Feb-2018 Instruction Type:Provider Instructions for Treatment How to access health information online Indication:Nonsmoker Start:25-May-2017 Instruction Type:Patient Education How to access health information online - Detail Indication:Nonsmoker Start:25-May-2017 Instruction Type:Patient Education Patient Instructions Indication:Nonsmoker Start:25-May-2017 Instruction Type:Provider Instructions for Treatment How to access health information online Indication:Essential hypertension with goal blood pressure less than 130/80 Start: 7 Instruction Type:Patient Education How to access health information online - Detail Indication:Essential hypertension with goal blood pressure less than 130/80 Start: 7 Instruction Type:Patient Education Patient Instructions Indication:Essential hypertension with goal blood pressure less than 130/80 Start: 7 Instruction Type:Provider Instructions for Treatment How to access health information online Indication:Seasonal affective disorder Start: 7 Instruction Type:Patient Education How to access health information online - Detail Indication:Seasonal affective disorder Start: Instruction Type:Patient Education Patient Instructions Indication:Seasonal affective disorder Start: Instruction Type:Provider Instructions for Treatment How to access health information online Indication:BMI 40.0-44.9, adult Start:24-Sep-2016 Instruction Type:Patient Education How to access health information online - Detail Indication:BMI 40.0-44.9, adult Start:24-Sep-2016 Instruction Type:Patient Education Patient Instructions Indication:BMI 40.0-44.9, adult Start:24-Sep-2016 Instruction Type:Provider Instructions for Treatment How to access health information online Indication:Nonsmoker Start: Instruction Type:Patient Education How to access health information online - Detail Indication:Nonsmoker Start: Instruction Type:Patient Education Patient Instructions Indication:Nonsmoker Start: Instruction Type:Provider Instructions for Treatment How to access health information online Indication:[facility] Start: Instruction Type:Patient Education How to access health information online - Detail Indication:[facility] Start: Instruction Type:Patient Education Patient Instructions Indication:[facility] Start: Instruction Type:Provider Instructions for Treatment How to access health information online Indication:Essential hypertension with goal blood pressure less than 130/80 Start: Instruction Type:Patient Education How to access health information online - Detail Indication:Essential hypertension with goal blood pressure less than 130/80 Start: Instruction Type:Patient Education Patient Instructions Indication:Essential hypertension with goal blood pressure less than 130/80 Start: Instruction Type:Provider Instructions for Treatment How to access health information online Indication:Essential hypertension with goal blood pressure less than 130/80 Start:29-Oct-2015 Instruction Type:Patient Education How to access health information online - Detail Indication:Essential hypertension with goal blood pressure less than 130/80 Start:29-Oct-2015 Instruction Type:Patient Education Patient Instructions Indication:Essential hypertension with goal blood pressure less than 130/80 Start:29-Oct-2015 Instruction Type:Provider Instructions for Treatment How to access health information online Indication:Depression with anxiety Start: Instruction Type:Patient Education How to access health information online - Detail Indication:Depression with anxiety Start: Instruction Type:Patient Education Patient Instructions Indication:Depression with anxiety Start: Instruction Type:Provider Instructions for Treatment How to access health information online Indication:Anxiety and depression Start: Instruction Type:Patient Education How to access health information online - Detail Indication:Anxiety and depression Start: Instruction Type:Patient Education Patient Instructions Indication:Anxiety and depression Start: Instruction Type:Provider Instructions for Treatment [facility]; [facility] Work Phone: Instructions Note Date & Type Note Facility Instructions Name Patient Instructions Indication:Essential hypertension with goal blood pressure less than 130/80 Start:21-Aug-2021 Instruction Type:Provider Instructions for Treatment How to Access Health Information Online using Patient Portal and [employer]rd [employer] Apps Indication:Essential hypertension with goal blood pressure less than 130/80 Start:21-Aug-2021 Instruction Type:Patient Education Patient Instructions Indication:Anxiety and depression Start: Instruction Type:Provider Instructions for Treatment Patient Instructions Indication:BMI 40.0-44.9, adult Start: Instruction Type:Provider Instructions for Treatment How to Access Health Information Online using Patient Portal and [employer]rd [employer] Apps Indication:BMI 40.0-44.9, adult Start: 1 Instruction Type:Patient Education Patient Instructions Indication:Essential hypertension with goal blood pressure less than 130/80 Start: Instruction Type:Provider Instructions for Treatment How to Access Health Information Online using Patient Portal and [employer] Apps Indication:Essential hypertension with goal blood pressure less than 130/80 Start: 1 Instruction Type:Patient Education Patient Instructions Indication:Anxiety and depression Start: 1 Instruction Type:Provider Instructions for Treatment How to Access Health Information Online using Patient Portal and [employer] Apps Indication:Anxiety and depression Start: 1 Instruction Type:Patient Education Patient Instructions Indication:Nonsmoker Start: 1 Instruction Type:Provider Instructions for Treatment How to Access Health Information Online using Patient Portal and [employer] Apps Indication:Nonsmoker Start: 1 Instruction Type:Patient Education How to access health information online Indication:Type II diabetes mellitus, uncontrolled Start: 0 Instruction Type:Patient Education How to access health information online - Detail Indication:Type II diabetes mellitus, uncontrolled Start: 0 Instruction Type:Patient Education Patient Instructions Indication:Type II diabetes mellitus, uncontrolled Start: 0 Instruction Type:Provider Instructions for Treatment How to access health information online Indication:Nonsmoker Start: 0 Instruction Type:Patient Education How to access health information online - Detail Indication:Nonsmoker Start: 0 Instruction Type:Patient Education Patient Instructions Indication:Nonsmoker Start: 0 Instruction Type:Provider Instructions for Treatment How to access health information online Indication:Anxiety and depression Start: 9 Instruction Type:Patient Education How to access health information online - Detail Indication:Anxiety and depression Start: 9 Instruction Type:Patient Education Patient Instructions Indication:Anxiety and depression Start: 9 Instruction Type:Provider Instructions for Treatment How to access health information online Indication:Depression with anxiety Start: 9 Instruction Type:Patient Education How to access health information online - Detail Indication:Depression with anxiety Start: 9 Instruction Type:Patient Education Patient Instructions Indication:Depression with anxiety Start: 9 Instruction Type:Provider Instructions for Treatment How to access health information online Indication:BMI 40.0-44.9, adult Start: 8 Instruction Type:Patient Education How to access health information online - Detail Indication:BMI 40.0-44.9, adult Start: 8 Instruction Type:Patient Education Patient Instructions Indication:BMI 40.0-44.9, adult Start: 8 Instruction Type:Provider Instructions for Treatment How to access health information online Indication:Essential hypertension with goal blood pressure less than 130/80 Start: 8 Instruction Type:Patient Education How to access health information online - Detail Indication:Essential hypertension with goal blood pressure less than 130/80 Start: 8 Instruction Type:Patient Education Patient Instructions Indication:Essential hypertension with goal blood pressure less than 130/80 Start: 8 Instruction Type:Provider Instructions for Treatment How to access health information online Indication:Nonsmoker Start:26-Feb-2018 Instruction Type:Patient Education How to access health information online - Detail Indication:Nonsmoker Start:26-Feb-2018 Instruction Type:Patient Education Patient Instructions Indication:Nonsmoker Start:26-Feb-2018 Instruction Type:Provider Instructions for Treatment How to access health information online Indication:Nonsmoker Start:25-May-2017 Instruction Type:Patient Education How to access health information online - Detail Indication:Nonsmoker Start:25-May-2017 Instruction Type:Patient Education Patient Instructions Indication:Nonsmoker Start:25-May-2017 Instruction Type:Provider Instructions for Treatment How to access health information online Indication:Essential hypertension with goal blood pressure less than 130/80 Start: Instruction Type:Patient Education How to access health information online - Detail Indication:Essential hypertension with goal blood pressure less than 130/80 Start: Instruction Type:Patient Education Patient Instructions Indication:Essential hypertension with goal blood pressure less than 130/80 Start: Instruction Type:Provider Instructions for Treatment How to access health information online Indication:Seasonal affective disorder Start: Instruction Type:Patient Education How to access health information online - Detail Indication:Seasonal affective disorder Start: Instruction Type:Patient Education Patient Instructions Indication:Seasonal affective disorder Start: Instruction Type:Provider Instructions for Treatment How to access health information online Indication:BMI 40.0-44.9, adult Start:24-Sep-2016 Instruction Type:Patient Education How to access health information online - Detail Indication:BMI 40.0-44.9, adult Start:24-Sep-2016 Instruction Type:Patient Education Patient Instructions Indication:BMI 40.0-44.9, adult Start:24-Sep-2016 Instruction Type:Provider Instructions for Treatment How to access health information online Indication:Nonsmoker Start: Instruction Type:Patient Education How to access health information online - Detail Indication:Nonsmoker Start: Instruction Type:Patient Education Patient Instructions Indication:Nonsmoker Start: Instruction Type:Provider Instructions for Treatment How to access health information online Indication:[facility] Start: Instruction Type:Patient Education How to access health information online - Detail Indication:[facility] Start: Instruction Type:Patient Education Patient Instructions Indication:[facility] Start: Instruction Type:Provider Instructions for Treatment How to access health information online Indication:Essential hypertension with goal blood pressure less than 130/80 Start: Instruction Type:Patient Education How to access health information online - Detail Indication:Essential hypertension with goal blood pressure less than 130/80 Start: Instruction Type:Patient Education Patient Instructions Indication:Essential hypertension with goal blood pressure less than 130/80 Start: Instruction Type:Provider Instructions for Treatment How to access health information online Indication:Essential hypertension with goal blood pressure less than 130/80 Start:29-Oct-2015 Instruction Type:Patient Education How to access health information online - Detail Indication:Essential hypertension with goal blood pressure less than 130/80 Start:29-Oct-2015 Instruction Type:Patient Education Patient Instructions Indication:Essential hypertension with goal blood pressure less than 130/80 Start:29-Oct-2015 Instruction Type:Provider Instructions for Treatment How to access health information online Indication:Depression with anxiety Start: Instruction Type:Patient Education How to access health information online - Detail Indication:Depression with anxiety Start: Instruction Type:Patient Education Patient Instructions Indication:Depression with anxiety Start: Instruction Type:Provider Instructions for Treatment How to access health information online Indication:Anxiety and depression Start: Instruction Type:Patient Education How to access health information online - Detail Indication:Anxiety and depression Start: Instruction Type:Patient Education Patient Instructions Indication:Anxiety and depression Start: Instruction Type:Provider Instructions for Treatment [facility]; [facility] Work Phone: Instructions Note Date & Type Note Facility Instructions Name Patient Instructions Indication:Nonsmoker Start: 2 Instruction Type:Provider Instructions for Treatment How to Access Health Information Online using Patient Portal and [employer] Apps Indication:Nonsmoker Start: 2 Instruction Type:Patient Education Patient Instructions Indication:Essential hypertension with goal blood pressure less than 130/80 Start:21-Aug-2021 Instruction Type:Provider Instructions for Treatment How to Access Health Information Online using Patient Portal and [employer] Apps Indication:Essential hypertension with goal blood pressure less than 130/80 Start:21-Aug-2021 Instruction Type:Patient Education Patient Instructions Indication:Anxiety and depression Start: 1 Instruction Type:Provider Instructions for Treatment Patient Instructions Indication:BMI 40.0-44.9, adult Start: 1 Instruction Type:Provider Instructions for Treatment How to Access Health Information Online using Patient Portal and [employer] Apps Indication:BMI 40.0-44.9, adult Start: 1 Instruction Type:Patient Education Patient Instructions Indication:Essential hypertension with goal blood pressure less than 130/80 Start: Instruction Type:Provider Instructions for Treatment How to Access Health Information Online using Patient Portal and [employer] Apps Indication:Essential hypertension with goal blood pressure less than 130/80 Start: Instruction Type:Patient Education Patient Instructions Indication:Anxiety and depression Start: Instruction Type:Provider Instructions for Treatment How to Access Health Information Online using Patient Portal and [employer] Apps Indication:Anxiety and depression Start: Instruction Type:Patient Education Patient Instructions Indication:Nonsmoker Start: Instruction Type:Provider Instructions for Treatment How to Access Health Information Online using Patient Portal and [employer] Apps Indication:Nonsmoker Start: 1 Instruction Type:Patient Education How to access health information online Indication:Type II diabetes mellitus, uncontrolled Start: 0 Instruction Type:Patient Education How to access health information online - Detail Indication:Type II diabetes mellitus, uncontrolled Start: 0 Instruction Type:Patient Education Patient Instructions Indication:Type II diabetes mellitus, uncontrolled Start: 0 Instruction Type:Provider Instructions for Treatment How to access health information online Indication:Nonsmoker Start: 0 Instruction Type:Patient Education How to access health information online - Detail Indication:Nonsmoker Start: 0 Instruction Type:Patient Education Patient Instructions Indication:Nonsmoker Start: 0 Instruction Type:Provider Instructions for Treatment How to access health information online Indication:Anxiety and depression Start: 9 Instruction Type:Patient Education How to access health information online - Detail Indication:Anxiety and depression Start: 9 Instruction Type:Patient Education Patient Instructions Indication:Anxiety and depression Start: 9 Instruction Type:Provider Instructions for Treatment How to access health information online Indication:Depression with anxiety Start: 9 Instruction Type:Patient Education How to access health information online - Detail Indication:Depression with anxiety Start: 9 Instruction Type:Patient Education Patient Instructions Indication:Depression with anxiety Start: 9 Instruction Type:Provider Instructions for Treatment How to access health information online Indication:BMI 40.0-44.9, adult Start: 8 Instruction Type:Patient Education How to access health information online - Detail Indication:BMI 40.0-44.9, adult Start: 8 Instruction Type:Patient Education Patient Instructions Indication:BMI 40.0-44.9, adult Start: 8 Instruction Type:Provider Instructions for Treatment How to access health information online Indication:Essential hypertension with goal blood pressure less than 130/80 Start: 8 Instruction Type:Patient Education How to access health information online - Detail Indication:Essential hypertension with goal blood pressure less than 130/80 Start: 8 Instruction Type:Patient Education Patient Instructions Indication:Essential hypertension with goal blood pressure less than 130/80 Start: 8 Instruction Type:Provider Instructions for Treatment How to access health information online Indication:Nonsmoker Start:26-Feb-2018 Instruction Type:Patient Education How to access health information online - Detail Indication:Nonsmoker Start:26-Feb-2018 Instruction Type:Patient Education Patient Instructions Indication:Nonsmoker Start:26-Feb-2018 Instruction Type:Provider Instructions for Treatment How to access health information online Indication:Nonsmoker Start:25-May-2017 Instruction Type:Patient Education How to access health information online - Detail Indication:Nonsmoker Start:25-May-2017 Instruction Type:Patient Education Patient Instructions Indication:Nonsmoker Start:25-May-2017 Instruction Type:Provider Instructions for Treatment How to access health information online Indication:Essential hypertension with goal blood pressure less than 130/80 Start: 7 Instruction Type:Patient Education How to access health information online - Detail Indication:Essential hypertension with goal blood pressure less than 130/80 Start: 7 Instruction Type:Patient Education Patient Instructions Indication:Essential hypertension with goal blood pressure less than 130/80 Start: 7 Instruction Type:Provider Instructions for Treatment How to access health information online Indication:Seasonal affective disorder Start: Instruction Type:Patient Education How to access health information online - Detail Indication:Seasonal affective disorder Start:17-May-201 7 Instruction Type:Patient Education Patient Instructions Indication:Seasonal affective disorder Start: Instruction Type:Provider Instructions for Treatment How to access health information online Indication:BMI 40.0-44.9, adult Start:24-Sep-2016 Instruction Type:Patient Education How to access health information online - Detail Indication:BMI 40.0-44.9, adult Start:24-Sep-2016 Instruction Type:Patient Education Patient Instructions Indication:BMI 40.0-44.9, adult Start:24-Sep-2016 Instruction Type:Provider Instructions for Treatment How to access health information online Indication:Nonsmoker Start: 7 Instruction Type:Patient Education How to access health information online - Detail Indication:Nonsmoker Start: Instruction Type:Patient Education Patient Instructions Indication:Nonsmoker Start: Instruction Type:Provider Instructions for Treatment How to access health information online Indication:[facility] Start: Instruction Type:Patient Education How to access health information online - Detail Indication:[facility] Start: Instruction Type:Patient Education Patient Instructions Indication:[facility] Start: Instruction Type:Provider Instructions for Treatment How to access health information online Indication:Essential hypertension with goal blood pressure less than 130/80 Start: Instruction Type:Patient Education How to access health information online - Detail Indication:Essential hypertension with goal blood pressure less than 130/80 Start: Instruction Type:Patient Education Patient Instructions Indication:Essential hypertension with goal blood pressure less than 130/80 Start: Instruction Type:Provider Instructions for Treatment How to access health information online Indication:Essential hypertension with goal blood pressure less than 130/80 Start:29-Oct-2015 Instruction Type:Patient Education How to access health information online - Detail Indication:Essential hypertension with goal blood pressure less than 130/80 Start:29-Oct-2015 Instruction Type:Patient Education Patient Instructions Indication:Essential hypertension with goal blood pressure less than 130/80 Start:29-Oct-2015 Instruction Type:Provider Instructions for Treatment How to access health information online Indication:Depression with anxiety Start: Instruction Type:Patient Education How to access health information online - Detail Indication:Depression with anxiety Start: Instruction Type:Patient Education Patient Instructions Indication:Depression with anxiety Start: Instruction Type:Provider Instructions for Treatment How to access health information online Indication:Anxiety and depression Start: Instruction Type:Patient Education How to access health information online - Detail Indication:Anxiety and depression Start: 6 Instruction Type:Patient Education Patient Instructions Indication:Anxiety and depression Start: Instruction Type:Provider Instructions for Treatment [facility] Work Phone: Instructions Note Date & Type Note Facility Instructions Name Patient Instructions Indication:Nonsmoker Start: 2 Instruction Type:Provider Instructions for Treatment How to Access Health Information Online using Patient Portal and [employer]rd [employer] Apps Indication:Nonsmoker Start: 2 Instruction Type:Patient Education Patient Instructions Indication:Nonsmoker Start: 2 Instruction Type:Provider Instructions for Treatment How to Access Health Information Online using Patient Portal and [employer] Apps Indication:Nonsmoker Start: 2 Instruction Type:Patient Education Patient Instructions Indication:Essential hypertension with goal blood pressure less than 130/80 Start:21-Aug-2021 Instruction Type:Provider Instructions for Treatment How to Access Health Information Online using Patient Portal and [employer] Apps Indication:Essential hypertension with goal blood pressure less than 130/80 Start:21-Aug-2021 Instruction Type:Patient Education Patient Instructions Indication:Anxiety and depression Start: 1 Instruction Type:Provider Instructions for Treatment Patient Instructions Indication:BMI 40.0-44.9, adult Start: 1 Instruction Type:Provider Instructions for Treatment How to Access Health Information Online using Patient Portal and [employer]rd [employer] Apps Indication:BMI 40.0-44.9, adult Start: 1 Instruction Type:Patient Education Patient Instructions Indication:Essential hypertension with goal blood pressure less than 130/80 Start: Instruction Type:Provider Instructions for Treatment How to Access Health Information Online using Patient Portal and [employer]rd [employer] Apps Indication:Essential hypertension with goal blood pressure less than 130/80 Start: 1 Instruction Type:Patient Education Patient Instructions Indication:Anxiety and depression Start: 1 Instruction Type:Provider Instructions for Treatment How to Access Health Information Online using Patient Portal and [employer]rd [employer] Apps Indication:Anxiety and depression Start: 1 Instruction Type:Patient Education Patient Instructions Indication:Nonsmoker Start: 1 Instruction Type:Provider Instructions for Treatment How to Access Health Information Online using Patient Portal and [employer]rd [employer] Apps Indication:Nonsmoker Start: 1 Instruction Type:Patient Education How to access health information online Indication:Type II diabetes mellitus, uncontrolled Start: 0 Instruction Type:Patient Education How to access health information online - Detail Indication:Type II diabetes mellitus, uncontrolled Start: 0 Instruction Type:Patient Education Patient Instructions Indication:Type II diabetes mellitus, uncontrolled Start: 0 Instruction Type:Provider Instructions for Treatment How to access health information online Indication:Nonsmoker Start: 0 Instruction Type:Patient Education How to access health information online - Detail Indication:Nonsmoker Start: 0 Instruction Type:Patient Education Patient Instructions Indication:Nonsmoker Start: 0 Instruction Type:Provider Instructions for Treatment How to access health information online Indication:Anxiety and depression Start: 9 Instruction Type:Patient Education How to access health information online - Detail Indication:Anxiety and depression Start: 9 Instruction Type:Patient Education Patient Instructions Indication:Anxiety and depression Start: 9 Instruction Type:Provider Instructions for Treatment How to access health information online Indication:Depression with anxiety Start: 9 Instruction Type:Patient Education How to access health information online - Detail Indication:Depression with anxiety Start: 9 Instruction Type:Patient Education Patient Instructions Indication:Depression with anxiety Start: 9 Instruction Type:Provider Instructions for Treatment How to access health information online Indication:BMI 40.0-44.9, adult Start: 8 Instruction Type:Patient Education How to access health information online - Detail Indication:BMI 40.0-44.9, adult Start: 8 Instruction Type:Patient Education Patient Instructions Indication:BMI 40.0-44.9, adult Start: 8 Instruction Type:Provider Instructions for Treatment How to access health information online Indication:Essential hypertension with goal blood pressure less than 130/80 Start: 8 Instruction Type:Patient Education How to access health information online - Detail Indication:Essential hypertension with goal blood pressure less than 130/80 Start: 8 Instruction Type:Patient Education Patient Instructions Indication:Essential hypertension with goal blood pressure less than 130/80 Start: 8 Instruction Type:Provider Instructions for Treatment How to access health information online Indication:Nonsmoker Start:26-Feb-2018 Instruction Type:Patient Education How to access health information online - Detail Indication:Nonsmoker Start:26-Feb-2018 Instruction Type:Patient Education Patient Instructions Indication:Nonsmoker Start:26-Feb-2018 Instruction Type:Provider Instructions for Treatment How to access health information online Indication:Nonsmoker Start:25-May-2017 Instruction Type:Patient Education How to access health information online - Detail Indication:Nonsmoker Start:25-May-2017 Instruction Type:Patient Education Patient Instructions Indication:Nonsmoker Start:25-May-2017 Instruction Type:Provider Instructions for Treatment How to access health information online Indication:Essential hypertension with goal blood pressure less than 130/80 Start: Instruction Type:Patient Education How to access health information online - Detail Indication:Essential hypertension with goal blood pressure less than 130/80 Start: Instruction Type:Patient Education Patient Instructions Indication:Essential hypertension with goal blood pressure less than 130/80 Start: Instruction Type:Provider Instructions for Treatment How to access health information online Indication:Seasonal affective disorder Start: Instruction Type:Patient Education How to access health information online - Detail Indication:Seasonal affective disorder Start: Instruction Type:Patient Education Patient Instructions Indication:Seasonal affective disorder Start: Instruction Type:Provider Instructions for Treatment How to access health information online Indication:BMI 40.0-44.9, adult Start:24-Sep-2016 Instruction Type:Patient Education How to access health information online - Detail Indication:BMI 40.0-44.9, adult Start:24-Sep-2016 Instruction Type:Patient Education Patient Instructions Indication:BMI 40.0-44.9, adult Start:24-Sep-2016 Instruction Type:Provider Instructions for Treatment How to access health information online Indication:Nonsmoker Start: Instruction Type:Patient Education How to access health information online - Detail Indication:Nonsmoker Start: Instruction Type:Patient Education Patient Instructions Indication:Nonsmoker Start:22-Feb-201 7 Instruction Type:Provider Instructions for Treatment How to access health information online Indication:[facility] Start: 6 Instruction Type:Patient Education How to access health information online - Detail Indication:[facility] Start: 6 Instruction Type:Patient Education Patient Instructions Indication:[facility] Start: 6 Instruction Type:Provider Instructions for Treatment How to access health information online Indication:Essential hypertension with goal blood pressure less than 130/80 Start: Instruction Type:Patient Education How to access health information online - Detail Indication:Essential hypertension with goal blood pressure less than 130/80 Start: 6 Instruction Type:Patient Education Patient Instructions Indication:Essential hypertension with goal blood pressure less than 130/80 Start: Instruction Type:Provider Instructions for Treatment How to access health information online Indication:Essential hypertension with goal blood pressure less than 130/80 Start:29-Oct-2015 Instruction Type:Patient Education How to access health information online - Detail Indication:Essential hypertension with goal blood pressure less than 130/80 Start:29-Oct-2015 Instruction Type:Patient Education Patient Instructions Indication:Essential hypertension with goal blood pressure less than 130/80 Start:29-Oct-2015 Instruction Type:Provider Instructions for Treatment How to access health information online Indication:Depression with anxiety Start: Instruction Type:Patient Education How to access health information online - Detail Indication:Depression with anxiety Start: Instruction Type:Patient Education Patient Instructions Indication:Depression with anxiety Start: Instruction Type:Provider Instructions for Treatment How to access health information online Indication:Anxiety and depression Start: Instruction Type:Patient Education How to access health information online - Detail Indication:Anxiety and depression Start: Instruction Type:Patient Education Patient Instructions Indication:Anxiety and depression Start: Instruction Type:Provider Instructions for Treatment [facility] Work Phone: Reason for visit Narrative Imaging (Routine) - Pending Review Note Date & Type Note Facility Reason for visit Narrative Specialty Diagnoses / Procedures Referred By Contac t Referred To Contact Radiology Diagnoses Other hyperlipidemia Procedures CT cardiac scoring wo IV contrast Cassandra Osei DO [id number] [facility] [address] [place] [address] Phone: tel: fax: Referral ID Status Reason Start Date Expiration Date Visits Requested Visits Authorized [id number] Pending Review Perform Procedure 4 05/13/2025 1 1 [facility] Work Phone: Family History No Family History Records FoundUnknown Family Member Name Dates Details Family Members In General Comments:htn diabetes heart disease thyroid disease psoriatric arthritiis Status:Active Unknown Family Member Name Dates Details Family Members In General Comments:htn diabetes heart disease thyroid disease psoriatric arthritiis Status:Active Unknown Family Member Name Dates Details Family Members In General Comments:htn diabetes heart disease thyroid disease psoriatric arthritiis Status:Active Unknown Family Member Name Dates Details Family Members In General Comments:htn diabetes heart disease thyroid disease psoriatric arthritiis Status:Active Unknown Family Member Name Dates Details Family Members In General Comments:htn diabetes heart disease thyroid disease psoriatric arthritiis Status:Active Unknown Family Member Name Dates Details Family Members In General Comments:htn diabetes heart disease thyroid disease psoriatric arthritiis Status:Active Unknown Family Member Name Dates Details Family Members In General Comments:htn diabetes heart disease thyroid disease psoriatric arthritiis Status:Active Unknown Family Member Name Dates Details Family Members In General Comments:htn diabetes heart disease thyroid disease psoriatric arthritiis Status:Active Unknown Family Member Name Dates Details Family Members In General Comments:htn diabetes heart disease thyroid disease psoriatric arthritiis Status:Active Unknown Family Member Name Dates Details Family Members In General Comments:htn diabetes heart disease thyroid disease psoriatric arthritiis Status:Active Unknown Family Member Name Dates Details Family Members In General Comments:htn diabetes heart disease thyroid disease psoriatric arthritiis Status:Active Unknown Family Member Name Dates Details Family Members In General Comments:htn diabetes heart disease thyroid disease psoriatric arthritiis Status:Active Unknown Family Member Name Dates Details Family Members In General Comments:htn diabetes heart disease thyroid disease psoriatric arthritiis Status:Active Unknown Family Member Name Dates Details Family Members In General Comments:htn diabetes heart disease thyroid disease psoriatric arthritiis Status:Active Unknown Family Member Name Dates Details Family Members In General Comments:htn diabetes heart disease thyroid disease psoriatric arthritiis Status:Active Unknown Family Member Name Dates Details Family Members In General Comments:htn diabetes heart disease thyroid disease psoriatric arthritiis Status:Active Unknown Family Member Name Dates Details Family Members In General Comments:htn diabetes heart disease thyroid disease psoriatric arthritiis Status:Active Unknown Family Member Name Dates Details Family Members In General Comments:htn diabetes heart disease thyroid disease psoriatric arthritiis Status:Active Unknown Family Member Name Dates Details Family Members In General Comments:htn diabetes heart disease thyroid disease psoriatric arthritiis Status:Active Instructions Name Dates Details BMI 40.0-44.9, adult : How t o access health information online Indication:BMI 40.0-44.9, adult BMI 40.0-44.9, adult : How t o access health information online - Detail Indication:BMI 40.0-44.9, adult BMI 40.0-44.9, adult : Patie nt Instructions Indication:BMI 40.0-44.9, adult Essential hypertension with goal blood pressure less than 130/80 : How to access health information online Indication:Essential hypertension with goal blood pressure less than 130/80 Essential hypertension with goal blood pressure less than 130/80 : How to access health information online - Detail Indication:Essential hypertension with goal blood pressure less than 130/80 Essential hypertension with goal blood pressure less than 130/80 : Patient Instructions Indication:Essential hypertension with goal blood pressure less than 130/80 Nonsmoker : How to access he alth information online Indication:Nonsmoker Nonsmoker : How to access he alth information online - Detail Indication:Nonsmoker Nonsmoker : Patient Instruct ions Indication:Nonsmoker Seasonal affective disorder : How to access health information online Indication:Seasonal affective disorder Seasonal affective disorder : How to access health information online - Detail Indication:Seasonal affective disorder Seasonal affective disorder : Patient Instructions Indication:Seasonal affective disorder [facility] : Ho w to access health information online Indication:[facility] : Ho w to access health information online - Detail Indication:[facility] : Pa tient Instructions Indication:[facility] Depression with anxiety : Ho w to access health information online Indication:Depression with anxiety Depression with anxiety : Ho w to access health information online - Detail Indication:Depression with anxiety Depression with anxiety : Pa tient Instructions Indication:Depression with anxiety Anxiety and depression : How to access health information online Indication:Anxiety and depression Anxiety and depression : How to access health information online - Detail Indication:Anxiety and depression Anxiety and depression : Pat ient Instructions Indication:Anxiety and depression Name Dates Details BMI 40.0-44.9, adult : How t o access health information online Indication:BMI 40.0-44.9, adult BMI 40.0-44.9, adult : How t o access health information online - Detail Indication:BMI 40.0-44.9, adult BMI 40.0-44.9, adult : Patie nt Instructions Indication:BMI 40.0-44.9, adult Essential hypertension with goal blood pressure less than 130/80 : How to access health information online Indication:Essential hypertension with goal blood pressure less than 130/80 Essential hypertension with goal blood pressure less than 130/80 : How to access health information online - Detail Indication:Essential hypertension with goal blood pressure less than 130/80 Essential hypertension with goal blood pressure less than 130/80 : Patient Instructions Indication:Essential hypertension with goal blood pressure less than 130/80 Nonsmoker : How to access he alth information online Indication:Nonsmoker Nonsmoker : How to access he alth information online - Detail Indication:Nonsmoker Nonsmoker : Patient Instruct ions Indication:Nonsmoker Seasonal affective disorder : How to access health information online Indication:Seasonal affective disorder Seasonal affective disorder : How to access health information online - Detail Indication:Seasonal affective disorder Seasonal affective disorder : Patient Instructions Indication:Seasonal affective disorder [facility] : Ho w to access health information online Indication:[facility] : Ho w to access health information online - Detail Indication:[facility] : Pa tient Instructions Indication:[facility] Depression with anxiety : Ho w to access health information online Indication:Depression with anxiety Depression with anxiety : Ho w to access health information online - Detail Indication:Depression with anxiety Depression with anxiety : Pa tient Instructions Indication:Depression with anxiety Anxiety and depression : How to access health information online Indication:Anxiety and depression Anxiety and depression : How to access health information online - Detail Indication:Anxiety and depression Anxiety and depression : Pat ient Instructions Indication:Anxiety and depression Name Dates Details Depression with anxiety : Ho w to access health information online Indication:Depression with anxiety Depression with anxiety : Ho w to access health information online - Detail Indication:Depression with anxiety Depression with anxiety : Pa tient Instructions Indication:Depression with anxiety BMI 40.0-44.9, adult : How t o access health information online Indication:BMI 40.0-44.9, adult BMI 40.0-44.9, adult : How t o access health information online - Detail Indication:BMI 40.0-44.9, adult BMI 40.0-44.9, adult : Patie nt Instructions Indication:BMI 40.0-44.9, adult Essential hypertension with goal blood pressure less than 130/80 : How to access health information online Indication:Essential hypertension with goal blood pressure less than 130/80 Essential hypertension with goal blood pressure less than 130/80 : How to access health information online - Detail Indication:Essential hypertension with goal blood pressure less than 130/80 Essential hypertension with goal blood pressure less than 130/80 : Patient Instructions Indication:Essential hypertension with goal blood pressure less than 130/80 Nonsmoker : How to access he alth information online Indication:Nonsmoker Nonsmoker : How to access he alth information online - Detail Indication:Nonsmoker Nonsmoker : Patient Instruct ions Indication:Nonsmoker Seasonal affective disorder : How to access health information online Indication:Seasonal affective disorder Seasonal affective disorder : How to access health information online - Detail Indication:Seasonal affective disorder Seasonal affective disorder : Patient Instructions Indication:Seasonal affective disorder [facility] : Ho w to access health information online Indication:[facility] : Ho w to access health information online - Detail Indication:[facility] : Pa tient Instructions Indication:[facility] Anxiety and depression : How to access health information online Indication:Anxiety and depression Anxiety and depression : How to access health information online - Detail Indication:Anxiety and depression Anxiety and depression : Pat ient Instructions Indication:Anxiety and depression Name Dates Details Anxiety and depression : How to access health information online Indication:Anxiety and depression Anxiety and depression : How to access health information online - Detail Indication:Anxiety and depression Anxiety and depression : Pat ient Instructions Indication:Anxiety and depression Depression with anxiety : Ho w to access health information online Indication:Depression with anxiety Depression with anxiety : Ho w to access health information online - Detail Indication:Depression with anxiety Depression with anxiety : Pa tient Instructions Indication:Depression with anxiety BMI 40.0-44.9, adult : How t o access health information online Indication:BMI 40.0-44.9, adult BMI 40.0-44.9, adult : How t o access health information online - Detail Indication:BMI 40.0-44.9, adult BMI 40.0-44.9, adult : Patie nt Instructions Indication:BMI 40.0-44.9, adult Essential hypertension with goal blood pressure less than 130/80 : How to access health information online Indication:Essential hypertension with goal blood pressure less than 130/80 Essential hypertension with goal blood pressure less than 130/80 : How to access health information online - Detail Indication:Essential hypertension with goal blood pressure less than 130/80 Essential hypertension with goal blood pressure less than 130/80 : Patient Instructions Indication:Essential hypertension with goal blood pressure less than 130/80 Nonsmoker : How to access he alth information online Indication:Nonsmoker Nonsmoker : How to access he alth information online - Detail Indication:Nonsmoker Nonsmoker : Patient Instruct ions Indication:Nonsmoker Seasonal affective disorder : How to access health information online Indication:Seasonal affective disorder Seasonal affective disorder : How to access health information online - Detail Indication:Seasonal affective disorder Seasonal affective disorder : Patient Instructions Indication:Seasonal affective disorder [facility] : Ho w to access health information online Indication:[facility] : Ho w to access health information online - Detail Indication:[facility] : Pa tient Instructions Indication:[facility] Name Dates Details Anxiety and depression : How to access health information online Indication:Anxiety and depression Anxiety and depression : How to access health information online - Detail Indication:Anxiety and depression Anxiety and depression : Pat ient Instructions Indication:Anxiety and depression Depression with anxiety : Ho w to access health information online Indication:Depression with anxiety Depression with anxiety : Ho w to access health information online - Detail Indication:Depression with anxiety Depression with anxiety : Pa tient Instructions Indication:Depression with anxiety BMI 40.0-44.9, adult : How t o access health information online Indication:BMI 40.0-44.9, adult BMI 40.0-44.9, adult : How t o access health information online - Detail Indication:BMI 40.0-44.9, adult BMI 40.0-44.9, adult : Patie nt Instructions Indication:BMI 40.0-44.9, adult Essential hypertension with goal blood pressure less than 130/80 : How to access health information online Indication:Essential hypertension with goal blood pressure less than 130/80 Essential hypertension with goal blood pressure less than 130/80 : How to access health information online - Detail Indication:Essential hypertension with goal blood pressure less than 130/80 Essential hypertension with goal blood pressure less than 130/80 : Patient Instructions Indication:Essential hypertension with goal blood pressure less than 130/80 Nonsmoker : How to access he alth information online Indication:Nonsmoker Nonsmoker : How to access he alth information online - Detail Indication:Nonsmoker Nonsmoker : Patient Instruct ions Indication:Nonsmoker Seasonal affective disorder : How to access health information online Indication:Seasonal affective disorder Seasonal affective disorder : How to access health information online - Detail Indication:Seasonal affective disorder Seasonal affective disorder : Patient Instructions Indication:Seasonal affective disorder [facility] : Ho w to access health information online Indication:[facility] : Ho w to access health information online - Detail Indication:[facility] : Pa tient Instructions Indication:[facility] Name Dates Details How to access health informa tion online Indication:Nonsmoker Start:17-Apr-2020 Instruction Type:Patient Education How to access health informa tion online - Detail Indication:Nonsmoker Start:17-Apr-2020 Instruction Type:Patient Education Patient Instructions Indication:Nonsmoker Start:17-Apr-2020 Instruction Type:Provider Instructions for Treatment How to access health informa tion online Indication:Anxiety and depression Start:13-Sep-2018 Instruction Type:Patient Education How to access health informa tion online - Detail Indication:Anxiety and depression Start:13-Sep-2018 Instruction Type:Patient Education Patient Instructions Indication:Anxiety and depression Start:13-Sep-2018 Instruction Type:Provider Instructions for Treatment How to access health informa tion online Indication:Depression with anxiety Start:14-Jul-2018 Instruction Type:Patient Education How to access health informa tion online - Detail Indication:Depression with anxiety Start:14-Jul-2018 Instruction Type:Patient Education Patient Instructions Indication:Depression with anxiety Start:14-Jul-2018 Instruction Type:Provider Instructions for Treatment How to access health informa tion online Indication:BMI 40.0-44.9, adult Start:11-Jun-2018 Instruction Type:Patient Education How to access health informa tion online - Detail Indication:BMI 40.0-44.9, adult Start:11-Jun-2018 Instruction Type:Patient Education Patient Instructions Indication:BMI 40.0-44.9, adult Start:11-Jun-2018 Instruction Type:Provider Instructions for Treatment How to access health informa tion online Indication:Essential hypertension with goal blood pressure less than 130/80 Start:09-Apr-2018 Instruction Type:Patient Education How to access health informa tion online - Detail Indication:Essential hypertension with goal blood pressure less than 130/80 Start:09-Apr-2018 Instruction Type:Patient Education Patient Instructions Indication:Essential hypertension with goal blood pressure less than 130/80 Start:09-Apr-2018 Instruction Type:Provider Instructions for Treatment How to access health informa tion online Indication:Nonsmoker Start:26-Feb-2018 Instruction Type:Patient Education How to access health informa tion online - Detail Indication:Nonsmoker Start:26-Feb-2018 Instruction Type:Patient Education Patient Instructions Indication:Nonsmoker Start:26-Feb-2018 Instruction Type:Provider Instructions for Treatment How to access health informa tion online Indication:Nonsmoker Start:25-May-2017 Instruction Type:Patient Education How to access health informa tion online - Detail Indication:Nonsmoker Start:25-May-2017 Instruction Type:Patient Education Patient Instructions Indication:Nonsmoker Start:25-May-2017 Instruction Type:Provider Instructions for Treatment How to access health informa tion online Indication:Essential hypertension with goal blood pressure less than 130/80 Start:09-Jan-2017 Instruction Type:Patient Education How to access health informa tion online - Detail Indication:Essential hypertension with goal blood pressure less than 130/80 Start:09-Jan-2017 Instruction Type:Patient Education Patient Instructions Indication:Essential hypertension with goal blood pressure less than 130/80 Start:09-Jan-2017 Instruction Type:Provider Instructions for Treatment How to access health informa tion online Indication:Seasonal affective disorder Start:05-Nov-2016 Instruction Type:Patient Education How to access health informa tion online - Detail Indication:Seasonal affective disorder Start:05-Nov-2016 Instruction Type:Patient Education Patient Instructions Indication:Seasonal affective disorder Start:05-Nov-2016 Instruction Type:Provider Instructions for Treatment How to access health informa tion online Indication:BMI 40.0-44.9, adult Start:24-Sep-2016 Instruction Type:Patient Education How to access health informa tion online - Detail Indication:BMI 40.0-44.9, adult Start:24-Sep-2016 Instruction Type:Patient Education Patient Instructions Indication:BMI 40.0-44.9, adult Start:24-Sep-2016 Instruction Type:Provider Instructions for Treatment How to access health informa tion online Indication:Nonsmoker Start:13-Aug-2016 Instruction Type:Patient Education How to access health informa tion online - Detail Indication:Nonsmoker Start:13-Aug-2016 Instruction Type:Patient Education Patient Instructions Indication:Nonsmoker Start:13-Aug-2016 Instruction Type:Provider Instructions for Treatment How to access health informa tion online Indication:[facility] Start:09-Apr-2016 Instruction Type:Patient Education How to access health informa tion online - Detail Indication:[facility] Start:09-Apr-2016 Instruction Type:Patient Education Patient Instructions Indication:[facility] Start:09-Apr-2016 Instruction Type:Provider Instructions for Treatment How to access health informa tion online Indication:Essential hypertension with goal blood pressure less than 130/80 Start:09-Jan-2016 Instruction Type:Patient Education How to access health informa tion online - Detail Indication:Essential hypertension with goal blood pressure less than 130/80 Start:09-Jan-2016 Instruction Type:Patient Education Patient Instructions Indication:Essential hypertension with goal blood pressure less than 130/80 Start:09-Jan-2016 Instruction Type:Provider Instructions for Treatment How to access health informa tion online Indication:Essential hypertension with goal blood pressure less than 130/80 Start:29-Oct-2015 Instruction Type:Patient Education How to access health informa tion online - Detail Indication:Essential hypertension with goal blood pressure less than 130/80 Start:29-Oct-2015 Instruction Type:Patient Education Patient Instructions Indication:Essential hypertension with goal blood pressure less than 130/80 Start:29-Oct-2015 Instruction Type:Provider Instructions for Treatment How to access health informa tion online Indication:Depression with anxiety Start:17-Sep-2015 Instruction Type:Patient Education How to access health informa tion online - Detail Indication:Depression with anxiety Start:17-Sep-2015 Instruction Type:Patient Education Patient Instructions Indication:Depression with anxiety Start:17-Sep-2015 Instruction Type:Provider Instructions for Treatment How to access health informa tion online Indication:Anxiety and depression Start:20-Aug-2015 Instruction Type:Patient Education How to access health informa tion online - Detail Indication:Anxiety and depression Start:20-Aug-2015 Instruction Type:Patient Education Patient Instructions Indication:Anxiety and depression Start:20-Aug-2015 Instruction Type:Provider Instructions for Treatment Name Dates Details How to access health informa tion online Indication:Nonsmoker Start:17-Apr-2020 Instruction Type:Patient Education How to access health informa tion online - Detail Indication:Nonsmoker Start:17-Apr-2020 Instruction Type:Patient Education Patient Instructions Indication:Nonsmoker Start:17-Apr-2020 Instruction Type:Provider Instructions for Treatment How to access health informa tion online Indication:Anxiety and depression Start:13-Sep-2018 Instruction Type:Patient Education How to access health informa tion online - Detail Indication:Anxiety and depression Start:13-Sep-2018 Instruction Type:Patient Education Patient Instructions Indication:Anxiety and depression Start:13-Sep-2018 Instruction Type:Provider Instructions for Treatment How to access health informa tion online Indication:Depression with anxiety Start:14-Jul-2018 Instruction Type:Patient Education How to access health informa tion online - Detail Indication:Depression with anxiety Start:14-Jul-2018 Instruction Type:Patient Education Patient Instructions Indication:Depression with anxiety Start:14-Jul-2018 Instruction Type:Provider Instructions for Treatment How to access health informa tion online Indication:BMI 40.0-44.9, adult Start:11-Jun-2018 Instruction Type:Patient Education How to access health informa tion online - Detail Indication:BMI 40.0-44.9, adult Start:11-Jun-2018 Instruction Type:Patient Education Patient Instructions Indication:BMI 40.0-44.9, adult Start:11-Jun-2018 Instruction Type:Provider Instructions for Treatment How to access health informa tion online Indication:Essential hypertension with goal blood pressure less than 130/80 Start:09-Apr-2018 Instruction Type:Patient Education How to access health informa tion online - Detail Indication:Essential hypertension with goal blood pressure less than 130/80 Start:09-Apr-2018 Instruction Type:Patient Education Patient Instructions Indication:Essential hypertension with goal blood pressure less than 130/80 Start:09-Apr-2018 Instruction Type:Provider Instructions for Treatment How to access health informa tion online Indication:Nonsmoker Start:26-Feb-2018 Instruction Type:Patient Education How to access health informa tion online - Detail Indication:Nonsmoker Start:26-Feb-2018 Instruction Type:Patient Education Patient Instructions Indication:Nonsmoker Start:26-Feb-2018 Instruction Type:Provider Instructions for Treatment How to access health informa tion online Indication:Nonsmoker Start:25-May-2017 Instruction Type:Patient Education How to access health informa tion online - Detail Indication:Nonsmoker Start:25-May-2017 Instruction Type:Patient Education Patient Instructions Indication:Nonsmoker Start:25-May-2017 Instruction Type:Provider Instructions for Treatment How to access health informa tion online Indication:Essential hypertension with goal blood pressure less than 130/80 Start:09-Jan-2017 Instruction Type:Patient Education How to access health informa tion online - Detail Indication:Essential hypertension with goal blood pressure less than 130/80 Start:09-Jan-2017 Instruction Type:Patient Education Patient Instructions Indication:Essential hypertension with goal blood pressure less than 130/80 Start:09-Jan-2017 Instruction Type:Provider Instructions for Treatment How to access health informa tion online Indication:Seasonal affective disorder Start:05-Nov-2016 Instruction Type:Patient Education How to access health informa tion online - Detail Indication:Seasonal affective disorder Start:05-Nov-2016 Instruction Type:Patient Education Patient Instructions Indication:Seasonal affective disorder Start:05-Nov-2016 Instruction Type:Provider Instructions for Treatment How to access health informa tion online Indication:BMI 40.0-44.9, adult Start:24-Sep-2016 Instruction Type:Patient Education How to access health informa tion online - Detail Indication:BMI 40.0-44.9, adult Start:24-Sep-2016 Instruction Type:Patient Education Patient Instructions Indication:BMI 40.0-44.9, adult Start:24-Sep-2016 Instruction Type:Provider Instructions for Treatment How to access health informa tion online Indication:Nonsmoker Start:13-Aug-2016 Instruction Type:Patient Education How to access health informa tion online - Detail Indication:Nonsmoker Start:13-Aug-2016 Instruction Type:Patient Education Patient Instructions Indication:Nonsmoker Start:13-Aug-2016 Instruction Type:Provider Instructions for Treatment How to access health informa tion online Indication:[facility] Start:09-Apr-2016 Instruction Type:Patient Education How to access health informa tion online - Detail Indication:[facility] Start:09-Apr-2016 Instruction Type:Patient Education Patient Instructions Indication:[facility] Start:09-Apr-2016 Instruction Type:Provider Instructions for Treatment How to access health informa tion online Indication:Essential hypertension with goal blood pressure less than 130/80 Start:09-Jan-2016 Instruction Type:Patient Education How to access health informa tion online - Detail Indication:Essential hypertension with goal blood pressure less than 130/80 Start:09-Jan-2016 Instruction Type:Patient Education Patient Instructions Indication:Essential hypertension with goal blood pressure less than 130/80 Start:09-Jan-2016 Instruction Type:Provider Instructions for Treatment How to access health informa tion online Indication:Essential hypertension with goal blood pressure less than 130/80 Start:29-Oct-2015 Instruction Type:Patient Education How to access health informa tion online - Detail Indication:Essential hypertension with goal blood pressure less than 130/80 Start:29-Oct-2015 Instruction Type:Patient Education Patient Instructions Indication:Essential hypertension with goal blood pressure less than 130/80 Start:29-Oct-2015 Instruction Type:Provider Instructions for Treatment How to access health informa tion online Indication:Depression with anxiety Start:17-Sep-2015 Instruction Type:Patient Education How to access health informa tion online - Detail Indication:Depression with anxiety Start:17-Sep-2015 Instruction Type:Patient Education Patient Instructions Indication:Depression with anxiety Start:17-Sep-2015 Instruction Type:Provider Instructions for Treatment How to access health informa tion online Indication:Anxiety and depression Start:20-Aug-2015 Instruction Type:Patient Education How to access health informa tion online - Detail Indication:Anxiety and depression Start:20-Aug-2015 Instruction Type:Patient Education Patient Instructions Indication:Anxiety and depression Start:20-Aug-2015 Instruction Type:Provider Instructions for Treatment Name Dates Details How to access health informa tion online Indication:Type II diabetes mellitus, uncontrolled Start:08-May-2020 Instruction Type:Patient Education How to access health informa tion online - Detail Indication:Type II diabetes mellitus, uncontrolled Start:08-May-2020 Instruction Type:Patient Education Patient Instructions Indication:Type II diabetes mellitus, uncontrolled Start:08-May-2020 Instruction Type:Provider Instructions for Treatment How to access health informa tion online Indication:Nonsmoker Start:17-Apr-2020 Instruction Type:Patient Education How to access health informa tion online - Detail Indication:Nonsmoker Start:17-Apr-2020 Instruction Type:Patient Education Patient Instructions Indication:Nonsmoker Start:17-Apr-2020 Instruction Type:Provider Instructions for Treatment How to access health informa tion online Indication:Anxiety and depression Start:13-Sep-2018 Instruction Type:Patient Education How to access health informa tion online - Detail Indication:Anxiety and depression Start:13-Sep-2018 Instruction Type:Patient Education Patient Instructions Indication:Anxiety and depression Start:13-Sep-2018 Instruction Type:Provider Instructions for Treatment How to access health informa tion online Indication:Depression with anxiety Start:14-Jul-2018 Instruction Type:Patient Education How to access health informa tion online - Detail Indication:Depression with anxiety Start:14-Jul-2018 Instruction Type:Patient Education Patient Instructions Indication:Depression with anxiety Start:14-Jul-2018 Instruction Type:Provider Instructions for Treatment How to access health informa tion online Indication:BMI 40.0-44.9, adult Start:11-Jun-2018 Instruction Type:Patient Education How to access health informa tion online - Detail Indication:BMI 40.0-44.9, adult Start:11-Jun-2018 Instruction Type:Patient Education Patient Instructions Indication:BMI 40.0-44.9, adult Start:11-Jun-2018 Instruction Type:Provider Instructions for Treatment How to access health informa tion online Indication:Essential hypertension with goal blood pressure less than 130/80 Start:09-Apr-2018 Instruction Type:Patient Education How to access health informa tion online - Detail Indication:Essential hypertension with goal blood pressure less than 130/80 Start:09-Apr-2018 Instruction Type:Patient Education Patient Instructions Indication:Essential hypertension with goal blood pressure less than 130/80 Start:09-Apr-2018 Instruction Type:Provider Instructions for Treatment How to access health informa tion online Indication:Nonsmoker Start:26-Feb-2018 Instruction Type:Patient Education How to access health informa tion online - Detail Indication:Nonsmoker Start:26-Feb-2018 Instruction Type:Patient Education Patient Instructions Indication:Nonsmoker Start:26-Feb-2018 Instruction Type:Provider Instructions for Treatment How to access health informa tion online Indication:Nonsmoker Start:25-May-2017 Instruction Type:Patient Education How to access health informa tion online - Detail Indication:Nonsmoker Start:25-May-2017 Instruction Type:Patient Education Patient Instructions Indication:Nonsmoker Start:25-May-2017 Instruction Type:Provider Instructions for Treatment How to access health informa tion online Indication:Essential hypertension with goal blood pressure less than 130/80 Start:09-Jan-2017 Instruction Type:Patient Education How to access health informa tion online - Detail Indication:Essential hypertension with goal blood pressure less than 130/80 Start:09-Jan-2017 Instruction Type:Patient Education Patient Instructions Indication:Essential hypertension with goal blood pressure less than 130/80 Start:09-Jan-2017 Instruction Type:Provider Instructions for Treatment How to access health informa tion online Indication:Seasonal affective disorder Start:05-Nov-2016 Instruction Type:Patient Education How to access health informa tion online - Detail Indication:Seasonal affective disorder Start:05-Nov-2016 Instruction Type:Patient Education Patient Instructions Indication:Seasonal affective disorder Start:05-Nov-2016 Instruction Type:Provider Instructions for Treatment How to access health informa tion online Indication:BMI 40.0-44.9, adult Start:24-Sep-2016 Instruction Type:Patient Education How to access health informa tion online - Detail Indication:BMI 40.0-44.9, adult Start:24-Sep-2016 Instruction Type:Patient Education Patient Instructions Indication:BMI 40.0-44.9, adult Start:24-Sep-2016 Instruction Type:Provider Instructions for Treatment How to access health informa tion online Indication:Nonsmoker Start:13-Aug-2016 Instruction Type:Patient Education How to access health informa tion online - Detail Indication:Nonsmoker Start:13-Aug-2016 Instruction Type:Patient Education Patient Instructions Indication:Nonsmoker Start:13-Aug-2016 Instruction Type:Provider Instructions for Treatment How to access health informa tion online Indication:[facility] Start:09-Apr-2016 Instruction Type:Patient Education How to access health informa tion online - Detail Indication:[facility] Start:09-Apr-2016 Instruction Type:Patient Education Patient Instructions Indication:[facility] Start:09-Apr-2016 Instruction Type:Provider Instructions for Treatment How to access health informa tion online Indication:Essential hypertension with goal blood pressure less than 130/80 Start:09-Jan-2016 Instruction Type:Patient Education How to access health informa tion online - Detail Indication:Essential hypertension with goal blood pressure less than 130/80 Start:09-Jan-2016 Instruction Type:Patient Education Patient Instructions Indication:Essential hypertension with goal blood pressure less than 130/80 Start:09-Jan-2016 Instruction Type:Provider Instructions for Treatment How to access health informa tion online Indication:Essential hypertension with goal blood pressure less than 130/80 Start:29-Oct-2015 Instruction Type:Patient Education How to access health informa tion online - Detail Indication:Essential hypertension with goal blood pressure less than 130/80 Start:29-Oct-2015 Instruction Type:Patient Education Patient Instructions Indication:Essential hypertension with goal blood pressure less than 130/80 Start:29-Oct-2015 Instruction Type:Provider Instructions for Treatment How to access health informa tion online Indication:Depression with anxiety Start:17-Sep-2015 Instruction Type:Patient Education How to access health informa tion online - Detail Indication:Depression with anxiety Start:17-Sep-2015 Instruction Type:Patient Education Patient Instructions Indication:Depression with anxiety Start:17-Sep-2015 Instruction Type:Provider Instructions for Treatment How to access health informa tion online Indication:Anxiety and depression Start:20-Aug-2015 Instruction Type:Patient Education How to access health informa tion online - Detail Indication:Anxiety and depression Start:20-Aug-2015 Instruction Type:Patient Education Patient Instructions Indication:Anxiety and depression Start:20-Aug-2015 Instruction Type:Provider Instructions for Treatment Name Dates Details How to access health informa tion online Indication:Type II diabetes mellitus, uncontrolled Start:08-May-2020 Instruction Type:Patient Education How to access health informa tion online - Detail Indication:Type II diabetes mellitus, uncontrolled Start:08-May-2020 Instruction Type:Patient Education Patient Instructions Indication:Type II diabetes mellitus, uncontrolled Start:08-May-2020 Instruction Type:Provider Instructions for Treatment How to access health informa tion online Indication:Nonsmoker Start:17-Apr-2020 Instruction Type:Patient Education How to access health informa tion online - Detail Indication:Nonsmoker Start:17-Apr-2020 Instruction Type:Patient Education Patient Instructions Indication:Nonsmoker Start:17-Apr-2020 Instruction Type:Provider Instructions for Treatment How to access health informa tion online Indication:Anxiety and depression Start:13-Sep-2018 Instruction Type:Patient Education How to access health informa tion online - Detail Indication:Anxiety and depression Start:13-Sep-2018 Instruction Type:Patient Education Patient Instructions Indication:Anxiety and depression Start:13-Sep-2018 Instruction Type:Provider Instructions for Treatment How to access health informa tion online Indication:Depression with anxiety Start:14-Jul-2018 Instruction Type:Patient Education How to access health informa tion online - Detail Indication:Depression with anxiety Start:14-Jul-2018 Instruction Type:Patient Education Patient Instructions Indication:Depression with anxiety Start:14-Jul-2018 Instruction Type:Provider Instructions for Treatment How to access health informa tion online Indication:BMI 40.0-44.9, adult Start:11-Jun-2018 Instruction Type:Patient Education How to access health informa tion online - Detail Indication:BMI 40.0-44.9, adult Start:11-Jun-2018 Instruction Type:Patient Education Patient Instructions Indication:BMI 40.0-44.9, adult Start:11-Jun-2018 Instruction Type:Provider Instructions for Treatment How to access health informa tion online Indication:Essential hypertension with goal blood pressure less than 130/80 Start:09-Apr-2018 Instruction Type:Patient Education How to access health informa tion online - Detail Indication:Essential hypertension with goal blood pressure less than 130/80 Start:09-Apr-2018 Instruction Type:Patient Education Patient Instructions Indication:Essential hypertension with goal blood pressure less than 130/80 Start:09-Apr-2018 Instruction Type:Provider Instructions for Treatment How to access health informa tion online Indication:Nonsmoker Start:26-Feb-2018 Instruction Type:Patient Education How to access health informa tion online - Detail Indication:Nonsmoker Start:26-Feb-2018 Instruction Type:Patient Education Patient Instructions Indication:Nonsmoker Start:26-Feb-2018 Instruction Type:Provider Instructions for Treatment How to access health informa tion online Indication:Nonsmoker Start:25-May-2017 Instruction Type:Patient Education How to access health informa tion online - Detail Indication:Nonsmoker Start:25-May-2017 Instruction Type:Patient Education Patient Instructions Indication:Nonsmoker Start:25-May-2017 Instruction Type:Provider Instructions for Treatment How to access health informa tion online Indication:Essential hypertension with goal blood pressure less than 130/80 Start:09-Jan-2017 Instruction Type:Patient Education How to access health informa tion online - Detail Indication:Essential hypertension with goal blood pressure less than 130/80 Start:09-Jan-2017 Instruction Type:Patient Education Patient Instructions Indication:Essential hypertension with goal blood pressure less than 130/80 Start:09-Jan-2017 Instruction Type:Provider Instructions for Treatment How to access health informa tion online Indication:Seasonal affective disorder Start:05-Nov-2016 Instruction Type:Patient Education How to access health informa tion online - Detail Indication:Seasonal affective disorder Start:05-Nov-2016 Instruction Type:Patient Education Patient Instructions Indication:Seasonal affective disorder Start:05-Nov-2016 Instruction Type:Provider Instructions for Treatment How to access health informa tion online Indication:BMI 40.0-44.9, adult Start:24-Sep-2016 Instruction Type:Patient Education How to access health informa tion online - Detail Indication:BMI 40.0-44.9, adult Start:24-Sep-2016 Instruction Type:Patient Education Patient Instructions Indication:BMI 40.0-44.9, adult Start:24-Sep-2016 Instruction Type:Provider Instructions for Treatment How to access health informa tion online Indication:Nonsmoker Start:13-Aug-2016 Instruction Type:Patient Education How to access health informa tion online - Detail Indication:Nonsmoker Start:13-Aug-2016 Instruction Type:Patient Education Patient Instructions Indication:Nonsmoker Start:13-Aug-2016 Instruction Type:Provider Instructions for Treatment How to access health informa tion online Indication:[facility] Start:09-Apr-2016 Instruction Type:Patient Education How to access health informa tion online - Detail Indication:[facility] Start:09-Apr-2016 Instruction Type:Patient Education Patient Instructions Indication:[facility] Start:09-Apr-2016 Instruction Type:Provider Instructions for Treatment How to access health informa tion online Indication:Essential hypertension with goal blood pressure less than 130/80 Start:09-Jan-2016 Instruction Type:Patient Education How to access health informa tion online - Detail Indication:Essential hypertension with goal blood pressure less than 130/80 Start:09-Jan-2016 Instruction Type:Patient Education Patient Instructions Indication:Essential hypertension with goal blood pressure less than 130/80 Start:09-Jan-2016 Instruction Type:Provider Instructions for Treatment How to access health informa tion online Indication:Essential hypertension with goal blood pressure less than 130/80 Start:29-Oct-2015 Instruction Type:Patient Education How to access health informa tion online - Detail Indication:Essential hypertension with goal blood pressure less than 130/80 Start:29-Oct-2015 Instruction Type:Patient Education Patient Instructions Indication:Essential hypertension with goal blood pressure less than 130/80 Start:29-Oct-2015 Instruction Type:Provider Instructions for Treatment How to access health informa tion online Indication:Depression with anxiety Start:17-Sep-2015 Instruction Type:Patient Education How to access health informa tion online - Detail Indication:Depression with anxiety Start:17-Sep-2015 Instruction Type:Patient Education Patient Instructions Indication:Depression with anxiety Start:17-Sep-2015 Instruction Type:Provider Instructions for Treatment How to access health informa tion online Indication:Anxiety and depression Start:20-Aug-2015 Instruction Type:Patient Education How to access health informa tion online - Detail Indication:Anxiety and depression Start:20-Aug-2015 Instruction Type:Patient Education Patient Instructions Indication:Anxiety and depression Start:20-Aug-2015 Instruction Type:Provider Instructions for Treatment Name Dates Details Depression with anxiety : Ho w to access health information online Indication:Depression with anxiety Depression with anxiety : Ho w to access health information online - Detail Indication:Depression with anxiety Depression with anxiety : Yudith farrar Instructions Indication:Depression with anxiety BMI 40.0-44.9, adult : How t o access health information online Indication:BMI 40.0-44.9, adult BMI 40.0-44.9, adult : How t o access health information online - Detail Indication:BMI 40.0-44.9, adult BMI 40.0-44.9, adult : Patie nt Instructions Indication:BMI 40.0-44.9, adult Essential hypertension with goal blood pressure less than 130/80 : How to access health information online Indication:Essential hypertension with goal blood pressure less than 130/80 Essential hypertension with goal blood pressure less than 130/80 : How to access health information online - Detail Indication:Essential hypertension with goal blood pressure less than 130/80 Essential hypertension with goal blood pressure less than 130/80 : Patient Instructions Indication:Essential hypertension with goal blood pressure less than 130/80 Nonsmoker : How to access he alth information online Indication:Nonsmoker Nonsmoker : How to access he alth information online - Detail Indication:Nonsmoker Nonsmoker : Patient Instruct ions Indication:Nonsmoker Seasonal affective disorder : How to access health information online Indication:Seasonal affective disorder Seasonal affective disorder : How to access health information online - Detail Indication:Seasonal affective disorder Seasonal affective disorder : Patient Instructions Indication:Seasonal affective disorder [facility] : Ho w to access health information online Indication:[facility] : Ho w to access health information online - Detail Indication:[facility] : Pa tient Instructions Indication:[facility] Anxiety and depression : How to access health information online Indication:Anxiety and depression Anxiety and depression : How to access health information online - Detail Indication:Anxiety and depression Anxiety and depression : Pat ient Instructions Indication:Anxiety and depression Name Dates Details How to access health informa tion online Indication:Type II diabetes mellitus, uncontrolled Start:08-May-2020 Instruction Type:Patient Education How to access health informa tion online - Detail Indication:Type II diabetes mellitus, uncontrolled Start:08-May-2020 Instruction Type:Patient Education Patient Instructions Indication:Type II diabetes mellitus, uncontrolled Start:08-May-2020 Instruction Type:Provider Instructions for Treatment How to access health informa tion online Indication:Nonsmoker Start:17-Apr-2020 Instruction Type:Patient Education How to access health informa tion online - Detail Indication:Nonsmoker Start:17-Apr-2020 Instruction Type:Patient Education Patient Instructions Indication:Nonsmoker Start:17-Apr-2020 Instruction Type:Provider Instructions for Treatment How to access health informa tion online Indication:Anxiety and depression Start:13-Sep-2018 Instruction Type:Patient Education How to access health informa tion online - Detail Indication:Anxiety and depression Start:13-Sep-2018 Instruction Type:Patient Education Patient Instructions Indication:Anxiety and depression Start:13-Sep-2018 Instruction Type:Provider Instructions for Treatment How to access health informa tion online Indication:Depression with anxiety Start:14-Jul-2018 Instruction Type:Patient Education How to access health informa tion online - Detail Indication:Depression with anxiety Start:14-Jul-2018 Instruction Type:Patient Education Patient Instructions Indication:Depression with anxiety Start:14-Jul-2018 Instruction Type:Provider Instructions for Treatment How to access health informa tion online Indication:BMI 40.0-44.9, adult Start:11-Jun-2018 Instruction Type:Patient Education How to access health informa tion online - Detail Indication:BMI 40.0-44.9, adult Start:11-Jun-2018 Instruction Type:Patient Education Patient Instructions Indication:BMI 40.0-44.9, adult Start:11-Jun-2018 Instruction Type:Provider Instructions for Treatment How to access health informa tion online Indication:Essential hypertension with goal blood pressure less than 130/80 Start:09-Apr-2018 Instruction Type:Patient Education How to access health informa tion online - Detail Indication:Essential hypertension with goal blood pressure less than 130/80 Start:09-Apr-2018 Instruction Type:Patient Education Patient Instructions Indication:Essential hypertension with goal blood pressure less than 130/80 Start:09-Apr-2018 Instruction Type:Provider Instructions for Treatment How to access health informa tion online Indication:Nonsmoker Start:26-Feb-2018 Instruction Type:Patient Education How to access health informa tion online - Detail Indication:Nonsmoker Start:26-Feb-2018 Instruction Type:Patient Education Patient Instructions Indication:Nonsmoker Start:26-Feb-2018 Instruction Type:Provider Instructions for Treatment How to access health informa tion online Indication:Nonsmoker Start:25-May-2017 Instruction Type:Patient Education How to access health informa tion online - Detail Indication:Nonsmoker Start:25-May-2017 Instruction Type:Patient Education Patient Instructions Indication:Nonsmoker Start:25-May-2017 Instruction Type:Provider Instructions for Treatment How to access health informa tion online Indication:Essential hypertension with goal blood pressure less than 130/80 Start:09-Jan-2017 Instruction Type:Patient Education How to access health informa tion online - Detail Indication:Essential hypertension with goal blood pressure less than 130/80 Start:09-Jan-2017 Instruction Type:Patient Education Patient Instructions Indication:Essential hypertension with goal blood pressure less than 130/80 Start:09-Jan-2017 Instruction Type:Provider Instructions for Treatment How to access health informa tion online Indication:Seasonal affective disorder Start:05-Nov-2016 Instruction Type:Patient Education How to access health informa tion online - Detail Indication:Seasonal affective disorder Start:05-Nov-2016 Instruction Type:Patient Education Patient Instructions Indication:Seasonal affective disorder Start:05-Nov-2016 Instruction Type:Provider Instructions for Treatment How to access health informa tion online Indication:BMI 40.0-44.9, adult Start:24-Sep-2016 Instruction Type:Patient Education How to access health informa tion online - Detail Indication:BMI 40.0-44.9, adult Start:24-Sep-2016 Instruction Type:Patient Education Patient Instructions Indication:BMI 40.0-44.9, adult Start:24-Sep-2016 Instruction Type:Provider Instructions for Treatment How to access health informa tion online Indication:Nonsmoker Start:13-Aug-2016 Instruction Type:Patient Education How to access health informa tion online - Detail Indication:Nonsmoker Start:13-Aug-2016 Instruction Type:Patient Education Patient Instructions Indication:Nonsmoker Start:13-Aug-2016 Instruction Type:Provider Instructions for Treatment How to access health informa tion online Indication:[facility] Start:09-Apr-2016 Instruction Type:Patient Education How to access health informa tion online - Detail Indication:[facility] Start:09-Apr-2016 Instruction Type:Patient Education Patient Instructions Indication:[facility] Start:09-Apr-2016 Instruction Type:Provider Instructions for Treatment How to access health informa tion online Indication:Essential hypertension with goal blood pressure less than 130/80 Start:09-Jan-2016 Instruction Type:Patient Education How to access health informa tion online - Detail Indication:Essential hypertension with goal blood pressure less than 130/80 Start:09-Jan-2016 Instruction Type:Patient Education Patient Instructions Indication:Essential hypertension with goal blood pressure less than 130/80 Start:09-Jan-2016 Instruction Type:Provider Instructions for Treatment How to access health informa tion online Indication:Essential hypertension with goal blood pressure less than 130/80 Start:29-Oct-2015 Instruction Type:Patient Education How to access health informa tion online - Detail Indication:Essential hypertension with goal blood pressure less than 130/80 Start:29-Oct-2015 Instruction Type:Patient Education Patient Instructions Indication:Essential hypertension with goal blood pressure less than 130/80 Start:29-Oct-2015 Instruction Type:Provider Instructions for Treatment How to access health informa tion online Indication:Depression with anxiety Start:17-Sep-2015 Instruction Type:Patient Education How to access health informa tion online - Detail Indication:Depression with anxiety Start:17-Sep-2015 Instruction Type:Patient Education Patient Instructions Indication:Depression with anxiety Start:17-Sep-2015 Instruction Type:Provider Instructions for Treatment How to access health informa tion online Indication:Anxiety and depression Start:20-Aug-2015 Instruction Type:Patient Education How to access health informa tion online - Detail Indication:Anxiety and depression Start:20-Aug-2015 Instruction Type:Patient Education Patient Instructions Indication:Anxiety and depression Start:20-Aug-2015 Instruction Type:Provider Instructions for Treatment Name Dates Details How to access health informa tion online Indication:Nonsmoker Start:17-Apr-2020 Instruction Type:Patient Education How to access health informa tion online - Detail Indication:Nonsmoker Start:17-Apr-2020 Instruction Type:Patient Education Patient Instructions Indication:Nonsmoker Start:17-Apr-2020 Instruction Type:Provider Instructions for Treatment How to access health informa tion online Indication:Anxiety and depression Start:13-Sep-2018 Instruction Type:Patient Education How to access health informa tion online - Detail Indication:Anxiety and depression Start:13-Sep-2018 Instruction Type:Patient Education Patient Instructions Indication:Anxiety and depression Start:13-Sep-2018 Instruction Type:Provider Instructions for Treatment How to access health informa tion online Indication:Depression with anxiety Start:14-Jul-2018 Instruction Type:Patient Education How to access health informa tion online - Detail Indication:Depression with anxiety Start:14-Jul-2018 Instruction Type:Patient Education Patient Instructions Indication:Depression with anxiety Start:14-Jul-2018 Instruction Type:Provider Instructions for Treatment How to access health informa tion online Indication:BMI 40.0-44.9, adult Start:11-Jun-2018 Instruction Type:Patient Education How to access health informa tion online - Detail Indication:BMI 40.0-44.9, adult Start:11-Jun-2018 Instruction Type:Patient Education Patient Instructions Indication:BMI 40.0-44.9, adult Start:11-Jun-2018 Instruction Type:Provider Instructions for Treatment How to access health informa tion online Indication:Essential hypertension with goal blood pressure less than 130/80 Start:09-Apr-2018 Instruction Type:Patient Education How to access health informa tion online - Detail Indication:Essential hypertension with goal blood pressure less than 130/80 Start:09-Apr-2018 Instruction Type:Patient Education Patient Instructions Indication:Essential hypertension with goal blood pressure less than 130/80 Start:09-Apr-2018 Instruction Type:Provider Instructions for Treatment How to access health informa tion online Indication:Nonsmoker Start:26-Feb-2018 Instruction Type:Patient Education How to access health informa tion online - Detail Indication:Nonsmoker Start:26-Feb-2018 Instruction Type:Patient Education Patient Instructions Indication:Nonsmoker Start:26-Feb-2018 Instruction Type:Provider Instructions for Treatment How to access health informa tion online Indication:Nonsmoker Start:25-May-2017 Instruction Type:Patient Education How to access health informa tion online - Detail Indication:Nonsmoker Start:25-May-2017 Instruction Type:Patient Education Patient Instructions Indication:Nonsmoker Start:25-May-2017 Instruction Type:Provider Instructions for Treatment How to access health informa tion online Indication:Essential hypertension with goal blood pressure less than 130/80 Start:09-Jan-2017 Instruction Type:Patient Education How to access health informa tion online - Detail Indication:Essential hypertension with goal blood pressure less than 130/80 Start:09-Jan-2017 Instruction Type:Patient Education Patient Instructions Indication:Essential hypertension with goal blood pressure less than 130/80 Start:09-Jan-2017 Instruction Type:Provider Instructions for Treatment How to access health informa tion online Indication:Seasonal affective disorder Start:05-Nov-2016 Instruction Type:Patient Education How to access health informa tion online - Detail Indication:Seasonal affective disorder Start:05-Nov-2016 Instruction Type:Patient Education Patient Instructions Indication:Seasonal affective disorder Start:05-Nov-2016 Instruction Type:Provider Instructions for Treatment How to access health informa tion online Indication:BMI 40.0-44.9, adult Start:24-Sep-2016 Instruction Type:Patient Education How to access health informa tion online - Detail Indication:BMI 40.0-44.9, adult Start:24-Sep-2016 Instruction Type:Patient Education Patient Instructions Indication:BMI 40.0-44.9, adult Start:24-Sep-2016 Instruction Type:Provider Instructions for Treatment How to access health informa tion online Indication:Nonsmoker Start:13-Aug-2016 Instruction Type:Patient Education How to access health informa tion online - Detail Indication:Nonsmoker Start:13-Aug-2016 Instruction Type:Patient Education Patient Instructions Indication:Nonsmoker Start:13-Aug-2016 Instruction Type:Provider Instructions for Treatment How to access health informa tion online Indication:[facility] Start:09-Apr-2016 Instruction Type:Patient Education How to access health informa tion online - Detail Indication:[facility] Start:09-Apr-2016 Instruction Type:Patient Education Patient Instructions Indication:[facility] Start:09-Apr-2016 Instruction Type:Provider Instructions for Treatment How to access health informa tion online Indication:Essential hypertension with goal blood pressure less than 130/80 Start:09-Jan-2016 Instruction Type:Patient Education How to access health informa tion online - Detail Indication:Essential hypertension with goal blood pressure less than 130/80 Start:09-Jan-2016 Instruction Type:Patient Education Patient Instructions Indication:Essential hypertension with goal blood pressure less than 130/80 Start:09-Jan-2016 Instruction Type:Provider Instructions for Treatment How to access health informa tion online Indication:Essential hypertension with goal blood pressure less than 130/80 Start:29-Oct-2015 Instruction Type:Patient Education How to access health informa tion online - Detail Indication:Essential hypertension with goal blood pressure less than 130/80 Start:29-Oct-2015 Instruction Type:Patient Education Patient Instructions Indication:Essential hypertension with goal blood pressure less than 130/80 Start:29-Oct-2015 Instruction Type:Provider Instructions for Treatment How to access health informa tion online Indication:Depression with anxiety Start:17-Sep-2015 Instruction Type:Patient Education How to access health informa tion online - Detail Indication:Depression with anxiety Start:17-Sep-2015 Instruction Type:Patient Education Patient Instructions Indication:Depression with anxiety Start:17-Sep-2015 Instruction Type:Provider Instructions for Treatment How to access health informa tion online Indication:Anxiety and depression Start:20-Aug-2015 Instruction Type:Patient Education How to access health informa tion online - Detail Indication:Anxiety and depression Start:20-Aug-2015 Instruction Type:Patient Education Patient Instructions Indication:Anxiety and depression Start:20-Aug-2015 Instruction Type:Provider Instructions for Treatment Summary Purpose Advance Directives No Advanced Directives Records FoundNo Advanced Directives Records FoundNo Advanced Directives Records FoundNo Advanced Directives Records Found Additional Source Comments (unrecognized sect ion and content) No Status Records FoundNo Status Records FoundNo Status Records FoundNo Status Records Found INFORMATION SOURCE (unrecogn ized section and content) DATE CREATED [facility] DATE CREATED AUTHOR AUTHOR'S ORGANIZ ATION 07/12/2024 [facility] DATE CREATED AUTHOR AUTHOR'S ORGANIZ ATION 11/05/2024 [facility] DATE CREATED AUTHOR AUTHOR'S ORGANIZ ATION 05/04/2025 [facility] (unrecognized sec tion and content) 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 This clinical summary was aggregated from multiple sources. Caution should be exercised in using it in the provision of clinical care. This summary normalizes information from multiple sources, and as a consequence, information in this document may materially change the coding, format and clinical context of patient data. In addition, data may be omitted in some cases. CLINICAL DECISIONS SHOULD BE BASED ON THE PRIMARY CLINICAL RECORDS. [facility] [employer] provides no warranty or guarantee of the accuracy or completeness of information in this document.
== END | disposition home or self-care (01) ==
LOC: SL 19:59
PROVIDERS: PCP Internal Medicine; Referring Provider Internal Medicine; Visit Provider Internal Medicine
DX: R06.83 Snoring (principal); I27.20 Pulmonary hypertension, unspecified; R53.83 Other fatigue; G47.9 Sleep disorder, unspecified; I10 Essential (primary) hypertension; E66.9 Obesity, unspecified
CPT/HCPCS: 95810